=== PATIENT | female | born 1930 | race Caucasian/White ===

== ENCOUNTER 2017-04-08 09:23 | Day surgery (SDC) | payer OTHER, MEDICARE ==
[2017-04-04 14:24] VITALS: BMI 28.3
[~2017-04-08 09:23] MED LIST: TOBRA 0.3%/DEXAMETH 0.1% OPHTHALMIC SUSP 2.5 ML BTL TP ONE
[2017-04-08] MEDS ORDERED: PHENYLEPHRINE 2.5% OPHTH SOLN 15 ML BOTTLE ONE (09:39)
[2017-04-08] MEDS ORDERED: MOXIFLOXACIN HCL 0.5% OPHTHALMIC 3 ML BOTTLE ONE (09:39)
[2017-04-08] MEDS ORDERED: TROPICAMIDE 1% OPHTH SOLN 15 ML BOTTLE ONE (09:39)
[2017-04-08] MEDS ORDERED: CYCLOPENTOLATE HCL 1% OPHTH SOLN 2 ML BOTTLE ONE (09:39)
[2017-04-08] MEDS: CYCLOPENTOLATE HCL 1% OPHTH SOLN 2 ML BOTTLE OP SCH ×2 (09:50→10:00)
[2017-04-08] MEDS: TROPICAMIDE 1% OPHTH SOLN 15 ML BOTTLE OP SCH ×2 (09:50→10:00)
[2017-04-08] MEDS: MOXIFLOXACIN HCL 0.5% OPHTHALMIC 3 ML BOTTLE OP SCH ×2 (09:50→10:00)
[2017-04-08] MEDS: PHENYLEPHRINE 2.5% OPHTH SOLN 15 ML BOTTLE OP SCH ×2 (09:50→10:00)
[2017-04-08 09:57] VITALS: TEMP 98.1
[2017-04-08] MEDS ORDERED: MIDAZOLAM HCL 2 MG/2 ML SINGLE DOSE VIAL ONE ×2 (10:06→10:55)
[2017-04-08] MEDS ORDERED: TETRACAINE 0.5% OPHTH SOLN 2 ML BOTTLE OD ONE (10:48)
[2017-04-08] MEDS ORDERED: POVIDONE-IODINE 5% OPHTHALMIC PREP 30 ML SOLUTION OD ONE (10:52)
[2017-04-08] MEDS ORDERED: BSS (NA/CA/MG/K) BALANCED SALT SOLUTION OPHTH SOLN 15 ML BOTTLE IO ONE (10:57)
[2017-04-08] MEDS ORDERED: LIDOCAINE HCL 1% PRESERVATIVE FREE - 30ML VIAL IO ONE (10:58)
[2017-04-08] MEDS ORDERED: TRYPAN BLUE 0.5 ML DISP.SYRIN IO ONE (10:58)
[2017-04-08] MEDS ORDERED: EPINEPHrine/PF 1 MG/1 ML (1:1,000) AMPULE SQ ONE (11:02)
[2017-04-08] MEDS ORDERED: CHONDROITIN SU A/HYALUR SOD 1 KIT IO ONE (11:02)
[2017-04-08] MEDS ORDERED: ONDANSETRON 4 MG/2 ML VIAL IVPUSH PRN (11:14)
[2017-04-08] MEDS ORDERED: ACETAMINOPHEN 325 MG TABLET (FP) PO PRN (11:14)
[2017-04-08] MEDS ORDERED: TOBRA 0.3%/DEXAMETH 0.1% OPHTHALMIC SUSP 2.5 ML BTL TP ONE (11:29)
[2017-04-08 14:42] VITALS: BP 139/48; PULSE 64
--- NOTE | 2017-04-08 16:52 | OP ---
DATE OF OPERATION: 04/08/2017 SURGEON: Stalin Ring MD PREOPERATIVE DIAGNOSIS: Cataract, right eye. OPERATION: Phacoemulsification and intraocular lens implantation, right eye. POSTOPERATIVE DIAGNOSIS: Cataract, right eye. ANESTHESIA: Topical. COMPLICATIONS: None. BLOOD LOSS: None. SPECIMEN: None. BRIEF HISTORY: The patient is an 86-year-old woman with a past medical history of hypertension, who presented with decreased vision in the right eye down to hand motion due to a 3+ nuclear sclerotic lens with dense anterior cortical changes. After the risks, benefits, and alternatives to cataract surgery were discussed with the patient, she consented to surgery for the right eye. DESCRIPTION OF PROCEDURE: The patient was brought to the operating room and prepped and draped in the usual sterile fashion, and an eyelid speculum was inserted in the right eye. A paracentesis was made, and the anterior chamber was inflated with nonpreserved lidocaine. This was followed by injection of air, trypan blue, and Viscoat due to the dense anterior cortical changes inhibiting the red reflex. At this point, also due to a moderately dilating pupil and the density of the lens, it was determined to place 5 iris hooks around the pupil in order to stabilize the iris and enlarge the pupil. A groove was made in the temporal clear cornea which was tunneled forward with a crescent blade. The anterior chamber was entered with a 2.75 keratome. The cystotome was used to make an incision in the center of the capsule, and a continuous curvilinear capsulorrhexis was created. The lens was hydrodissected until it was found to rotate freely within the capsular bag. Phacoemulsification was then used to remove the lens in its entirety. Irrigation and aspiration were used to remove residual cortical material. The anterior chamber and capsular bag were reinflated with Provisc, and a 23.5-diopter [id number] AcrySof intraocular lens was injected into the capsular bag using the [place] injector. The lens was dialed into place using a Sins[place] hook. Irrigation and aspiration were used to remove residual Viscoelastic. The wound was stromally hydrated until it was found to be watertight. The five previously placed iris hooks were removed without incident. The wound was rechecked and found to be watertight and the eye was at an appropriate pressure. The eyelid speculum was removed from the eye, and TobraDex drops and a clear shield were placed over the right eye. The patient was transferred to the recovery room in stable condition and will follow up tomorrow. STALIN RING M.D. [id number]
== END 2017-04-08 12:30 | disposition home or self-care (01) ==
LOC: JASU-SURG 09:23
PROVIDERS: ATTEND Ophthalmology
PROC: 08RJ3JZ Replacement of Right Lens with Synthetic Substitute, Percutaneous Approach (ICD-10-PCS; principal; 2017-04-08 11:00)
DX: H25.11 Age-related nuclear cataract, right eye (principal); H57.8 Other specified disorders of eye and adnexa

== ENCOUNTER 2019-02-21 02:37 | Inpatient (IN) | payer MEDICARE, OTHER ==
[2019-02-21] MEDS ORDERED: NITROGLYCERIN 50MG/D5W 250ML 50 MG/250 ML ML IVPB SCH (02:45)
[2019-02-21] MEDS ORDERED: ALBUTEROL SO4 2.5/IPRATROPIUM 0.5 INH SOL 3 ML VIAL.NEB. NEB ONE (02:46)
[2019-02-21] MEDS ORDERED: NITROGLYCERIN 25MG/D5W 250ML 25 MG/250 ML ML IVPB ONE (03:02)
[2019-02-21 03:06] LABS: VENOUS PC02 61.6 mmHg (38-52)
[2019-02-21 03:07] LABS: BASO % 0.5 % (0-2.0); HEMATOCRIT 40.2 % (32.4-45.2); HEMOGLOBIN 12.9 GM/dL (10.7-15.3); LYMPH % 18.7 % (8-40); MCH 31.6 pg (25.7-33.7); MCHC 31.9 g/dl (32.0-36.0); MEAN CELL VOLUME 99.1 fl (80-96); MEAN PLT VOLUME 9.7 fl (7.5-11.1); MONO % 4.5 % (3.8-10.2); NEUT % 75.3 % (42.8-82.8); PLATELET COUNT 255 K/MM3 (134-434); RBC 4.06 M/mm3 (3.60-5.2); RDW 16.8 % (11.6-15.6)
[2019-02-21 03:08] LABS: VENOUS PO2 < 49 mmHg (28-48)
[2019-02-21 03:10] LABS: VENOUS PH 7.19 (7.31-7.41)
--- NOTE | 2019-02-21 03:16 | PDOC ---
History of Present Illness - General Chief Complaint: Respiratory Distress Stated Complaint: DIFFICULTY BREATHING Time Seen by Provider: 02/21/19 02:40 - History of Present Illness Initial Comments: 88 year old female with history of HTN and medical non-compliance presenting with severe respiratory difficulty of sudden onset starting a few hours before presentation. Per EMS she was severely tachypnic and hypoxic with blood pressures in the 180s/120s. at bedside denied that she was recently febrile, coughing, complaining of chest pain, or symptomatic otherwise. He did admit that she is not always compliant with medications and "doesn't like doctors" so she has been rescheduling appointments with her physicians with high frequency. Past History - Past Medical History Allergies/Adverse Reactions: Allergies Allergy/AdvReac Type Severity Reaction Status Date / Time No Known Allergies Allergy Verified 02/21/19 02:42 Home Medications: Ambulatory Orders Apixaban [Eliquis -] 5 mg PO BID #1 tablet 10/21/13 Diltiazem Cd [Cardizem Cd -] 120 mg PO DAILY #0 cap.cd.24h 10/21/13 Metoprolol Succinate [Toprol XL -] 100 mg PO DAILY #1 10/21/13 Simvastatin [Zocor] 20 mg PO HS #1 10/21/13 Levothyroxine Sodium [Synthroid] 125 mcg PO DAILY 10/20/14 Aspirin [ASA -] 81 mg PO DAILY 05/13/15 Losartan/Hydrochlorothiazide [Hyzaar 100-12.5 Tablet] 1 each PO DAILY 05/13/15 Isosorbide Mononitrate [Imdur -] 30 mg PO DAILY 04/04/17 Cardiac Disorders: Yes (afib) CVA: Yes (2003) COPD: No HTN: Yes Hypercholesterolemia: Yes Thyroid Disease: Yes - Surgical History Orthopedic Surgery: Yes (HIP REPLACEMENT , left 2006) - Immunization History Immunization Up to Date: Yes - Psycho Social/Smoking Cessation Hx Smoking History: Unknown if ever smoked Have you smoked in the past 12 months: No If you are a former smoker, when did you quit?: 60yrs ago Hx Alcohol Use: No Drug/Substance Use Hx: No Substance Use Type: None Hx Substance Use Treatment: No Review of Systems - Review of Systems Constitutional: Yes: Diaphoresis. No: Chills, Fever, Loss of Appetite HEENTM: No: Blurred Vision, Tearing Respiratory: Yes: Shortness of Breath, SOB at Rest. No: Cough, Productive cough Cardiac (ROS): No: Chest Pain, Irregular Heart Rate, Palpitations, Chest Tightness ABD/GI: No: Diarrhea, Nausea, Vomiting : No: Burning, Dysuria, Discharge Musculoskeletal: No: Joint Swelling, Muscle Pain, Muscle Weakness Integumentary: No: Bruising, Erythema, Flushing, Lesions Neurological: No: Headache, Numbness, Paresthesia Hematologic/Lymphatic: No: Anemia, Blood Clots, Easy Bleeding *Physical Exam - Vital Signs Last Vital Signs Temp Pulse Resp BP Pulse Ox 124 H 30 H 159/128 H 95 02/21/19 02:40 02/21/19 02:40 02/21/19 02:40 02/21/19 03:04 - Physical Exam General Appearance: Yes: Nourished, Appropriately Dressed, Apparent Distress, Moderate Distress HEENT: positive: EOMI, NETTA, Normal ENT Inspection Neck: positive: Trachea midline, Normal Thyroid, Supple. negative: Tender, Rigid Respiratory/Chest: positive: Respiratory Distress, Accessory Muscle Use, Labored Respiration, Rapid RR, Decreased Breath Sounds, Rhonchi, Wheezing. negative: Chest Tender, Lungs Clear, Normal Breath Sounds (severely diminished breath sounds bilaterally with coarse quality when audible) Cardiovascular: negative: Regular Rhythm, Regular Rate Gastrointestinal/Abdominal: positive: Normal Bowel Sounds, Flat, Soft. negative : Tender Lymphatic: negative: Adenopathy, Tenderness Musculoskeletal: positive: Normal Inspection. negative: Decreased Range of Motion Extremity: positive: Normal Capillary Refill, Normal Range of Motion, Coldness, Pedal Edema, Swelling. negative: Normal Inspection Integumentary: positive: Normal Color, Warm, Clammy, Diaphoresis. negative: Dry Neurologic: positive: Fully Oriented, Alert, Normal Mood/Affect, Normal Response , Motor Strength 5/5 ED Treatment Course - LABORATORY CBC & Chemistry Diagram: 02/21/19 02:50 02/21/19 02:50 - ADDITIONAL ORDERS Additional order review: Laboratory Results 02/21/19 02:53 VBG pH 7.19 L* POC VBG pCO2 61.6 H POC VBG pO2 < 49 H VBG HCO3 22.7 L VBG O2 Sat (Mary) 34.2 L VBG Base Excess -6.1 L - RADIOLOGY Radiology Studies Ordered: Category Date Time Status CHEST X-RAY PORTABLE* [RAD] Stat Radiology 02/21/19 02:41 Ordered Medical Decision Making - Medical Decision Making 88 year old female with history of HTN and medicla non-compliance presenting with respiratory distress and severely elevated diastolic pressure to 120s. Constricted and rhonchorus airwaysb bilaterally concenring for fluid overlaod corroborated by chest XR and labs ( [phone] [id number]). Patient placed on nitro drip and bipap with quick turn around. oth were DC'd as pressues and respiratory status improved greatly. Although there was no fever, there could have been an obscured infiltrate in the right lung so 1 g Ceftriaxone and 500 of azithromycin were give. Patient admitted in stable condition to tele floor. 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
[2019-02-21 03:20] LABS: INR 1.03 (0.83-1.09); PROTHROMBIN TIME (PATIENT) 12.2 SEC (9.7-13.0)
[2019-02-21 03:35] LABS: ALBUMIN 3.7 g/dl (3.4-5.0); BILIRUBIN,TOTAL 0.9 mg/dL (0.2-1); BLOOD UREA NITROGEN 22.4 mg/dL (7-18); CALCIUM 9.1 mg/dL (8.5-10.1); CREATININE 1.2 mg/dL (0.55-1.3); POTASSIUM 3.9 mmol/L (3.5-5.1); TOT PROT 7.2 g/dl (6.4-8.2)
--- NOTE | 2019-02-21 03:58 | PDOC ---
Attending Attestation - Resident Resident Name: Milady Johnson - ED Attending Attestation I have performed the following: I have examined & evaluated the patient, The case was reviewed & discussed with the resident, I agree w/resident's findings & plan, Exceptions are as noted - HPI HPI: 02/21/19 03:55 88 F with h/o paroxysmal atrial fibrillation on anticoagulation, HTN, hypercholesterolemia, cerebrovascular disease (no residual deficit), hypothyroidism, presenting to ED with SOB. Pt states that she has felt SOB for several days, but it acutely worsened today. Pt denies F/C. Endorses intermittent chest pain. Pt states that her legs are both very swollen, but this has been progressive over months. - Physicial Exam PE: 02/21/19 03:56 "GENERAL: Awake, alert, and fully oriented, in moderate respiratory distress. HEAD: No signs of trauma EYES: PERRLA, EOMI, sclera anicteric, conjunctiva clear ENT: Auricles normal inspection, hearing grossly normal, nares patent, oropharynx clear without exudates. Moist mucosa NECK: Nontender, no stepoffs, Normal ROM, supple, no lymphadenopathy, JVD, or masses LUNGS: Diminished breath sounds bilaterally HEART: Regular rate and rhythm, normal S1 and S2, no murmurs, rubs or gallops ABDOMEN: Soft, nontender, normoactive bowel sounds. No guarding, no rebound. No masses EXTREMITIES: +2 PE BLE, No clubbing or cyanosis. No cords, erythema, or tenderness NEUROLOGICAL: Cranial nerves II through XII intact. 5/5 strength and sensation in all extremities, Normal speech, normal gait, normal cerebellar function SKIN: Warm, Dry, normal turgor, no rashes or lesions noted. - Critical Care Time Total Critical Care Time: 60 Critical Care Statement: The care of this patient involved high complexity decision making to prevent further life threatening deterioration of the patient 's condition and/or to evaluate & treat vital organ system(s) failure or risk of failure. - Medical Decision Making 02/21/19 03:57 88 F with respiratory distress. Exam notable for diminished breath sounds and bilateral LE edema. Suspect CHF. - Labs, trop, BNP - CXR - Nitro gtt - BiPAP - Lasix 02/21/19 05:07 CXR with pulmonary congestion Pt reassessed - now feels significantly better BiPAP and nitro gtt DC'ed Will empirically cover for CAP with azithro/ceftriaxone
[2019-02-21 04:09] LABS: N-TERMINAL BNP 4608.9 pg/ml (5-450)
[2019-02-21] MEDS ORDERED: FUROSEMIDE 40 MG/4 ML INJECTABLE VIAL IVPUSH ONE (04:59)
[2019-02-21] MEDS ORDERED: FUROSEMIDE 40 MG/4 ML INJECTABLE VIAL ONE (05:00)
[2019-02-21] MEDS ORDERED: AZITHROMYCIN IVPB 500 MG in DEXTROSE 5%-WATER - 250 ML IVPB ONE (05:48)
[2019-02-21] MEDS ORDERED: CEFTRIAXONE 1,000 MG in DEXTROSE 5%-WATER - 50 ML IVPB ONE (05:48)
[2019-02-21 06:00] LABS: VENOUS PC02 48.1 mmHg (38-52); VENOUS PH 7.33 (7.31-7.41)
[2019-02-21] MEDS ORDERED: AZITHROMYCIN IVPB 500 MG/250 ML BAG IVPB ONE (06:02)
[2019-02-21] MEDS ORDERED: CEFTRIAXONE 1 GM/50 ML BAG ONE (06:02)
[2019-02-21 06:04] LABS: VENOUS PO2 < 49 mmHg (28-48)
[2019-02-21 07:37] LABS: EPI CELLS 1.6 /HPF (0-5/HPF); HYALINE CASTS 2 /lpf (0-8); URINE APPEARANCE CLEAR; URINE BACTERIA 15.6 /hpf (NEGATIVE); URINE BILIRUBIN NEGATIVE (NEGATIVE); URINE COLOR YELLOW; URINE GLUCOSE (UA) NEGATIVE (NEGATIVE); URINE KETONE NEGATIVE (NEGATIVE); URINE LEUK ESTERASE 1+ (NEGATIVE); URINE NITRITE NEGATIVE (NEGATIVE); URINE PROTEIN 1+ (NEGATIVE); URINE RBC 2 /hpf (0-4); URINE UROBILINOGEN 0.2 mg/dL (0.2-1.0); URINE WBC 11 /hpf (0-5)
[2019-02-21] MEDS ORDERED: FAMOTIDINE 20 MG/50 ML IVPB 20 MG/50 ML MG IVPB ONE ×3 (08:11→11:02)
--- NOTE | 2019-02-21 08:22 | HP ---
Admitting History and Physical - Primary Care Physician PCP: Rhonda Gupta - Admission Chief Complaint: CHF ACUTE WITH MALIGNANT HYPERTENSION History of Present Illness: PATIENT REPORTS INCREASED DYSPNEA WITH LEG EDEMA OVER THE PAST 2 DAYS, IN E.D. HER DIASTOLIC BP WAS GREATER THAN 120MMHG DENIES CP/HEADACHE/DIZZINESS. 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 Cardiovascular: Yes: HTN, Hyperlipdemia Endocrine: Yes: Hypothyroidism - Past Surgical History Past Surgical History: Yes: Carotid Endarterectomy (left) - Smoking History Smoking history: Unknown if ever smoked Have you smoked in the past 12 months: No If you are a former smoker, when did you quit?: 60yrs ago - Alcohol/Substance Use Hx Alcohol Use: No - Social History History of Recent Travel: No Home Medications - Allergies Allergies/Adverse Reactions: Allergies Allergy/AdvReac Type Severity Reaction Status Date / Time No Known Allergies Allergy Verified 02/21/19 02:42 - Home Medications Home Medications: Ambulatory Orders Apixaban [Eliquis -] 5 mg PO BID #1 tablet 10/21/13 Diltiazem Cd [Cardizem Cd -] 120 mg PO DAILY #0 cap.cd.24h 10/21/13 Metoprolol Succinate [Toprol XL -] 100 mg PO DAILY #1 10/21/13 Simvastatin [Zocor] 20 mg PO HS #1 10/21/13 Levothyroxine Sodium [Synthroid] 125 mcg PO DAILY 10/20/14 Aspirin [ASA -] 81 mg PO DAILY 05/13/15 Losartan/Hydrochlorothiazide [Hyzaar 100-12.5 Tablet] 1 each PO DAILY 05/13/15 Isosorbide Mononitrate [Imdur -] 30 mg PO DAILY 04/04/17 Review of Systems - Review of Systems Constitutional: reports: Weakness Eyes: reports: No Symptoms HENT: reports: No Symptoms Neck: reports: No Symptoms Cardiovascular: reports: Shortness of Breath Respiratory: reports: SOB Gastrointestinal: reports: No Symptoms Genitourinary: reports: No Symptoms Musculoskeletal: reports: No Symptoms Integumentary: reports: No Symptoms Neurological: reports: No Symptoms Endocrine: reports: No Symptoms Hematology/Lymphatic: reports: Other Psychiatric: reports: No Symptoms Physical Examination Vital Signs: Vital Signs Temperature Pulse Rate 107 H 02/21/19 05:20 Respiratory Rate 20 02/21/19 05:20 Blood Pressure 137/98 02/21/19 05:20 O2 Sat by Pulse Oximetry (%) 94 L 02/21/19 06:01 Constitutional: Yes: Mild Distress Eyes: Yes: WNL HENT: Yes: WNL Neck: Yes: WNL Cardiovascular: Yes: Pulse Irregular Respiratory: Yes: Diminished Gastrointestinal: Yes: Soft, Distention Musculoskeletal: Yes: Muscle Weakness Extremities: Yes: Erythema Edema: Yes Peripheral Pulses WNL: Yes Wound/Incision: Yes: Open to air Neurological: Yes: Other ...Motor Strength: LLE, RLE Psychiatric: Yes: WNL Labs: CBC, BMP 02/21/19 02:50 02/21/19 02:50 Imaging - Results Chest X-ray: Report Reviewed Problem List - Problems (1) Malignant hypertension Code(s): I10 - ESSENTIAL (PRIMARY) HYPERTENSION (2) Edema Code(s): R60.9 - EDEMA, UNSPECIFIED (3) Stasis dermatitis Code(s): I87.2 - VENOUS INSUFFICIENCY (CHRONIC) (PERIPHERAL) (4) Pneumonia, community acquired Code(s): J18.9 - PNEUMONIA, UNSPECIFIED ORGANISM (5) 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
[2019-02-21] MEDS ORDERED: APIXABAN 5 MG TABLET ONE ×2 (09:59→22:16)
[2019-02-21] MEDS ORDERED: ASPIRIN COATED 81 MG TABLET.EC ONE (09:59)
[2019-02-21] MEDS: APIXABAN 5 MG TABLET PO SCH ×2 (11:09→22:28)
[2019-02-21] MEDS: FUROSEMIDE 40 MG/4 ML INJECTABLE VIAL IVPUSH SCH (11:09)
[2019-02-21] MEDS: ASPIRIN COATED 81 MG TABLET.EC PO SCH (11:09)
[2019-02-21] MEDS: LOSARTAN 50MG/HCTZ 12.5MG 1 TAB (FP) PO SCH (11:09)
[2019-02-21] MEDS ORDERED: ALBUTEROL SO4 2.5/IPRATROPIUM 0.5 INH SOL 3 ML VIAL.NEB. NEB PRN (14:07)
[2019-02-21] MEDS: NITROGLYCERIN 50MG/D5W 250ML 50 MG/250 ML ML IVPB SCH (14:40)
--- NOTE | 2019-02-21 14:51 | CON.PULM ---
Consult Consult Specialty:: PULM/CCM Referred by:: PAULA Reason for Consultation:: SOB - History of Present Illness Chief Complaint: SOB History of Present Illness: 88 F, history of paroxysmal atrial fibrillation on anticoagulation, HTN, hypercholesterolemia, cerebrovascular disease (no residual deficit), and hypothyroidism. Admitted via the ER due to progressive SOB and intermittent chest pain for the past several days. She also reports biltateral leg swelling. No travel history or sick contacts. No fever or chills. No hemoptysis or night sweats. ABG revealed acute hypercapnea and she was placed on NIPPV support. She is currently on NC O2 in NAD. CXR: bilateral infiltrates more dense on the RLL compared to the left. 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 Cardio/Vascular: Yes: HTN, Hyperlipdemia Endocrine: Yes: Hypothyroidism - Past Surgical History Past Surgical History: Yes: Carotid Endarterectomy (left) - Alcohol/Substance Use Hx Alcohol Use: No - Smoking History Smoking history: Unknown if ever smoked Have you smoked in the past 12 months: No If you are a former smoker, when did you quit?: 60yrs ago - Social History History of Recent Travel: No Home Medications - Allergies Allergies/Adverse Reactions: Allergies Allergy/AdvReac Type Severity Reaction Status Date / Time No Known Allergies Allergy Verified 02/21/19 02:42 - Home Medications Home Medications: Ambulatory Orders Apixaban [Eliquis -] 5 mg PO BID #1 tablet 10/21/13 Diltiazem Cd [Cardizem Cd -] 120 mg PO DAILY #0 cap.cd.24h 10/21/13 Metoprolol Succinate [Toprol XL -] 100 mg PO DAILY #1 10/21/13 Simvastatin [Zocor] 20 mg PO HS #1 10/21/13 Levothyroxine Sodium [Synthroid] 125 mcg PO DAILY 10/20/14 Aspirin [ASA -] 81 mg PO DAILY 05/13/15 Losartan/Hydrochlorothiazide [Hyzaar 100-12.5 Tablet] 1 each PO DAILY 05/13/15 Isosorbide Mononitrate [Imdur -] 30 mg PO DAILY 04/04/17 Review of Systems - Review of Systems Constitutional: denies: Chills, Fever, Night Sweats Eyes: reports: No Symptoms HENT: reports: No Symptoms Neck: reports: No Symptoms Cardiovascular: reports: Chest Pain, Edema, Shortness of Breath. denies: Palpitations Respiratory: reports: Cough, Orthopnea, PND. denies: Hemoptysis, Snoring, SOB, SOB on Exertion, Wheezing Gastrointestinal: reports: No Symptoms Genitourinary: reports: No Symptoms Breasts: reports: No Symptoms Reported Musculoskeletal: reports: No Symptoms Integumentary: reports: No Symptoms Neurological: reports: No Symptoms Endocrine: reports: No Symptoms Hematology/Lymphatic: reports: No Symptoms Psychiatric: reports: No Symptoms Physical Exam Vital Sings: Vital Signs Temperature Pulse Rate 107 H 02/21/19 05:20 Respiratory Rate 20 02/21/19 05:20 Blood Pressure 137/98 02/21/19 05:20 O2 Sat by Pulse Oximetry (%) 98 02/21/19 11:45 Constitutional: Yes: Mild Distress, Obese Eyes: Yes: Conjunctiva Clear, EOM Intact HENT: Yes: Atraumatic, Normocephalic Neck: Yes: Supple, Trachea Midline Cardiovascular: Yes: Tachycardia Respiratory: Yes: Cough, Diminished, On Nasal O2, Rales, Rhonchi, SOB, SOB on Exertion, Tachypnea. 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 Dr Wolf
--- NOTE | 2019-02-21 21:58 | EKG ---
Test Reason : Blood Pressure : / mmHG Vent. Rate : 110 BPM Atrial Rate : 127 BPM P-R Int : 000 ms QRS Dur : 076 ms QT Int : 348 ms P-R-T Axes : 000 014 185 degrees QTc Int : 470 ms ATRIAL FIBRILLATION WITH RAPID VENTRICULAR RESPONSE T WAVE ABNORMALITY, CONSIDER LATERAL ISCHEMIA ABNORMAL ECG WHEN COMPARED WITH ECG OF 21-FEB-2019 02:53, ATRIAL FIBRILLATION HAS REPLACED ATRIAL FLUTTER T WAVE INVERSION NOW EVIDENT IN ANTERIOR LEADS Confirmed by Shannon Medina ([id number]) on 02/21/2019 9:57:43 PM Referred By: Confirmed By:Shannon Medina
--- NOTE | 2019-02-21 21:58 | EKG ---
Test Reason : Blood Pressure : / mmHG Vent. Rate : 118 BPM Atrial Rate : 394 BPM P-R Int : 000 ms QRS Dur : 072 ms QT Int : 312 ms P-R-T Axes : 000 016 108 degrees QTc Int : 437 ms ATRIAL FLUTTER WITH VARIABLE A-V BLOCK NONSPECIFIC T WAVE ABNORMALITY ABNORMAL ECG WHEN COMPARED WITH ECG OF 13-MAY-2015 11:18, ATRIAL FLUTTER HAS REPLACED SINUS RHYTHM VENT. RATE HAS INCREASED BY 48 BPM CRITERIA FOR INFERIOR INFARCT ARE NO LONGER PRESENT NONSPECIFIC T WAVE ABNORMALITY NOW EVIDENT IN LATERAL LEADS Confirmed by Shannon Medina ([id number]) on 02/21/2019 9:58:35 PM Referred By: Confirmed By:Shannon Medina
[2019-02-21] MEDS ORDERED: ATORVASTATIN CA 40 MG TABLET (FP) ONE (22:16)
[2019-02-21] MEDS: ATORVASTATIN CA 40 MG TABLET (FP) PO SCH (22:28)
[2019-02-22] MEDS ORDERED: LORazepam 2 MG/ML SDV VIAL IVPUSH ONE
[2019-02-22] MEDS ORDERED: LORazepam 2 MG/ML SDV VIAL ONE (00:07)
[2019-02-22 07:56] LABS: ALBUMIN 3.6 g/dl (3.4-5.0); BLOOD UREA NITROGEN 21.1 mg/dL (7-18); CALCIUM 9.3 mg/dL (8.5-10.1); POTASSIUM 3.7 mmol/L (3.5-5.1); TOT PROT 6.8 g/dl (6.4-8.2)
[2019-02-22 08:07] LABS: HEMATOCRIT 38.6 % (32.4-45.2); HEMOGLOBIN 12.6 GM/dL (10.7-15.3); MCH 31.7 pg (25.7-33.7); MCHC 32.8 g/dl (32.0-36.0); MEAN CELL VOLUME 96.8 fl (80-96); MEAN PLT VOLUME 9.9 fl (7.5-11.1); PLATELET COUNT 245 K/MM3 (134-434); RBC 3.99 M/mm3 (3.60-5.2); RDW 16.2 % (11.6-15.6); WHITE BLOOD COUNT 11.8 K/mm3 (4.0-10.0)
[2019-02-22] MEDS ORDERED: PT OWN MED DRAWER 7, Y5N ONE (08:55)
[2019-02-22] MEDS: LEVOTHYROXINE NA 125 MCG TABLET (FP) PO SCH (09:00)
--- NOTE | 2019-02-22 09:52 | CON.NEURO ---
Consult Consult Specialty:: Charleen Referred by:: Alonso Reason for Consultation:: Fall and weakness - History of Present Illness History of Present Illness: this is a very pleasant 88-year-old right-handed female patient with present medical history significant for: Coronary artery disease, osteoarthritis, hypertension, cardiac arrhythmia, on anticoagulation, mild dementia, history of prior CVA with no residual. Patient presents to the hospital with chief complaint of shortness of breath. Patient was found to be in hypertension urgency patient was kept in the emergency room to be admitted to cardiac 4. Patient was seen by sound equipment mechanic. Patient had an EKG the emergency room. Neurologically patient was noted to be with increasing difficulty with walking and frequent falls. CAT scan of the head revealed mild evidence of brain atrophy with ischemic oil diagnoses with no evidence of acute bleed. Patient was stabilized in the emergency room. I evaluated the patient in the emergency room this morning at the request of her primary care physician. Patient herself is very poor historian I was not able to get any history from the patient patient was sleepingwalk her up most of the history was obtained from the emergency room chart and the consultation chart. In the emergency room patient with no confusion no seizure-like activity no complain of any headache. 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 Cardio/Vascular: Yes: HTN, Hyperlipdemia Endocrine: Yes: Hypothyroidism - Past Surgical History Past Surgical History: Yes: Carotid Endarterectomy (left) - Alcohol/Substance Use Hx Alcohol Use: No - Smoking History Smoking history: Unknown if ever smoked Have you smoked in the past 12 months: No If you are a former smoker, when did you quit?: 60yrs ago - Social History History of Recent Travel: No Home Medications - Allergies Allergies/Adverse Reactions: Allergies Allergy/AdvReac Type Severity Reaction Status Date / Time No Known Allergies Allergy Verified 02/21/19 02:42 - Home Medications Home Medications: Ambulatory Orders Apixaban [Eliquis -] 5 mg PO BID #1 tablet 10/21/13 Diltiazem Cd [Cardizem Cd -] 120 mg PO DAILY #0 cap.cd.24h 10/21/13 Metoprolol Succinate [Toprol XL -] 100 mg PO DAILY #1 10/21/13 Simvastatin [Zocor] 20 mg PO HS #1 10/21/13 Levothyroxine Sodium [Synthroid] 125 mcg PO DAILY 10/20/14 Aspirin [ASA -] 81 mg PO DAILY 05/13/15 Losartan/Hydrochlorothiazide [Hyzaar 100-12.5 Tablet] 1 each PO DAILY 05/13/15 Isosorbide Mononitrate [Imdur -] 30 mg PO DAILY 04/04/17 Family Medical History Family History: Unable to Obtain, Unremarkable Review of Systems Unable to obtain ROS, reason: unable to obtain due to i Physical Exam-Neuro Vital Signs: Vital Signs Temperature 98 F 02/21/19 17:33 Pulse Rate 74 02/21/19 17:33 Respiratory Rate 22 H 02/21/19 17:33 Blood Pressure 160/82 02/21/19 17:33 O2 Sat by Pulse Oximetry (%) 97 02/22/19 00:19 Labs: CBC, BMP 02/22/19 06:20 02/22/19 06:20 INR, PTT INR 1.03 (0.83-1.09) 02/21/19 02:50 - Neuro Exam Level Of Consciousness: Yes: Alert, Oriented to Person Eyes: Yes: PERRLA Speech: Garbled Dominant Hand: Right Cranial Nerves II-XII Intact: Yes Gag: Present DTR's: 1+ Left Bicep, 1+ Right Bicep, 1+ Left Brachioradialis, 1+ Right Brachioradialis Response to light touch: Normal Response to pain prick: Normal Response to temperature: Normal Response to vibration: Abnormal Motor Strength: 3/5: Left Arm, Right Arm, Left Leg, Right Leg Gait: Deferred Imaging - Results Cat Scan: Image Reviewed Problem List - Problems (1) Stroke Assessment/Plan: no evidence of acute OFFICE WORKER pathology. questionable baseline mental status Stroke prevention Cardiac arrhythmia Gait dysfunction multifactorial 1. Fall precautions. 2. Obtain an MRI of the brain without contrast. 3. CAT scan of the lumbosacral spine with no contrast. 4. Continue the combination of the elliqus and aspirin. 5. Physical therapy. 6. Check B12. 7. Mild dementia workup Thank you very much for referring this patient for neurological consultation we' ll follow the patient during the admission Cheryl Villaseñor M.D. Code(s): I63.9 - CEREBRAL INFARCTION, UNSPECIFIED
--- NOTE | 2019-02-22 09:55 | PN ---
Progress Note (short form) - Note Progress Note: ID CONSULT DICTATED 88 yo female admitted yesterday with sob and HTN to Ed seen by pulmonary started on rocephin/zithromax for possible pneumonia being treated for CHF over the course of her admission (still in ER) she has become more confused on exam has a palpable bladder and venous stasis changes of the legs no fevers awake, conversing slowly not sure where she is CHF cannoat r/o underlying pneumonia confusion- may be secondary to ER? chest ctatypical cxray urinary antigens bladder scanto r/o urinary retntion cultures pending d/w cardiology d/w primary service neurology consult- pending Problem List - Problems (1) CHF (congestive heart failure) Code(s): I50.9 - HEART FAILURE, UNSPECIFIED (2) HTN (hypertension) Code(s): I10 - ESSENTIAL (PRIMARY) HYPERTENSION (3) Pneumonia Code(s): J18.9 - PNEUMONIA, UNSPECIFIED ORGANISM (4) Stasis dermatitis Code(s): I87.2 - VENOUS INSUFFICIENCY (CHRONIC) (PERIPHERAL) (5) Confusion Code(s): R41.0 - DISORIENTATION, UNSPECIFIED
--- NOTE | 2019-02-22 11:55 | CONS ---
DATE OF CONSULTATION: DATE OF DICTATION: 02/22/2019 INFECTIOUS DISEASE CONSULTATION HISTORY OF PRESENT ILLNESS: This is an 88-year-old female, she was admitted on the . She came to the emergency room from home complaining of sudden onset of shortness of breath. She was severely tachypneic and hypoxic. She had very elevated blood pressures. Her at the bedside noted this had started very acutely she been taking her medications properly. She has been rescheduling appointments and has not seen her physicians recently. There is no history of fevers, chills , nausea, vomiting, diarrhea, or dysuria. She was seen by the primary doctor, pulmonary. She was started on ceftriaxone and Zithromax for possible pneumonia. She had an abnormal chest x-ray with a diffuse right-sided infiltrate. She was treated with diuretics as well. This morning she is very sleepy. Originally she was unresponsive, now she is awake. She does not know where she is. She has been in the emergency room all night, but she is responsive and conversant. ALLERGIES: No known drug allergies. MEDICATION: At home include apixaban, diltiazem, metoprolol, simvastatin, Synthroid, aspirin, losartan, hydrochlorothiazide, and Imdur. PAST MEDICAL HISTORY: Notable for atrial fibrillation. She is status post CVA in 2003. Hypertension, hypercholesterolemia, and thyroid disease. She has had a left hip replacement. SOCIAL HISTORY: She is , she lives at home with her . She stopped smoking 60 years ago. There is no history of any substance use or recent travel. REVIEW OF SYSTEMS: As per HPI. PHYSICAL EXAMINATION: Vital Signs: Her temperature is 98, pulse 74, blood pressure 160/82, respiratory rate 22, she is saturating 97% on 2 L. HEENT: Normocephalic. Eyes are anicteric. Neck: Supple. Heart: Regular rate and rhythm. Lungs: Diminished breath sounds at the bases. Abdomen: Soft, distended. Question whether I can palpate her bladder. Extremities: Bilateral venous stasis changes with some edema and mild erythema. She has 2+ pulses bilaterally. LABORATORY: Notable for white count of 11.8, hemoglobin 12.6, platelets 245, INR 1. Her BUN and creatinine are 21 and 1. Elevated lactic acid on admission was 5 now 3.5. LFTs, AST of 57. Urinalysis has 1+ leukocytes with 11 white cells. Blood cultures are negative at 24 hours, and original she had a witnessed fall on her buttock, no head injury. 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 Chest x-ray as stated shows a predominantly right sided infiltrate with a nodular component. IMPRESSION: In summary, this is an 88-year-old woman admitted with shortness of breath and hypertension to the emergency room. Over the course of her admission , she has become more confused. On exam, she has a palpable bladder and venous stasis changes of her legs, no fever. She is awake, conversing slowly, not sure where she is. I would suspect she has congestive heart failure, cannot rule out underlying pneumonia. I suspect her confusion may be secondary to being in the ER. I would suggest we obtain a chest CT, as the chest x-ray was atypical. I would obtain urinary antigens. Cultures are pending and negative to date. Would also bladder scan to rule out urinary retention. Would consider neurology evaluation as well. Case was discussed with cardiology and the primary service. SYLVIA SANTOS M.D. [id number] MTDNomi
[2019-02-22] MEDS: CEFTRIAXONE 1 GM in DEXTROSE 5%-WATER - 50 ML IVPB SCH (12:00)
[2019-02-22] MEDS: AZITHROMYCIN IVPB 250 MG in DEXTROSE 5%-WATER - 250 ML IVPB SCH (12:00)
[2019-02-22] MEDS: LOSARTAN 50MG/HCTZ 12.5MG 1 TAB (FP) PO SCH (12:00)
[2019-02-22] MEDS: ASPIRIN COATED 81 MG TABLET.EC PO SCH (12:00)
[2019-02-22] MEDS: APIXABAN 5 MG TABLET PO SCH (12:00)
[2019-02-22] MEDS: FUROSEMIDE 40 MG/4 ML INJECTABLE VIAL IVPUSH SCH (12:00)
--- NOTE | 2019-02-22 12:11 | PN ---
Progress Note (short form) - Note Progress Note: Awake and conversant but confused. S/P fall last night. Intake & Output 02/19/19 02/20/19 02/21/19 02/22/19 23:59 23:59 23:59 23:59 Weight 170 lb Last Vital Signs Temp Pulse Resp BP Pulse Ox 98 F 74 22 H 160/82 97 02/21/19 17:33 02/21/19 17:33 02/21/19 17:33 02/21/19 17:33 02/22/19 00:19 Active Medications Albuterol/Ipratropium (Duoneb -) 1 amp NEB Q6H PRN PRN Reason: SHORTNESS OF BREATH Apixaban (Eliquis -) 5 mg PO BID [facility] Last Admin: 02/21/19 22:28 Dose: 5 mg Aspirin (Ecotrin -) 81 mg PO DAILY [facility] Last Admin: 02/21/19 11:09 Dose: 81 mg Atorvastatin Calcium (Lipitor -) 40 mg PO HS [facility] Last Admin: 02/21/19 22:28 Dose: 40 mg Diltiazem HCl (Cardizem Cd -) 120 mg PO DAILY [facility] Last Admin: 02/21/19 11:08 Dose: 120 mg Furosemide (Lasix Injection -) 40 mg IVPUSH DAILY [facility] Last Admin: 02/22/19 12:00 Dose: 40 mg HCTZ/Losartan Potassium (Hyzaar -) 2 tab PO DAILY [facility] Last Admin: 02/21/19 11:09 Dose: 2 tab Azithromycin 250 mg/ Dextrose 250 mls @ 250 mls/hr IVPB DAILY [facility] Last Admin: 02/22/19 12:00 Dose: 250 mls/hr Ceftriaxone Sodium 1 gm/ (Dextrose) 50 mls @ 200 mls/hr IVPB DAILY [facility]; Protocol Last Admin: 02/22/19 12:00 Dose: 200 mls/hr Nitroglycerin/Dextrose (Nitroglycerin 50mg/D5w 250ml) 50 mg in 250 mls @ 3 mls/ hr IVPB TITR [facility]; Protocol Last Admin: 02/21/19 14:40 Dose: Not Given Levothyroxine Sodium (Synthroid -) 125 mcg PO DAILY@0700 [facility] Metoprolol Succinate (Toprol Xl -) 100 mg PO DAILY [facility] Last Admin: 02/21/19 11:09 Dose: 100 mg Constitutional: Yes: NAD, confused Eyes: Yes: Conjunctiva Clear, EOM Intact HENT: Yes: Atraumatic, Normocephalic Neck: Yes: Supple, Trachea Midline Cardiovascular: Yes: S1S2 Respiratory: Yes: Cough, Diminished, On Nasal O2, Rales, Rhonchi, SOB. No: Accessory Muscle Use, Stridor, Wheezes ...Inspection: Yes: WNL ...Clubbing: No Gastrointestinal: Yes: Normal Bowel Sounds, Soft, Abdomen, Obese Renal/: Yes: WNL Musculoskeletal: Yes: WNL Extremities: Yes: WNL Edema: Yes Peripheral Pulses WNL: Yes Integumentary: Yes: WNL Neurological: Yes: Alert, Confusion Psychiatric: Yes: Alert Labs: Laboratory Results - last 24 hr 02/21/19 02/22/19 02/22/19 11:43 06:20 06:20 WBC 11.8 H RBC 3.99 Hgb 12.6 Hct 38.6 MCV 96.8 H MCH 31.7 MCHC 32.8 RDW 16.2 H Plt Count 245 MPV 9.9 Sodium 132 L Potassium 3.7 Chloride 93 L Carbon Dioxide 29 Anion Gap 9 BUN 21.1 H Creatinine 1.0 Est GFR (CKD-EPI)AfAm 57.84 Est GFR (CKD-EPI)NonAf 49.91 Random Glucose 124 H Hemoglobin A1c % Lactic Acid 3.5 H* Calcium 9.3 Total Bilirubin 1.0 AST 57 H ALT 37 Alkaline Phosphatase 59 Total Protein 6.8 Albumin 3.6 Triglycerides 128 Cholesterol 237 H Total LDL Cholesterol 134 H HDL Cholesterol 77 H 02/22/19 06:20 WBC RBC Hgb Hct MCV MCH MCHC RDW Plt Count MPV Sodium Potassium Chloride Carbon Dioxide Anion Gap BUN Creatinine Est GFR (CKD-EPI)AfAm Est GFR (CKD-EPI)NonAf Random Glucose Hemoglobin A1c % 5.0 Lactic Acid Calcium Total Bilirubin AST ALT Alkaline Phosphatase Total Protein Albumin Triglycerides Cholesterol Total LDL Cholesterol HDL Cholesterol Problem List - Problems (1) Hypercapnia Code(s): R06.89 - OTHER ABNORMALITIES OF BREATHING (2) Congestive heart failure due to high blood pressure Code(s): I11.0 - HYPERTENSIVE HEART DISEASE WITH HEART FAILURE (3) Edema Code(s): R60.9 - EDEMA, UNSPECIFIED (4) Pneumonia, community acquired Code(s): J18.9 - PNEUMONIA, UNSPECIFIED ORGANISM (5) Atypical chest pain Code(s): R07.89 - OTHER CHEST PAIN (6) Chest pressure Code(s): R07.89 - OTHER CHEST PAIN Assessment/Plan Lasix Rocephin and Zithromax Follow cultures Urine antigen Daily weights NC O2 as tolerated NIPPV support for increased WOB No clear indication for systemic steroids BD TX PRN Eliquis for AC Dr Wolf Problem List - Problems (1) Hypercapnia Code(s): R06.89 - OTHER ABNORMALITIES OF BREATHING (2) Congestive heart failure due to high blood pressure Code(s): I11.0 - HYPERTENSIVE HEART DISEASE WITH HEART FAILURE Qualifiers: Heart failure type: unspecified Qualified Code(s): I11.0 - Hypertensive heart disease with heart failure (3) Edema Code(s): R60.9 - EDEMA, UNSPECIFIED (4) Pneumonia, community acquired Code(s): J18.9 - PNEUMONIA, UNSPECIFIED ORGANISM (5) Atypical chest pain Code(s): R07.89 - OTHER CHEST PAIN (6) Chest pressure Code(s): R07.89 - OTHER CHEST PAIN
--- NOTE | 2019-02-22 12:42 | PN ---
Progress Note, Physician Chief Complaint: patient seen and examined awake not sure why she came to hospital no CP no SOB - Current Medication List Current Medications: Active Medications Albuterol/Ipratropium (Duoneb -) 1 amp NEB Q6H PRN PRN Reason: SHORTNESS OF BREATH Apixaban (Eliquis -) 5 mg PO BID [facility] Last Admin: 02/21/19 22:28 Dose: 5 mg Aspirin (Ecotrin -) 81 mg PO DAILY [facility] Last Admin: 02/21/19 11:09 Dose: 81 mg Atorvastatin Calcium (Lipitor -) 40 mg PO HS [facility] Last Admin: 02/21/19 22:28 Dose: 40 mg Diltiazem HCl (Cardizem Cd -) 120 mg PO DAILY [facility] Last Admin: 02/21/19 11:08 Dose: 120 mg Furosemide (Lasix Injection -) 40 mg IVPUSH DAILY [facility] Last Admin: 02/22/19 12:00 Dose: 40 mg HCTZ/Losartan Potassium (Hyzaar -) 2 tab PO DAILY [facility] Last Admin: 02/21/19 11:09 Dose: 2 tab Azithromycin 250 mg/ Dextrose 250 mls @ 250 mls/hr IVPB DAILY [facility] Last Admin: 02/22/19 12:00 Dose: 250 mls/hr Ceftriaxone Sodium 1 gm/ (Dextrose) 50 mls @ 200 mls/hr IVPB DAILY [facility]; Protocol Last Admin: 02/22/19 12:00 Dose: 200 mls/hr Nitroglycerin/Dextrose (Nitroglycerin 50mg/D5w 250ml) 50 mg in 250 mls @ 3 mls/ hr IVPB TITR [facility]; Protocol Last Admin: 02/21/19 14:40 Dose: Not Given Levothyroxine Sodium (Synthroid -) 125 mcg PO DAILY@0700 [facility] Metoprolol Succinate (Toprol Xl -) 100 mg PO DAILY [facility] Last Admin: 02/21/19 11:09 Dose: 100 mg - Objective Vital Signs: Vital Signs Temperature 98 F 02/21/19 17:33 Pulse Rate 74 02/21/19 17:33 Respiratory Rate 22 H 02/21/19 17:33 Blood Pressure 160/82 02/21/19 17:33 O2 Sat by Pulse Oximetry (%) 97 02/22/19 00:19 Constitutional: Yes: Calm Cardiovascular: Yes: Regular Rate and Rhythm, S1, S2 Respiratory: Yes: Diminished Gastrointestinal: Yes: Normal Bowel Sounds, Soft Edema: Yes Labs: CBC, BMP 02/22/19 06:20 02/22/19 06:20 INR, PTT INR 1.03 (0.83-1.09) 02/21/19 02:50 Problem List - Problems (1) CHF (congestive heart failure) Assessment/Plan: iv lasix Code(s): I50.9 - HEART FAILURE, UNSPECIFIED (2) Confusion Assessment/Plan: ct head noted neurology on board urine legionella pending ct chest ordered iv abx bladder scan to r/o retention Code(s): R41.0 - DISORIENTATION, UNSPECIFIED (3) Paroxysmal A-fib Assessment/Plan[facility] cardi[facility] eval metorprolol Code(s): I48.0 - PAROXYSMAL ATRIAL FIBRILLATION
--- NOTE | 2019-02-22 16:10 | ECHO ---
Name: LUCHO VIDAL Exam:Adult Echocardiogram Study Date: 02/22/2019 02:53 PM Age: 88 yrs Reason For Study: LOOK AT LVEF Height: 63 in Weight: 170 lb BSA: 1.8 m2 MMode/2D Measurements & Calculations IVSd: 0.87 cm Ao root diam: 2.7 cm LVIDd: 4.3 cm LA dimension: 3.7 cm LVIDs: 3.3 cm LVPWd: 0.72 cm EDV(Teich): 81.2 ml LVOT diam: 2.1 cm ESV(Teich): 43.2 ml Doppler Measurements & Calculations MV E max enmanuel: 81.4 cm/sec Ao V2 max: 268.8 cm/sec MV A max enmanuel: 26.7 cm/sec Ao max P.9 mmHg MV E/A: 3.1 Ao V2 mean: 182.3 cm/sec MV dec time: 0.13 sec Ao mean P.5 mmHg Ao V2 VTI: 50.1 cm STEPHEN(I,D): 0.77 cm2 AI P1/2t: 667.1 msec STEPHEN(V,D): 0.87 cm2 AI max enmanuel: 424.8 cm/sec LV V1 max P.7 mmHg AI max P.4 mmHg LV V1 mean P.84 mmHg AI dec slope: 186.5 cm/sec2 LV V1 max: 65.2 cm/sec LV V1 mean: 42.4 cm/sec LV V1 VTI: 10.7 cm MR max emnanuel: 573.4 cm/sec SV(LVOT): 38.5 ml MR max P.7 mmHg TR max enmanuel: 312.5 cm/sec PA V2 max: 138.5 cm/sec TR max P.1 mmHg PA max P.7 mmHg PI end-d enmanuel: 161.5 cm/sec Med Peak E' Enmanuel: 5.8 cm/sec Med E/e': 13.9 Lat Peak E' Enmanuel: 5.1 cm/sec Lat E/e': 15.8 Procedure A complete two-dimensional transthoracic echocardiogram was performed (2D, M-mode, Doppler and color flow Doppler). Left Ventricle The left ventricle is normal in size. Left ventricular systolic function is moderately reduced. Eject ion Fraction = 40-45%. There is moderate global hypokinesis of the left ventricle. Right Ventricle The right ventricle is normal size. The right ventricular systolic function is mildly reduced. RV sys tolic TDI is 7 cm/s. Atria Borderline left atrial enlargement. Borderline right atrial enlargement. Mitral Valve There is mild mitral annular calcification. There is moderate mitral regurgitation. Tricuspid Valve The tricuspid valve is normal in structure and function. There is moderate to severe tricuspid regurg itation. Pulmonary artery systolic pressure is at least 48 mmHg if RA pressure is assumed 3 mmHg. Aortic Valve There is mild to moderate aortic valve thickening. Severe valvular aortic stenosis. The calculated ao rtic valve area using the continuity equation is 0.8 cm2. DI (dimensionless index) is calculated 0.22 (LVO T VTI 10.8 cm, AV VTI 50.1 cm). Moderate to severe aortic regurgitation. Pulmonic Valve The pulmonic valve is not well visualized. Mild to moderate pulmonic valvular regurgitation. Great Vessels The aortic root is normal size. Pericardium/Pleura There is no pericardial effusion. Interpretation Summary The left ventricle is normal in size. Left ventricular systolic function is moderately reduced. There is moderate global hypokinesis of the left ventricle. Ejection Fraction = 40-45%. The right ventricular systolic function is mildly reduced. RV systolic TDI is 7 cm/s Borderline left atrial enlargement. Borderline right atrial enlargement. There is mild mitral annular calcification. There is moderate mitral regurgitation. There is moderate to severe tricuspid regurgitation. Pulmonary artery systolic pressure is at least 48 mmHg if RA pressure is assumed 3 mmHg There is mild to moderate aortic valve thickening. Severe valvular aortic stenosis. The calculated aortic valve area using the continuity equation is 0.8 cm2. DI (dimensionless index) is calculated 0.22 (LVOT VTI 10.8 cm, AV VTI 50.1 cm) Moderate to severe aortic regurgitation. Mild to moderate pulmonic valvular regurgitation. There is no pericardial effusion. Frank Yoo MD 02/22/2019 04:10 PM
[2019-02-22] MEDS: NITROGLYCERIN 50MG/D5W 250ML 50 MG/250 ML ML IVPB SCH (20:25)
[2019-02-23] MEDS: ATORVASTATIN CA 40 MG TABLET (FP) PO SCH ×2 (00:03→21:17)
[2019-02-23] MEDS: APIXABAN 5 MG TABLET PO SCH ×3 (00:03→21:17)
[2019-02-23 06:33] LABS: BASO % 0.5 % (0-2.0); EOS % 1.9 % (0-4.5); HEMATOCRIT 36.3 % (32.4-45.2); HEMOGLOBIN 12.4 GM/dL (10.7-15.3); LYMPH % 13.3 % (8-40); MCH 32.6 pg (25.7-33.7); MCHC 34.2 g/dl (32.0-36.0); MEAN CELL VOLUME 95.3 fl (80-96); MEAN PLT VOLUME 9.2 fl (7.5-11.1); MONO % 9.8 % (3.8-10.2); NEUT % 74.5 % (42.8-82.8); PLATELET COUNT 212 K/MM3 (134-434); RBC 3.81 M/mm3 (3.60-5.2); RDW 15.8 % (11.6-15.6); WHITE BLOOD COUNT 6.9 K/mm3 (4.0-10.0)
[2019-02-23] MEDS: LEVOTHYROXINE NA 125 MCG TABLET (FP) PO SCH (06:58)
[2019-02-23 07:07] LABS: ALBUMIN 3.2 g/dl (3.4-5.0); BILIRUBIN,TOTAL 1.1 mg/dL (0.2-1); BLOOD UREA NITROGEN 24.2 mg/dL (7-18); CALCIUM 8.9 mg/dL (8.5-10.1); CREATININE 1.1 mg/dL (0.55-1.3); POTASSIUM 3.1 mmol/L (3.5-5.1)
[2019-02-23] MEDS ORDERED: cefTRIAXone SODIUM 1 GM VIAL ONE (09:52)
[2019-02-23] MEDS ORDERED: DEXTROSE 5%-WATER - 50 ML IVPB ONE (09:52)
[2019-02-23] MEDS ORDERED: FLU VACCINE QUAD 60 MCG/0.5 ML (MDV 19-20) IM ONE (10:00)
[2019-02-23] MEDS: CEFTRIAXONE 1 GM in DEXTROSE 5%-WATER - 50 ML IVPB SCH (10:08)
[2019-02-23] MEDS: LOSARTAN 50MG/HCTZ 12.5MG 1 TAB (FP) PO SCH (10:08)
[2019-02-23] MEDS: FUROSEMIDE 40 MG/4 ML INJECTABLE VIAL IVPUSH SCH (10:08)
[2019-02-23] MEDS: ASPIRIN COATED 81 MG TABLET.EC PO SCH (10:09)
--- NOTE | 2019-02-23 10:30 | PN ---
Progress Note, Physician Chief Complaint: Pneumonia History of Present Illness: NAD On IV abx Seen by Pulmonary - Current Medication List Current Medications: Active Medications Albuterol/Ipratropium (Duoneb -) 1 amp NEB Q6H PRN PRN Reason: SHORTNESS OF BREATH Apixaban (Eliquis -) 5 mg PO BID [facility] Last Admin: 02/23/19 10:09 Dose: 5 mg Aspirin (Ecotrin -) 81 mg PO DAILY [facility] Last Admin: 02/23/19 10:09 Dose: 81 mg Atorvastatin Calcium (Lipitor -) 40 mg PO HS [facility] Last Admin: 02/23/19 00:03 Dose: 40 mg Diltiazem HCl (Cardizem Cd -) 120 mg PO DAILY [facility] Last Admin: 02/23/19 10:09 Dose: 120 mg Furosemide (Lasix Injection -) 40 mg IVPUSH DAILY [facility] Last Admin: 02/23/19 10:08 Dose: 40 mg HCTZ/Losartan Potassium (Hyzaar -) 2 tab PO DAILY [facility] Last Admin: 02/23/19 10:08 Dose: 2 tab Azithromycin 250 mg/ Dextrose 250 mls @ 250 mls/hr IVPB DAILY [facility] Last Admin: 02/22/19 12:00 Dose: 250 mls/hr Ceftriaxone Sodium 1 gm/ (Dextrose) 50 mls @ 200 mls/hr IVPB DAILY [facility]; Protocol Last Admin: 02/23/19 10:08 Dose: 200 mls/hr Nitroglycerin/Dextrose (Nitroglycerin 50mg/D5w 250ml) 50 mg in 250 mls @ 3 mls/ hr IVPB TITR [facility]; Protocol Last Admin: 02/22/19 20:25 Dose: Not Given Potassium Chloride (Potassium Chloride 10 Meq Premix Ivpb -) 10 meq in 100 mls @ 100 mls/hr IVPB Q60M [facility] Stop: 02/23/19 13:29 Levothyroxine Sodium (Synthroid -) 125 mcg PO DAILY@0700 [facility] Last Admin: 02/23/19 06:58 Dose: 125 mcg Metoprolol Succinate (Toprol Xl -) 100 mg PO DAILY [facility] Last Admin: 02/23/19 10:09 Dose: 100 mg Potassium Chloride (Potassium Chloride Oral Liquid) 40 meq PO DAILY [facility] - Objective Vital Signs: Vital Signs Temperature 97.7 F 02/23/19 06:00 Pulse Rate 75 02/23/19 08:48 Respiratory Rate 16 02/23/19 08:48 Blood Pressure 115/66 02/23/19 08:48 O2 Sat by Pulse Oximetry (%) 99 02/23/19 03:27 Constitutional: Yes: Well Nourished, No Distress, Calm Cardiovascular: Yes: Regular Rate and Rhythm Respiratory: Yes: Regular, On Nasal O2, Rales (RLL) Gastrointestinal: Yes: Normal Bowel Sounds, Soft Genitourinary: Yes: WNL Musculoskeletal: Yes: Muscle Weakness Extremities: Yes: WNL Edema: Yes Edema: LLE: 1+, RLE: 1+ Peripheral Pulses WNL: Yes Neurological: Yes: Alert, Confusion Psychiatric: Yes: Alert Labs: CBC, BMP 02/23/19 05:40 02/23/19 05:40 INR, PTT INR 1.03 (0.83-1.09) 02/21/19 02:50 Problem List - Problems (1) Paroxysmal A-fib Assessment/Plan: -Eliquis 5 mg po BID -Rate controlled -Tele monitor Problems reviewed: Yes Code(s): I48.0 - PAROXYSMAL ATRIAL FIBRILLATION (2) Pneumonia Assessment/Plan: -ID and Pulmonary on board -IV abx -Nasal O 2 PRN to keep SpO2>90% -Bronchodilators Problems reviewed: Yes Code(s): J18.9 - PNEUMONIA, UNSPECIFIED ORGANISM (3) Hypokalemia Assessment/Plan: -KCL 40 meq PO once -KCl 10 meq x 3 -repeat CMP in AM Problems reviewed: Yes Code(s): E87.6 - HYPOKALEMIA (4) Lactic acidosis Assessment/Plan: -trending down -Repeat LA in AM Problems reviewed: Yes Code(s): E87.2 - ACIDOSIS (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 Assessment/Plan: -HFrEF on echo yesterday -Cardiology consult -Continue furosemide 40 mg IVP daily -Daily weights -Low sodium diet -Fluid restriction 1 L Problems reviewed: Yes Code(s): I50.40 - UNSP COMBINED SYSTOLIC AND DIASTOLIC (CONGESTIVE) HRT FAIL Qualifiers: Heart failure chronicity: acute on chronic Qualified Code(s): I50.43 - Acute on chronic combined systolic (congestive) and diastolic (congestive) heart failure (6) Metabolic encephalopathy Problems reviewed: Yes Code(s): G93.41 - METABOLIC ENCEPHALOPATHY (7) Weakness Assessment/Plan: -Seen by Neurology -CT head unremarkable -Physiatry consult Code(s): R53.1 - WEAKNESS Assessment/Plan see problem list Physical therapy
[2019-02-23] MEDS: AZITHROMYCIN IVPB 250 MG in DEXTROSE 5%-WATER - 250 ML IVPB SCH (11:00)
--- NOTE | 2019-02-23 11:59 | PN ---
Progress Note, Physician History of Present Illness: pulmonary alert,comfortable,-resp distress - Current Medication List Current Medications: Active Medications Albuterol/Ipratropium (Duoneb -) 1 amp NEB Q6H PRN PRN Reason: SHORTNESS OF BREATH Apixaban (Eliquis -) 5 mg PO BID [facility] Last Admin: 02/23/19 10:09 Dose: 5 mg Aspirin (Ecotrin -) 81 mg PO DAILY [facility] Last Admin: 02/23/19 10:09 Dose: 81 mg Atorvastatin Calcium (Lipitor -) 40 mg PO HS [facility] Last Admin: 02/23/19 00:03 Dose: 40 mg Diltiazem HCl (Cardizem Cd -) 120 mg PO DAILY [facility] Last Admin: 02/23/19 10:09 Dose: 120 mg Furosemide (Lasix Injection -) 40 mg IVPUSH DAILY [facility] Last Admin: 02/23/19 10:08 Dose: 40 mg Azithromycin 250 mg/ Dextrose 250 mls @ 250 mls/hr IVPB DAILY [facility] Last Admin: 02/23/19 11:00 Dose: 250 mls/hr Ceftriaxone Sodium 1 gm/ (Dextrose) 50 mls @ 200 mls/hr IVPB DAILY [facility]; Protocol Last Admin: 02/23/19 10:08 Dose: 200 mls/hr Nitroglycerin/Dextrose (Nitroglycerin 50mg/D5w 250ml) 50 mg in 250 mls @ 3 mls/ hr IVPB TITR [facility]; Protocol Last Admin: 02/22/19 20:25 Dose: Not Given Potassium Chloride (Potassium Chloride 10 Meq Premix Ivpb -) 10 meq in 100 mls @ 100 mls/hr IVPB Q60M [facility] Stop: 02/23/19 13:29 Levothyroxine Sodium (Synthroid -) 125 mcg PO DAILY@0700 [facility] Last Admin: 02/23/19 06:58 Dose: 125 mcg Losartan Potassium (Cozaar -) 50 mg PO DAILY [facility] Metoprolol Succinate (Toprol Xl -) 100 mg PO DAILY [facility] Last Admin: 02/23/19 10:09 Dose: 100 mg Potassium Chloride (Potassium Chloride Oral Liquid) 40 meq PO DAILY [facility] - Objective Vital Signs: Vital Signs Temperature 97.7 F 02/23/19 06:00 Pulse Rate 75 02/23/19 08:48 Respiratory Rate 16 02/23/19 08:48 Blood Pressure 115/66 02/23/19 08:48 O2 Sat by Pulse Oximetry (%) 99 02/23/19 03:27 Constitutional: Yes: Well Nourished, Calm Eyes: Yes: WNL HENT: Yes: WNL Neck: Yes: WNL Cardiovascular: Yes: Pulse Irregular, S1, S2 Respiratory: Yes: Diminished, Rales (bibasilar rales) Gastrointestinal: Yes: Normal Bowel Sounds, Soft Extremities: Yes: WNL Edema: No Labs: CBC, BMP 02/23/19 05:40 02/23/19 05:40 INR, PTT INR 1.03 (0.83-1.09) 02/21/19 02:50 - ....Imaging Cat Scan: Report Reviewed, Image Reviewed (bilateral effusions,congestion, bilateral pulmonary masses) Assessment/Plan Problem List - Problems (1) Hypercapnia Code(s): R06.89 - OTHER ABNORMALITIES OF BREATHING (2) Congestive heart failure due to high blood pressure Code(s): I11.0 - HYPERTENSIVE HEART DISEASE WITH HEART FAILURE (3) Edema Code(s): R60.9 - EDEMA, UNSPECIFIED (4) Pneumonia, community acquired Code(s): J18.9 - PNEUMONIA, UNSPECIFIED ORGANISM (5) Atypical chest pain Code(s): R07.89 - OTHER CHEST PAIN (6) Chest pressure Code(s): R07.89 - OTHER CHEST PAIN 7 AORTIC STENOSIS 8. BILATERAL PULMONARY MASSES ?MALIGNANT,? INFECTIOUS 9. A-FIB Assessment/Plan Lasix Empiric Rocephin and Zithromax Daily weights NC O2 as tolerated NIPPV support for increased WOB BD TX ALVAN Kiara for AC f/u x-rays DR MARX
[2019-02-23] MEDS: POTASSIUM CHLORIDE ORAL LIQUID 20 MEQ/15 ML PO SCH (12:28)
[2019-02-23] MEDS: KCL 10 MEQ IVPB 10 MEQ/100 ML INFUS.BAG IVPB SCH ×3 (12:29→16:38)
--- NOTE | 2019-02-23 12:33 | CONS ---
DATE OF CONSULTATION: 02/23/2019 REQUESTING PHYSICIAN: Rhonda Gupta MD CHIEF COMPLAINT: 1. Sudden onset of acute shortness of breath. 2. History of progressive pedal edema. 3. History of retrosternal pressure-like chest discomfort. HISTORY: Patient is an 88-year-old female with a history of hypertension, hypertensive cardiovascular disease, status post cerebrovascular accident, history of hypothyroidism, paroxysmal atrial fibrillation. She was brought to the emergency room with acute shortness of breath. During her hospitalization in the emergency room, patient was found to be confused, lethargic. Patient currently is alert and also gives history of recurring retrosternal pressure-like chest discomfort. Last episode occurred around 9 AM and persisted for several minutes. Pain was nonradiating, nonpleuritic. On questioning, she states that these episodes have been occurring in the recent past. There were no associated symptoms of diaphoresis, nausea, vomiting, or dyspnea. Patient denies having palpitations, lightheadedness, dizziness, presyncope, or syncope. History was also obtained through her son-in-law who states that the patient was developing progressive pedal edema for several days or weeks and would refuse to consider going to the hospital. There is no history of diabetes mellitus. There is no history of recent cough or expectoration. No history of fever or chills. PAST HISTORY: As mentioned in the history of present illness. SURGICAL HISTORY: Status post hysterectomy, status post left carotid endarterectomy, status post left hip replacement, status post left cataract extraction. SOCIAL HISTORY: She is a . She is retired. Has 2 daughters who are healthy. She is a nonsmoker, and according to her son-in-law, she drinks wine on a daily basis. There is no history of excessive use of caffeine. FAMILY HISTORY: Father at the age of 97 apparently of natural causes. Mother in her 80s also of natural causes. She had 2 brothers. One of them is and apparently had heart disease. The other brother is healthy. ALLERGIES: None reported. CURRENT MEDICATIONS: 1. Hydrochlorothiazide/losartan. Dose is uncertain. Two tablets p.o. daily. 2. Azithromycin 150 mg IV daily. 3. Ceftriaxone 1 g IV daily. 4. Eliquis 5 mg p.o. b.i.d. 5. DuoNeb 1 ampule via nebulizer every 6 hours p.r.n. 6. Metoprolol succinate 100 mg p.o. daily 7. Diltiazem 120 mg p.o. daily. 8. Atorvastatin 40 mg p.o. daily. 9. Lasix 40 mg IV push. 10. Potassium chloride 40 mg p.o. daily. 11. Levothyroxine 125 mcg p.o. daily. ALLERGIES: None reported. REVIEW OF SYSTEMS: Constitutional: No history of chills, fever, or night sweats reported. No history of unintentional weight loss. HEENT: No history of headaches, diplopia, blurred vision. No history of hoarseness or epistaxis, hoarseness. No history of tinnitus or deafness. Cardiovascular: See history of present illness. Respiratory: See history of present illness. Denies having any cough, expectoration, or hemoptysis. No history of tuberculosis. Gastrointestinal: No history of nausea, vomiting, melena, or hematemesis. No history of abdominal pain or discomfort. No history of change in bowel habits. Neurologic: History of a previous cerebrovascular accident without residual sequela. No history of focal weakness, seizures, presyncope, or syncope. Musculoskeletal: History of arthralgias. Genitourinary: No history of dysuria, frequency, hematuria, or urgency. Endocrine: See history of present illness. No history of intolerance to cold or warm weather. No history of polyuria or polydipsia. Hematologic/Lymphatic: No history of ecchymosis, anemia, or bleeding. No history of lymphadenopathy. PHYSICAL EXAMINATION: General: An 88-year-old female who is alert. There is no pallor, cyanosis, clubbing, or jaundice. Vital Signs: Blood pressure 115/66 mmHg at 8:48 AM, pulse 75 beats per minute and irregularly irregular, respirations 16 per minute, temperature 97.7 degrees Fahrenheit, weight 77.111 kg, oxygen saturation 99% on 2 L of oxygen. HEENT: Normocephalic. Pupils are equal, reacting to light and accommodation. There is arcus senilis. No xanthelasma is seen. Neck: Supple. No jugular venous distention. Slightly positive hepatojugular reflux. Carotids are 2+. Upstrokes are normal. Unable to appreciate any bruits. There is no thyromegaly. There is a well-healed left carotid endarterectomy scar. Heart: PMI is in the 5th intercostal space. No heaves or thrills. S1 is variable. S2 is split. Ejection systolic murmur grade 2/6 is heard at the 2nd right intercostal space ending in jxdok-yb-hbl systolic. No diastolic murmur or gallops are heard. Lungs: Fine crepitations at the right base. No other extraneous sounds are heard. Chest: Normal AP diameter. Expansion is symmetrical. Abdomen: Soft, protuberant, nontender. No hepatosplenomegaly or palpable masses are felt. Bowel sounds are present. No bruits are heard. Extremities: No calf tenderness or dependent edema. Pulses are equal. Dorsalis pedis pulses are 1 to 2+. Posterior tibial pulses are not palpable. There are varicosities noted. LABORATORY DATA: CBC February 23, 2019: WBC 6900, hemoglobin 12.4 g/dL, platelet count 212,000. Differential: Neutrophils 74.5%, lymphocytes 13.3%, monocytes 9.8%, eosinophils 1.9%, basophils 0.5%. Basic metabolic profile dated February 23, 2019: Sodium 131, potassium 3.1, chloride 87, CO2 is 34 mmol/L, BUN 24.2, creatinine 1.1 mg/dL. Random glucose 92 mg/dL. On admission, lactic acid was elevated at 5.0 , and last lactic acid as of February 21, 2019, was 3.5. Calcium 8.9 mg/dL, total bilirubin 1.1 mg/dL, AST 46, ALT 33, alkaline phosphatase 52 U/L. Total cholesterol on February 22 was 237, total LDL 134, HDL 77, triglycerides 124 mg/dL. CT of the chest dated February 22, 2019. Impression: 1. Cardiomegaly, vascular congestion, bilateral pleural effusion, and lower lobe atelectasis. 2. Multiple pulmonary masses suspect for metastatic disease. 3. Polypoid lesion within the mid trachea. 4. Mild mediastinal lymphadenopathy. Clinical correlation and follow up recommended. Echocardiogram dated February 22, 2019. Interpretation summary: Left ventricle is normal in size. Left ventricle systolic function is moderately reduced. There is moderate global hypokinesia of the left ventricle. Ejection fraction 40%-45%. Right ventricular systolic function is mildly reduced. Right ventricular systolic TID is 7 cm/sec, borderline left atrial enlargement. There is mild annular calcification. There is moderate mitral regurgitation. There is aofgqmal-wv-uswxnv tricuspid regurgitation. Pulmonary systolic pressure is at least 48 mmHg if RA pressure is presumed to be 3 mmHg. Severe valvular aortic stenosis. The calculated aortic valve area by continuity equation is 0.8 cm2. Phbocqus-rj-oolehk aortic regurgitation. Lkff-hc-mhqfwgws pulmonic valvular regurgitation. There is no pericardial effusion. BMP on February 21, 2019, 0877. IMPRESSION: 1. Acute left ventricular failure, multifactorial. A. Related to critical aortic stenosis. B. Right heart failure/tricuspid regurgitation. C. Left ventricular systolic dysfunction. 2. Chest pain syndrome compatible with angina pectoris secondary to coronary artery disease/severe aortic stenosis. 3. Critical aortic stenosis and aortic regurgitation. 4. Pulmonary hypertension. 5. Severe tricuspid regurgitation. 6. Left ventricular systolic dysfunction. 7. Right ventricular systolic dysfunction. 8. Atrial flutter. 9. Hypertension, hypertensive cardiovascular disease. 10. Pulmonary nodules as reported on CT scan. Carcinoma needs exclusion. 11. History of confusion. Etiology to be determined. 12. Cerebrovascular accident versus cerebral metastatic disease needs exclusion. 13. History of ethanol excess. Exclude withdrawal. 14. Hypokalemia. 15. Atrial flutter. 16. Hypercholesterolemia. 17. Status post cerebrovascular accident. RECOMMENDATIONS: 1. Magnesium level. 2. Continue correction of serum potassium. 3. Pulmonary evaluation for pulmonary lesions and tracheal mass. 4. Oncological evaluation. 5. T3, T4, TSH. 6. Consider MRI of the head. 7. Further suggestions as necessary. PROGNOSIS: Critical. Time spent face to face discussion and counseling was 1 hour 10 minutes. Cris [id number] [facility]
--- NOTE | 2019-02-23 12:51 | CONSULT ---
Consult Consult Specialty:: PM&R Dr Stratton for Dr Portillo - History of Present Illness Chief Complaint: wants to walk "out of here" History of Present Illness: This is an 88 year old woman with a medical history of CVA, HTN, HLD, s/p L CEA , hypothyroidism, who presented to the ED 02/21/19 with 2 days worsening PINTO and BLE edema. In the ED she was hypertensive (diastolic >120mmHg). She was admitted to Telemetry for CHF exacerbation due to hypertension as well as paroxysmal A fib. Pulm was consulted for SOB, who felt she may have PNA; ID was consulted, and she was given Azithromycin and Ceftriaxone for possible PNA. CT chest showed cardiomegaly with B pleural effusion and lower lobe atelectasis, with multiple pulmonary masses suspicious for metastatic disease. CT head showed no acute pathology with chronic R hippocampus and R occipital lobe CVA. Neurology was consulted, who recommended MRI brain, CT LS spine, and mild dementia work-up. Echo was performed, which showed EF 40-45%, global LV hypokinesis, and valvular disease. With PT on 02/23/19, she was Minimum Assist in Transfers, and ambulated 50 feet Minimum Assist with Rolling Walker. Physiatry is being consulted for further recommendations. 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 Cardio/Vascular: Yes: HTN, Hyperlipdemia Endocrine: Yes: Hypothyroidism - Past Surgical History Past Surgical History: Yes: Carotid Endarterectomy (left) - Alcohol/Substance Use Hx Alcohol Use: No - Smoking History Smoking history: Former smoker Have you smoked in the past 12 months: No If you are a former smoker, when did you quit?: 60yrs ago - Social History Usual Living Arrangement: With Child (lives with daughter in house with 4 steps to enter and 20 inside) ADL: Independent (Independent in ADLs without AD) History of Recent Travel: No Home Medications - Allergies Allergies/Adverse Reactions: Allergies Allergy/AdvReac Type Severity Reaction Status Date / Time No Known Allergies Allergy Verified 02/21/19 02:42 - Home Medications Home Medications: Ambulatory Orders Apixaban [Eliquis -] 5 mg PO BID #1 tablet 10/21/13 Diltiazem Cd [Cardizem Cd -] 120 mg PO DAILY #0 cap.cd.24h 10/21/13 Metoprolol Succinate [Toprol XL -] 100 mg PO DAILY #1 10/21/13 Simvastatin [Zocor] 20 mg PO HS #1 10/21/13 Levothyroxine Sodium [Synthroid] 125 mcg PO DAILY 10/20/14 Aspirin [ASA -] 81 mg PO DAILY 05/13/15 Losartan/Hydrochlorothiazide [Hyzaar 100-12.5 Tablet] 1 each PO DAILY 05/13/15 Isosorbide Mononitrate [Imdur -] 30 mg PO DAILY 04/04/17 Review of Systems Findings/Remarks: Denies fevers, chill, changes in vision/ hearing/ mood, CP, SOB, abdominal pain , nausea, vomiting, constipation, diarrhea, muscle/ joint pain, numbness/ paresthesis. Nicholas in place. Physical Exam Vital Signs: Vital Signs Temperature 97.7 F 02/23/19 06:00 Pulse Rate 75 02/23/19 08:48 Respiratory Rate 16 02/23/19 08:48 Blood Pressure 115/66 02/23/19 08:48 O2 Sat by Pulse Oximetry (%) 99 02/23/19 03:27 Musculoskeletal: Yes: Other (General: calm elderly F sitting in bed NAD, awake and alert not oriented to time ("May or June 19") or place ( "at my home in [place]"); N/M: B shoulder flexion to 100 degrees, 4+/5 BUE, 3/5 L HF and 4/5 R HF then 4+/5 BLE; Pinprick Intact BUE/ BLE; Extremities: 2+ BLE pitting edema, no B calf tenderness) Labs: CBC, BMP 02/23/19 05:40 02/23/19 05:40 Imaging - Results Cat Scan: Report Reviewed (as per HPI) Assessment/Plan Impression: 1) Deficits mobility/ ADLs 2) Deconditioning 3) Gait abnormality 4) CHF and malignant HTN with A fib and HLD; EF 40-45% 5) PNA on Ceftriaxone and Azithromycin 6) CT chest showing multiple masses possibly metastatic disease 7) hx CVA 8) s/p L CEA 9) hx hypothyroidism 10) Hyponatremia 11) Hypokalemia 12) Metabolic encephalopathy 13) Obesity 14) No documented flu shot/ pneumovax Recommendations: 1) PT for stretching strengthening ROM functional mobility and endurance 2) Falls, safety precautions 3) Cardiopulmonary precautions 4) DVT ppx: on Eliquis 5) Skin protection: float heels 6) Denies constipation on current bowel regimen 7) Nutrition consult for obesity (in part 2/2 edema) 8) Monitor BMP given electrolyte abnormalities (receiving K supplementation) 9) Continue plan per primary team including pulm mass evaluation 10) Discharge planning: depending on her progress while in hospital and length of stay, she may require inpatient rehabilitation although currently able to return home with home services Thank you for this referral.
[2019-02-23] MEDS: NITROGLYCERIN 50MG/D5W 250ML 50 MG/250 ML ML IVPB SCH (14:00)
--- NOTE | 2019-02-23 14:37 | PN ---
Progress Note (short form) - Note Progress Note: 88-year-old female with a history of hypertension, hypertensive cardiovascular disease, status post cerebrovascular accident, history of hypothyroidism, paroxysmal atrial fibrillation. She was brought to the emergency room with acute shortness of breath. During her hospitalization in the emergency room, patient was found to be confused, lethargic. Patient currently is alert and also gives history of recurring retrosternal pressure-like chest discomfort. Last episode occurred around 9 AM and persisted for several minutes. Pain was nonradiating, nonpleuritic. On questioning, she states that these episodes have been occurring in the recent past. There were no associated symptoms of diaphoresis , nausea, vomiting, or dyspnea. Patient denies having palpitations, lightheadedness, dizziness, presyncope, or syncope. History was also obtained through her son-in-law who states that the patient was developing progressive pedal edema for several days or weeks and would refuse to consider going to the hospital. There is no history of diabetes mellitus. There is no history of recent cough or expectoration. No history of fever or chills. ALLERGIES: None reported. Active Medications Albuterol/Ipratropium (Duoneb -) 1 amp NEB Q6H PRN PRN Reason: SHORTNESS OF BREATH Apixaban (Eliquis -) 5 mg PO BID [facility] Last Admin: 02/23/19 10:09 Dose: 5 mg Aspirin (Ecotrin -) 81 mg PO DAILY [facility] Last Admin: 02/23/19 10:09 Dose: 81 mg Atorvastatin Calcium (Lipitor -) 40 mg PO HS [facility] Last Admin: 02/23/19 00:03 Dose: 40 mg Diltiazem HCl (Cardizem Cd -) 120 mg PO DAILY [facility] Last Admin: 02/23/19 10:09 Dose: 120 mg Furosemide (Lasix Injection -) 40 mg IVPUSH DAILY [facility] Last Admin: 02/23/19 10:08 Dose: 40 mg Azithromycin 250 mg/ Dextrose 250 mls @ 250 mls/hr IVPB DAILY [facility] Last Admin: 02/23/19 11:00 Dose: 250 mls/hr Ceftriaxone Sodium 1 gm/ (Dextrose) 50 mls @ 200 mls/hr IVPB DAILY [facility]; Protocol Last Admin: 02/23/19 10:08 Dose: 200 mls/hr Nitroglycerin/Dextrose (Nitroglycerin 50mg/D5w 250ml) 50 mg in 250 mls @ 3 mls/ hr IVPB TITR [facility]; Protocol Last Admin: 02/22/19 20:25 Dose: Not Given Levothyroxine Sodium (Synthroid -) 125 mcg PO DAILY@0700 [facility] Last Admin: 02/23/19 06:58 Dose: 125 mcg Losartan Potassium (Cozaar -) 50 mg PO DAILY [facility] Metoprolol Succinate (Toprol Xl -) 100 mg PO DAILY [facility] Last Admin: 02/23/19 10:09 Dose: 100 mg Potassium Chloride (Potassium Chloride Oral Liquid) 40 meq PO DAILY [facility] Last Admin: 02/23/19 12:28 Dose: 40 meq PHYSICAL EXAMINATION: General: An 88-year-old female who is alert. There is no pallor, cyanosis, clubbing, or jaundice. Last Vital Signs Temp Pulse Resp BP Pulse Ox 97.7 F 75 16 115/66 99 02/23/19 06:00 02/23/19 08:48 02/23/19 08:48 02/23/19 08:48 02/23/19 10:00 HEENT: Normocephalic. Pupils are equal, reacting to light and accommodation. There is arcus senilis. No xanthelasma is seen. Neck: Supple. No jugular venous distention. Slightly positive hepatojugular reflux. Carotids are 2+. Upstrokes are normal. Unable to appreciate any bruits. There is no thyromegaly. There is a well-healed left carotid endarterectomy scar. Heart: PMI is in the 5th intercostal space. No heaves or thrills. S1 is variable. S2 is split. Ejection systolic murmur grade II/ is heard at the 2nd right intercostal space ending in xwqgz-hl-lif systolic. No diastolic murmur or gallops are heard. Lungs: Fine crepitations at the right base. No other extraneous sounds are heard. Chest: Normal AP diameter. Expansion is symmetrical. Abdomen: Soft, protuberant, nontender. No hepatosplenomegaly or palpable masses are felt. Bowel sounds are present. No bruits are heard. Extremities: No calf tenderness or dependent edema. Pulses are equal. Dorsalis pedis pulses are 1 to 2+. Posterior tibial pulses are not palpable. There are varicosities noted. CBC, BMP 02/23/19 05:40 02/23/19 05:40 CT of the Chest dated February 22, 2019. Impression: 1. Cardiomegaly, vascular congestion, bilateral pleural effusion, and lower lobe atelectasis. 2. Multiple pulmonary masses suspect for metastatic disease. 3. Polypoid lesion within the mid trachea. 4. Mild mediastinal lymphadenopathy. Clinical correlation and follow up recommended. Echocardiogram dated February 22, 2019. Interpretation summary: Left ventricle is normal in size. Left ventricle systolic function is moderately reduced. There is moderate global hypokinesia of the left ventricle. Ejection fraction 40%-45%. Right ventricular systolic function is mildly reduced. Right ventricular systolic TID is 7 cm/sec, borderline left atrial enlargement. There is mild annular calcification. There is moderate mitral regurgitation. There is hofvsnbf-yw-skkdcc tricuspid regurgitation. Pulmonary systolic pressure is at least 48 mmHg if RA pressure is presumed to be 3 mmHg. Severe valvular aortic stenosis. The calculated aortic valve area by continuity equation is 0.8 cm2. Qmealsdw-fp-kydwvs aortic regurgitation. Ichl-ch-esjvynsm pulmonic valvular regurgitation. There is no pericardial effusion. IMPRESSION: 1. Acute left ventricular failure, multifactorial. A. Related to critical aortic stenosis. B. Right heart failure/tricuspid regurgitation. C. Left ventricular systolic dysfunction. 2. Chest pain syndrome compatible with angina pectoris secondary to coronary artery disease/severe aortic stenosis. 3. Critical aortic stenosis and aortic regurgitation. 4. Pulmonary hypertension. 5. Severe tricuspid regurgitation. 6. Left ventricular systolic dysfunction. 7. Right ventricular systolic dysfunction. 8. Atrial flutter. 9. Hypertension, hypertensive cardiovascular disease. 10. Pulmonary nodules as reported on CT scan. Carcinoma needs exclusion. 11. History of confusion. Etiology to be determined. 12. Cerebrovascular accident versus cerebral metastatic disease needs exclusion. 13. History of ethanol excess. Exclude withdrawal. 14. Hypokalemia. 15. Atrial flutter. 16. Hypercholesterolemia. 17. Status post cerebrovascular accident. RECOMMENDATIONS: 1. Magnesium level. 2. Continue correction of serum potassium. 3. Pulmonary evaluation for pulmonary lesions and tracheal mass. 4. Oncological evaluation. 5. T3, T4 TSH. 6. Consider MRI of the head. 7. Further suggestions as necessary. PROGNOSIS: Critical. Time spent face to face discussion and counseling was 1 hour 10 minutes. EZRA BRIAN M.D.
--- NOTE | 2019-02-23 17:29 | CONSULT ---
Consult Consult Specialty:: Hematology and oncology Referred by:: José Bryan Reason for Consultation:: Pulmonary nodules/ Masses - History of Present Illness Chief Complaint: SOB/Weakness History of Present Illness: The patient is an 88 yo f w/ PMH Afib on AC, HTN, HLD, CVA, hypothyroidism who comes into the ED c/o progressive SOB and chest pain. In the ED, a CXR showed atalectasis with potential infiltrate. A CT of the chest showed multiple pulmonary masses with associated lymphadenopathy. Oncology was consulted for assistance with the workup of this finding. On interview, the patient was found comfortable lying in bed in no apparent distress. Patient is a poor historian, She is not able to recall her last screening colonoscopy or mammography. Patient denies fever or SOB. She does endorse chest pain across all of chest which is unchanged from her admission. 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 Cardio/Vascular: Yes: HTN, Hyperlipdemia Endocrine: Yes: Hypothyroidism - Past Surgical History Past Surgical History: Yes: Carotid Endarterectomy (left) - Alcohol/Substance Use Hx Alcohol Use: No - Smoking History Smoking history: Former smoker Have you smoked in the past 12 months: No If you are a former smoker, when did you quit?: 60yrs ago - Social History Usual Living Arrangement: With Child (lives with daughter in house with 4 steps to enter and 20 inside) ADL: Independent (Independent in ADLs without AD) History of Recent Travel: No Home Medications - Allergies Allergies/Adverse Reactions: Allergies Allergy/AdvReac Type Severity Reaction Status Date / Time No Known Allergies Allergy Verified 02/21/19 02:42 - Home Medications Home Medications: Ambulatory Orders Apixaban [Eliquis -] 5 mg PO BID #1 tablet 10/21/13 Diltiazem Cd [Cardizem Cd -] 120 mg PO DAILY #0 cap.cd.24h 10/21/13 Metoprolol Succinate [Toprol XL -] 100 mg PO DAILY #1 10/21/13 Simvastatin [Zocor] 20 mg PO HS #1 10/21/13 Levothyroxine Sodium [Synthroid] 125 mcg PO DAILY 10/20/14 Aspirin [ASA -] 81 mg PO DAILY 05/13/15 Losartan/Hydrochlorothiazide [Hyzaar 100-12.5 Tablet] 1 each PO DAILY 05/13/15 Isosorbide Mononitrate [Imdur -] 30 mg PO DAILY 04/04/17 Review of Systems - Review of Systems Constitutional: denies: Chills, Fever, Lethargy Neck: denies: Decreased ROM, Lumps Cardiovascular: reports: Chest Pain. denies: Palpitations, Shortness of Breath Respiratory: denies: Cough, SOB Gastrointestinal: denies: Abdominal Pain, Bloating, Nausea, Vomiting Physical Exam Vital Signs: Vital Signs Temperature 97.5 F L 02/23/19 14:36 Pulse Rate 73 02/23/19 14:36 Respiratory Rate 17 02/23/19 14:36 Blood Pressure 100/74 02/23/19 14:36 O2 Sat by Pulse Oximetry (%) 99 02/23/19 10:00 Constitutional: Yes: Well Nourished, No Distress HENT: Yes: Atraumatic, Normocephalic Cardiovascular: Yes: Regular Rate and Rhythm, S1, S2. No: Gallop, Murmur, Rub Respiratory: Yes: Regular, CTA Bilaterally Gastrointestinal: Yes: Normal Bowel Sounds, Soft. No: Distention, Tenderness Edema: No Neurological: Yes: Alert, Cran Nerves II-XII Intact Psychiatric: Yes: Alert Labs: CBC, BMP 02/23/19 05:40 02/23/19 05:40 Assessment/Plan The patient is an 88 yo f w/ PMH Afib on AC, HTN, HLD, CVA, hypothyroidism who comes into the ED c/o progressive SOB and chest pain. #Progressive SOB/CP possibly 2/2 PNA vs squelae from lung masses. -Abx per ID -remainder of treatment per pulm and primary team #New lung masses on CT -GOC discussion with family -if family amenable to further diagnosis/treatment, suggest CT AP w/ contrast to evaluate for primary tumor -patient will require tissue diagnosis at some point. #Polypoid mass in trachea -unlikely to be primary, but possible -suggest ENT consult to further evaluate
--- NOTE | 2019-02-23 17:48 | PN ---
Teaching Attending Note Name of Resident: Andriy Fontenot ATTENDING PHYSICIAN STATEMENT I saw and evaluated the patient. I reviewed the resident's note and discussed the case with the resident. I agree with the resident's findings and plan as documented. SUBJECTIVE: Doing well. Complaining of bilateral hand pain as well as chest pain OBJECTIVE: Last Vital Signs Temp Pulse Resp BP Pulse Ox 97.5 F L 73 17 100/74 99 02/23/19 14:36 02/23/19 14:36 02/23/19 14:36 02/23/19 14:36 02/23/19 10:00 General: NAD HEENT: MMM CVS: S1, S2, 2-3/6 WES Lungs: Significantly diminished in bases, crackles Abdomen: distended, NT Extremities: + Edema Neuro: Moves all extremities Pscyh: AOX 21/2 (Knew name, place, year) 02/23/19 05:40 02/23/19 05:40 Current Medications Albuterol/Ipratropium (Duoneb -) 1 amp NEB Q6H PRN PRN Reason: SHORTNESS OF BREATH Apixaban (Eliquis -) 5 mg PO BID [facility] Last Admin: 02/23/19 10:09 Dose: 5 mg Aspirin (Ecotrin -) 81 mg PO DAILY [facility] Last Admin: 02/23/19 10:09 Dose: 81 mg Atorvastatin Calcium (Lipitor -) 40 mg PO HS [facility] Last Admin: 02/23/19 00:03 Dose: 40 mg Diltiazem HCl (Cardizem Cd -) 120 mg PO DAILY [facility] Last Admin: 02/23/19 10:09 Dose: 120 mg Furosemide (Lasix Injection -) 40 mg IVPUSH DAILY [facility] Last Admin: 02/23/19 10:08 Dose: 40 mg Azithromycin 250 mg/ Dextrose 250 mls @ 250 mls/hr IVPB DAILY [facility] Last Admin: 02/23/19 11:00 Dose: 250 mls/hr Ceftriaxone Sodium 1 gm/ (Dextrose) 50 mls @ 200 mls/hr IVPB DAILY [facility]; Protocol Last Admin: 02/23/19 10:08 Dose: 200 mls/hr Nitroglycerin/Dextrose (Nitroglycerin 50mg/D5w 250ml) 50 mg in 250 mls @ 3 mls/ hr IVPB TITR [facility]; Protocol Last Admin: 10/14/19 20:25 Dose: Not Given Levothyroxine Sodium (Synthroid -) 125 mcg PO DAILY@0700 [facility] Last Admin: 02/23/19 06:58 Dose: 125 mcg Losartan Potassium (Cozaar -) 50 mg PO DAILY [facility] Metoprolol Succinate (Toprol Xl -) 100 mg PO DAILY [facility] Last Admin: 02/23/19 10:09 Dose: 100 mg Potassium Chloride (Potassium Chloride Oral Liquid) 40 meq PO DAILY [facility] Last Admin: 02/23/19 12:28 Dose: 40 meq ASSESSMENT AND PLAN: 88-year-old lady with a history of hypertension, hypertensive cardiovascular disease, status post cerebrovascular accident, history of hypothyroidism, paroxysmal atrial fibrillation. Admitted for SOB, chest pain. Diagnosed with CHF exacerbation, Rapid Atrial Fibrillation and Pneumonia. Oncology consulted given multiple pulmonary nodules suspicious for metastatic disease. Recommend: 1) Tissue biopsy of the lung nodules. Discuss with IR or Pulmonary to determine best strategy.Given multiple comorbidities careful planning will be needed before treatment can start, in case this is a metastatic neoplasm. Family HCP will need to be involved as well in planning. 2) See Dr. Fontenot note for details. 3) Will follow 4) Thanks for this consultation.
[2019-02-23] MEDS: ACETAMINOPHEN 325 MG TABLET (FP) PO PRN (20:53)
[2019-02-24] MEDS: MELATONIN 5 MG TABLETS PO PRN ×2 (01:55→21:22)
[2019-02-24] MEDS: LEVOTHYROXINE NA 125 MCG TABLET (FP) PO SCH (06:33)
[2019-02-24 06:53] LABS: ALBUMIN 3.2 g/dl (3.4-5.0); BILIRUBIN,TOTAL 0.8 mg/dL (0.2-1); BLOOD UREA NITROGEN 35.4 mg/dL (7-18); CALCIUM 8.3 mg/dL (8.5-10.1); CREATININE 2.7 mg/dL (0.55-1.3); POTASSIUM 3.2 mmol/L (3.5-5.1); TOT PROT 6.2 g/dl (6.4-8.2)
[2019-02-24] MEDS ORDERED: PT OWN MED DRAWER 7, Y5N ONE ×2 (09:40→10:52)
[2019-02-24] MEDS ORDERED: cefTRIAXone SODIUM 1 GM VIAL ONE (09:41)
[2019-02-24] MEDS ORDERED: DEXTROSE 5%-WATER - 50 ML IVPB ONE (09:41)
[2019-02-24] MEDS ORDERED: LOSARTAN POTASSIUM 50 MG TABLET (FP) PO SCH (10:00)
--- NOTE | 2019-02-24 10:25 | PN ---
Progress Note, Physician Chief Complaint: Pneumonia History of Present Illness: NAD, No SOB, walked with PT Cr elevated to 2.7, BP low On IV abx Seen by Pulmonary - Current Medication List Current Medications: Active Medications Acetaminophen (Tylenol -) 650 mg PO Q6H PRN PRN Reason: PAIN LEVEL 6-10 Last Admin: 02/23/19 20:53 Dose: 650 mg Albuterol/Ipratropium (Duoneb -) 1 amp NEB Q6H PRN PRN Reason: SHORTNESS OF BREATH Apixaban (Eliquis -) 5 mg PO BID [facility] [place] Last Admin: 02/23/19 21:17 Dose: 5 mg Aspirin (Ecotrin -) 81 mg PO DAILY [facility] [place] Last Admin: 02/23/19 10:09 Dose: 81 mg Atorvastatin Calcium (Lipitor -) 40 mg PO HS [facility] [place] Last Admin: 02/23/19 21:17 Dose: 40 mg Cyanocobalamin (Vitamin B12 Injection -) 1,000 mcg IM DAILY [facility] [place] Diltiazem HCl (Cardizem Cd -) 120 mg PO DAILY [facility] [place] Furosemide (Lasix Injection -) 40 mg IVPUSH DAILY [facility] [place] Last Admin: 02/23/19 10:08 Dose: 40 mg Azithromycin 250 mg/ Dextrose 250 mls @ 250 mls/hr IVPB DAILY [facility] [place] Last Admin: 02/23/19 11:00 Dose: 250 mls/hr Ceftriaxone Sodium 1 gm/ (Dextrose) 50 mls @ 200 mls/hr IVPB DAILY [facility] [place]; Protocol Last Admin: 02/23/19 10:08 Dose: 200 mls/hr Nitroglycerin/Dextrose (Nitroglycerin 50mg/D5w 250ml) 50 mg in 250 mls @ 3 mls/ hr IVPB TITR [facility] [place]; Protocol Last Admin: 02/23/19 14:00 Dose: Not Given Potassium Chloride (Potassium Chloride 10 Meq Premix Ivpb -) 10 meq in 100 mls @ 100 mls/hr IVPB Q60M [facility] [place] Stop: 02/24/19 13:44 Levothyroxine Sodium (Synthroid -) 125 mcg PO DAILY@0700 [facility] [place] Last Admin: 02/24/19 06:33 Dose: 125 mcg Melatonin (Melatonin) 5 mg PO HS PRN PRN Reason: INSOMNIA Last Admin: 02/24/19 01:55 Dose: 5 mg Metoprolol Succinate (Toprol Xl -) 25 mg PO DAILY [facility] Potassium Chloride (Potassium Chloride Oral Liquid) 40 meq PO BID [facility] - Objective Vital Signs: Vital Signs Temperature 97.9 F 02/24/19 05:13 Pulse Rate 70 02/24/19 05:13 Respiratory Rate 16 02/24/19 05:13 Blood Pressure 131/77 02/24/19 05:13 O2 Sat by Pulse Oximetry (%) 99 02/23/19 22:00 Constitutional: Yes: Well Nourished, No Distress, Calm Cardiovascular: Yes: Regular Rate and Rhythm Respiratory: Yes: Regular, On Nasal O2, Rales (RLL) Gastrointestinal: Yes: Normal Bowel Sounds, Soft, Abdomen, Obese Genitourinary: Yes: WNL Musculoskeletal: Yes: Muscle Weakness Extremities: Yes: WNL Edema: Yes Edema: LLE: Trace, RLE: Trace Peripheral Pulses WNL: Yes Neurological: Yes: Alert, Confusion Psychiatric: Yes: Alert Labs: CBC, BMP 02/23/19 05:40 02/24/19 06:00 INR, PTT INR 1.03 (0.83-1.09) 02/21/19 02:50 Problem List - Problems (1) Paroxysmal A-fib Assessment/Plan: -Eliquis 5 mg po BID--->decrease to 2.5 mg po bid due to elevated cr and >80 yo -Rate controlled -Tele monitor Problems reviewed: Yes Code(s): I48.0 - PAROXYSMAL ATRIAL FIBRILLATION (2) Pneumonia Assessment/Plan: -ID and Pulmonary on board -IV abx -Nasal O 2 PRN to keep SpO2>90% -Bronchodilators Problems reviewed: Yes Code(s): J18.9 - PNEUMONIA, UNSPECIFIED ORGANISM (3) Hypokalemia Assessment/Plan: -KCL 40 meq PO BID -KCl 10 meq x 3 -repeat CMP in AM Problems reviewed: Yes Code(s): E87.6 - HYPOKALEMIA (4) Lactic acidosis Assessment/Plan: -trending down -Repeat LA today pending Problems reviewed: Yes Code(s): E87.2 - ACIDOSIS (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 Assessment/Plan: -HFrEF on echo yesterday -Cardiology consult -Hold furosemide 40 mg IVP today -Daily weights -Low sodium diet -Fluid restriction 1 L -D/C ARB -Decrease metoprolol to 25 mg po daily -Continue Cardizem CD 120 mg po daily with parameters Problems reviewed: Yes Code(s): I50.40 - UNSP COMBINED SYSTOLIC AND DIASTOLIC (CONGESTIVE) HRT FAIL Qualifiers: Heart failure chronicity: acute on chronic Qualified Code(s): I50.43 - Acute on chronic combined systolic (congestive) and diastolic (congestive) heart failure (6) Metabolic encephalopathy Problems reviewed: Yes Code(s): G93.41 - METABOLIC ENCEPHALOPATHY (7) Weakness Assessment/Plan: -Seen by Neurology -CT head unremarkable -Physiatry consult Problems reviewed: Yes Code(s): R53.1 - WEAKNESS (8) INDY (acute kidney injury) Assessment/Plan: -Nephrology consult -Hold furosemide today -D/C ARB -Monitor Cr trend Problems reviewed: Yes Code(s): N17.9 - ACUTE KIDNEY FAILURE, UNSPECIFIED (9) Pulmonary nodules/lesions, multiple Assessment/Plan: -Oncology on board -CT chest reviewed -likely metastatic disease Problems reviewed: Yes Code(s): R91.8 - OTHER NONSPECIFIC ABNORMAL FINDING OF LUNG FIELD Assessment/Plan see problem list Physical therapy
[2019-02-24] MEDS: POTASSIUM CHLORIDE ORAL LIQUID 20 MEQ/15 ML PO SCH ×2 (10:32→21:22)
[2019-02-24] MEDS: ASPIRIN COATED 81 MG TABLET.EC PO SCH (10:34)
[2019-02-24] MEDS: CEFTRIAXONE 1 GM in DEXTROSE 5%-WATER - 50 ML IVPB SCH (10:34)
[2019-02-24] MEDS: APIXABAN 5 MG TABLET PO SCH (10:34)
[2019-02-24] MEDS: ACETAMINOPHEN 325 MG TABLET (FP) PO PRN ×2 (10:35→21:22)
[2019-02-24] MEDS: FUROSEMIDE 40 MG/4 ML INJECTABLE VIAL IVPUSH SCH (10:57)
--- NOTE | 2019-02-24 10:58 | PN ---
Progress Note (short form) - Note Progress Note: feels well no SOB alert Vital Signs Period Temp Pulse Resp BP Sys/Ham Pulse Ox Last 24 Hr 97.1 F-98.1 F 62-98 16-20 89-133/48-77 99-99 cor-rrr lungs decreased bs at bases abd soft,nt protuberant ext less edema, no erythema, +venous stasis CBC, BMP 02/23/19 05:40 02/24/19 06:00 Microbiology 02/21/19 02:50 Blood - Peripheral Venous Blood Culture - Preliminary NO GROWTH OBTAINED AFTER 72 HOURS, INCUBATION TO CONTINUE FOR 2 DAYS. 02/21/19 02:50 Blood - Peripheral Venous Blood Culture - Preliminary NO GROWTH OBTAINED AFTER 72 HOURS, INCUBATION TO CONTINUE FOR 2 DAYS. 02/21/19 06:36 Urine - Urine Clean Catch Urine Culture - Final Strep Agalactiae Group B a/p INDY-suspect secondary to diuresis CHF-improved confusion resolved abnl chest ct- ?malignancy, also bilateral effusions and lower lobe atelectasis pneumonia day #4 antibioitics, will d/c rocephin, finish 5 days zithromax please call back if needed Problem List - Problems (1) CHF (congestive heart failure) Code(s): I50.9 - HEART FAILURE, UNSPECIFIED (2) HTN (hypertension) Code(s): I10 - ESSENTIAL (PRIMARY) HYPERTENSION (3) Pneumonia Code(s): J18.9 - PNEUMONIA, UNSPECIFIED ORGANISM (4) Stasis dermatitis Code(s): I87.2 - VENOUS INSUFFICIENCY (CHRONIC) (PERIPHERAL) (5) Confusion Code(s): R41.0 - DISORIENTATION, UNSPECIFIED
[2019-02-24] MEDS: AZITHROMYCIN IVPB 250 MG in DEXTROSE 5%-WATER - 250 ML IVPB SCH (11:22)
[2019-02-24] MEDS: APIXABAN 2.5 MG TABLET PO SCH ×2 (12:20→21:22)
--- NOTE | 2019-02-24 12:35 | CONSULT ---
Consult Consult Specialty:: Nephrology Reason for Consultation:: INDY and hyponatremia - History of Present Illness Chief Complaint: initially presented with shortness of breath History of Present Illness: Pt is an 88 year old female with pmhx of a-fib, htn, hld, and cva who initially presented to the ER with shortness of breath. She also had lower ext edema. She was given lasix and her symptoms have improved. 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 I repeat her labs and the entry driver operator had normalized. She does however have hyponatremia. She was on 40 mg of lasix when at home. Her sodium has been steadily dropping. She denies shortness of breath at the moment. 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 AUDITOR: Yes: CVA Cardio/Vascular: Yes: HTN, Hyperlipdemia Endocrine: Yes: Hypothyroidism - Past Surgical History Past Surgical History: Yes: Carotid Endarterectomy (left) - Alcohol/Substance Use Hx Alcohol Use: No - Smoking History Smoking history: Former smoker Have you smoked in the past 12 months: No If you are a former smoker, when did you quit?: 60yrs ago - Social History Usual Living Arrangement: With Child (lives with daughter in house with 4 steps to enter and 20 inside) ADL: Independent (Independent in ADLs without AD) History of Recent Travel: No Home Medications - Allergies Allergies/Adverse Reactions: Allergies Allergy/AdvReac Type Severity Reaction Status Date / Time No Known Allergies Allergy Verified 02/21/19 02:42 - Home Medications Home Medications: Ambulatory Orders Apixaban [Eliquis -] 5 mg PO BID #1 tablet 10/21/13 Diltiazem Cd [Cardizem Cd -] 120 mg PO DAILY #0 cap.cd.24h 10/21/13 Metoprolol Succinate [Toprol XL -] 100 mg PO DAILY #1 10/21/13 Simvastatin [Zocor] 20 mg PO HS #1 10/21/13 Levothyroxine Sodium [Synthroid] 125 mcg PO DAILY 10/20/14 Aspirin [ASA -] 81 mg PO DAILY 05/13/15 Losartan/Hydrochlorothiazide [Hyzaar 100-12.5 Tablet] 1 each PO DAILY 05/13/15 Isosorbide Mononitrate [Imdur -] 30 mg PO DAILY 04/04/17 Family Medical History Family History: Denies Review of Systems - Review of Systems Constitutional: reports: Malaise Eyes: reports: No Symptoms HENT: reports: No Symptoms Neck: reports: No Symptoms Cardiovascular: reports: Edema, Shortness of Breath Respiratory: reports: Cough, SOB on Exertion Musculoskeletal: reports: No Symptoms Integumentary: reports: No Symptoms Endocrine: reports: No Symptoms Hematology/Lymphatic: reports: No Symptoms Psychiatric: reports: No Symptoms Physical Exam Vital Signs: Vital Signs Temperature 97.5 F L 02/24/19 10:45 Pulse Rate 62 02/24/19 10:45 Respiratory Rate 20 02/24/19 10:45 Blood Pressure 80/35 L 02/24/19 11:28 O2 Sat by Pulse Oximetry (%) 99 02/23/19 22:00 Constitutional: Yes: Calm Eyes: Yes: Conjunctiva Clear HENT: Yes: Atraumatic Neck: Yes: Supple Cardiovascular: Yes: S1, S2 Respiratory: Yes: On Nasal O2 Gastrointestinal: Yes: Soft Musculoskeletal: Yes: WNL Edema: Yes Edema: LLE: 1+, RLE: 1+ Integumentary: Yes: Venous Stasis Changes Neurological: Yes: Oriented Psychiatric: Yes: Oriented Labs: CBC, BMP 02/23/19 05:40 02/24/19 06:00 Laboratory Tests 02/21/19 02/21/19 02/21/19 02:50 02:50 06:36 WBC 11.0 H Sodium 134 L Potassium Chloride BUN Creatinine 1.2 Urine Protein 1+ H Urine Blood Negative 02/22/19 02/23/19 02/24/19 06:20 05:40 06:00 WBC Sodium 132 L 131 L 128 L Potassium 3.1 L Chloride BUN Creatinine 1.0 1.1 2.7 H Urine Protein Urine Blood 02/24/19 14:30 WBC Sodium 126 L Potassium 3.6 Chloride 86 L BUN 28.8 H Creatinine 1.1 Urine Protein Urine Blood Imaging - Results Chest X-ray: Report Reviewed Problem List - Problems (1) Hyponatremia Code(s): E87.1 - HYPO-OSMOLALITY AND HYPONATREMIA (2) CHF (congestive heart failure) Code(s): I50.9 - HEART FAILURE, UNSPECIFIED (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 Code(s): I50.40 - UNSP COMBINED SYSTOLIC AND DIASTOLIC (CONGESTIVE) HRT FAIL Qualifiers: Heart failure chronicity: acute on chronic Qualified Code(s): I50.43 - Acute on chronic combined systolic (congestive) and diastolic (congestive) heart failure Assessment/Plan Current Medications Generic Name Dose Route Start Last Admin Trade Name Freq PRN Reason Stop Dose Admin Acetaminophen 650 mg 02/23/19 20:31 02/24/19 10:35 Tylenol - PO 650 mg Q6H PRN Administration PAIN LEVEL 6-10 Albuterol/Ipratropium 1 amp 02/21/19 14:07 Duoneb - NEB Q6H PRN SHORTNESS OF BREATH Apixaban 2.5 mg 02/24/19 11:30 02/24/19 12:20 Eliquis - PO Not Given BID [facility] Aspirin 81 mg 02/21/19 10:00 02/24/19 10:34 Ecotrin - PO 81 mg DAILY [facility] Administration Atorvastatin Calcium 40 mg 02/21/19 22:00 02/23/19 21:17 Lipitor - PO 40 mg HS [facility] Administration Cyanocobalamin 1,000 mcg 02/24/19 10:30 Vitamin B12 Injection - IM DAILY [facility] Diltiazem HCl 120 mg 02/24/19 10:21 Cardizem Cd - PO DAILY [facility] Furosemide 40 mg 02/21/19 10:00 02/24/19 10:57 Lasix Injection - IVPUSH Not Given DAILY [facility] Azithromycin 250 mg/ Dextrose 250 mls @ 250 mls/hr 02/22/19 10:00 02/24/19 11 :22 IVPB 250 mls/hr DAILY [facility] Administration Nitroglycerin/Dextrose 50 mg in 250 mls @ 3 mls/hr 02/21/19 14:08 02/23/19 14 :00 Nitroglycerin 50mg/D5w 250ml IVPB Not Given TITR [facility] Protocol 10 MCG/MIN Potassium Chloride 10 meq in 100 mls @ 100 mls/hr 02/24/19 10:45 Potassium Chloride 10 Meq Premix Ivpb - IVPB 02/24/19 13:44 Q60M [facility] Levothyroxine Sodium 125 mcg 02/22/19 07:00 02/24/19 06:33 Synthroid - PO 125 mcg DAILY@0700 [facility] Administration Melatonin 5 mg 02/24/19 01:35 02/24/19 01:55 Melatonin PO 5 mg HS PRN Administration INSOMNIA Metoprolol Succinate 25 mg 02/24/19 10:21 Toprol Xl - PO DAILY [facility] Potassium Chloride 40 meq 02/24/19 22:00 Potassium Chloride Oral Liquid PO BID [facility] Impression 1. hyponatremia 2. indy 3. hypokalemia 4. chf 5. fluid overload 6. multiple pulmonary masses suspicious for mets 7. bilateral pleural effusions 8. a-fib 9. htn 10. hld Plan - repeat entry driver operator is improved - restrict free water - check plasma and urine osm, check urine lytes - check cortisol and tsh - pt has lung masses, may be contributing to hyponatremia - lasix held today secondary to hypotension - cardio follow up
--- NOTE | 2019-02-24 12:50 | PN ---
Progress Note, Physician History of Present Illness: pulmonary alert,no distress,-congestion - Current Medication List Current Medications: Active Medications Acetaminophen (Tylenol -) 650 mg PO Q6H PRN PRN Reason: PAIN LEVEL 6-10 Last Admin: 02/24/19 10:35 Dose: 650 mg Albuterol/Ipratropium (Duoneb -) 1 amp NEB Q6H PRN PRN Reason: SHORTNESS OF BREATH Apixaban (Eliquis -) 2.5 mg PO BID [facility] Last Admin: 02/24/19 12:20 Dose: Not Given Aspirin (Ecotrin -) 81 mg PO DAILY [facility] Last Admin: 02/24/19 10:34 Dose: 81 mg Atorvastatin Calcium (Lipitor -) 40 mg PO HS [facility] Last Admin: 02/23/19 21:17 Dose: 40 mg Cyanocobalamin (Vitamin B12 Injection -) 1,000 mcg IM DAILY [facility] Diltiazem HCl (Cardizem Cd -) 120 mg PO DAILY [facility] Furosemide (Lasix Injection -) 40 mg IVPUSH DAILY [facility] Last Admin: 02/24/19 10:57 Dose: Not Given Azithromycin 250 mg/ Dextrose 250 mls @ 250 mls/hr IVPB DAILY [facility] Last Admin: 02/24/19 11:22 Dose: 250 mls/hr Nitroglycerin/Dextrose (Nitroglycerin 50mg/D5w 250ml) 50 mg in 250 mls @ 3 mls/ hr IVPB TITR [facility]; Protocol Last Admin: 02/23/19 14:00 Dose: Not Given Potassium Chloride (Potassium Chloride 10 Meq Premix Ivpb -) 10 meq in 100 mls @ 100 mls/hr IVPB Q60M [facility] Stop: 02/24/19 13:44 Levothyroxine Sodium (Synthroid -) 125 mcg PO DAILY@0700 [facility] Last Admin: 02/24/19 06:33 Dose: 125 mcg Melatonin (Melatonin) 5 mg PO HS PRN PRN Reason: INSOMNIA Last Admin: 02/24/19 01:55 Dose: 5 mg Metoprolol Succinate (Toprol Xl -) 25 mg PO DAILY [facility] Potassium Chloride (Potassium Chloride Oral Liquid) 40 meq PO BID [facility] - Objective Vital Signs: Vital Signs Temperature 97.5 F L 02/24/19 10:45 Pulse Rate 61 02/24/19 12:43 Respiratory Rate 20 02/24/19 10:45 Blood Pressure 87/54 L 02/24/19 12:43 O2 Sat by Pulse Oximetry (%) 99 02/23/19 22:00 Constitutional: Yes: Well Nourished, Calm Eyes: Yes: WNL HENT: Yes: WNL Neck: Yes: WNL Cardiovascular: Yes: Pulse Irregular, S1, S2 Respiratory: Yes: Diminished Gastrointestinal: Yes: Normal Bowel Sounds, Soft Extremities: Yes: WNL Edema: Yes (improving) Labs: CBC, BMP 02/23/19 05:40 02/24/19 06:00 INR, PTT INR 1.03 (0.83-1.09) 02/21/19 02:50 Assessment/Plan Problem List - Problems (1) Hypercapnia Code(s): R06.89 - OTHER ABNORMALITIES OF BREATHING (2) Congestive heart failure due to high blood pressure Code(s): I11.0 - HYPERTENSIVE HEART DISEASE WITH HEART FAILURE (3) Edema Code(s): R60.9 - EDEMA, UNSPECIFIED (4) Pneumonia, community acquired Code(s): J18.9 - PNEUMONIA, UNSPECIFIED ORGANISM (5) Atypical chest pain Code(s): R07.89 - OTHER CHEST PAIN (6) Chest pressure Code(s): R07.89 - OTHER CHEST PAIN 7 AORTIC STENOSIS 8. BILATERAL PULMONARY MASSES ?MALIGNANT,? INFECTIOUS 9. A-FIB Assessment/Plan Lasix Empiric Rocephin and Zithromax Daily weights NC O2 as tolerated NIPPV support for increased WOB BD TX PRN Eliquis for AC f/u chest x-rays DR MARX
[2019-02-24] MEDS: KCL 10 MEQ IVPB 10 MEQ/100 ML INFUS.BAG IVPB SCH ×3 (13:13→15:46)
[2019-02-24] MEDS: CYANOCOBALAMIN (VITAMIN B-12) 1000 MCG/1 ML VIAL IM SCH (13:15)
--- NOTE | 2019-02-24 14:29 | PN ---
Progress Note (short form) - Note Progress Note: 88-year-old female with a history of hypertension, hypertensive cardiovascular disease, status post cerebrovascular accident, history of hypothyroidism, paroxysmal atrial fibrillation. She was brought to the emergency room with acute shortness of breath. During her hospitalization in the emergency room, patient was found to be confused, lethargic. Patient currently is alert and also gives history of recurring retrosternal pressure-like chest discomfort. Last episode occurred around 9 AM and persisted for several minutes. Pain was nonradiating, nonpleuritic. On questioning, she states that these episodes have been occurring in the recent past. There were no associated symptoms of diaphoresis , nausea, vomiting, or dyspnea. Patient denies having palpitations, lightheadedness, dizziness, presyncope, or syncope. History was also obtained through her son-in-law who states that the patient was developing progressive pedal edema for several days or weeks and would refuse to consider going to the hospital. There is no history of diabetes mellitus. There is no history of recent cough or expectoration. No history of fever or chills. ALLERGIES: None reported. Active Medications Acetaminophen (Tylenol -) 650 mg PO Q6H PRN PRN Reason: PAIN LEVEL 6-10 Last Admin: 02/24/19 10:35 Dose: 650 mg Albuterol/Ipratropium (Duoneb -) 1 amp NEB Q6H PRN PRN Reason: SHORTNESS OF BREATH Apixaban (Eliquis -) 2.5 mg PO BID [facility] Last Admin: 02/24/19 12:20 Dose: Not Given Aspirin (Ecotrin -) 81 mg PO DAILY [facility] Last Admin: 02/24/19 10:34 Dose: 81 mg Atorvastatin Calcium (Lipitor -) 40 mg PO HS [facility] Last Admin: 02/23/19 21:17 Dose: 40 mg Cyanocobalamin (Vitamin B12 Injection -) 1,000 mcg IM DAILY [facility] Last Admin: 02/24/19 13:15 Dose: 1,000 mcg Diltiazem HCl (Cardizem Cd -) 120 mg PO DAILY [facility] Furosemide (Lasix Injection -) 40 mg IVPUSH DAILY [facility] Last Admin: 02/24/19 10:57 Dose: Not Given Azithromycin 250 mg/ Dextrose 250 mls @ 250 mls/hr IVPB DAILY [facility] Last Admin: 02/24/19 11:22 Dose: 250 mls/hr Nitroglycerin/Dextrose (Nitroglycerin 50mg/D5w 250ml) 50 mg in 250 mls @ 3 mls/ hr IVPB TITR [facility]; Protocol Last Admin: 02/23/19 14:00 Dose: Not Given Levothyroxine Sodium (Synthroid -) 125 mcg PO DAILY@0700 [facility] Last Admin: 02/24/19 06:33 Dose: 125 mcg Melatonin (Melatonin) 5 mg PO HS PRN PRN Reason: INSOMNIA Last Admin: 02/24/19 01:55 Dose: 5 mg Metoprolol Succinate (Toprol Xl -) 25 mg PO DAILY [facility] Potassium Chloride (Potassium Chloride Oral Liquid) 40 meq PO BID [facility] PHYSICAL EXAMINATION: General: An 88-year-old female who is alert. There is no pallor, cyanosis, clubbing, or jaundice. Last Vital Signs Temp Pulse Resp BP Pulse Ox 97.5 F L 61 20 87/54 L 99 02/24/19 10:45 02/24/19 12:43 02/24/19 10:45 02/24/19 12:43 02/23/19 22:00 HEENT: Normocephalic. Pupils are equal, reacting to light and accommodation. There is arcus senilis. No xanthelasma is seen. Neck: Supple. No jugular venous distention. Slightly positive hepatojugular reflux. Carotids are 2+. Upstrokes are normal. Unable to appreciate any bruits. There is no thyromegaly. There is a well-healed left carotid endarterectomy scar. Heart: PMI is in the 5th intercostal space. No heaves or thrills. S1 is variable. S2 is split. Ejection systolic murmur grade II/ is heard at the 2nd right intercostal space ending in atgwf-[id number]-lre systolic. No diastolic murmur or gallops are heard. Lungs: Fine crepitations at the right base. No other extraneous sounds are heard. Chest: Normal AP diameter. Expansion is symmetrical. Abdomen: Soft, protuberant, nontender. No hepatosplenomegaly or palpable masses are felt. Bowel sounds are present. No bruits are heard. Extremities: No calf tenderness or dependent edema. Pulses are equal. Dorsalis pedis pulses are 1 to 2+. Posterior tibial pulses are not palpable. There are varicosities noted. CBC, BMP 02/23/19 05:40 02/24/19 06:00 CT of the Chest dated February 22, 2019. Impression: 1. Cardiomegaly, vascular congestion, bilateral pleural effusion, and lower lobe atelectasis. 2. Multiple pulmonary masses suspect for metastatic disease. 3. Polypoid lesion within the mid trachea. 4. Mild mediastinal lymphadenopathy. Clinical correlation and follow up recommended. Echocardiogram dated February 22, 2019. Interpretation summary: Left ventricle is normal in size. Left ventricle systolic function is moderately reduced. There is moderate global hypokinesia of the left ventricle. Ejection fraction 40%-45%. Right ventricular systolic function is mildly reduced. Right ventricular systolic TID is 7 cm/sec, borderline left atrial enlargement. There is mild annular calcification. There is moderate mitral regurgitation. There is [id number] tricuspid regurgitation. Pulmonary systolic pressure is at least 48 mmHg if RA pressure is presumed to be 3 mmHg. Severe valvular aortic stenosis. The calculated aortic valve area by continuity equation is 0.8 cm2. Ufsvdgrb-ig-uucvip aortic regurgitation. Qbgv-ib-yqipctvi pulmonic valvular regurgitation. There is no pericardial effusion. IMPRESSION: 1. Acute left ventricular failure, multifactorial. A. Related to critical aortic stenosis. B. Right heart failure/tricuspid regurgitation. C. Left ventricular systolic dysfunction. 2. Chest pain syndrome compatible with angina pectoris secondary to coronary artery disease/severe aortic stenosis. 3. Critical aortic stenosis and aortic regurgitation. 4. Pulmonary hypertension. 5. Severe tricuspid regurgitation. 6. Left ventricular systolic dysfunction. 7. Right ventricular systolic dysfunction. 8. Atrial flutter. 9. Hypertension, hypertensive cardiovascular disease. 10. Pulmonary nodules as reported on CT scan. Carcinoma needs exclusion. 11. History of confusion. Etiology to be determined. 12. Cerebrovascular accident versus cerebral metastatic disease needs exclusion. 13. History of ethanol excess. Exclude withdrawal. 14. Hypokalemia. 15. Atrial flutter. 16. Hypercholesterolemia. 17. Status post cerebrovascular accident. RECOMMENDATIONS: 1. Magnesium level. 2. Continue correction of serum potassium. 3. Pulmonary evaluation for pulmonary lesions and tracheal mass. 4. Oncological evaluation. 5. T3, T4 TSH. 6. Consider MRI of the head. 7. Further suggestions as necessary. PROGNOSIS: Critical. Time spent face to face discussion and counseling was 1 hour 10 minutes. EZRA BRIAN M.D.
[2019-02-24] MEDS: NITROGLYCERIN 50MG/D5W 250ML 50 MG/250 ML ML IVPB SCH (14:34)
[2019-02-24] MEDS ORDERED: LEVOTHYROXINE NA 125 MCG TABLET (FP) PO SCH (15:22)
[2019-02-24 15:27] LABS: BLOOD UREA NITROGEN 28.8 mg/dL (7-18); CALCIUM 8.1 mg/dL (8.5-10.1); CREATININE 1.1 mg/dL (0.55-1.3); POTASSIUM 3.6 mmol/L (3.5-5.1)
--- NOTE | 2019-02-24 17:36 | PN ---
Progress Note, Physician History of Present Illness: vents noted Chart review Seen by multiple specialists No report of any complain Better attention span - Current Medication List Current Medications: Active Medications Acetaminophen (Tylenol -) 650 mg PO Q6H PRN PRN Reason: PAIN LEVEL 6-10 Last Admin: 02/24/19 10:35 Dose: 650 mg Albuterol/Ipratropium (Duoneb -) 1 amp NEB Q6H PRN PRN Reason: SHORTNESS OF BREATH Apixaban (Eliquis -) 2.5 mg PO BID [facility] Last Admin: 02/24/19 12:20 Dose: Not Given Aspirin (Ecotrin -) 81 mg PO DAILY [facility] Last Admin: 02/24/19 10:34 Dose: 81 mg Atorvastatin Calcium (Lipitor -) 40 mg PO HS [facility] Last Admin: 02/23/19 21:17 Dose: 40 mg Cyanocobalamin (Vitamin B12 Injection -) 1,000 mcg IM DAILY [facility] Last Admin: 02/24/19 13:15 Dose: 1,000 mcg Diltiazem HCl (Cardizem Cd -) 120 mg PO DAILY [facility] Furosemide (Lasix Injection -) 40 mg IVPUSH DAILY [facility] Last Admin: 02/24/19 10:57 Dose: Not Given Azithromycin 250 mg/ Dextrose 250 mls @ 250 mls/hr IVPB DAILY [facility] Last Admin: 02/24/19 11:22 Dose: 250 mls/hr Nitroglycerin/Dextrose (Nitroglycerin 50mg/D5w 250ml) 50 mg in 250 mls @ 3 mls/ hr IVPB TITR [facility]; Protocol Last Admin: 02/24/19 14:34 Dose: Not Given Levothyroxine Sodium 112 mcg/ (Levothyroxine Sodium 25 mcg) 137 mcg PO DAILY@ 0700 [facility] Melatonin (Melatonin) 5 mg PO HS PRN PRN Reason: INSOMNIA Last Admin: 02/24/19 01:55 Dose: 5 mg Metoprolol Succinate (Toprol Xl -) 25 mg PO DAILY [facility] Potassium Chloride (Potassium Chloride Oral Liquid) 40 meq PO BID [facility] - Objective Vital Signs: Vital Signs Temperature 98.1 F 02/24/19 14:27 Pulse Rate 104 H 02/24/19 14:27 Respiratory Rate 20 02/24/19 14:27 Blood Pressure 117/70 02/24/19 14:27 O2 Sat by Pulse Oximetry (%) 99 02/24/19 09:00 Constitutional: Yes: Well Nourished Eyes: Yes: WNL Neurological: Yes: Alert, Oriented ...Motor Strength: WNL Labs: CBC, BMP 02/23/19 05:40 02/24/19 14:30 INR, PTT INR 1.03 (0.83-1.09) 02/21/19 02:50 Problem List - Problems (1) Stroke Assessment/Plan: CAT scan of the head revealed no evidence of acute stroke Continue anti-coagulation out of bed to chair Supplement B12 Physical therapy Fall precautions Code(s): I63.9 - CEREBRAL INFARCTION, UNSPECIFIED
[2019-02-24] MEDS: ATORVASTATIN CA 40 MG TABLET (FP) PO SCH (21:22)
[2019-02-25] MEDS ORDERED: LORazepam 2 MG/ML SDV VIAL IVPUSH STA (02:07)
[2019-02-25] MEDS ORDERED: LEVOTHYROXINE NA 100 MCG TABLET (FP) ONE (05:33)
[2019-02-25] MEDS ORDERED: LEVOTHYROXINE NA 75 MCG TABLET (FP) ONE (05:34)
[2019-02-25] MEDS: ACETAMINOPHEN 325 MG TABLET (FP) PO PRN ×2 (06:02→21:12)
[2019-02-25] MEDS ORDERED: LEVOTHYROXINE NA 112 MCG TABLET (FP) PO SCH (07:00)
[2019-02-25] MEDS ORDERED: LEVOTHYROXINE 100 MCG, LEVOTHYROXINE 75 MCG PO SCH (07:00)
[2019-02-25] MEDS ORDERED: LEVOTHYROXINE 112 MCG, LEVOTHYROXINE 25 MCG PO SCH (07:00)
[2019-02-25 07:04] LABS: BASO % 0.2 % (0-2.0); EOS % 2.3 % (0-4.5); HEMATOCRIT 34.5 % (32.4-45.2); HEMOGLOBIN 11.9 GM/dL (10.7-15.3); LYMPH % 9.8 % (8-40); MCH 32.5 pg (25.7-33.7); MCHC 34.5 g/dl (32.0-36.0); MEAN CELL VOLUME 94.3 fl (80-96); MEAN PLT VOLUME 9.4 fl (7.5-11.1); NEUT % 80.7 % (42.8-82.8); PLATELET COUNT 206 K/MM3 (134-434); RBC 3.65 M/mm3 (3.60-5.2); RDW 15.7 % (11.6-15.6); WHITE BLOOD COUNT 7.1 K/mm3 (4.0-10.0)
[2019-02-25 07:43] LABS: ALBUMIN 3.4 g/dl (3.4-5.0); BILIRUBIN,TOTAL 0.8 mg/dL (0.2-1); CALCIUM 8.9 mg/dL (8.5-10.1); CREATININE 0.9 mg/dL (0.55-1.3); POTASSIUM 3.4 mmol/L (3.5-5.1); TOT PROT 6.4 g/dl (6.4-8.2)
--- NOTE | 2019-02-25 10:41 | PN ---
Progress Note (short form) - Note Progress Note: 88-year-old female with a history of hypertension, hypertensive cardiovascular disease, status post cerebrovascular accident, history of hypothyroidism, paroxysmal atrial fibrillation. She was brought to the emergency room with acute shortness of breath. During her hospitalization in the emergency room, patient was found to be confused, lethargic. She also had complained of chest pains which have not recurred since admission. patient was found to have pulmonary nodule and is currently undergoing workup. She also has significantly elevated TSH and appears that she must have stopped taking her Synthroid which has been resumed. No chest pain or discomfort reported. No dyspnea, PND or orthopnea. ALLERGIES: None reported. Active Medications Acetaminophen (Tylenol -) 650 mg PO Q6H PRN PRN Reason: PAIN LEVEL 6-10 Last Admin: 02/25/19 06:02 Dose: 650 mg Albuterol/Ipratropium (Duoneb -) 1 amp NEB Q6H PRN PRN Reason: SHORTNESS OF BREATH Apixaban (Eliquis -) 2.5 mg PO BID [facility] Last Admin: 02/24/19 21:22 Dose: 2.5 mg Aspirin (Ecotrin -) 81 mg PO DAILY [facility] Last Admin: 02/24/19 10:34 Dose: 81 mg Atorvastatin Calcium (Lipitor -) 40 mg PO HS [facility] Last Admin: 02/24/19 21:22 Dose: 40 mg Cyanocobalamin (Vitamin B12 Injection -) 1,000 mcg IM DAILY [facility] Last Admin: 02/24/19 13:15 Dose: 1,000 mcg Diltiazem HCl (Cardizem Cd -) 120 mg PO DAILY [facility] Furosemide (Lasix Injection -) 40 mg IVPUSH DAILY [facility] Last Admin: 02/24/19 10:57 Dose: Not Given Azithromycin 250 mg/ Dextrose 250 mls @ 250 mls/hr IVPB DAILY [facility] Last Admin: 02/24/19 11:22 Dose: 250 mls/hr Nitroglycerin/Dextrose (Nitroglycerin 50mg/D5w 250ml) 50 mg in 250 mls @ 3 mls/ hr IVPB TITR [facility]; Protocol Last Admin: 02/24/19 14:34 Dose: Not Given Levothyroxine Sodium 100 mcg/ (Levothyroxine Sodium 75 mcg) 175 mcg PO DAILY@ 0700 [facility] Last Admin: 02/25/19 06:02 Dose: 175 mcg Melatonin (Melatonin) 5 mg PO HS PRN PRN Reason: INSOMNIA Last Admin: 02/24/19 21:22 Dose: 5 mg Metoprolol Succinate (Toprol Xl -) 25 mg PO DAILY [facility] Potassium Chloride (Potassium Chloride Oral Liquid) 40 meq PO BID [facility] Last Admin: 02/24/19 21:22 Dose: 40 meq PHYSICAL EXAMINATION: General: 88-year-old female who is alert. There is no pallor, cyanosis, clubbing, or jaundice. Last Vital Signs Temp Pulse Resp BP Pulse Ox 97.7 F 86 16 119/80 99 02/25/19 08:25 02/25/19 08:25 02/25/19 08:25 02/25/19 08:25 02/24/19 22:00 Neck: Supple. No jugular venous distention. Negative hepatojugular reflux. Carotids are 2+. Upstrokes are normal. Unable to appreciate any bruits. There is no thyromegaly. There is a well-healed left carotid endarterectomy scar. Heart: PMI is in the 5th intercostal space. No heaves or thrills. S1 is variable. S2 is split. Ejection systolic murmur grade 2/6 is heard at the 2nd right intercostal space ending in [id number]-og-[id number] systolic. No diastolic murmur or gallops are heard. Lungs: Increased vocal resonance at the right mid zone posteriorly. No other extraneous sounds are heard. Chest: Normal AP diameter. Expansion is symmetrical. Abdomen: Soft, protuberant, nontender. No hepatosplenomegaly or palpable masses are felt. Bowel sounds are present. No bruits are heard. Extremities: No calf tenderness or dependent edema. Pulses are equal. Dorsalis pedis pulses are 1 to 2+. Posterior tibial pulses are not palpable. There are varicosities noted. Laboratory Results - last 24 hr 02/24/19 02/24/19 02/25/19 20:00 20:00 06:00 WBC 7.1 RBC 3.65 Hgb 11.9 Hct 34.5 MCV 94.3 MCH 32.5 MCHC 34.5 RDW 15.7 H Plt Count 206 MPV 9.4 Absolute Neuts (auto) 5.7 Neutrophils % 80.7 Lymphocytes % 9.8 D Monocytes % 7.0 Eosinophils % 2.3 Basophils % 0.2 Nucleated RBC % 0 Sodium Potassium Chloride Carbon Dioxide Anion Gap BUN Creatinine Est GFR (CKD-EPI)AfAm Est GFR (CKD-EPI)NonAf Random Glucose Serum Osmolality Calcium Total Bilirubin AST ALT Alkaline Phosphatase Total Protein Albumin TSH Free T4 Urine Osmolality 480 Ur Random Sodium 60 Ur Random Potassium 41.0 Ur Random Chloride 66 L 02/25/19 02/25/19 02/25/19 06:00 06:00 06:00 WBC RBC Hgb Hct MCV MCH MCHC RDW Plt Count MPV Absolute Neuts (auto) Neutrophils % Lymphocytes % Monocytes % Eosinophils % Basophils % Nucleated RBC % Sodium 127 L Potassium 3.4 L Chloride 85 L Carbon Dioxide 34 H Anion Gap 8 BUN 20.0 H Creatinine 0.9 Est GFR (CKD-EPI)AfAm 65.70 Est GFR (CKD-EPI)NonAf 56.69 Random Glucose 104 Serum Osmolality 268 L Calcium 8.9 Total Bilirubin 0.8 AST 54 H ALT 30 Alkaline Phosphatase 54 Total Protein 6.4 Albumin 3.4 TSH 96.30 H Free T4 0.69 L Urine Osmolality Ur Random Sodium Ur Random Potassium Ur Random Chloride CT of the chest dated February 22, 2019. Impression: 1. Cardiomegaly, vascular congestion, bilateral pleural effusion, and lower lobe atelectasis. 2. Multiple pulmonary masses suspect for metastatic disease. 3. Polypoid lesion within the mid trachea. 4. Mild mediastinal lymphadenopathy. Clinical correlation and follow up recommended. Echocardiogram dated February 22, 2019. Interpretation summary: Left ventricle is normal in size. Left ventricle systolic function is moderately reduced. There is moderate global hypokinesia of the left ventricle. Ejection fraction 40%-45%. Right ventricular systolic function is mildly reduced. Right ventricular systolic TID is 7 cm/sec, borderline left atrial enlargement. There is mild annular calcification. There is moderate mitral regurgitation. There is idqzcfny-qb-cykrwi tricuspid regurgitation. Pulmonary systolic pressure is at least 48 mmHg if RA pressure is presumed to be 3 mmHg. Severe valvular aortic stenosis. The calculated aortic valve area by continuity equation is 0.8 cm2. Favhnvtl-zw-gaoszt aortic regurgitation. Uakw-wz-ukxduoxq pulmonic valvular regurgitation. There is no pericardial effusion. IMPRESSION: 1. Congestive heart failure resolved, etiology: A. Critical aortic stenosis. B. Tricuspid regurgitation. C. Left ventricular systolic dysfunction. 2. Chest pain syndrome compatible with angina pectoris secondary to coronary artery disease/severe aortic stenosis, presently asymptomatic. 3. Critical aortic stenosis and aortic regurgitation. 4. Pulmonary hypertension. 5. Severe tricuspid regurgitation. 6. Left ventricular systolic dysfunction. 7. Right ventricular systolic dysfunction. 8. Atrial flutter. 9. Hypertension, hypertensive cardiovascular disease, currently normotensive. 10. Severe hypothyroidism. 11. Pulmonary nodules. 12. Hyponatremia and hypokalemia. 13. SIADH needs exclusion. RECOMMENDATIONS: 1. Correction of electrolytes. 2. Recheck magnesium level. 3. Endocrine evaluation aand will require further adjustment of Synthroid. 4. Follow-up ECG. 5. Consider holding Lasix and use on when necessary basis till electrolytes are corrected. 6. Daily weights. PROGNOSIS: Critical. EZRA BRIAN M.D.
[2019-02-25] MEDS ORDERED: POTASSIUM CHLORIDE TABS 10 MEQ TABLET.ER (FP) PO ONE (10:59)
--- NOTE | 2019-02-25 11:03 | PN ---
Progress Note, Physician Chief Complaint: TRANSFERRING TO [facility] [place] [facility] SCHEDULED OF BRAIN NO DEVICE SEEN ON [facility] SON REPORTS ICD WAS PLACED YEARS AGO HOWEVER ICD IS NOT SEEN ON CXR - Current Medication List Current Medications: Active Medications Acetaminophen (Tylenol -) 650 mg PO Q6H PRN PRN Reason: PAIN LEVEL 6-10 Last Admin: 02/25/19 06:02 Dose: 650 mg Albuterol/Ipratropium (Duoneb -) 1 amp NEB Q6H PRN PRN Reason: SHORTNESS OF BREATH Apixaban (Eliquis -) 2.5 mg PO BID [facility] Last Admin: 02/24/19 21:22 Dose: 2.5 mg Aspirin (Ecotrin -) 81 mg PO DAILY [facility] Last Admin: 02/24/19 10:34 Dose: 81 mg Atorvastatin Calcium (Lipitor -) 40 mg PO HS [facility] Last Admin: 02/24/19 21:22 Dose: 40 mg Cyanocobalamin (Vitamin B12 Injection -) 1,000 mcg IM DAILY [facility] Last Admin: 02/24/19 13:15 Dose: 1,000 mcg Diltiazem HCl (Cardizem Cd -) 120 mg PO DAILY [facility] Furosemide (Lasix Injection -) 40 mg IVPUSH DAILY [facility] Last Admin: 02/24/19 10:57 Dose: Not Given Azithromycin 250 mg/ Dextrose 250 mls @ 250 mls/hr IVPB DAILY [facility] Last Admin: 02/24/19 11:22 Dose: 250 mls/hr Nitroglycerin/Dextrose (Nitroglycerin 50mg/D5w 250ml) 50 mg in 250 mls @ 3 mls/ hr IVPB TITR [facility]; Protocol Last Admin: 02/24/19 14:34 Dose: Not Given Levothyroxine Sodium 100 mcg/ (Levothyroxine Sodium 75 mcg) 175 mcg PO DAILY@ 0700 [facility] Last Admin: 02/25/19 06:02 Dose: 175 mcg Melatonin (Melatonin) 5 mg PO HS PRN PRN Reason: INSOMNIA Last Admin: 02/24/19 21:22 Dose: 5 mg Metoprolol Succinate (Toprol Xl -) 25 mg PO DAILY [facility] Potassium Chloride (Potassium Chloride Oral Liquid) 40 meq PO BID [facility] Last Admin: 02/24/19 21:22 Dose: 40 meq Sodium Bicarbonate (Sodium Bicarbonate -) 325 mg PO DAILY [facility] - Objective Vital Signs: Vital Signs Temperature 97.7 F 02/25/19 08:25 Pulse Rate 86 02/25/19 08:25 Respiratory Rate 16 02/25/19 08:25 Blood Pressure 119/80 02/25/19 08:25 O2 Sat by Pulse Oximetry (%) 99 02/24/19 22:00 Constitutional: Yes: Mild Distress Cardiovascular: Yes: Pulse Irregular Respiratory: Yes: Diminished Gastrointestinal: Yes: Soft Genitourinary: Yes: Nicholas Present Musculoskeletal: Yes: Muscle Weakness Extremities: Yes: Other Edema: Yes Integumentary: Yes: Pressure Ulcer Neurological: Yes: Confusion, Pre-Existing Deficit Labs: CBC, BMP 02/25/19 06:00 02/25/19 06:00 INR, PTT INR 1.03 (0.83-1.09) 02/21/19 02:50 Problem List - Problems (1) Malignant hypertension Code(s): I10 - ESSENTIAL (PRIMARY) HYPERTENSION (2) Edema Code(s): R60.9 - EDEMA, UNSPECIFIED (3) Stasis dermatitis Code(s): I87.2 - VENOUS INSUFFICIENCY (CHRONIC) (PERIPHERAL) (4) Pneumonia, community acquired Code(s): J18.9 - PNEUMONIA, UNSPECIFIED ORGANISM (5) Congestive heart failure due to high blood pressure Code(s): I11.0 - HYPERTENSIVE HEART DISEASE WITH HEART FAILURE Qualifiers: Heart failure type: unspecified Qualified Code(s): I11.0 - Hypertensive heart disease with heart failure (6) Atypical chest pain Code(s): R07.89 - OTHER CHEST PAIN Assessment/Plan MRI BRAIN PENDING NEUROLOGY FOLLOW UP PT EVAL FALL AND SEIZURE PRECAUTIONS NA 127 ADD SOCIUM BICARB KCL REPLETED BID LASIX IV FOR DIEURESIS DAILY [facility]
--- NOTE | 2019-02-25 11:19 | PN ---
Progress Note (short form) - Note Progress Note: Agitated and confused overnight. Awake but confused. NAD. Intake & Output 02/22/19 02/23/19 02/24/19 02/25/19 23:59 23:59 23:59 23:59 Intake Total 100 1840 740 120 Output Total 2600 925 780 700 Balance -2500 915 -40 -580 Weight 170 lb Last Vital Signs Temp Pulse Resp BP Pulse Ox 97.7 F 86 16 119/80 99 02/25/19 08:25 02/25/19 08:25 02/25/19 08:25 02/25/19 08:25 02/24/19 22:00 Active Medications Acetaminophen (Tylenol -) 650 mg PO Q6H PRN PRN Reason: PAIN LEVEL 6-10 Last Admin: 02/25/19 06:02 Dose: 650 mg Albuterol/Ipratropium (Duoneb -) 1 amp NEB Q6H PRN PRN Reason: SHORTNESS OF BREATH Apixaban (Eliquis -) 2.5 mg PO BID [facility] Last Admin: 02/24/19 21:22 Dose: 2.5 mg Aspirin (Ecotrin -) 81 mg PO DAILY [facility] Last Admin: 02/24/19 10:34 Dose: 81 mg Atorvastatin Calcium (Lipitor -) 40 mg PO HS [facility] Last Admin: 02/24/19 21:22 Dose: 40 mg Cyanocobalamin (Vitamin B12 Injection -) 1,000 mcg IM DAILY [facility] Last Admin: 02/24/19 13:15 Dose: 1,000 mcg Diltiazem HCl (Cardizem Cd -) 120 mg PO DAILY [facility] Furosemide (Lasix Injection -) 40 mg IVPUSH DAILY [facility] Last Admin: 02/24/19 10:57 Dose: Not Given Azithromycin 250 mg/ Dextrose 250 mls @ 250 mls/hr IVPB DAILY [facility] Last Admin: 02/24/19 11:22 Dose: 250 mls/hr Nitroglycerin/Dextrose (Nitroglycerin 50mg/D5w 250ml) 50 mg in 250 mls @ 3 mls/ hr IVPB TITR [facility]; Protocol Last Admin: 02/24/19 14:34 Dose: Not Given Levothyroxine Sodium 100 mcg/ (Levothyroxine Sodium 75 mcg) 175 mcg PO DAILY@ 0700 [facility] Last Admin: 02/25/19 06:02 Dose: 175 mcg Melatonin (Melatonin) 5 mg PO HS PRN PRN Reason: INSOMNIA Last Admin: 02/24/19 21:22 Dose: 5 mg Metoprolol Succinate (Toprol Xl -) 25 mg PO DAILY [facility] Potassium Chloride (Potassium Chloride Oral Liquid) 40 meq PO BID [facility] Last Admin: 02/24/19 21:22 Dose: 40 meq Sodium Bicarbonate (Sodium Bicarbonate -) 325 mg PO DAILY [facility] Constitutional: Yes: NAD, confused Eyes: Yes: Conjunctiva Clear, EOM Intact HENT: Yes: Atraumatic, Normocephalic Neck: Yes: Supple, Trachea Midline Cardiovascular: Yes: S1S2 Respiratory: Yes: Cough, Diminished, On Nasal O2, Rales, Rhonchi, SOB. No: Accessory Muscle Use, Stridor, Wheezes ...Inspection: Yes: WNL ...Clubbing: No Gastrointestinal: Yes: Normal Bowel Sounds, Soft, Abdomen, Obese Renal/: Yes: WNL Musculoskeletal: Yes: WNL Extremities: Yes: WNL Edema: Yes Peripheral Pulses WNL: Yes Integumentary: Yes: WNL Neurological: Yes: Alert, Confusion Psychiatric: Yes: Alert Labs: Laboratory Results - last 24 hr 02/24/19 02/24/19 02/24/19 06:00 11:59 14:30 WBC RBC Hgb Hct MCV MCH MCHC RDW Plt Count MPV Absolute Neuts (auto) Neutrophils % Lymphocytes % Monocytes % Eosinophils % Basophils % Nucleated RBC % Sodium 128 L 126 L Potassium 3.2 L 3.6 Chloride 86 L 86 L Carbon Dioxide 32 32 Anion Gap 10 9 BUN 35.4 H 28.8 H Creatinine 2.7 H 1.1 Est GFR (CKD-EPI)AfAm 17.41 51.55 Est GFR (CKD-EPI)NonAf 15.02 44.48 Random Glucose 102 113 H Serum Osmolality Lactic Acid 2.3 H* Calcium 8.3 L 8.1 L Total Bilirubin 0.8 AST 34 ALT 26 Alkaline Phosphatase 75 Total Protein 6.2 L Albumin 3.2 L TSH 102.00 H Free T4 0.60 L Urine Osmolality Ur Random Sodium Ur Random Potassium Ur Random Chloride 02/24/19 02/24/19 02/25/19 20:00 20:00 06:00 WBC 7.1 RBC 3.65 Hgb 11.9 Hct 34.5 MCV 94.3 MCH 32.5 MCHC 34.5 RDW 15.7 H Plt Count 206 MPV 9.4 Absolute Neuts (auto) 5.7 Neutrophils % 80.7 Lymphocytes % 9.8 D Monocytes % 7.0 Eosinophils % 2.3 Basophils % 0.2 Nucleated RBC % 0 Sodium Potassium Chloride Carbon Dioxide Anion Gap BUN Creatinine Est GFR (CKD-EPI)AfAm Est GFR (CKD-EPI)NonAf Random Glucose Serum Osmolality Lactic Acid Calcium Total Bilirubin AST ALT Alkaline Phosphatase Total Protein Albumin TSH Free T4 Urine Osmolality 480 Ur Random Sodium 60 Ur Random Potassium 41.0 Ur Random Chloride 66 L 02/25/19 02/25/19 02/25/19 06:00 06:00 06:00 WBC RBC Hgb Hct MCV MCH MCHC RDW Plt Count MPV Absolute Neuts (auto) Neutrophils % Lymphocytes % Monocytes % Eosinophils % Basophils % Nucleated RBC % Sodium 127 L Potassium 3.4 L Chloride 85 L Carbon Dioxide 34 H Anion Gap 8 BUN 20.0 H Creatinine 0.9 Est GFR (CKD-EPI)AfAm 65.70 Est GFR (CKD-EPI)NonAf 56.69 Random Glucose 104 Serum Osmolality 268 L Lactic Acid Calcium 8.9 Total Bilirubin 0.8 AST 54 H ALT 30 Alkaline Phosphatase 54 Total Protein 6.4 Albumin 3.4 TSH 96.30 H Free T4 0.69 L Urine Osmolality Ur Random Sodium Ur Random Potassium Ur Random Chloride Problem List - Problems (1) Hypercapnia Code(s): R06.89 - OTHER ABNORMALITIES OF BREATHING (2) Congestive heart failure due to high blood pressure Code(s): I11.0 - HYPERTENSIVE HEART DISEASE WITH HEART FAILURE (3) Edema Code(s): R60.9 - EDEMA, UNSPECIFIED (4) Pneumonia, community acquired Code(s): J18.9 - PNEUMONIA, UNSPECIFIED ORGANISM (5) Atypical chest pain Code(s): R07.89 - OTHER CHEST PAIN (6) Chest pressure Code(s): R07.89 - OTHER CHEST PAIN Assessment/Plan Lasix Zithromax For MRI Daily weights NC O2 as tolerated No clear indication for systemic steroids BD TX PRN Eliquis for AC Dr Wolf Problem List - Problems (1) Hypercapnia Code(s): R06.89 - OTHER ABNORMALITIES OF BREATHING (2) Congestive heart failure due to high blood pressure Code(s): I11.0 - HYPERTENSIVE HEART DISEASE WITH HEART FAILURE Qualifiers: Heart failure type: unspecified Qualified Code(s): I11.0 - Hypertensive heart disease with heart failure (3) Edema Code(s): R60.9 - EDEMA, UNSPECIFIED (4) Pneumonia, community acquired Code(s): J18.9 - PNEUMONIA, UNSPECIFIED ORGANISM (5) Atypical chest pain Code(s): R07.89 - OTHER CHEST PAIN (6) Chest pressure Code(s): R07.89 - OTHER CHEST PAIN
[2019-02-25] MEDS ORDERED: SODIUM BICARBONATE 325 MG TABLET PO SCH (11:30)
[2019-02-25] MEDS: POTASSIUM CHLORIDE ORAL LIQUID 20 MEQ/15 ML PO SCH ×2 (11:42→21:11)
[2019-02-25] MEDS: ASPIRIN COATED 81 MG TABLET.EC PO SCH (11:43)
[2019-02-25] MEDS: FUROSEMIDE 40 MG/4 ML INJECTABLE VIAL IVPUSH SCH (11:43)
[2019-02-25] MEDS: CYANOCOBALAMIN (VITAMIN B-12) 1000 MCG/1 ML VIAL IM SCH (11:43)
[2019-02-25] MEDS: metoPROLOL SUCCINATE 25 MG TAB.SR.24H (FP) PO SCH (11:43)
[2019-02-25] MEDS: APIXABAN 2.5 MG TABLET PO SCH ×2 (11:43→21:11)
[2019-02-25] MEDS: AZITHROMYCIN IVPB 250 MG in DEXTROSE 5%-WATER - 250 ML IVPB SCH (12:09)
--- NOTE | 2019-02-25 13:54 | PN ---
Progress Note, Physician History of Present Illness: Pt seen and examined at bedside. She is awake and appears comfortable. She denies shortness of breath. - Current Medication List Current Medications: Active Medications Acetaminophen (Tylenol -) 650 mg PO Q6H PRN PRN Reason: PAIN LEVEL 6-10 Last Admin: 02/25/19 06:02 Dose: 650 mg Albuterol/Ipratropium (Duoneb -) 1 amp NEB Q6H PRN PRN Reason: SHORTNESS OF BREATH Apixaban (Eliquis -) 2.5 mg PO BID [facility] Last Admin: 02/25/19 11:43 Dose: 2.5 mg Aspirin (Ecotrin -) 81 mg PO DAILY [facility] Last Admin: 02/25/19 11:43 Dose: 81 mg Atorvastatin Calcium (Lipitor -) 40 mg PO HS [facility] Last Admin: 02/24/19 21:22 Dose: 40 mg Cyanocobalamin (Vitamin B12 Injection -) 1,000 mcg IM DAILY [facility] Last Admin: 02/25/19 11:43 Dose: 1,000 mcg Diltiazem HCl (Cardizem Cd -) 120 mg PO DAILY [facility] Last Admin: 02/25/19 11:43 Dose: 120 mg Furosemide (Lasix Injection -) 40 mg IVPUSH DAILY [facility] Last Admin: 02/25/19 11:43 Dose: 40 mg Azithromycin 250 mg/ Dextrose 250 mls @ 250 mls/hr IVPB DAILY [facility] Last Admin: 02/25/19 12:09 Dose: 250 mls/hr Levothyroxine Sodium 100 mcg/ (Levothyroxine Sodium 75 mcg) 175 mcg PO DAILY@ 0700 [facility] Last Admin: 02/25/19 06:02 Dose: 175 mcg Melatonin (Melatonin) 5 mg PO HS PRN PRN Reason: INSOMNIA Last Admin: 02/24/19 21:22 Dose: 5 mg Metoprolol Succinate (Toprol Xl -) 25 mg PO DAILY [facility] Last Admin: 02/25/19 11:43 Dose: 25 mg Potassium Chloride (Potassium Chloride Oral Liquid) 40 meq PO BID [facility] Last Admin: 02/25/19 11:42 Dose: 40 meq Sodium Bicarbonate (Sodium Bicarbonate -) 325 mg PO DAILY [facility] Last Admin: 02/25/19 12:23 Dose: 325 mg - Objective Vital Signs: Vital Signs Temperature 97.7 F 02/25/19 08:25 Pulse Rate 86 02/25/19 08:25 Respiratory Rate 16 02/25/19 08:25 Blood Pressure 119/80 02/25/19 08:25 O2 Sat by Pulse Oximetry (%) 95 02/25/19 09:00 Constitutional: Yes: Calm Eyes: Yes: Conjunctiva Clear HENT: Yes: Nasal Congestion Neck: Yes: Supple Cardiovascular: Yes: S1, S2 Respiratory: Yes: CTA Bilaterally Gastrointestinal: Yes: Soft Genitourinary: Yes: WNL Musculoskeletal: Yes: WNL Edema: Yes Edema: LLE: 1+, RLE: 1+ Neurological: Yes: Oriented Psychiatric: Yes: Oriented Labs: CBC, BMP 02/25/19 06:00 02/25/19 06:00 INR, PTT INR 1.03 (0.83-1.09) 02/21/19 02:50 Problem List - Problems (1) Hyponatremia Code(s): E87.1 - HYPO-OSMOLALITY AND HYPONATREMIA (2) CHF (congestive heart failure) Code(s): I50.9 - HEART FAILURE, UNSPECIFIED (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 Code(s): I50.40 - UNSP COMBINED SYSTOLIC AND DIASTOLIC (CONGESTIVE) HRT FAIL Qualifiers: Heart failure chronicity: acute on chronic Qualified Code(s): I50.43 - Acute on chronic combined systolic (congestive) and diastolic (congestive) heart failure Assessment/Plan Current Medications Generic Name Dose Route Start Last Admin Trade Name Freq PRN Reason Stop Dose Admin Acetaminophen 650 mg 02/23/19 20:31 02/25/19 06:02 Tylenol - PO 650 mg Q6H PRN Administration PAIN LEVEL 6-10 Albuterol/Ipratropium 1 amp 02/21/19 14:07 Duoneb - NEB Q6H PRN SHORTNESS OF BREATH Apixaban 2.5 mg 02/24/19 11:30 02/25/19 11:43 Eliquis - PO 2.5 mg BID [facility] Administration Aspirin 81 mg 02/21/19 10:00 02/25/19 11:43 Ecotrin - PO 81 mg DAILY [facility] Administration Atorvastatin Calcium 40 mg 02/21/19 22:00 02/24/19 21:22 Lipitor - PO 40 mg HS [facility] Administration Cyanocobalamin 1,000 mcg 02/24/19 10:30 02/25/19 11:43 Vitamin B12 Injection - IM 1,000 mcg DAILY [facility] Administration Diltiazem HCl 120 mg 02/24/19 10:21 02/25/19 11:43 Cardizem Cd - PO 120 mg DAILY [facility] Administration Furosemide 40 mg 02/21/19 10:00 02/25/19 11:43 Lasix Injection - IVPUSH 40 mg DAILY [facility] Administration Azithromycin 250 mg/ Dextrose 250 mls @ 250 mls/hr 02/22/19 10:00 02/25/19 12 :09 IVPB 250 mls/hr DAILY [facility] Administration Levothyroxine Sodium 100 mcg/ 175 mcg 02/25/19 07:00 02/25/19 06:02 Levothyroxine Sodium 75 mcg PO 175 mcg DAILY@0700 [facility] Administration Melatonin 5 mg 02/24/19 01:35 02/24/19 21:22 Melatonin PO 5 mg HS PRN Administration INSOMNIA Metoprolol Succinate 25 mg 02/24/19 10:21 02/25/19 11:43 Toprol Xl - PO 25 mg DAILY [facility] Administration Potassium Chloride 40 meq 02/24/19 22:00 02/25/19 11:42 Potassium Chloride Oral Liquid PO 40 meq BID [facility] Administration Sodium Bicarbonate 325 mg 02/25/19 11:30 02/25/19 12:23 Sodium Bicarbonate - PO 325 mg DAILY [facility] Administration Laboratory Tests 02/24/19 02/24/19 02/25/19 20:00 20:00 06:00 Sodium 127 L Serum Osmolality TSH 96.30 H Urine Osmolality 480 Ur Random Sodium 60 02/25/19 06:00 Sodium Serum Osmolality 268 L TSH Urine Osmolality Ur Random Sodium Impression 1. hyponatremia 2. jaimie 3. hypokalemia 4. chf 5. fluid overload 6. multiple pulmonary masses suspicious for mets 7. bilateral pleural effusions 8. a-fib 9. htn 10. hld Plan - cont free water restriction - may have siadh from lung lesions - increase synthroid dose as tsh elevated - d/c sodium bicarb - will give salt tab trial - cont lasix
[2019-02-25] MEDS: SODIUM CHLORIDE 1 GM TABLET PO SCH (16:02)
--- NOTE | 2019-02-25 19:31 | CONSULT ---
Consult Consult Specialty:: endocrine Referred by:: malu lord Reason for Consultation:: hypothyroidism - History of Present Illness Chief Complaint: weakness and confused History of Present Illness: 88 y f pmh hypothyroidism not taking thyroid medication,htn,afib,hld,cva, admitted with weakness,lethargy,cold dry skin,constipation,has had difficulty staying awake.found to have severe hypothyroidism. - Past Medical History [employer]: Yes: CVA Cardio/Vascular: Yes: HTN, Hyperlipdemia Endocrine: Yes: Hypothyroidism - Past Surgical History Past Surgical History: Yes: Carotid Endarterectomy (left) - Alcohol/Substance Use Hx Alcohol Use: No - Smoking History Smoking history: Former smoker Have you smoked in the past 12 months: No If you are a former smoker, when did you quit?: 60yrs ago - Social History Usual Living Arrangement: With Child (lives with daughter in house with 4 steps to enter and 20 inside) ADL: Independent (Independent in ADLs without AD) History of Recent Travel: No Home Medications - Allergies Allergies/Adverse Reactions: Allergies Allergy/AdvReac Type Severity Reaction Status Date / Time No Known Allergies Allergy Verified 02/21/19 02:42 - Home Medications Home Medications: Ambulatory Orders Apixaban [Eliquis -] 5 mg PO BID #1 tablet 10/21/13 Diltiazem Cd [Cardizem Cd -] 120 mg PO DAILY #0 cap.cd.24h 10/21/13 Metoprolol Succinate [Toprol XL -] 100 mg PO DAILY #1 10/21/13 Simvastatin [Zocor] 20 mg PO HS #1 10/21/13 Levothyroxine Sodium [Synthroid] 125 mcg PO DAILY 10/20/14 Aspirin [ASA -] 81 mg PO DAILY 05/13/15 Losartan/Hydrochlorothiazide [Hyzaar 100-12.5 Tablet] 1 each PO DAILY 05/13/15 Isosorbide Mononitrate [Imdur -] 30 mg PO DAILY 04/04/17 Review of Systems - Review of Systems Constitutional: reports: Lethargy HENT: reports: No Symptoms Neck: reports: No Symptoms Cardiovascular: reports: Shortness of Breath Respiratory: reports: Exercise Intolerance Gastrointestinal: reports: Bloating Neurological: reports: Confusion, Numbness, Weakness Physical Exam Vital Signs: Vital Signs Temperature 97.9 F 02/25/19 18:00 Pulse Rate 69 02/25/19 18:00 Respiratory Rate 18 02/25/19 18:00 Blood Pressure 98/52 L 02/25/19 18:00 O2 Sat by Pulse Oximetry (%) 95 02/25/19 10:00 Constitutional: Yes: Calm Eyes: Yes: EOM Intact HENT: Yes: Normocephalic Neck: Yes: Trachea Midline, Thyromegaly Cardiovascular: Yes: Regular Rate and Rhythm Respiratory: Yes: CTA Bilaterally Gastrointestinal: Yes: Normal Bowel Sounds ...Rectal Exam: Yes: Deferred Musculoskeletal: Yes: Muscle Weakness Edema: No Neurological: Yes: Alert, Weakness Labs: CBC, BMP 02/25/19 06:00 02/25/19 06:00 Problem List - Problems (1) Adult hypothyroidism Problems reviewed: Yes Code(s): E03.9 - HYPOTHYROIDISM, UNSPECIFIED (2) CHF (congestive heart failure) Code(s): I50.9 - HEART FAILURE, UNSPECIFIED (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 Code(s): I50.40 - UNSP COMBINED SYSTOLIC AND DIASTOLIC (CONGESTIVE) HRT FAIL Qualifiers: Heart failure chronicity: acute on chronic Qualified Code(s): I50.43 - Acute on chronic combined systolic (congestive) and diastolic (congestive) heart failure (4) Confusion Code(s): R41.0 - DISORIENTATION, UNSPECIFIED (5) Congestive heart failure due to high blood pressure Code(s): I11.0 - HYPERTENSIVE HEART DISEASE WITH HEART FAILURE Qualifiers: Heart failure type: unspecified Qualified Code(s): I11.0 - Hypertensive heart disease with heart failure (6) Flash pulmonary edema Code(s): J81.0 - ACUTE PULMONARY EDEMA (7) HTN (hypertension) Code(s): I10 - ESSENTIAL (PRIMARY) HYPERTENSION Assessment/Plan Current Active Problems INDY (acute kidney injury) (Acute) CHF (congestive heart failure) (Acute) Combined systolic and diastolic congestive heart failure (Acute) Confusion (Acute) Congestive heart failure due to high blood pressure (Acute) Edema (Acute) Flash pulmonary edema (Acute) HTN (hypertension) (Acute) Hypercapnia (Acute) Hypokalemia (Acute) Hyponatremia (Acute) Lactic acidosis (Acute) Malignant hypertension (Acute) Metabolic encephalopathy (Acute) Paroxysmal A-fib (Acute) Pneumonia (Acute) Pneumonia, community acquired (Acute) Pulmonary nodules/lesions, multiple (Acute) Stasis dermatitis (Acute) Stroke (Acute) Weakness (Acute) Laboratory Results - last 24 hr 02/24/19 02/24/19 02/25/19 20:00 20:00 06:00 WBC 7.1 RBC 3.65 Hgb 11.9 Hct 34.5 MCV 94.3 MCH 32.5 MCHC 34.5 RDW 15.7 H Plt Count 206 MPV 9.4 Absolute Neuts (auto) 5.7 Neutrophils % 80.7 Lymphocytes % 9.8 D Monocytes % 7.0 Eosinophils % 2.3 Basophils % 0.2 Nucleated RBC % 0 Sodium Potassium Chloride Carbon Dioxide Anion Gap BUN Creatinine Est GFR (CKD-EPI)AfAm Est GFR (CKD-EPI)NonAf Random Glucose Serum Osmolality Calcium Total Bilirubin AST ALT Alkaline Phosphatase Total Protein Albumin TSH Free T4 Urine Osmolality 480 Ur Random Sodium 60 Ur Random Potassium 41.0 Ur Random Chloride 66 L 02/25/19 02/25/19 02/25/19 06:00 06:00 06:00 WBC RBC Hgb Hct MCV MCH MCHC RDW Plt Count MPV Absolute Neuts (auto) Neutrophils % Lymphocytes % Monocytes % Eosinophils % Basophils % Nucleated RBC % Sodium 127 L Potassium 3.4 L Chloride 85 L Carbon Dioxide 34 H Anion Gap 8 BUN 20.0 H Creatinine 0.9 Est GFR (CKD-EPI)AfAm 65.70 Est GFR (CKD-EPI)NonAf 56.69 Random Glucose 104 Serum Osmolality 268 L Calcium 8.9 Total Bilirubin 0.8 AST 54 H ALT 30 Alkaline Phosphatase 54 Total Protein 6.4 Albumin 3.4 TSH 96.30 H Free T4 0.69 L Urine Osmolality Ur Random Sodium Ur Random Potassium Ur Random Chloride plan add cytomel t3 10mcg continue synthroid 200mcg q am follow t4free
[2019-02-25] MEDS ORDERED: LORazepam 0.5 MG TABLET PO ONE (19:46)
[2019-02-25] MEDS: ATORVASTATIN CA 40 MG TABLET (FP) PO SCH (21:11)
[2019-02-25] MEDS: MELATONIN 5 MG TABLETS PO PRN (23:02)
[2019-02-26] MEDS ORDERED: PT OWN MED DRAWER 7, Y5N ONE ×2 (06:14→09:19)
[2019-02-26] MEDS: LIOTHYRONINE SODIUM 5 MCG TABLET PO SCH (06:15)
[2019-02-26] MEDS: LEVOTHYROXINE NA 100 MCG TABLET (FP) PO SCH (06:15)
[2019-02-26 06:44] LABS: ALBUMIN 3.1 g/dl (3.4-5.0); BILIRUBIN,TOTAL 0.9 mg/dL (0.2-1); BLOOD UREA NITROGEN 15.2 mg/dL (7-18); CALCIUM 8.9 mg/dL (8.5-10.1); CREATININE 0.8 mg/dL (0.55-1.3); POTASSIUM 4.1 mmol/L (3.5-5.1); TOT PROT 5.8 g/dl (6.4-8.2)
[2019-02-26] MEDS: FUROSEMIDE 40 MG/4 ML INJECTABLE VIAL IVPUSH SCH (09:07)
[2019-02-26] MEDS: CYANOCOBALAMIN (VITAMIN B-12) 1000 MCG/1 ML VIAL IM SCH (09:07)
[2019-02-26] MEDS: APIXABAN 2.5 MG TABLET PO SCH (09:08)
[2019-02-26] MEDS: ASPIRIN COATED 81 MG TABLET.EC PO SCH ×2 (09:08→13:56)
[2019-02-26] MEDS: metoPROLOL SUCCINATE 25 MG TAB.SR.24H (FP) PO SCH (09:08)
[2019-02-26] MEDS: POTASSIUM CHLORIDE ORAL LIQUID 20 MEQ/15 ML PO SCH ×2 (09:08→21:02)
[2019-02-26] MEDS: ACETAMINOPHEN 325 MG TABLET (FP) PO PRN ×2 (09:09→21:02)
[2019-02-26] MEDS: AZITHROMYCIN IVPB 250 MG in DEXTROSE 5%-WATER - 250 ML IVPB SCH (09:21)
[2019-02-26] MEDS: SODIUM CHLORIDE 1 GM TABLET PO SCH (09:21)
--- NOTE | 2019-02-26 10:53 | PN ---
Progress Note (short form) - Note Progress Note: 88-year-old female with a history of hypertension, hypertensive cardiovascular disease, status post cerebrovascular accident, history of hypothyroidism, paroxysmal atrial fibrillation. She was brought to the emergency room with acute shortness of breath. During her hospitalization in the emergency room, patient was found to be confused, lethargic. She also had complained of chest pains which have not recurred since admission. Patient was found to have Pulmonary edema and pulmonary nodule and is currently undergoing workup. No chest pain or discomfort reported. No dyspnea, PND or orthopnea. Is back on synthyroid. MRI of the brain reveals acute/subacute CVA. In atrial fib. with controlled ventricular response. Renal function has normalised. K+ is corrected. ALLERGIES: None reported. Active Medications Generic Name Dose Route Start Last Admin Trade Name Freq PRN Reason Stop Dose Admin Acetaminophen 650 mg 02/23/19 20:31 02/26/19 09:09 Tylenol - PO 650 mg Q6H PRN Administration PAIN LEVEL 6-10 Albuterol/Ipratropium 1 amp 02/21/19 14:07 Duoneb - NEB Q6H PRN SHORTNESS OF BREATH Apixaban 2.5 mg 02/24/19 11:30 02/26/19 09:08 Eliquis - PO 2.5 mg BID [facility] Administration Aspirin 81 mg 02/21/19 10:00 02/26/19 09:08 Ecotrin - PO 81 mg DAILY [facility] Administration Atorvastatin Calcium 40 mg 02/21/19 22:00 02/25/19 21:11 Lipitor - PO 40 mg HS [facility] Administration Cyanocobalamin 1,000 mcg 02/24/19 10:30 02/26/19 09:07 Vitamin B12 Injection - IM 1,000 mcg DAILY [facility] Administration Diltiazem HCl 120 mg 02/24/19 10:21 02/26/19 09:08 Cardizem Cd - PO 120 mg DAILY [facility] Administration Furosemide 40 mg 02/21/19 10:00 02/26/19 09:07 Lasix Injection - IVPUSH 40 mg DAILY [facility] Administration Azithromycin 250 mg/ Dextrose 250 mls @ 250 mls/hr 02/22/19 10:00 02/26/19 09 :21 IVPB 250 mls/hr DAILY [facility] Administration Levothyroxine Sodium 200 mcg 02/26/19 07:00 10/18/19 06:15 Synthroid - PO 200 mcg DAILY@0700 [facility] Administration Liothyronine Sodium 10 mcg 02/26/19 07:00 02/26/19 06:15 Cytomel - PO 10 mcg AM [facility] Administration Melatonin 5 mg 02/24/19 01:35 02/25/19 23:02 Melatonin PO 5 mg HS PRN Administration INSOMNIA Metoprolol Succinate 25 mg 02/24/19 10:21 02/26/19 09:08 Toprol Xl - PO 25 mg DAILY [facility] Administration Potassium Chloride 40 meq 02/24/19 22:00 02/26/19 09:08 Potassium Chloride Oral Liquid PO 40 meq BID [facility] Administration Sodium Chloride 1 gm 02/25/19 14:00 02/26/19 09:21 Sodium Chloride Tablet - PO 1 gm DAILY [facility] Administration PHYSICAL EXAMINATION: General: 88-year-old female is alert and coherent, There is no pallor, cyanosis, clubbing, or jaundice. Last Vital Signs Temp Pulse Resp BP Pulse Ox 98.0 F 73 irregular 18 148/73 95 02/26/19 08:43 02/26/19 08:43 02/26/19 08:43 02/26/19 08:43 02/25/19 10:00 Neck: Supple. No jugular venous distention. Negative hepatojugular reflux. Carotids are 2+. Upstrokes are normal. Unable to appreciate any bruits. There is no thyromegaly. There is a well-healed left carotid endarterectomy scar. Heart: PMI is in the 5th intercostal space. No heaves or thrills. S1 is variable. S2 split. Ejection systolic murmur grade II/ heard at the 2nd right intercostal space ending in [id number] systolic. No diastolic murmur or gallops are heard. Lungs: Increased vocal resonance at the right mid zone posteriorly. No other extraneous sounds are heard. Chest: Normal AP diameter. Expansion is symmetrical. Abdomen: Soft, protuberant, nontender. No hepatosplenomegaly or palpable masses are felt. Bowel sounds are present. No bruits are heard. Extremities: No calf tenderness or dependent edema. Pulses are equal. Dorsalis pedis pulses are 1 to 2+. Posterior tibial pulses are not palpable. Bilateral lower extremity varicosities . Laboratory Results - last 24 hr 02/25/19 02/26/19 06:00 05:40 Sodium 129 L Potassium 4.1 Chloride 88 L Carbon Dioxide 33 H Anion Gap 8 BUN 15.2 Creatinine 0.8 Est GFR (CKD-EPI)AfAm 75.76 Est GFR (CKD-EPI)NonAf 65.36 Random Glucose 94 Calcium 8.9 Total Bilirubin 0.9 AST 45 H ALT 28 Alkaline Phosphatase 53 Total Protein 5.8 L Albumin 3.1 L Total T3 44.00 L Brain MRI Dated: 02/25/19 IMPRESSION: Right posterior temporal and parietal occipital junction acute/ subacute infarct. Chronic infarct/encephalomalacia in the right posterior temporal and occipital lobe. No acute intracranial hemorrhage is identified. There is moderate atrophy and chronic microvascular ischemic disease changes. A preliminary report was forwarded by the [facility], [facility] H[facility]PICE/HOME HEALTH AIDE. CT of the chest: Impression: 1. Cardiomegaly, vascular congestion, bilateral pleural effusion, and lower lobe atelectasis. 2. Multiple pulmonary masses suspect for metastatic disease. 3. Polypoid lesion within the mid trachea. 4. Mild mediastinal lymphadenopathy. Clinical correlation and follow up recommended. Echocardiogram dated February 22, 2019. Interpretation summary: Left ventricle is normal in size. Left ventricle systolic function is moderately reduced. There is moderate global hypokinesia of the left ventricle. Ejection fraction 40%-45%. Right ventricular systolic function is mildly reduced. Right ventricular systolic TID is 7 cm/sec, borderline left atrial enlargement. There is mild annular calcification. There is moderate mitral regurgitation. There is [id number] tricuspid regurgitation. Pulmonary systolic pressure is at least 48 mmHg if RA pressure is presumed to be 3 mmHg. Severe valvular aortic stenosis. The calculated aortic valve area by continuity equation is 0.8 cm2. [id number] aortic regurgitation. [id number] pulmonic valvular regurgitation. There is no pericardial effusion. IMPRESSION: 1. Congestive heart failure resolved, etiology: A. Critical aortic stenosis. B. Tricuspid regurgitation. C. Left ventricular systolic dysfunction. 2. Chest pain syndrome compatible with angina pectoris secondary to coronary artery disease/severe aortic stenosis, presently asymptomatic. 3. Critical aortic stenosis and aortic regurgitation. 4. Pulmonary hypertension. 5. Severe tricuspid regurgitation. 6. Left ventricular systolic dysfunction. 7. Right ventricular systolic dysfunction. 8. Atrial flutter. 9. Hypertension, hypertensive cardiovascular disease, currently normotensive. 10. Severe hypothyroidism. 11. Pulmonary nodules. 12. Hyponatremia improving 13. Acute/subacute CVA. RECOMMENDATIONS: 1. F/u CT chest. 2. Increase ambulation 3. Follow-up ECG. 4. Consider holding Lasix and use on when necessary basis till electrolytes are corrected. 5. Daily weights. PROGNOSIS: Guarded.. EZRA BRIAN M.D.
--- NOTE | 2019-02-26 11:40 | PN ---
Progress Note, Physician Chief Complaint: patient seen and examined awake not sure why she came to hospital no CP no SOB - Current Medication List Current Medications: Active Medications Acetaminophen (Tylenol -) 650 mg PO Q6H PRN PRN Reason: PAIN LEVEL 6-10 Last Admin: 02/26/19 09:09 Dose: 650 mg Albuterol/Ipratropium (Duoneb -) 1 amp NEB Q6H PRN PRN Reason: SHORTNESS OF BREATH Apixaban (Eliquis -) 2.5 mg PO BID [facility] Last Admin: 02/26/19 09:08 Dose: 2.5 mg Aspirin (Ecotrin -) 81 mg PO DAILY [facility] Last Admin: 02/26/19 09:08 Dose: 81 mg Atorvastatin Calcium (Lipitor -) 40 mg PO HS [facility] Last Admin: 02/25/19 21:11 Dose: 40 mg Cyanocobalamin (Vitamin B12 Injection -) 1,000 mcg IM DAILY [facility] Last Admin: 02/26/19 09:07 Dose: 1,000 mcg Diltiazem HCl (Cardizem Cd -) 120 mg PO DAILY [facility] Last Admin: 02/26/19 09:08 Dose: 120 mg Furosemide (Lasix Injection -) 40 mg IVPUSH DAILY [facility] Last Admin: 02/26/19 09:07 Dose: 40 mg Azithromycin 250 mg/ Dextrose 250 mls @ 250 mls/hr IVPB DAILY [facility] Last Admin: 02/26/19 09:21 Dose: 250 mls/hr Levothyroxine Sodium (Synthroid -) 200 mcg PO DAILY@0700 [facility] Last Admin: 02/26/19 06:15 Dose: 200 mcg Liothyronine Sodium (Cytomel -) 10 mcg PO AM [facility] Last Admin: 02/26/19 06:15 Dose: 10 mcg Melatonin (Melatonin) 5 mg PO HS PRN PRN Reason: INSOMNIA Last Admin: 02/25/19 23:02 Dose: 5 mg Metoprolol Succinate (Toprol Xl -) 25 mg PO DAILY [facility] Last Admin: 02/26/19 09:08 Dose: 25 mg Potassium Chloride (Potassium Chloride Oral Liquid) 40 meq PO BID [facility] Last Admin: 02/26/19 09:08 Dose: 40 meq Sodium Chloride (Sodium Chloride Tablet -) 1 gm PO DAILY [facility] Last Admin: 02/26/19 09:21 Dose: 1 gm - Objective Vital Signs: Vital Signs Temperature 98.0 F 02/26/19 08:43 Pulse Rate 73 02/26/19 08:43 Respiratory Rate 18 02/26/19 08:43 Blood Pressure 148/73 02/26/19 08:43 O2 Sat by Pulse Oximetry (%) 95 02/25/19 10:00 Constitutional: Yes: Calm Neck: Yes: Trachea Midline Cardiovascular: Yes: Regular Rate and Rhythm, S1, S2 Respiratory: Yes: CTA Bilaterally, Diminished (at bases) Gastrointestinal: Yes: Normal Bowel Sounds, Soft Neurological: Yes: Alert Labs: CBC, BMP 02/25/19 06:00 02/26/19 05:40 INR, PTT INR 1.03 (0.83-1.09) 02/21/19 02:50 Problem List - Problems (1) CHF (congestive heart failure) Assessment/Plan: iv lasix echo 40-45% ejection fractionhypokineses of left ventricle Code(s): I50.9 - HEART FAILURE, UNSPECIFIED (2) Confusion Assessment/Plan: ct head noted neurology on board urine legionella negative ct chest ordered iv abx bladder scan to r/o retention- has cordova cath and renal function is improving 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
--- NOTE | 2019-02-26 11:41 | PN ---
Progress Note, Physician History of Present Illness: pulmonary alert,comfortable,-sob - Current Medication List Current Medications: Active Medications Acetaminophen (Tylenol -) 650 mg PO Q6H PRN PRN Reason: PAIN LEVEL 6-10 Last Admin: 02/26/19 09:09 Dose: 650 mg Albuterol/Ipratropium (Duoneb -) 1 amp NEB Q6H PRN PRN Reason: SHORTNESS OF BREATH Apixaban (Eliquis -) 5 mg PO BID [facility] Aspirin (Ecotrin -) 81 mg PO DAILY [facility] Last Admin: 02/26/19 09:08 Dose: 81 mg Atorvastatin Calcium (Lipitor -) 40 mg PO HS [facility] Last Admin: 02/25/19 21:11 Dose: 40 mg Cyanocobalamin (Vitamin B12 Injection -) 1,000 mcg IM DAILY [facility] Last Admin: 02/26/19 09:07 Dose: 1,000 mcg Diltiazem HCl (Cardizem Cd -) 120 mg PO DAILY [facility] Last Admin: 02/26/19 09:08 Dose: 120 mg Furosemide (Lasix Injection -) 40 mg IVPUSH DAILY [facility] Last Admin: 02/26/19 09:07 Dose: 40 mg Azithromycin 250 mg/ Dextrose 250 mls @ 250 mls/hr IVPB DAILY [facility] Last Admin: 02/26/19 09:21 Dose: 250 mls/hr Levothyroxine Sodium (Synthroid -) 200 mcg PO DAILY@0700 [facility] Last Admin: 02/26/19 06:15 Dose: 200 mcg Liothyronine Sodium (Cytomel -) 10 mcg PO AM [facility] Last Admin: 02/26/19 06:15 Dose: 10 mcg Melatonin (Melatonin) 5 mg PO HS PRN PRN Reason: INSOMNIA Last Admin: 02/25/19 23:02 Dose: 5 mg Metoprolol Succinate (Toprol Xl -) 25 mg PO DAILY [facility] Last Admin: 02/26/19 09:08 Dose: 25 mg Potassium Chloride (Potassium Chloride Oral Liquid) 40 meq PO BID [facility] Last Admin: 02/26/19 09:08 Dose: 40 meq Sodium Chloride (Sodium Chloride Tablet -) 1 gm PO DAILY [facility] Last Admin: 02/26/19 09:21 Dose: 1 gm - Objective Vital Signs: Vital Signs Temperature 98.0 F 02/26/19 08:43 Pulse Rate 73 02/26/19 08:43 Respiratory Rate 18 02/26/19 08:43 Blood Pressure 148/73 02/26/19 08:43 O2 Sat by Pulse Oximetry (%) 95 02/25/19 10:00 Constitutional: Yes: Well Nourished, Calm Eyes: Yes: WNL HENT: Yes: WNL Neck: Yes: WNL Cardiovascular: Yes: Pulse Irregular, S1, S2 Respiratory: Yes: Diminished Gastrointestinal: Yes: Normal Bowel Sounds, Soft Extremities: Yes: WNL Edema: Yes Labs: CBC, BMP 02/26/19 05:40 INR, PTT INR 1.03 (0.83-1.09) 02/21/19 02:50 Assessment/Plan Problem List - Problems (1) Hypercapnia Code(s): R06.89 - OTHER ABNORMALITIES OF BREATHING (2) Congestive heart failure due to high blood pressure Code(s): I11.0 - HYPERTENSIVE HEART DISEASE WITH HEART FAILURE (3) Edema Code(s): R60.9 - EDEMA, UNSPECIFIED (4) Pneumonia, community acquired Code(s): J18.9 - PNEUMONIA, UNSPECIFIED ORGANISM (5) Atypical chest pain Code(s): R07.89 - OTHER CHEST PAIN (6) Chest pressure Code(s): R07.89 - OTHER CHEST PAIN 7 AORTIC STENOSIS 8. BILATERAL PULMONARY MASSES ?MALIGNANT,? INFECTIOUS 9. A-FIB 10. CVA Assessment/Plan Lasix Zithromax Daily weights O2 NIPPV support for increased WOB BD TX PRN Eliquis for AC f/u chest x-rays DR MARX
--- NOTE | 2019-02-26 14:34 | PN ---
Progress Note, Physician History of Present Illness: Pt seen and examined at bedside. She is awake and alert. She denies shortness of breath. - Current Medication List Current Medications: Active Medications Acetaminophen (Tylenol -) 650 mg PO Q6H PRN PRN Reason: PAIN LEVEL 6-10 Last Admin: 02/26/19 09:09 Dose: 650 mg Albuterol/Ipratropium (Duoneb -) 1 amp NEB Q6H PRN PRN Reason: SHORTNESS OF BREATH Apixaban (Eliquis -) 2.5 mg PO BID [facility] Aspirin (Ecotrin -) 162 mg PO DAILY [facility] Last Admin: 02/26/19 13:56 Dose: 162 mg Atorvastatin Calcium (Lipitor -) 40 mg PO HS [facility] Last Admin: 02/25/19 21:11 Dose: 40 mg Cyanocobalamin (Vitamin B12 Injection -) 1,000 mcg IM DAILY [facility] Last Admin: 02/26/19 09:07 Dose: 1,000 mcg Diltiazem HCl (Cardizem Cd -) 120 mg PO DAILY [facility] Last Admin: 02/26/19 09:08 Dose: 120 mg Furosemide (Lasix Injection -) 40 mg IVPUSH DAILY [facility] Last Admin: 02/26/19 09:07 Dose: 40 mg Azithromycin 250 mg/ Dextrose 250 mls @ 250 mls/hr IVPB DAILY [facility] Last Admin: 02/26/19 09:21 Dose: 250 mls/hr Levothyroxine Sodium (Synthroid -) 200 mcg PO DAILY@0700 [facility] Last Admin: 02/26/19 06:15 Dose: 200 mcg Liothyronine Sodium (Cytomel -) 10 mcg PO AM [facility] Last Admin: 02/26/19 06:15 Dose: 10 mcg Melatonin (Melatonin) 5 mg PO HS PRN PRN Reason: INSOMNIA Last Admin: 02/25/19 23:02 Dose: 5 mg Metoprolol Succinate (Toprol Xl -) 25 mg PO DAILY [facility] Last Admin: 02/26/19 09:08 Dose: 25 mg Potassium Chloride (Potassium Chloride Oral Liquid) 40 meq PO BID [facility] Last Admin: 02/26/19 09:08 Dose: 40 meq Sodium Chloride (Sodium Chloride Tablet -) 1 gm PO DAILY [facility] Last Admin: 02/26/19 09:21 Dose: 1 gm - Objective Vital Signs: Vital Signs Temperature 98.0 F 02/26/19 08:43 Pulse Rate 73 10/18/19 08:43 Respiratory Rate 18 02/26/19 08:43 Blood Pressure 148/73 02/26/19 08:43 O2 Sat by Pulse Oximetry (%) 96 02/26/19 09:00 Constitutional: Yes: Calm Eyes: Yes: Conjunctiva Clear HENT: Yes: Atraumatic Cardiovascular: Yes: S1, S2 Respiratory: Yes: CTA Bilaterally Gastrointestinal: Yes: Soft Genitourinary: Yes: WNL Musculoskeletal: Yes: WNL Edema: Yes Edema: LLE: Trace, RLE: Trace Neurological: Yes: Oriented Psychiatric: Yes: Oriented Labs: CBC, BMP 02/25/19 06:00 02/26/19 05:40 INR, PTT INR 1.03 (0.83-1.09) 02/21/19 02:50 Problem List - Problems (1) Hyponatremia Code(s): E87.1 - HYPO-OSMOLALITY AND HYPONATREMIA (2) CHF (congestive heart failure) Code(s): I50.9 - HEART FAILURE, UNSPECIFIED (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 Code(s): I50.40 - UNSP COMBINED SYSTOLIC AND DIASTOLIC (CONGESTIVE) HRT FAIL Qualifiers: Heart failure chronicity: acute on chronic Qualified Code(s): I50.43 - Acute on chronic combined systolic (congestive) and diastolic (congestive) heart failure Assessment/Plan Current Medications Generic Name Dose Route Start Last Admin Trade Name Freq PRN Reason Stop Dose Admin Acetaminophen 650 mg 02/23/19 20:31 02/26/19 09:09 Tylenol - PO 650 mg Q6H PRN Administration PAIN LEVEL 6-10 Albuterol/Ipratropium 1 amp 02/21/19 14:07 Duoneb - NEB Q6H PRN SHORTNESS OF BREATH Apixaban 2.5 mg 02/26/19 22:00 Eliquis - PO BID [facility] Aspirin 162 mg 02/26/19 13:15 02/26/19 13:56 Ecotrin - PO 162 mg DAILY [facility] Administration Atorvastatin Calcium 40 mg 02/21/19 22:00 02/25/19 21:11 Lipitor - PO 40 mg HS [facility] Administration Cyanocobalamin 1,000 mcg 02/24/19 10:30 02/26/19 09:07 Vitamin B12 Injection - IM 1,000 mcg DAILY [facility] Administration Diltiazem HCl 120 mg 02/24/19 10:21 02/26/19 09:08 Cardizem Cd - PO 120 mg DAILY [facility] Administration Furosemide 40 mg 02/21/19 10:00 02/26/19 09:07 Lasix Injection - IVPUSH 40 mg DAILY [facility] Administration Azithromycin 250 mg/ Dextrose 250 mls @ 250 mls/hr 02/22/19 10:00 02/26/19 09 :21 IVPB 250 mls/hr DAILY [facility] Administration Levothyroxine Sodium 200 mcg 02/26/19 07:00 02/26/19 06:15 Synthroid - PO 200 mcg DAILY@0700 [facility] Administration Liothyronine Sodium 10 mcg 02/26/19 07:00 02/26/19 06:15 Cytomel - PO 10 mcg AM [facility] Administration Melatonin 5 mg 02/24/19 01:35 02/25/19 23:02 Melatonin PO 5 mg HS PRN Administration INSOMNIA Metoprolol Succinate 25 mg 02/24/19 10:21 02/26/19 09:08 Toprol Xl - PO 25 mg DAILY [facility] Administration Potassium Chloride 40 meq 02/24/19 22:00 02/26/19 09:08 Potassium Chloride Oral Liquid PO 40 meq BID [facility] Administration Sodium Chloride 1 gm 02/25/19 14:00 02/26/19 09:21 Sodium Chloride Tablet - PO 1 gm DAILY [facility] Administration Impression 1. hyponatremia 2. jaimie 3. hypokalemia 4. chf 5. fluid overload 6. multiple pulmonary masses suspicious for mets 7. bilateral pleural effusions 8. a-fib 9. htn 10. hld Plan - cardio input appreciated - change lasix to PO and asses volume status - can con salt tab for now - monitor sodium levels - cont synthroid, dose adjusted, will need to monitor levels
--- NOTE | 2019-02-26 15:57 | PN ---
Progress Note, Physician History of Present Illness: events noted Chart reviewed Alert Awake Oriented - Current Medication List Current Medications: Active Medications Acetaminophen (Tylenol -) 650 mg PO Q6H PRN PRN Reason: PAIN LEVEL 6-10 Last Admin: 02/26/19 09:09 Dose: 650 mg Albuterol/Ipratropium (Duoneb -) 1 amp NEB Q6H PRN PRN Reason: SHORTNESS OF BREATH Apixaban (Eliquis -) 2.5 mg PO BID [facility] Aspirin (Ecotrin -) 162 mg PO DAILY [facility] Last Admin: 02/26/19 13:56 Dose: 162 mg Atorvastatin Calcium (Lipitor -) 40 mg PO HS [facility] Last Admin: 02/25/19 21:11 Dose: 40 mg Cyanocobalamin (Vitamin B12 Injection -) 1,000 mcg IM DAILY [facility] Last Admin: 02/26/19 09:07 Dose: 1,000 mcg Diltiazem HCl (Cardizem Cd -) 120 mg PO DAILY [facility] Last Admin: 02/26/19 09:08 Dose: 120 mg Furosemide (Lasix -) 40 mg PO DAILY [facility] Azithromycin 250 mg/ Dextrose 250 mls @ 250 mls/hr IVPB DAILY [facility] Last Admin: 02/26/19 09:21 Dose: 250 mls/hr Levothyroxine Sodium (Synthroid -) 200 mcg PO DAILY@0700 [facility] Last Admin: 02/26/19 06:15 Dose: 200 mcg Liothyronine Sodium (Cytomel -) 10 mcg PO AM [facility] Last Admin: 02/26/19 06:15 Dose: 10 mcg Melatonin (Melatonin) 5 mg PO HS PRN PRN Reason: INSOMNIA Last Admin: 02/25/19 23:02 Dose: 5 mg Metoprolol Succinate (Toprol Xl -) 25 mg PO DAILY [facility] Last Admin: 02/26/19 09:08 Dose: 25 mg Potassium Chloride (Potassium Chloride Oral Liquid) 40 meq PO BID [facility] Last Admin: 02/26/19 09:08 Dose: 40 meq Sodium Chloride (Sodium Chloride Tablet -) 1 gm PO DAILY [facility] Last Admin: 02/26/19 09:21 Dose: 1 gm - Objective Vital Signs: Vital Signs Temperature 98.0 F 02/26/19 08:43 Pulse Rate 73 02/26/19 08:43 Respiratory Rate 18 02/26/19 08:43 Blood Pressure 148/73 02/26/19 08:43 O2 Sat by Pulse Oximetry (%) 96 02/26/19 09:00 Constitutional: Yes: Well Nourished Eyes: Yes: WNL HENT: Yes: WNL Neurological: Yes: Alert, Oriented, Babinski positive ...Motor Strength: WNL Labs: CBC, BMP 02/25/19 06:00 02/26/19 05:40 INR, PTT INR 1.03 (0.83-1.09) 02/21/19 02:50 Problem List - Problems (1) Stroke Assessment/Plan: Acute Stroke on [facility] MRI will give her Agraphia with eye sight 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 Change aspirin to 161 mg once daily. 2. Continue anticoagulation Elliquis 2.5 mg po q12 3. Fall precaution Prognosis guarded Code(s): I63.9 - CEREBRAL INFARCTION, UNSPECIFIED
[2019-02-26] MEDS: ATORVASTATIN CA 40 MG TABLET (FP) PO SCH (21:02)
[2019-02-26] MEDS: MELATONIN 5 MG TABLETS PO PRN (21:02)
[2019-02-26] MEDS: APIXABAN 5 MG TABLET PO SCH (21:03)
[2019-02-26] MEDS ORDERED: APIXABAN 5 MG TABLET PO SCH (22:00)
[2019-02-27] MEDS ORDERED: PT OWN MED DRAWER 7, Y5N ONE ×3 (05:20→11:12)
[2019-02-27] MEDS: LIOTHYRONINE SODIUM 5 MCG TABLET PO SCH (06:05)
[2019-02-27] MEDS: LEVOTHYROXINE NA 100 MCG TABLET (FP) PO SCH (06:05)
[2019-02-27 07:07] LABS: ALBUMIN 3.1 g/dl (3.4-5.0); BLOOD UREA NITROGEN 16.5 mg/dL (7-18); CALCIUM 8.8 mg/dL (8.5-10.1); CREATININE 0.9 mg/dL (0.55-1.3); POTASSIUM 4.5 mmol/L (3.5-5.1); TOT PROT 5.8 g/dl (6.4-8.2)
--- NOTE | 2019-02-27 08:26 | PN ---
Progress Note (short form) - Note Progress Note: Renal follow up for hyponatremia Seen and examined at the bedside awake and alert offers no acute complaints no N/V, sob, chest pain tolerating oral diet Vital Signs Temperature 97.5 F L 02/27/19 05:00 Pulse Rate 69 02/27/19 05:00 Respiratory Rate 18 02/27/19 05:00 Blood Pressure 110/58 L 02/27/19 05:00 O2 Sat by Pulse Oximetry (%) 97 02/26/19 21:00 Intake & Output 02/24/19 02/25/19 02/26/19 02/27/19 23:59 23:59 23:59 23:59 Intake Total 740 610 940 240 Output Total 780 1700 1200 500 Balance -40 -1090 -260 -260 Weight 65.828 kg 63.276 kg NAD awake and alert neck supple RRR CTA soft NT/ND no LE edema CBC, BMP 02/25/19 06:00 02/27/19 05:53 Current Medications Acetaminophen (Tylenol -) 650 mg PO Q6H PRN PRN Reason: PAIN LEVEL 6-10 Last Admin: 02/26/19 21:02 Dose: 650 mg Albuterol/Ipratropium (Duoneb -) 1 amp NEB Q6H PRN PRN Reason: SHORTNESS OF BREATH Apixaban (Eliquis -) 2.5 mg PO BID [facility] Last Admin: 02/26/19 21:03 Dose: 2.5 mg Aspirin (Ecotrin -) 162 mg PO DAILY [facility] Last Admin: 02/26/19 13:56 Dose: 162 mg Atorvastatin Calcium (Lipitor -) 40 mg PO HS [facility] Last Admin: 02/26/19 21:02 Dose: 40 mg Cyanocobalamin (Vitamin B12 Injection -) 1,000 mcg IM DAILY [facility] Last Admin: 02/26/19 09:07 Dose: 1,000 mcg Diltiazem HCl (Cardizem Cd -) 120 mg PO DAILY [facility] Last Admin: 02/26/19 09:08 Dose: 120 mg Furosemide (Lasix -) 40 mg PO DAILY [facility] Azithromycin 250 mg/ Dextrose 250 mls @ 250 mls/hr IVPB DAILY [facility] Last Admin: 02/26/19 09:21 Dose: 250 mls/hr Levothyroxine Sodium (Synthroid -) 200 mcg PO DAILY@0700 [facility] Last Admin: 02/27/19 06:05 Dose: 200 mcg Liothyronine Sodium (Cytomel -) 10 mcg PO AM [facility] Last Admin: 02/27/19 06:05 Dose: 10 mcg Melatonin (Melatonin) 5 mg PO HS PRN PRN Reason: INSOMNIA Last Admin: 02/26/19 21:02 Dose: 5 mg Metoprolol Succinate (Toprol Xl -) 25 mg PO DAILY [facility] Last Admin: 02/26/19 09:08 Dose: 25 mg Potassium Chloride (Potassium Chloride Oral Liquid) 40 meq PO BID [facility] Last Admin: 02/26/19 21:02 Dose: 40 meq Sodium Chloride (Sodium Chloride Tablet -) 1 gm PO DAILY [facility] Last Admin: 02/26/19 09:21 Dose: 1 gm Impression 1. hyponatremia 2. jaimie 3. hypokalemia 4. chf 5. fluid overload 6. multiple pulmonary masses suspicious for mets 7. bilateral pleural effusions 8. a-fib 9. htn 10. hld Plan Sodium levels improving. No symptoms of hyponatremia. Volume status is ok. Continue salt tabs and Lasix trend bmp daily Amado Ariza DO
[2019-02-27] MEDS: POTASSIUM CHLORIDE ORAL LIQUID 20 MEQ/15 ML PO SCH ×2 (10:08→21:04)
[2019-02-27] MEDS: APIXABAN 5 MG TABLET PO SCH ×2 (10:08→21:04)
[2019-02-27] MEDS: ASPIRIN COATED 81 MG TABLET.EC PO SCH (10:10)
[2019-02-27] MEDS: metoPROLOL SUCCINATE 25 MG TAB.SR.24H (FP) PO SCH (10:13)
[2019-02-27] MEDS: FUROSEMIDE 40 MG TABLET (FP) PO SCH (10:13)
[2019-02-27] MEDS: CYANOCOBALAMIN (VITAMIN B-12) 1000 MCG/1 ML VIAL IM SCH (10:14)
[2019-02-27] MEDS: AZITHROMYCIN IVPB 250 MG in DEXTROSE 5%-WATER - 250 ML IVPB SCH (10:14)
--- NOTE | 2019-02-27 11:04 | PN ---
Progress Note, Physician - Current Medication List Current Medications: Active Medications Acetaminophen (Tylenol -) 650 mg PO Q6H PRN PRN Reason: PAIN LEVEL 6-10 Last Admin: 02/26/19 21:02 Dose: 650 mg Albuterol/Ipratropium (Duoneb -) 1 amp NEB Q6H PRN PRN Reason: SHORTNESS OF BREATH Apixaban (Eliquis -) 2.5 mg PO BID [facility] Last Admin: 02/27/19 10:08 Dose: 2.5 mg Aspirin (Ecotrin -) 162 mg PO DAILY [facility] Last Admin: 02/27/19 10:10 Dose: 162 mg Atorvastatin Calcium (Lipitor -) 40 mg PO HS [facility] Last Admin: 02/26/19 21:02 Dose: 40 mg Cyanocobalamin (Vitamin B12 Injection -) 1,000 mcg IM DAILY [facility] Last Admin: 02/27/19 10:14 Dose: 1,000 mcg Diltiazem HCl (Cardizem Cd -) 120 mg PO DAILY [facility] Last Admin: 02/27/19 10:08 Dose: 120 mg Furosemide (Lasix -) 40 mg PO DAILY [facility] Last Admin: 02/27/19 10:13 Dose: 40 mg Azithromycin 250 mg/ Dextrose 250 mls @ 250 mls/hr IVPB DAILY [facility] Last Admin: 02/27/19 10:14 Dose: 250 mls/hr Levothyroxine Sodium (Synthroid -) 200 mcg PO DAILY@0700 [facility] Last Admin: 02/27/19 06:05 Dose: 200 mcg Liothyronine Sodium (Cytomel -) 10 mcg PO AM [facility] Last Admin: 02/27/19 06:05 Dose: 10 mcg Melatonin (Melatonin) 5 mg PO HS PRN PRN Reason: INSOMNIA Last Admin: 02/26/19 21:02 Dose: 5 mg Metoprolol Succinate (Toprol Xl -) 25 mg PO DAILY [facility] Last Admin: 02/27/19 10:13 Dose: 25 mg Potassium Chloride (Potassium Chloride Oral Liquid) 40 meq PO BID [facility] Last Admin: 02/27/19 10:08 Dose: 40 meq Sodium Chloride (Sodium Chloride Tablet -) 1 gm PO DAILY [facility] Last Admin: 02/26/19 09:21 Dose: 1 gm - Objective Vital Signs: Vital Signs Temperature 97.5 F L 02/27/19 09:20 Pulse Rate 76 02/27/19 09:20 Respiratory Rate 18 10/19/19 09:20 Blood Pressure 133/70 02/27/19 09:20 O2 Sat by Pulse Oximetry (%) 97 02/26/19 21:00 Cardiovascular: Yes: S1, S2 Respiratory: Yes: Regular, CTA Bilaterally Gastrointestinal: Yes: Normal Bowel Sounds, Soft Labs: CBC, BMP 02/25/19 06:00 02/27/19 05:53 INR, PTT INR 1.03 (0.83-1.09) 02/21/19 02:50 Assessment/Plan - Problems (1) CHF (congestive heart failure) Assessment/Plan: po lasix echo 40-45% ejection fraction hypokinesia of left ventricle Code(s): I50.9 - HEART FAILURE, UNSPECIFIED (2) Confusion Assessment/Plan: ct head noted neurology on board urine legionella negative ct chest noted--nodules iv abx--?PNA bladder scan to r/o retention- has cordova cath and renal function is improving 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
[2019-02-27] MEDS: SODIUM CHLORIDE 1 GM TABLET PO SCH (11:21)
--- NOTE | 2019-02-27 11:46 | PN ---
Progress Note, Physician History of Present Illness: pulmonary alert,no distress,-sob. - Current Medication List Current Medications: Active Medications Acetaminophen (Tylenol -) 650 mg PO Q6H PRN PRN Reason: PAIN LEVEL 6-10 Last Admin: 02/26/19 21:02 Dose: 650 mg Albuterol/Ipratropium (Duoneb -) 1 amp NEB Q6H PRN PRN Reason: SHORTNESS OF BREATH Apixaban (Eliquis -) 2.5 mg PO BID [facility] Last Admin: 02/27/19 10:08 Dose: 2.5 mg Aspirin (Ecotrin -) 162 mg PO DAILY [facility] Last Admin: 02/27/19 10:10 Dose: 162 mg Atorvastatin Calcium (Lipitor -) 40 mg PO HS [facility] Last Admin: 02/26/19 21:02 Dose: 40 mg Cyanocobalamin (Vitamin B12 Injection -) 1,000 mcg IM DAILY [facility] Last Admin: 02/27/19 10:14 Dose: 1,000 mcg Diltiazem HCl (Cardizem Cd -) 120 mg PO DAILY [facility] Last Admin: 02/27/19 10:08 Dose: 120 mg Furosemide (Lasix -) 40 mg PO DAILY [facility] Last Admin: 02/27/19 10:13 Dose: 40 mg Azithromycin 250 mg/ Dextrose 250 mls @ 250 mls/hr IVPB DAILY [facility] Last Admin: 02/27/19 10:14 Dose: 250 mls/hr Levothyroxine Sodium (Synthroid -) 200 mcg PO DAILY@0700 [facility] Last Admin: 02/27/19 06:05 Dose: 200 mcg Liothyronine Sodium (Cytomel -) 10 mcg PO AM [facility] Last Admin: 02/27/19 06:05 Dose: 10 mcg Melatonin (Melatonin) 5 mg PO HS PRN PRN Reason: INSOMNIA Last Admin: 02/26/19 21:02 Dose: 5 mg Metoprolol Succinate (Toprol Xl -) 25 mg PO DAILY [facility] Last Admin: 02/27/19 10:13 Dose: 25 mg Potassium Chloride (Potassium Chloride Oral Liquid) 40 meq PO BID [facility] Last Admin: 02/27/19 10:08 Dose: 40 meq Sodium Chloride (Sodium Chloride Tablet -) 1 gm PO DAILY [facility] Last Admin: 02/27/19 11:21 Dose: 1 gm - Objective Vital Signs: Vital Signs Temperature 97.5 F L 02/27/19 09:20 Pulse Rate 76 02/27/19 09:20 Respiratory Rate 18 02/27/19 09:20 Blood Pressure 133/70 02/27/19 09:20 O2 Sat by Pulse Oximetry (%) 97 02/26/19 21:00 Constitutional: Yes: Well Nourished, Calm Eyes: Yes: WNL HENT: Yes: WNL Neck: Yes: WNL Cardiovascular: Yes: Pulse Irregular, S1, S2 Extremities: Yes: WNL Edema: No Labs: 02/27/19 05:53 INR, PTT INR 1.03 (0.83-1.09) 02/21/19 02:50 Assessment/Plan Problem List - Problems (1) Hypercapnia Code(s): R06.89 - OTHER ABNORMALITIES OF BREATHING (2) Congestive heart failure due to high blood pressure Code(s): I11.0 - HYPERTENSIVE HEART DISEASE WITH HEART FAILURE (3) Edema Code(s): R60.9 - EDEMA, UNSPECIFIED (4) Pneumonia, community acquired Code(s): J18.9 - PNEUMONIA, UNSPECIFIED ORGANISM (5) Atypical chest pain Code(s): R07.89 - OTHER CHEST PAIN (6) Chest pressure Code(s): R07.89 - OTHER CHEST PAIN 7 AORTIC STENOSIS 8. BILATERAL PULMONARY MASSES ?MALIGNANT,? INFECTIOUS 9. A-FIB 10. CVA Assessment/Plan Lasix Zithromax Daily weights O2 BD TX PRN Eliquis for AC f/u chest x-rays f/u chest ct outpatient [address] MARX
[2019-02-27] MEDS: ACETAMINOPHEN 325 MG TABLET (FP) PO PRN ×2 (12:05→23:15)
--- NOTE | 2019-02-27 12:42 | PN ---
Progress Note (short form) - Note Progress Note: 88-year-old female with a history of hypertension, hypertensive cardiovascular disease, status post cerebrovascular accident, history of hypothyroidism, paroxysmal atrial fibrillation. She was brought to the emergency room with acute shortness of breath and chest pain. Acute/subacute CVA. No further chest discomfort, no SOB. Patient is out of bed in a chair and is alert. ALLERGIES: None reported. Active Medications Generic Name Dose Route Start Last Admin Trade Name Freq PRN Reason Stop Dose Admin Acetaminophen 650 mg 02/23/19 20:31 02/27/19 12:05 Tylenol - PO 650 mg Q6H PRN Administration PAIN LEVEL 6-10 Albuterol/Ipratropium 1 amp 02/21/19 14:07 Duoneb - NEB Q6H PRN SHORTNESS OF BREATH Apixaban 2.5 mg 02/26/19 22:00 02/27/19 10:08 Eliquis - PO 2.5 mg BID AZRA Administration Aspirin 162 mg 02/26/19 13:15 02/27/19 10:10 Ecotrin - PO 162 mg DAILY AZRA Administration Atorvastatin Calcium 40 mg 02/21/19 22:00 02/26/19 21:02 Lipitor - PO 40 mg HS AZRA Administration Cyanocobalamin 1,000 mcg 02/24/19 10:30 02/27/19 10:14 Vitamin B12 Injection - IM 1,000 mcg DAILY AZRA Administration Diltiazem HCl 120 mg 02/24/19 10:21 02/27/19 10:08 Cardizem Cd - PO 120 mg DAILY AZRA Administration Furosemide 40 mg 02/27/19 10:00 02/27/19 10:13 Lasix - PO 40 mg DAILY AZRA Administration Azithromycin 250 mg/ Dextrose 250 mls @ 250 mls/hr 02/22/19 10:00 02/27/19 10 :14 IVPB 250 mls/hr DAILY AZRA Administration Levothyroxine Sodium 200 mcg 02/26/19 07:00 02/27/19 06:05 Synthroid - PO 200 mcg DAILY@0700 AZRA Administration Liothyronine Sodium 10 mcg 02/26/19 07:00 02/27/19 06:05 Cytomel - PO 10 mcg AM AZRA Administration Melatonin 5 mg 02/24/19 01:35 02/26/19 21:02 Melatonin PO 5 mg HS PRN Administration INSOMNIA Metoprolol Succinate 25 mg 02/24/19 10:21 02/27/19 10:13 Toprol Xl - PO 25 mg DAILY AZRA Administration Potassium Chloride 40 meq 02/24/19 22:00 02/27/19 10:08 Potassium Chloride Oral Liquid PO 40 meq BID AZRA Administration Sodium Chloride 1 gm 02/25/19 14:00 02/27/19 11:21 Sodium Chloride Tablet - PO 1 gm DAILY AZRA Administration PHYSICAL EXAMINATION: General: 88-year-old female is alert and coherent, There is no pallor, cyanosis, clubbing, or jaundice. Last Vital Signs Temp Pulse Resp BP Pulse Ox 97.5 F L 76 18 133/70 97 02/27/19 09:20 02/27/19 09:20 02/27/19 09:20 02/27/19 09:20 02/26/19 21:00 Neck: Supple. No jugular venous distention. Negative hepatojugular reflux. Carotids are 2+. Upstrokes are normal. Unable to appreciate any bruits. There is no thyromegaly. There is a well-healed left carotid endarterectomy scar. Heart: PMI is in the 5th intercostal space. No heaves or thrills. S1 is variable. S2 split. Ejection systolic murmur grade II/ heard at the 2nd right intercostal space ending in [id number] systolic. No diastolic murmur or gallops are heard. Lungs: Increased vocal resonance at the right mid zone posteriorly. No other extraneous sounds are heard. Chest: Normal AP diameter. Expansion is symmetrical. Abdomen: Soft, protuberant, nontender. No hepatosplenomegaly or palpable masses are felt. Bowel sounds are present. No bruits are heard. Extremities: No calf tenderness or dependent edema. Pulses are equal. Dorsalis pedis pulses are 1 to 2+. Posterior tibial pulses are not palpable. Bilateral lower extremity varicosities, bilateral stasis changes. CBC, BMP 02/25/19 06:00 02/27/19 05:53 Brain MRI Dated: 02/25/19 IMPRESSION: Right posterior temporal and parietal occipital junction acute/ subacute infarct. Chronic infarct/encephalomalacia in the right posterior temporal and occipital lobe. No acute intracranial hemorrhage is identified. There is moderate atrophy and chronic microvascular ischemic disease changes. A preliminary report was forwarded by the [facility], IMAGING SIGN BOARD ERECTOR. CT of the chest: Impression: 1. Cardiomegaly, vascular congestion, bilateral pleural effusion, and lower lobe atelectasis. 2. Multiple pulmonary masses suspect for metastatic disease. 3. Polypoid lesion within the mid trachea. 4. Mild mediastinal lymphadenopathy. Clinical correlation and follow up recommended. Echocardiogram dated February 22, 2019. Interpretation summary: Left ventricle is normal in size. Left ventricle systolic function is moderately reduced. There is moderate global hypokinesia of the left ventricle. Ejection fraction 40%-45%. Right ventricular systolic function is mildly reduced. Right ventricular systolic TID is 7 cm/sec, borderline left atrial enlargement. There is mild annular calcification. There is moderate mitral regurgitation. There is jqjvcici-qn-bbpoax tricuspid regurgitation. Pulmonary systolic pressure is at least 48 mmHg if RA pressure is presumed to be 3 mmHg. Severe valvular aortic stenosis. The calculated aortic valve area by continuity equation is 0.8 cm2. Vhwzebwn-iw-wolmju aortic regurgitation. Nfup-ik-xecwjxgt pulmonic valvular regurgitation. There is no pericardial effusion. IMPRESSION: 1. Congestive heart failure resolved, etiology: 2. Chest pain syndrome compatible with angina pectoris secondary to coronary artery disease/severe aortic stenosis, presently asymptomatic. 3. Acute/subacute CVA. 4. Critical aortic stenosis and aortic regurgitation. 5. Pulmonary hypertension. 6. Severe tricuspid regurgitation. 7. Left ventricular systolic dysfunction. 8. Right ventricular systolic dysfunction. 9. Atrial fibrillation. 10. Hypertension, hypertensive cardiovascular disease, currently normotensive. 11. Severe hypothyroidism. 12. Pulmonary nodules. 13. Mild hyponatremia. RECOMMENDATIONS: 1. Increase ambulation. 2. Continue cardiac medications. 3. Workup for pulmonary lesions is in progress. PROGNOSIS: Guarded. EZRA BRIAN M.D.
[2019-02-27] MEDS: MELATONIN 5 MG TABLETS PO PRN (21:04)
[2019-02-27] MEDS: ATORVASTATIN CA 40 MG TABLET (FP) PO SCH (21:04)
[2019-02-28] MEDS: LIOTHYRONINE SODIUM 5 MCG TABLET PO SCH (06:20)
[2019-02-28] MEDS: LEVOTHYROXINE NA 100 MCG TABLET (FP) PO SCH (06:20)
[2019-02-28 06:44] LABS: CALCIUM 8.9 mg/dL (8.5-10.1); MAGNESIUM 2.1 mg/dL (1.8-2.4); POTASSIUM 5.1 mmol/L (3.5-5.1)
--- NOTE | 2019-02-28 09:03 | PN ---
Progress Note, Physician - Current Medication List Current Medications: Active Medications Acetaminophen (Tylenol -) 650 mg PO Q6H PRN PRN Reason: PAIN LEVEL 6-10 Last Admin: 02/27/19 23:15 Dose: 650 mg Albuterol/Ipratropium (Duoneb -) 1 amp NEB Q6H PRN PRN Reason: SHORTNESS OF BREATH Apixaban (Eliquis -) 2.5 mg PO BID [facility] Last Admin: 02/27/19 21:04 Dose: 2.5 mg Aspirin (Ecotrin -) 162 mg PO DAILY [facility] Last Admin: 02/27/19 10:10 Dose: 162 mg Atorvastatin Calcium (Lipitor -) 40 mg PO HS [facility] Last Admin: 02/27/19 21:04 Dose: 40 mg Cyanocobalamin (Vitamin B12 Injection -) 1,000 mcg IM DAILY [facility] Last Admin: 02/27/19 10:14 Dose: 1,000 mcg Diltiazem HCl (Cardizem Cd -) 120 mg PO DAILY [facility] Last Admin: 02/27/19 10:08 Dose: 120 mg Furosemide (Lasix -) 40 mg PO DAILY [facility] Last Admin: 02/27/19 10:13 Dose: 40 mg Azithromycin 250 mg/ Dextrose 250 mls @ 250 mls/hr IVPB DAILY [facility] Last Admin: 02/27/19 10:14 Dose: 250 mls/hr Levothyroxine Sodium (Synthroid -) 200 mcg PO DAILY@0700 [facility] Last Admin: 02/28/19 06:20 Dose: 200 mcg Liothyronine Sodium (Cytomel -) 10 mcg PO AM [facility] Last Admin: 02/28/19 06:20 Dose: 10 mcg Melatonin (Melatonin) 5 mg PO HS PRN PRN Reason: INSOMNIA Last Admin: 02/27/19 21:04 Dose: 5 mg Metoprolol Succinate (Toprol Xl -) 25 mg PO DAILY [facility] Last Admin: 02/27/19 10:13 Dose: 25 mg Potassium Chloride (Potassium Chloride Oral Liquid) 40 meq PO BID [facility] Last Admin: 02/27/19 21:04 Dose: 40 meq Sodium Chloride (Sodium Chloride Tablet -) 1 gm PO DAILY [facility] Last Admin: 02/27/19 11:21 Dose: 1 gm - Objective Vital Signs: Vital Signs Temperature 97.7 F 02/28/19 08:58 Pulse Rate 67 02/28/19 08:58 Respiratory Rate 18 02/28/19 08:58 Blood Pressure 102/68 02/28/19 08:58 O2 Sat by Pulse Oximetry (%) 100 02/27/19 20:25 Cardiovascular: Yes: S1, S2 Respiratory: Yes: Regular, CTA Bilaterally Gastrointestinal: Yes: Normal Bowel Sounds, Soft Genitourinary: Yes: Nicholas Present Labs: CBC, BMP 02/25/19 06:00 02/28/19 05:20 INR, PTT INR 1.03 (0.83-1.09) 02/21/19 02:50 Problem List - Problems (1) CHF (congestive heart failure) Assessment/Plan: an: po lasix echo 40-45% ejection fraction hypokinesia of left ventricle Code(s): I50.9 - HEART FAILURE, UNSPECIFIED (2) Pulmonary nodules/lesions, multiple Assessment/Plan: family to decide on work up including ct abd/pelvis and Biopsy Code(s): R91.8 - OTHER NONSPECIFIC ABNORMAL FINDING OF LUNG FIELD (3) Paroxysmal A-fib Assessment/Plan: eliquis dose 2.5 mg po bid cardiology metorprolol Code(s): I48.0 - PAROXYSMAL ATRIAL FIBRILLATION (4) Pneumonia Assessment/Plan: iv abx--dc ct noted--nodules Code(s): J18.9 - PNEUMONIA, UNSPECIFIED ORGANISM (5) Stroke Assessment/Plan: mri brain posterior temporal and parietal infarct acute /subacute- Per neurologist plan is to conitnue eliqius dose of 2.5 mg po bid and incrase aspirin to 163 mg based on neurologist recommendations Code(s): I63.9 - CEREBRAL INFARCTION, UNSPECIFIED
[2019-02-28] MEDS ORDERED: PT OWN MED DRAWER 7, Y5N ONE (10:31)
--- NOTE | 2019-02-28 10:32 | PN ---
Progress Note (short form) - Note Progress Note: Renal follow up for hyponatremia Seen and examined at the bedside awake and alert offers no acute complaints no N/V, sob, chest pain tolerating oral diet Vital Signs Temperature 97.7 F 02/28/19 08:58 Pulse Rate 67 02/28/19 08:58 Respiratory Rate 18 02/28/19 08:58 Blood Pressure 102/68 02/28/19 08:58 O2 Sat by Pulse Oximetry (%) 100 02/27/19 20:25 Intake & Output 02/25/19 02/26/19 02/27/19 02/28/19 23:59 23:59 23:59 23:59 Intake Total 655 245 2961 120 Output Total 1700 1200 1600 900 Balance -1090 -260 -450 -780 Weight 65.828 kg 63.276 kg 67.755 kg NAD awake and alert neck supple RRR CTA soft NT/ND no LE edema CBC, BMP 02/25/19 06:00 02/28/19 05:20 Current Medications Acetaminophen (Tylenol -) 650 mg PO Q6H PRN PRN Reason: PAIN LEVEL 6-10 Last Admin: 02/27/19 23:15 Dose: 650 mg Albuterol/Ipratropium (Duoneb -) 1 amp NEB Q6H PRN PRN Reason: SHORTNESS OF BREATH Apixaban (Eliquis -) 2.5 mg PO BID [facility] Last Admin: 02/27/19 21:04 Dose: 2.5 mg Aspirin (Ecotrin -) 162 mg PO DAILY [facility] Last Admin: 02/27/19 10:10 Dose: 162 mg Atorvastatin Calcium (Lipitor -) 40 mg PO HS [facility] Last Admin: 02/27/19 21:04 Dose: 40 mg Cyanocobalamin (Vitamin B12 Injection -) 1,000 mcg IM DAILY [facility] Last Admin: 02/27/19 10:14 Dose: 1,000 mcg Diltiazem HCl (Cardizem Cd -) 120 mg PO DAILY [facility] Last Admin: 02/27/19 10:08 Dose: 120 mg Furosemide (Lasix -) 40 mg PO DAILY [facility] Last Admin: 02/27/19 10:13 Dose: 40 mg Levothyroxine Sodium (Synthroid -) 200 mcg PO DAILY@0700 [facility] Last Admin: 02/28/19 06:20 Dose: 200 mcg Liothyronine Sodium (Cytomel -) 10 mcg PO AM [facility] Last Admin: 02/28/19 06:20 Dose: 10 mcg Melatonin (Melatonin) 5 mg PO HS PRN PRN Reason: INSOMNIA Last Admin: 02/27/19 21:04 Dose: 5 mg Metoprolol Succinate (Toprol Xl -) 25 mg PO DAILY [facility] Last Admin: 02/27/19 10:13 Dose: 25 mg Potassium Chloride (Potassium Chloride Oral Liquid) 40 meq PO BID [facility] Last Admin: 02/27/19 21:04 Dose: 40 meq Sodium Chloride (Sodium Chloride Tablet -) 1 gm PO DAILY [facility] Last Admin: 02/27/19 11:21 Dose: 1 gm Impression 1. hyponatremia 2. jaimie 3. hypokalemia 4. chf 5. fluid overload 6. multiple pulmonary masses suspicious for mets 7. bilateral pleural effusions 8. a-fib 9. htn 10. hld Plan Serum Na improving. Continue Lasix and salt tabs as ordered Volume status is ok. trend bmp daily Amado Ariza DO
[2019-02-28] MEDS: AZITHROMYCIN IVPB 250 MG in DEXTROSE 5%-WATER - 250 ML IVPB SCH (10:43)
[2019-02-28] MEDS: APIXABAN 5 MG TABLET PO SCH ×2 (10:45→21:11)
[2019-02-28] MEDS: metoPROLOL SUCCINATE 25 MG TAB.SR.24H (FP) PO SCH (10:45)
[2019-02-28] MEDS: POTASSIUM CHLORIDE ORAL LIQUID 20 MEQ/15 ML PO SCH ×2 (10:45→21:12)
[2019-02-28] MEDS: ASPIRIN COATED 81 MG TABLET.EC PO SCH (10:45)
[2019-02-28] MEDS: SODIUM CHLORIDE 1 GM TABLET PO SCH (10:46)
[2019-02-28] MEDS: CYANOCOBALAMIN (VITAMIN B-12) 1000 MCG/1 ML VIAL IM SCH (10:46)
[2019-02-28] MEDS: FUROSEMIDE 40 MG TABLET (FP) PO SCH (10:46)
--- NOTE | 2019-02-28 11:03 | PN ---
Progress Note, Physician History of Present Illness: pulmonary alert,no distress,oob-chair,-sob - Current Medication List Current Medications: Active Medications Acetaminophen (Tylenol -) 650 mg PO Q6H PRN PRN Reason: PAIN LEVEL 6-10 Last Admin: 02/27/19 23:15 Dose: 650 mg Albuterol/Ipratropium (Duoneb -) 1 amp NEB Q6H PRN PRN Reason: SHORTNESS OF BREATH Apixaban (Eliquis -) 2.5 mg PO BID [facility] Last Admin: 02/28/19 10:45 Dose: 2.5 mg Aspirin (Ecotrin -) 162 mg PO DAILY [facility] Last Admin: 02/28/19 10:45 Dose: 162 mg Atorvastatin Calcium (Lipitor -) 40 mg PO HS [facility] Last Admin: 02/27/19 21:04 Dose: 40 mg Cyanocobalamin (Vitamin B12 Injection -) 1,000 mcg IM DAILY [facility] Last Admin: 02/28/19 10:46 Dose: 1,000 mcg Diltiazem HCl (Cardizem Cd -) 120 mg PO DAILY [facility] Last Admin: 02/28/19 10:45 Dose: 120 mg Furosemide (Lasix -) 40 mg PO DAILY [facility] Last Admin: 02/28/19 10:46 Dose: 40 mg Levothyroxine Sodium (Synthroid -) 200 mcg PO DAILY@0700 [facility] Last Admin: 02/28/19 06:20 Dose: 200 mcg Liothyronine Sodium (Cytomel -) 10 mcg PO AM [facility] Last Admin: 02/28/19 06:20 Dose: 10 mcg Melatonin (Melatonin) 5 mg PO HS PRN PRN Reason: INSOMNIA Last Admin: 02/27/19 21:04 Dose: 5 mg Metoprolol Succinate (Toprol Xl -) 25 mg PO DAILY [facility] Last Admin: 02/28/19 10:45 Dose: 25 mg Potassium Chloride (Potassium Chloride Oral Liquid) 40 meq PO BID [facility] Last Admin: 02/28/19 10:45 Dose: 40 meq Sodium Chloride (Sodium Chloride Tablet -) 1 gm PO DAILY [facility] Last Admin: 02/28/19 10:46 Dose: 1 gm - Objective Vital Signs: Vital Signs Temperature 97.7 F 02/28/19 08:58 Pulse Rate 67 02/28/19 08:58 Respiratory Rate 18 02/28/19 08:58 Blood Pressure 102/68 02/28/19 08:58 O2 Sat by Pulse Oximetry (%) 100 02/27/19 20:25 Constitutional: Yes: Well Nourished, Calm Eyes: Yes: WNL HENT: Yes: WNL Neck: Yes: WNL Cardiovascular: Yes: Pulse Irregular, S1, S2 Respiratory: Yes: CTA Bilaterally Gastrointestinal: Yes: Normal Bowel Sounds, Soft Extremities: Yes: WNL Edema: No Labs: CBC, BMP 02/28/19 05:20 INR, PTT Assessment/Plan Problem List - Problems (1) Hypercapnia Code(s): R06.89 - OTHER ABNORMALITIES OF BREATHING (2) Congestive heart failure due to high blood pressure Code(s): I11.0 - HYPERTENSIVE HEART DISEASE WITH HEART FAILURE (3) Edema Code(s): R60.9 - EDEMA, UNSPECIFIED (4) Pneumonia, community acquired Code(s): J18.9 - PNEUMONIA, UNSPECIFIED ORGANISM (5) Atypical chest pain Code(s): R07.89 - OTHER CHEST PAIN (6) Chest pressure Code(s): R07.89 - OTHER CHEST PAIN 7 AORTIC STENOSIS 8. BILATERAL PULMONARY MASSES ?MALIGNANT,? INFECTIOUS 9. A-FIB 10. CVA Assessment/Plan Lasix Daily weights O2 BD TX PRN Eliquis f/u chest x-rays f/u chest ct outpatient [address] MARX
--- NOTE | 2019-02-28 11:22 | PN ---
Progress Note, Physician History of Present Illness: events noted Seen outside of bed with the physical therapy. No visual symptoms Mild headache yesterday No family at the bedside Review the blood work Sodium is better When necessary creatinine is better Tolerating the elliqus 2.5 twice daily - Current Medication List Current Medications: Active Medications Acetaminophen (Tylenol -) 650 mg PO Q6H PRN PRN Reason: PAIN LEVEL 6-10 Last Admin: 02/27/19 23:15 Dose: 650 mg Albuterol/Ipratropium (Duoneb -) 1 amp NEB Q6H PRN PRN Reason: SHORTNESS OF BREATH Apixaban (Eliquis -) 2.5 mg PO BID [facility] Last Admin: 02/28/19 10:45 Dose: 2.5 mg Aspirin (Ecotrin -) 162 mg PO DAILY [facility] Last Admin: 02/28/19 10:45 Dose: 162 mg Atorvastatin Calcium (Lipitor -) 40 mg PO HS [facility] Last Admin: 02/27/19 21:04 Dose: 40 mg Cyanocobalamin (Vitamin B12 Injection -) 1,000 mcg IM DAILY [facility] Last Admin: 02/28/19 10:46 Dose: 1,000 mcg Diltiazem HCl (Cardizem Cd -) 120 mg PO DAILY [facility] Last Admin: 02/28/19 10:45 Dose: 120 mg Furosemide (Lasix -) 40 mg PO DAILY [facility] Last Admin: 02/28/19 10:46 Dose: 40 mg Levothyroxine Sodium (Synthroid -) 200 mcg PO DAILY@0700 [facility] Last Admin: 02/28/19 06:20 Dose: 200 mcg Liothyronine Sodium (Cytomel -) 10 mcg PO AM [facility] Last Admin: 02/28/19 06:20 Dose: 10 mcg Melatonin (Melatonin) 5 mg PO HS PRN PRN Reason: INSOMNIA Last Admin: 02/27/19 21:04 Dose: 5 mg Metoprolol Succinate (Toprol Xl -) 25 mg PO DAILY [facility] Last Admin: 02/28/19 10:45 Dose: 25 mg Potassium Chloride (Potassium Chloride Oral Liquid) 40 meq PO BID [facility] Last Admin: 02/28/19 10:45 Dose: 40 meq Sodium Chloride (Sodium Chloride Tablet -) 1 gm PO DAILY [facility] Last Admin: 02/28/19 10:46 Dose: 1 gm - Objective Vital Signs: Vital Signs Temperature 97.7 F 02/28/19 08:58 Pulse Rate 67 02/28/19 08:58 Respiratory Rate 18 02/28/19 08:58 Blood Pressure 102/68 02/28/19 08:58 O2 Sat by Pulse Oximetry (%) 100 02/27/19 20:25 Constitutional: Yes: Well Nourished Eyes: Yes: WNL HENT: Yes: WNL Neurological: Yes: Alert, Oriented ...Motor Strength: WNL Labs: CBC, BMP 02/25/19 06:00 02/28/19 05:20 INR, PTT INR 1.03 (0.83-1.09) 02/21/19 02:50 Problem List - Problems (1) Stroke Assessment/Plan: right Posterior cerebral artery stroke cardiac arrhythmia Stroke prevention Gait dysfunction 1. Continue the aspirin. 2. Follow-up daily labs. 3. Suggest increase the elliqus to 5 mg twice daily. 4. Fall precautions. Spoke to the family the refused the patient to go to subacute nursing facility Code(s): I63.9 - CEREBRAL INFARCTION, UNSPECIFIED
[2019-02-28] MEDS: ACETAMINOPHEN 325 MG TABLET (FP) PO PRN (14:54)
--- NOTE | 2019-02-28 15:00 | PN ---
Progress Note (short form) - Note Progress Note: 88-year-old female with a history of hypertension, hypertensive cardiovascular disease, status post cerebrovascular accident, history of hypothyroidism, paroxysmal atrial fibrillation. She was brought to the emergency room with acute shortness of breath and chest pain. Acute/subacute CVA. No further chest discomfort, no SOB. OOB in a chair. ALLERGIES: None reported. Active Medications Acetaminophen (Tylenol -) 650 mg PO Q6H PRN PRN Reason: PAIN LEVEL 6-10 Last Admin: 02/28/19 14:54 Dose: 650 mg Albuterol/Ipratropium (Duoneb -) 1 amp NEB Q6H PRN PRN Reason: SHORTNESS OF BREATH Apixaban (Eliquis -) 2.5 mg PO BID [facility] Last Admin: 02/28/19 10:45 Dose: 2.5 mg Aspirin (Ecotrin -) 162 mg PO DAILY [facility] Last Admin: 02/28/19 10:45 Dose: 162 mg Atorvastatin Calcium (Lipitor -) 40 mg PO HS [facility] Last Admin: 02/27/19 21:04 Dose: 40 mg Cyanocobalamin (Vitamin B12 Injection -) 1,000 mcg IM DAILY [facility] Last Admin: 02/28/19 10:46 Dose: 1,000 mcg Diltiazem HCl (Cardizem Cd -) 120 mg PO DAILY [facility] Last Admin: 02/28/19 10:45 Dose: 120 mg Furosemide (Lasix -) 40 mg PO DAILY [facility] Last Admin: 02/28/19 10:46 Dose: 40 mg Levothyroxine Sodium (Synthroid -) 200 mcg PO DAILY@0700 [facility] Last Admin: 02/28/19 06:20 Dose: 200 mcg Liothyronine Sodium (Cytomel -) 10 mcg PO AM [facility] Last Admin: 02/28/19 06:20 Dose: 10 mcg Melatonin (Melatonin) 5 mg PO HS PRN PRN Reason: INSOMNIA Last Admin: 02/27/19 21:04 Dose: 5 mg Metoprolol Succinate (Toprol Xl -) 25 mg PO DAILY [facility] Last Admin: 02/28/19 10:45 Dose: 25 mg Potassium Chloride (Potassium Chloride Oral Liquid) 40 meq PO BID [facility] Last Admin: 02/28/19 10:45 Dose: 40 meq Sodium Chloride (Sodium Chloride Tablet -) 1 gm PO DAILY [facility] Last Admin: 02/28/19 10:46 Dose: 1 gm PHYSICAL EXAMINATION: General: 88-year-old female is alert and coherent, no pallor, cyanosis, clubbing, or jaundice. Last Vital Signs Temp Pulse Resp BP Pulse Ox 97.7 F 67 18 102/68 100 02/28/19 08:58 02/28/19 08:58 02/28/19 08:58 02/28/19 08:58 02/27/19 20:25 Neck: Supple. No jugular venous distention. Negative hepatojugular reflux. Carotids are 2+. Upstrokes are normal. Unable to appreciate any bruits. There is no thyromegaly. There is a well-healed left carotid endarterectomy scar. Heart: PMI is in the 5th intercostal space. No heaves or thrills. S1 is variable. S2 split. Ejection systolic murmur grade II/ heard at the 2nd right intercostal space ending in [id number] systolic. No diastolic murmur or gallops are heard. Lungs: Increased vocal resonance at the right mid zone posteriorly. No other extraneous sounds are heard. Chest: Normal AP diameter. Expansion is symmetrical. Abdomen: Soft, protuberant, nontender. No hepatosplenomegaly or palpable masses are felt. Bowel sounds are present. No bruits are heard. Extremities: No calf tenderness or dependent edema. Pulses are equal. Dorsalis pedis pulses are 1 to 2+. Posterior tibial pulses are not palpable. Bilateral lower extremity varicosities . CBC, BMP 02/25/19 06:00 02/28/19 05:20 Brain MRI Dated: 02/25/19 IMPRESSION: Right posterior temporal and parietal occipital junction acute/ subacute infarct. Chronic infarct/encephalomalacia in the right posterior temporal and occipital lobe. No acute intracranial hemorrhage is identified. There is moderate atrophy and chronic microvascular ischemic disease changes. [facility], IMAGING LOSS CONTROL REPRESENTATIVE. CT of the chest: Impression: 1. Cardiomegaly, vascular congestion, bilateral pleural effusion, and lower lobe atelectasis. 2. Multiple pulmonary masses suspect for metastatic disease. 3. Polypoid lesion within the mid trachea. 4. Mild mediastinal lymphadenopathy. Clinical correlation and follow up recommended. Echocardiogram dated February 22, 2019. Interpretation summary: Left ventricle is normal in size. Left ventricle systolic function is moderately reduced. There is moderate global hypokinesia of the left ventricle. Ejection fraction 40%-45%. Right ventricular systolic function is mildly reduced. Right ventricular systolic TID is 7 cm/sec, borderline left atrial enlargement. There is mild annular calcification. There is moderate mitral regurgitation. There is yrxuweqj-lq-vlgakw tricuspid regurgitation. Pulmonary systolic pressure is at least 48 mmHg if RA pressure is presumed to be 3 mmHg. Severe valvular aortic stenosis. The calculated aortic valve area by continuity equation is 0.8 cm2. Edrbvirs-rr-ygqgpr aortic regurgitation. Tvew-ko-tnirshup pulmonic valvular regurgitation. There is no pericardial effusion. IMPRESSION: 1. Congestive heart failure resolved, etiology: A. Critical aortic stenosis. B. Tricuspid regurgitation. C. Acute/subacute CVA. 2. Chest pain syndrome compatible with angina pectoris secondary to coronary artery disease/severe aortic stenosis, presently asymptomatic. 3. Critical aortic stenosis and aortic regurgitation. 4. Pulmonary hypertension. 5. Severe tricuspid regurgitation. 6. Left ventricular systolic dysfunction. 7. Right ventricular systolic dysfunction. 8. Atrial flutter. 9. Hypertension, hypertensive cardiovascular disease, currently normotensive. 10. Severe hypothyroidism. 11. Pulmonary nodules. 12. Hyponatremia improving RECOMMENDATIONS: 1. F/u CT chest. 2. Increase ambulation 3. Follow-up ECG. 4. daily weight. PROGNOSIS: Guarded.. EZRA BRIAN M.D.
[2019-02-28] MEDS: ATORVASTATIN CA 40 MG TABLET (FP) PO SCH (21:12)
[2019-02-28] MEDS: MELATONIN 5 MG TABLETS PO PRN (21:12)
--- NOTE | 2019-03-01 00:06 | PN ---
Progress Note, Physician Chief Complaint: comfortable no complaint - Current Medication List Current Medications: Active Medications Acetaminophen (Tylenol -) 650 mg PO Q6H PRN PRN Reason: PAIN LEVEL 6-10 Last Admin: 02/28/19 14:54 Dose: 650 mg Albuterol/Ipratropium (Duoneb -) 1 amp NEB Q6H PRN PRN Reason: SHORTNESS OF BREATH Apixaban (Eliquis -) 2.5 mg PO BID [facility] Last Admin: 02/28/19 21:11 Dose: 2.5 mg Aspirin (Ecotrin -) 162 mg PO DAILY [facility] Last Admin: 02/28/19 10:45 Dose: 162 mg Atorvastatin Calcium (Lipitor -) 40 mg PO HS [facility] Last Admin: 02/28/19 21:12 Dose: 40 mg Cyanocobalamin (Vitamin B12 Injection -) 1,000 mcg IM DAILY [facility] Last Admin: 02/28/19 10:46 Dose: 1,000 mcg Diltiazem HCl (Cardizem Cd -) 120 mg PO DAILY [facility] Last Admin: 02/28/19 10:45 Dose: 120 mg Furosemide (Lasix -) 40 mg PO DAILY [facility] Last Admin: 02/28/19 10:46 Dose: 40 mg Levothyroxine Sodium (Synthroid -) 200 mcg PO DAILY@0700 [facility] Last Admin: 02/28/19 06:20 Dose: 200 mcg Liothyronine Sodium (Cytomel -) 10 mcg PO AM [facility] Last Admin: 02/28/19 06:20 Dose: 10 mcg Melatonin (Melatonin) 5 mg PO HS PRN PRN Reason: INSOMNIA Last Admin: 02/28/19 21:12 Dose: 5 mg Metoprolol Succinate (Toprol Xl -) 25 mg PO DAILY [facility] Last Admin: 02/28/19 10:45 Dose: 25 mg Potassium Chloride (Potassium Chloride Oral Liquid) 40 meq PO BID [facility] Last Admin: 02/28/19 21:12 Dose: 40 meq Sodium Chloride (Sodium Chloride Tablet -) 1 gm PO DAILY [facility] Last Admin: 02/28/19 10:46 Dose: 1 gm - Objective Vital Signs: Vital Signs Temperature 97.8 F 02/28/19 21:21 Pulse Rate 70 02/28/19 21:21 Respiratory Rate 18 02/28/19 21:21 Blood Pressure 129/59 L 02/28/19 21:21 O2 Sat by Pulse Oximetry (%) 100 02/28/19 09:00 Constitutional: Yes: Calm Eyes: Yes: EOM Intact HENT: Yes: Normocephalic Neck: Yes: Trachea Midline Cardiovascular: Yes: Pulse Irregular Respiratory: Yes: CTA Bilaterally Gastrointestinal: Yes: Normal Bowel Sounds ...Rectal Exam: Yes: Deferred Genitourinary: Yes: WNL Musculoskeletal: Yes: WNL Extremities: Yes: WNL Neurological: Yes: Alert Labs: CBC, BMP 02/25/19 06:00 02/28/19 05:20 INR, PTT INR 1.03 (0.83-1.09) 02/21/19 02:50 Problem List - Problems (1) Adult hypothyroidism Problems reviewed: Yes Code(s): E03.9 - HYPOTHYROIDISM, UNSPECIFIED (2) CHF (congestive heart failure) Code(s): I50.9 - HEART FAILURE, UNSPECIFIED (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 Code(s): I50.40 - UNSP COMBINED SYSTOLIC AND DIASTOLIC (CONGESTIVE) HRT FAIL Qualifiers: Heart failure chronicity: acute on chronic Qualified Code(s): I50.43 - Acute on chronic combined systolic (congestive) and diastolic (congestive) heart failure (4) Confusion Code(s): R41.0 - DISORIENTATION, UNSPECIFIED (5) Congestive heart failure due to high blood pressure Code(s): I11.0 - HYPERTENSIVE HEART DISEASE WITH HEART FAILURE Qualifiers: Heart failure type: unspecified Qualified Code(s): I11.0 - Hypertensive heart disease with heart failure (6) Flash pulmonary edema Code(s): J81.0 - ACUTE PULMONARY EDEMA (7) HTN (hypertension) Code(s): I10 - ESSENTIAL (PRIMARY) HYPERTENSION Assessment/Plan Current Active Problems INDY (acute kidney injury) (Acute) Adult hypothyroidism (Acute) CHF (congestive heart failure) (Acute) Combined systolic and diastolic congestive heart failure (Acute) Confusion (Acute) Congestive heart failure due to high blood pressure (Acute) Edema (Acute) Flash pulmonary edema (Acute) HTN (hypertension) (Acute) Hypercapnia (Acute) Hypokalemia (Acute) Hyponatremia (Acute) Lactic acidosis (Acute) Malignant hypertension (Acute) Metabolic encephalopathy (Acute) Paroxysmal A-fib (Acute) Pneumonia (Acute) Pneumonia, community acquired (Acute) Pulmonary nodules/lesions, multiple (Acute) Stasis dermatitis (Acute) Stroke (Acute) Weakness (Acute) Laboratory Tests 02/25/19 02/25/19 02/25/19 06:00 06:00 06:00 Free T4 0.69 L Total T3 44.00 L Cortisol AM Sample 21.4 H Abnormal Lab Results 02/28/19 05:20 Sodium 133 L Chloride 96 L BUN 19.0 H Laboratory Results - last 24 hr 02/28/19 05:20 Sodium 133 L Potassium 5.1 Chloride 96 L Carbon Dioxide 29 Anion Gap 8 BUN 19.0 H Creatinine 1.0 Est GFR (CKD-EPI)AfAm 57.84 Est GFR (CKD-EPI)NonAf 49.91 Random Glucose 86 Calcium 8.9 Magnesium 2.1 plan; continue synthroid 200mcg cytomel 10mcg follow up tsh [id number] outpatient
[2019-03-01 06:28] LABS: BASO % 0.5 % (0-2.0); EOS % 2.4 % (0-4.5); HEMATOCRIT 26.8 % (32.4-45.2); LYMPH % 16.4 % (8-40); MCH 33.3 pg (25.7-33.7); MCHC 33.5 g/dl (32.0-36.0); MEAN CELL VOLUME 99.3 fl (80-96); MEAN PLT VOLUME 8.6 fl (7.5-11.1); MONO % 9.3 % (3.8-10.2); NEUT % 71.4 % (42.8-82.8); PLATELET COUNT 184 K/MM3 (134-434); RDW 16.9 % (11.6-15.6); WHITE BLOOD COUNT 5.3 K/mm3 (4.0-10.0)
[2019-03-01 07:05] LABS: BLOOD UREA NITROGEN 19.6 mg/dL (7-18); CALCIUM 8.6 mg/dL (8.5-10.1); POTASSIUM 4.8 mmol/L (3.5-5.1); TOT PROT 5.6 g/dl (6.4-8.2)
[2019-03-01] MEDS: LIOTHYRONINE SODIUM 5 MCG TABLET PO SCH (07:10)
[2019-03-01] MEDS: LEVOTHYROXINE NA 100 MCG TABLET (FP) PO SCH (07:11)
[2019-03-01] MEDS ORDERED: PT OWN MED DRAWER 7, Y5N ONE (09:21)
[2019-03-01] MEDS: APIXABAN 5 MG TABLET PO SCH ×2 (09:30→22:04)
[2019-03-01] MEDS: POTASSIUM CHLORIDE ORAL LIQUID 20 MEQ/15 ML PO SCH ×2 (09:30→22:04)
[2019-03-01] MEDS: CYANOCOBALAMIN (VITAMIN B-12) 1000 MCG/1 ML VIAL IM SCH (09:30)
[2019-03-01] MEDS: FUROSEMIDE 40 MG TABLET (FP) PO SCH (09:31)
[2019-03-01] MEDS: SODIUM CHLORIDE 1 GM TABLET PO SCH (09:31)
[2019-03-01] MEDS: ASPIRIN COATED 81 MG TABLET.EC PO SCH (09:31)
[2019-03-01] MEDS: metoPROLOL SUCCINATE 25 MG TAB.SR.24H (FP) PO SCH (09:31)
--- NOTE | 2019-03-01 09:47 | PN ---
Progress Note, Physician History of Present Illness: Pt seen and examined at bedside. She is out of bed to chair. She denies shortness of breath. She feels that her lower ext edema is improved. - Current Medication List Current Medications: Active Medications Acetaminophen (Tylenol -) 650 mg PO Q6H PRN PRN Reason: PAIN LEVEL 6-10 Last Admin: 02/28/19 14:54 Dose: 650 mg Albuterol/Ipratropium (Duoneb -) 1 amp NEB Q6H PRN PRN Reason: SHORTNESS OF BREATH Apixaban (Eliquis -) 2.5 mg PO BID [facility] Last Admin: 03/01/19 09:30 Dose: 2.5 mg Aspirin (Ecotrin -) 162 mg PO DAILY [facility] Last Admin: 03/01/19 09:31 Dose: 162 mg Atorvastatin Calcium (Lipitor -) 40 mg PO HS [facility] Last Admin: 02/28/19 21:12 Dose: 40 mg Cyanocobalamin (Vitamin B12 Injection -) 1,000 mcg IM DAILY [facility] Last Admin: 03/01/19 09:30 Dose: 1,000 mcg Diltiazem HCl (Cardizem Cd -) 120 mg PO DAILY [facility] Last Admin: 03/01/19 09:31 Dose: 120 mg Furosemide (Lasix -) 40 mg PO DAILY [facility] Last Admin: 03/01/19 09:31 Dose: 40 mg Levothyroxine Sodium (Synthroid -) 200 mcg PO DAILY@0700 [facility] Last Admin: 03/01/19 07:11 Dose: 200 mcg Liothyronine Sodium (Cytomel -) 10 mcg PO AM [facility] Last Admin: 03/01/19 07:10 Dose: 10 mcg Melatonin (Melatonin) 5 mg PO HS PRN PRN Reason: INSOMNIA Last Admin: 02/28/19 21:12 Dose: 5 mg Metoprolol Succinate (Toprol Xl -) 25 mg PO DAILY [facility] Last Admin: 03/01/19 09:31 Dose: 25 mg Potassium Chloride (Potassium Chloride Oral Liquid) 40 meq PO BID [facility] Last Admin: 03/01/19 09:30 Dose: 40 meq Sodium Chloride (Sodium Chloride Tablet -) 1 gm PO DAILY [facility] Last Admin: 03/01/19 09:31 Dose: 1 gm - Objective Vital Signs: Vital Signs Temperature 97.3 F L 03/01/19 06:00 Pulse Rate 65 03/01/19 06:00 Respiratory Rate 18 03/01/19 06:00 Blood Pressure 114/70 03/01/19 06:00 O2 Sat by Pulse Oximetry (%) 100 02/28/19 21:00 Constitutional: Yes: Calm Eyes: Yes: Conjunctiva Clear HENT: Yes: Atraumatic Neck: Yes: Supple Cardiovascular: Yes: S1, S2 Respiratory: Yes: CTA Bilaterally, On Nasal O2 Gastrointestinal: Yes: Soft Genitourinary: Yes: Nicholas Present Musculoskeletal: Yes: WNL Edema: Yes Edema: LLE: 1+, RLE: 1+ Integumentary: Yes: Venous Stasis Changes Neurological: Yes: Oriented Psychiatric: Yes: Oriented Labs: CBC, BMP 03/01/19 05:50 03/01/19 05:50 INR, PTT INR 1.03 (0.83-1.09) 02/21/19 02:50 Problem List - Problems (1) Hyponatremia Code(s): E87.1 - HYPO-OSMOLALITY AND HYPONATREMIA (2) CHF (congestive heart failure) Code(s): I50.9 - HEART FAILURE, UNSPECIFIED (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 Code(s): I50.40 - UNSP COMBINED SYSTOLIC AND DIASTOLIC (CONGESTIVE) HRT FAIL Qualifiers: Heart failure chronicity: acute on chronic Qualified Code(s): I50.43 - Acute on chronic combined systolic (congestive) and diastolic (congestive) heart failure Assessment/Plan Current Medications Generic Name Dose Route Start Last Admin Trade Name Freq PRN Reason Stop Dose Admin Acetaminophen 650 mg 02/23/19 20:31 02/28/19 14:54 Tylenol - PO 650 mg Q6H PRN Administration PAIN LEVEL 6-10 Albuterol/Ipratropium 1 amp 02/21/19 14:07 Duoneb - NEB Q6H PRN SHORTNESS OF BREATH Apixaban 2.5 mg 02/26/19 22:00 03/01/19 09:30 Eliquis - PO 2.5 mg BID [facility] Administration Aspirin 162 mg 02/26/19 13:15 03/01/19 09:31 Ecotrin - PO 162 mg DAILY [facility] Administration Atorvastatin Calcium 40 mg 02/21/19 22:00 02/28/19 21:12 Lipitor - PO 40 mg HS [facility] Administration Cyanocobalamin 1,000 mcg 02/24/19 10:30 03/01/19 09:30 Vitamin B12 Injection - IM 1,000 mcg DAILY [facility] Administration Diltiazem HCl 120 mg 02/24/19 10:21 03/01/19 09:31 Cardizem Cd - PO 120 mg DAILY [facility] Administration Furosemide 40 mg 02/27/19 10:00 03/01/19 09:31 Lasix - PO 40 mg DAILY [facility] Administration Levothyroxine Sodium 200 mcg 02/26/19 07:00 03/01/19 07:11 Synthroid - PO 200 mcg DAILY@0700 [facility] Administration Liothyronine Sodium 10 mcg 02/26/19 07:00 03/01/19 07:10 Cytomel - PO 10 mcg AM [facility] Administration Melatonin 5 mg 02/24/19 01:35 02/28/19 21:12 Melatonin PO 5 mg HS PRN Administration INSOMNIA Metoprolol Succinate 25 mg 02/24/19 10:21 03/01/19 09:31 Toprol Xl - PO 25 mg DAILY [facility] Administration Potassium Chloride 40 meq 02/24/19 22:00 03/01/19 09:30 Potassium Chloride Oral Liquid PO 40 meq BID [facility] Administration Sodium Chloride 1 gm 02/25/19 14:00 03/01/19 09:31 Sodium Chloride Tablet - PO 1 gm DAILY [facility] Administration Impression 1. hyponatremia 2. jaimie 3. hypokalemia 4. chf 5. fluid overload 6. multiple pulmonary masses suspicious for mets 7. bilateral pleural effusions 8. a-fib 9. htn 10. hld Plan - cont lasix - cont salt tabs - synthroid increased, endocrine on board - volume status stable - discussed fluid intake with pt
--- NOTE | 2019-03-01 10:22 | PN ---
Progress Note (short form) - Note Progress Note: 88-year-old female with a history of hypertension, hypertensive cardiovascular disease, status post cerebrovascular accident, history of hypothyroidism, paroxysmal atrial fibrillation. She was brought to the emergency room with acute shortness of breath and chest pain. Acute/subacute CVA. No further chest discomfort, no SOB. OOB in a chair. ALLERGIES: None reported. Active Medications Generic Name Dose Route Start Last Admin Trade Name Freq PRN Reason Stop Dose Admin Acetaminophen 650 mg 02/23/19 20:31 02/28/19 14:54 Tylenol - PO 650 mg Q6H PRN Administration PAIN LEVEL 6-10 Albuterol/Ipratropium 1 amp 02/21/19 14:07 Duoneb - NEB Q6H PRN SHORTNESS OF BREATH Apixaban 2.5 mg 02/26/19 22:00 03/01/19 09:30 Eliquis - PO 2.5 mg BID [facility] Administration Aspirin 162 mg 02/26/19 13:15 03/01/19 09:31 Ecotrin - PO 162 mg DAILY [facility] Administration Atorvastatin Calcium 40 mg 02/21/19 22:00 02/28/19 21:12 Lipitor - PO 40 mg HS [facility] Administration Cyanocobalamin 1,000 mcg 02/24/19 10:30 03/01/19 09:30 Vitamin B12 Injection - IM 1,000 mcg DAILY [facility] Administration Diltiazem HCl 120 mg 02/24/19 10:21 03/01/19 09:31 Cardizem Cd - PO 120 mg DAILY [facility] Administration Furosemide 40 mg 02/27/19 10:00 03/01/19 09:31 Lasix - PO 40 mg DAILY [facility] Administration Levothyroxine Sodium 200 mcg 02/26/19 07:00 03/01/19 07:11 Synthroid - PO 200 mcg DAILY@0700 [facility] Administration Liothyronine Sodium 10 mcg 02/26/19 07:00 03/01/19 07:10 Cytomel - PO 10 mcg AM [facility] Administration Melatonin 5 mg 02/24/19 01:35 02/28/19 21:12 Melatonin PO 5 mg HS PRN Administration INSOMNIA Metoprolol Succinate 25 mg 02/24/19 10:21 03/01/19 09:31 Toprol Xl - PO 25 mg DAILY [facility] Administration Potassium Chloride 40 meq 02/24/19 22:00 03/01/19 09:30 Potassium Chloride Oral Liquid PO 40 meq BID [facility] Administration Sodium Chloride 1 gm 02/25/19 14:00 03/01/19 09:31 Sodium Chloride Tablet - PO 1 gm DAILY [facility] Administration PHYSICAL EXAMINATION: General: 88-year-old female is alert and coherent, no pallor, cyanosis, clubbing, or jaundice. Last Vital Signs Temp Pulse Resp BP Pulse Ox 97.3 F L 65 18 114/70 100 03/01/19 06:00 03/01/19 06:00 03/01/19 06:00 03/01/19 06:00 02/28/19 21:00 Neck: Supple. No jugular venous distention. Negative hepatojugular reflux. Carotids are 2+. Upstrokes are normal. Unable to appreciate any bruits. There is no thyromegaly. There is a well-healed left carotid endarterectomy scar. Heart: PMI is in the 5th intercostal space. No heaves or thrills. S1 is variable. S2 split. Ejection systolic murmur grade II/ heard at the 2nd right intercostal space ending in [id number] systolic. No diastolic murmur or gallops are heard. Lungs: Increased vocal resonance at the right mid zone posteriorly. No other extraneous sounds are heard. Chest: Normal AP diameter. Expansion is symmetrical. Abdomen: Soft, protuberant, nontender. No hepatosplenomegaly or palpable masses are felt. Bowel sounds are present. No bruits are heard. Extremities: No calf tenderness or dependent edema. Pulses are equal. Dorsalis pedis pulses are 1 to 2+. Posterior tibial pulses are not palpable. Bilateral lower extremity varicosities . CBC, BMP 03/01/19 05:50 03/01/19 05:50 Brain MRI Dated: 02/25/19 IMPRESSION: Right posterior temporal and parietal occipital junction acute/ subacute infarct. Chronic infarct/encephalomalacia in the right posterior temporal and occipital lobe. No acute intracranial hemorrhage is identified. There is moderate atrophy and chronic microvascular ischemic disease changes. A preliminary report was forwarded by the [employer], [employer]. CT of the chest: Impression: 1. Cardiomegaly, vascular congestion, bilateral pleural effusion, and lower lobe atelectasis. 2. Multiple pulmonary masses suspect for metastatic disease. 3. Polypoid lesion within the mid trachea. 4. Mild mediastinal lymphadenopathy. Clinical correlation and follow up recommended. Echocardiogram dated February 22, 2019. Interpretation summary: Left ventricle is normal in size. Left ventricle systolic function is moderately reduced. There is moderate global hypokinesia of the left ventricle. Ejection fraction 40%-45%. Right ventricular systolic function is mildly reduced. Right ventricular systolic TID is 7 cm/sec, borderline left atrial enlargement. There is mild annular calcification. There is moderate mitral regurgitation. There is lnboskeu-fr-[id number] tricuspid regurgitation. Pulmonary systolic pressure is at least 48 mmHg if RA pressure is presumed to be 3 mmHg. Severe valvular aortic stenosis. The calculated aortic valve area by continuity equation is 0.8 cm2. [id number]-ktqagq aortic regurgitation. [id number]-bg-[id number] pulmonic valvular regurgitation. There is no pericardial effusion. IMPRESSION: 1. Congestive heart failure resolved, etiology: A. Critical aortic stenosis. B. Tricuspid regurgitation. C. Acute/subacute CVA. 2. Chest pain syndrome compatible with angina pectoris secondary to coronary artery disease/severe aortic stenosis, presently asymptomatic. 3. Critical aortic stenosis and aortic regurgitation. 4. Pulmonary hypertension. 5. Severe tricuspid regurgitation. 6. Left ventricular systolic dysfunction. 7. Right ventricular systolic dysfunction. 8. Atrial flutter. 9. Hypertension, hypertensive cardiovascular disease, currently normotensive. 10. Severe hypothyroidism. 11. Pulmonary nodules. 12. Hyponatremia improving RECOMMENDATIONS: 1. F/u CT chest. 2. Increase ambulation 3. Follow-up ECG. 4. daily weight. PROGNOSIS: Guarded.. EZRA BRIAN M.D.
[2019-03-01 12:45] VITALS: BMI 25.8
--- NOTE | 2019-03-01 13:41 | DS ---
Physical Examination Vital Signs: Vital Signs Temperature 97.7 F 03/01/19 10:00 Pulse Rate 79 03/01/19 10:00 Respiratory Rate 18 03/01/19 10:00 Blood Pressure 142/97 03/01/19 10:00 O2 Sat by Pulse Oximetry (%) 99 03/01/19 09:00 Constitutional: Yes: Calm Cardiovascular: Yes: S1, S2 Respiratory: Yes: CTA Bilaterally, On Nasal O2 Gastrointestinal: Yes: Normal Bowel Sounds, Soft Edema: Yes Neurological: Yes: Alert Labs: CBC, BMP 03/01/19 05:50 03/01/19 05:50 Discharge Summary Problems reviewed: Yes Reason For Visit: SEVERE COMBINED SYSTOLIC AND DIASTOLIC CONGESTIVE Current Active Problems INDY (acute kidney injury) (Acute) Adult hypothyroidism (Acute) CHF (congestive heart failure) (Acute) Combined systolic and diastolic congestive heart failure (Acute) Confusion (Acute) Congestive heart failure due to high blood pressure (Acute) Edema (Acute) Flash pulmonary edema (Acute) HTN (hypertension) (Acute) Hypercapnia (Acute) Hypokalemia (Acute) Hyponatremia (Acute) Lactic acidosis (Acute) Malignant hypertension (Acute) Metabolic encephalopathy (Acute) Paroxysmal A-fib (Acute) Pneumonia (Acute) Pneumonia, community acquired (Acute) Pulmonary nodules/lesions, multiple (Acute) Stasis dermatitis (Acute) Stroke (Acute) Weakness (Acute) Other Procedures: MRI right posterior temporal and parietal occipital infarct. renal sono normal kidney. ct scan of abdomen: lung lesion and lesion in liver and spleen. echo: moderate global hpokinesis of left ventricle Hospital Course: CHF ACUTE WITH MALIGNANT HYPERTENSION History of Present Illness: PATIENT REPORTS INCREASED DYSPNEA WITH LEG EDEMA OVER THE PAST 2 DAYS, IN E.D. HER DIASTOLIC BP WAS GREATER THAN 120MMHG DENIES CP/HEADACHE/DIZZINESS. admitted to telemetry started on lasix iv changed to po lasix AC eliquis BId and aspirin dose increased based on recent MRI hypothyroid seen by endocrine on synthroid and cytomel as well hyponatremia on nacl tablet ct scan of abdomen shows lung lesion and lesion in liver and spleen Condition: Stable - Instructions Diet, Activity, Other Instructions: TSH and T 3 check in 3 weeks Follow up with PMD regarding lung lesions Disposition: VNS/HOME HEALTH CARE - Home Medications Comprehensive Discharge Medication List: Ambulatory Orders Apixaban [Eliquis -] 5 mg PO BID #1 tablet 10/21/13 Diltiazem Cd [Cardizem Cd -] 120 mg PO DAILY #0 cap.cd.24h 10/21/13 Metoprolol Succinate [Toprol XL -] 100 mg PO DAILY #1 10/21/13 Simvastatin [Zocor] 20 mg PO HS #1 10/21/13 Levothyroxine Sodium [Synthroid] 125 mcg PO DAILY 10/20/14 Aspirin [ASA -] 81 mg PO DAILY 05/13/15 Losartan/Hydrochlorothiazide [Hyzaar 100-12.5 Tablet] 1 each PO DAILY 05/13/15 Isosorbide Mononitrate [Imdur -] 30 mg PO DAILY 04/04/17
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
--- NOTE | 2019-03-01 16:54 | PN ---
Progress Note (short form) - Note Progress Note: Hematology and oncology Follow up Subjective: Patient seen and examined at bedside. No new complaints, no events overnight. For discharge today. Objective: Vital Signs Temperature 97.9 F 03/01/19 14:00 Pulse Rate 68 03/01/19 14:00 Respiratory Rate 18 03/01/19 14:00 Blood Pressure 120/57 L 03/01/19 14:00 O2 Sat by Pulse Oximetry (%) 99 03/01/19 09:00 Physical exam: Gen.: patient found lying in bed. Well appearing. Awake, alert. Lungs: clear to auscultation bilaterally down to the bases. Heart: regular rate and rhythm. S1, S2 heard. No murmurs gallops or rubs heard. Abdomen: soft, nontender, nondistended. Bowel sounds heard. Extremities: no peripheral edema noted. No bruising, swelling, erythema or warmth of extremities noted. neuro: patient A&O x3. Moving all four limbs spontaneously. Active Medications Acetaminophen (Tylenol -) 650 mg PO Q6H PRN PRN Reason: PAIN LEVEL 6-10 Last Admin: 02/28/19 14:54 Dose: 650 mg Albuterol/Ipratropium (Duoneb -) 1 amp NEB Q6H PRN PRN Reason: SHORTNESS OF BREATH Apixaban (Eliquis -) 2.5 mg PO BID [facility] Last Admin: 03/01/19 09:30 Dose: 2.5 mg Aspirin (Ecotrin -) 162 mg PO DAILY [facility] Last Admin: 03/01/19 09:31 Dose: 162 mg Atorvastatin Calcium (Lipitor -) 40 mg PO HS [facility] Last Admin: 02/28/19 21:12 Dose: 40 mg Cyanocobalamin (Vitamin B12 Injection -) 1,000 mcg IM DAILY [facility] Last Admin: 03/01/19 09:30 Dose: 1,000 mcg Diltiazem HCl (Cardizem Cd -) 120 mg PO DAILY [facility] Last Admin: 03/01/19 09:31 Dose: 120 mg Furosemide (Lasix -) 40 mg PO DAILY [facility] Last Admin: 03/01/19 09:31 Dose: 40 mg Levothyroxine Sodium (Synthroid -) 200 mcg PO DAILY@0700 [facility] Last Admin: 03/01/19 07:11 Dose: 200 mcg Liothyronine Sodium (Cytomel -) 10 mcg PO AM [facility] Last Admin: 03/01/19 07:10 Dose: 10 mcg Melatonin (Melatonin) 5 mg PO HS PRN PRN Reason: INSOMNIA Last Admin: 02/28/19 21:12 Dose: 5 mg Metoprolol Succinate (Toprol Xl -) 25 mg PO DAILY [facility] Last Admin: 03/01/19 09:31 Dose: 25 mg Potassium Chloride (Potassium Chloride Oral Liquid) 40 meq PO BID [facility] Last Admin: 03/01/19 09:30 Dose: 40 meq Sodium Chloride (Sodium Chloride Tablet -) 1 gm PO DAILY [facility] Last Admin: 03/01/19 09:31 Dose: 1 gm Home Medications Medication Instructions Recorded Diltiazem Cd [Cardizem Cd -] 120 mg PO DAILY #0 cap.cd.24h 10/21/13 Simvastatin [Zocor] 20 mg PO HS #1 10/21/13 Apixaban [Eliquis -] 2.5 mg PO BID #30 tablet 03/01/19 Aspirin Coated [Ecotrin -] 162 mg PO DAILY #30 tablet.ec 03/01/19 Furosemide [Lasix -] 40 mg PO DAILY #30 tablet 03/01/19 Levothyroxine [Synthroid -] 200 mcg PO DAILY@0700 #60 tablet 03/01/19 Liothyronine Sodium [Cytomel -] 10 mcg PO AM #30 tablet 03/01/19 Metoprolol Succinate [Toprol XL -] 25 mg PO DAILY #30 tab.sr.24h 03/01/19 Sodium Chloride Tablet - 1 gm PO DAILY #30 tablet 03/01/19 CBC, BMP 03/01/19 05:50 03/01/19 05:50 Assessment and plan: The patient is an 88 yo f w/ PMH Afib on AC, HTN, HLD, CVA, hypothyroidism who comes into the ED c/o progressive SOB and chest pain. #New lung masses on CT -GOC discussion with family -patient will require biopsy to further evaluate lung masses. -patient for dc today; outpatient follow up is recommended. The need for and importance of this follow up was communicated to the patient. She verbalized understanding. #Polypoid mass in trachea -unlikely to be primary, but possible -suggest outpatient ENT evaluation. #Progressive SOB/CP possibly 2/2 PNA vs squelae from lung masses. -Completed course of abx -resolved
[2019-03-01] MEDS: MELATONIN 5 MG TABLETS PO PRN (22:04)
[2019-03-01] MEDS: ATORVASTATIN CA 40 MG TABLET (FP) PO SCH (22:04)
[2019-03-02] MEDS: LIOTHYRONINE SODIUM 5 MCG TABLET PO SCH (06:15)
[2019-03-02] MEDS: LEVOTHYROXINE NA 100 MCG TABLET (FP) PO SCH (06:15)
--- NOTE | 2019-03-02 08:16 | PN ---
Progress Note, Physician History of Present Illness: cordova removed--retention-reinserted - Current Medication List Current Medications: Active Medications Acetaminophen (Tylenol -) 650 mg PO Q6H PRN PRN Reason: PAIN LEVEL 6-10 Last Admin: 02/28/19 14:54 Dose: 650 mg Albuterol/Ipratropium (Duoneb -) 1 amp NEB Q6H PRN PRN Reason: SHORTNESS OF BREATH Apixaban (Eliquis -) 2.5 mg PO BID [facility] Last Admin: 03/01/19 22:04 Dose: 2.5 mg Aspirin (Ecotrin -) 162 mg PO DAILY [facility] Last Admin: 03/01/19 09:31 Dose: 162 mg Atorvastatin Calcium (Lipitor -) 40 mg PO HS [facility] Last Admin: 03/01/19 22:04 Dose: 40 mg Cyanocobalamin (Vitamin B12 Injection -) 1,000 mcg IM DAILY [facility] Last Admin: 03/01/19 09:30 Dose: 1,000 mcg Diltiazem HCl (Cardizem Cd -) 120 mg PO DAILY [facility] Last Admin: 03/01/19 09:31 Dose: 120 mg Furosemide (Lasix -) 40 mg PO DAILY [facility] Last Admin: 03/01/19 09:31 Dose: 40 mg Levothyroxine Sodium (Synthroid -) 200 mcg PO DAILY@0700 [facility] Last Admin: 03/02/19 06:15 Dose: 200 mcg Liothyronine Sodium (Cytomel -) 10 mcg PO AM [facility] Last Admin: 03/02/19 06:15 Dose: 10 mcg Melatonin (Melatonin) 5 mg PO HS PRN PRN Reason: INSOMNIA Last Admin: 03/01/19 22:04 Dose: 5 mg Metoprolol Succinate (Toprol Xl -) 25 mg PO DAILY [facility] Last Admin: 03/01/19 09:31 Dose: 25 mg Potassium Chloride (Potassium Chloride Oral Liquid) 40 meq PO BID [facility] Last Admin: 03/01/19 22:04 Dose: 40 meq Sodium Chloride (Sodium Chloride Tablet -) 1 gm PO DAILY [facility] Last Admin: 03/01/19 09:31 Dose: 1 gm - Objective Vital Signs: Vital Signs Temperature 97.9 F 03/02/19 06:00 Pulse Rate 73 03/02/19 06:00 Respiratory Rate 18 03/02/19 06:00 Blood Pressure 136/63 03/02/19 06:00 O2 Sat by Pulse Oximetry (%) 99 03/01/19 21:00 Cardiovascular: Yes: Regular Rate and Rhythm Respiratory: Yes: Regular, CTA Bilaterally Gastrointestinal: Yes: Normal Bowel Sounds, Soft. No: Tenderness Genitourinary: Yes: Cordova Present Labs: CBC, BMP 03/01/19 05:50 03/01/19 05:50 INR, PTT INR 1.03 (0.83-1.09) 02/21/19 02:50 Assessment/Plan - Problems (1) CHF (congestive heart failure) Assessment/Plan: an: po lasix echo 40-45% ejection fraction hypokinesia of left ventricle Code(s): I50.9 - HEART FAILURE, UNSPECIFIED (2) Pulmonary nodules/lesions, multiple Assessment/Plan: family to decide on work up --d/w pt--wants to wait on work up Code(s): R91.8 - OTHER NONSPECIFIC ABNORMAL FINDING OF LUNG FIELD (3) Paroxysmal A-fib Assessment/Plan: eliquis dose 2.5 mg po bid cardiology metorprolol Code(s): I48.0 - PAROXYSMAL ATRIAL FIBRILLATION (4) Pneumonia Assessment/Plan: iv abx--dc ct noted--nodules Code(s): J18.9 - PNEUMONIA, UNSPECIFIED ORGANISM (5) Stroke Assessment/Plan: mri brain posterior temporal and parietal infarct acute /subacute- Per neurologist plan is to conitnue eliqius dose of 2.5 mg po bid and incrase aspirin to 163 mg based on neurologist recommendations Code(s): I63.9 - CEREBRAL INFARCTION, UNSPECIFIED (6) Urinary Retention Assessment/Plan: Cordova add detrol--urology
[2019-03-02 09:00] LABS: BASO % 0.5 % (0-2.0); HEMOGLOBIN 9.3 GM/dL (10.7-15.3); LYMPH % 15.4 % (8-40); MCHC 33.3 g/dl (32.0-36.0); MEAN CELL VOLUME 99.3 fl (80-96); MEAN PLT VOLUME 8.6 fl (7.5-11.1); MONO % 10.9 % (3.8-10.2); NEUT % 71.2 % (42.8-82.8); PLATELET COUNT 190 K/MM3 (134-434); RBC 2.82 M/mm3 (3.60-5.2); RDW 17.1 % (11.6-15.6); WHITE BLOOD COUNT 5.5 K/mm3 (4.0-10.0)
[2019-03-02 09:37] LABS: ALBUMIN 3.1 g/dl (3.4-5.0); BILIRUBIN,TOTAL 1.2 mg/dL (0.2-1); BLOOD UREA NITROGEN 15.7 mg/dL (7-18); CALCIUM 8.9 mg/dL (8.5-10.1); CREATININE 0.9 mg/dL (0.55-1.3); POTASSIUM 4.4 mmol/L (3.5-5.1); TOT PROT 5.8 g/dl (6.4-8.2)
[2019-03-02] MEDS ORDERED: TOLTERODINE TARTRATE LA 2 MG CAP.SR.24H PO SCH (10:00)
--- NOTE | 2019-03-02 10:14 | PN ---
Progress Note, Physician History of Present Illness: Pt seen and examined at bedside. She is awake and alert. She denies shortness of breath. - Current Medication List Current Medications: Active Medications Acetaminophen (Tylenol -) 650 mg PO Q6H PRN PRN Reason: PAIN LEVEL 6-10 Last Admin: 02/28/19 14:54 Dose: 650 mg Albuterol/Ipratropium (Duoneb -) 1 amp NEB Q6H PRN PRN Reason: SHORTNESS OF BREATH Apixaban (Eliquis -) 2.5 mg PO BID [facility] Last Admin: 03/01/19 22:04 Dose: 2.5 mg Aspirin (Ecotrin -) 162 mg PO DAILY [facility] Last Admin: 03/01/19 09:31 Dose: 162 mg Atorvastatin Calcium (Lipitor -) 40 mg PO HS [facility] Last Admin: 03/01/19 22:04 Dose: 40 mg Cyanocobalamin (Vitamin B12 Injection -) 1,000 mcg IM DAILY [facility] Last Admin: 03/01/19 09:30 Dose: 1,000 mcg Diltiazem HCl (Cardizem Cd -) 120 mg PO DAILY [facility] Last Admin: 03/01/19 09:31 Dose: 120 mg Furosemide (Lasix -) 40 mg PO DAILY [facility] Last Admin: 03/01/19 09:31 Dose: 40 mg Levothyroxine Sodium (Synthroid -) 200 mcg PO DAILY@0700 [facility] Last Admin: 03/02/19 06:15 Dose: 200 mcg Liothyronine Sodium (Cytomel -) 10 mcg PO AM [facility] Last Admin: 03/02/19 06:15 Dose: 10 mcg Melatonin (Melatonin) 5 mg PO HS PRN PRN Reason: INSOMNIA Last Admin: 03/01/19 22:04 Dose: 5 mg Metoprolol Succinate (Toprol Xl -) 25 mg PO DAILY [facility] Last Admin: 03/01/19 09:31 Dose: 25 mg Potassium Chloride (Potassium Chloride Oral Liquid) 40 meq PO BID [facility] Last Admin: 03/01/19 22:04 Dose: 40 meq Sodium Chloride (Sodium Chloride Tablet -) 1 gm PO DAILY [facility] Last Admin: 03/01/19 09:31 Dose: 1 gm Tolterodine Tartrate (Detrol La -) 2 mg PO DAILY [facility] - Objective Vital Signs: Vital Signs Temperature 97.9 F 03/02/19 06:00 Pulse Rate 73 03/02/19 06:00 Respiratory Rate 18 03/02/19 06:00 Blood Pressure 136/63 03/02/19 06:00 O2 Sat by Pulse Oximetry (%) 99 03/01/19 21:00 Constitutional: Yes: Calm Eyes: Yes: Conjunctiva Clear HENT: Yes: Atraumatic Cardiovascular: Yes: S1, S2 Respiratory: Yes: CTA Bilaterally Genitourinary: Yes: Nicholas Present Musculoskeletal: Yes: WNL Extremities: Yes: WNL Neurological: Yes: Oriented Psychiatric: Yes: Oriented Labs: CBC, BMP 03/02/19 08:33 03/02/19 08:33 INR, PTT INR 1.03 (0.83-1.09) 02/21/19 02:50 Problem List - Problems (1) Hyponatremia Code(s): E87.1 - HYPO-OSMOLALITY AND HYPONATREMIA (2) CHF (congestive heart failure) Code(s): I50.9 - HEART FAILURE, UNSPECIFIED (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 Code(s): I50.40 - UNSP COMBINED SYSTOLIC AND DIASTOLIC (CONGESTIVE) HRT FAIL Qualifiers: Heart failure chronicity: acute on chronic Qualified Code(s): I50.43 - Acute on chronic combined systolic (congestive) and diastolic (congestive) heart failure Assessment/Plan Current Medications Generic Name Dose Route Start Last Admin Trade Name Freq PRN Reason Stop Dose Admin Acetaminophen 650 mg 02/23/19 20:31 02/28/19 14:54 Tylenol - PO 650 mg Q6H PRN Administration PAIN LEVEL 6-10 Albuterol/Ipratropium 1 amp 02/21/19 14:07 Duoneb - NEB Q6H PRN SHORTNESS OF BREATH Apixaban 2.5 mg 02/26/19 22:00 03/01/19 22:04 Eliquis - PO 2.5 mg BID AZRA Administration Aspirin 162 mg 02/26/19 13:15 03/01/19 09:31 Ecotrin - PO 162 mg DAILY [facility] Administration Atorvastatin Calcium 40 mg 02/21/19 22:00 03/01/19 22:04 Lipitor - PO 40 mg HS AZRA Administration Cyanocobalamin 1,000 mcg 02/24/19 10:30 03/01/19 09:30 Vitamin B12 Injection - IM 1,000 mcg DAILY [facility] Administration Diltiazem HCl 120 mg 02/24/19 10:21 03/01/19 09:31 Cardizem Cd - PO 120 mg DAILY [facility] Administration Furosemide 40 mg 02/27/19 10:00 03/01/19 09:31 Lasix - PO 40 mg DAILY [facility] Administration Levothyroxine Sodium 200 mcg 02/26/19 07:00 03/02/19 06:15 Synthroid - PO 200 mcg DAILY@0700 [facility] Administration Liothyronine Sodium 10 mcg 02/26/19 07:00 03/02/19 06:15 Cytomel - PO 10 mcg AM [facility] Administration Melatonin 5 mg 02/24/19 01:35 03/01/19 22:04 Melatonin PO 5 mg HS PRN Administration INSOMNIA Metoprolol Succinate 25 mg 02/24/19 10:21 03/01/19 09:31 Toprol Xl - PO 25 mg DAILY [facility] Administration Potassium Chloride 40 meq 02/24/19 22:00 03/01/19 22:04 Potassium Chloride Oral Liquid PO 40 meq BID [facility] Administration Sodium Chloride 1 gm 02/25/19 14:00 03/01/19 09:31 Sodium Chloride Tablet - PO 1 gm DAILY [facility] Administration Tolterodine Tartrate 2 mg 03/02/19 10:00 Detrol La - PO DAILY [facility] Impression 1. hyponatremia 2. jaimie 3. hypokalemia 4. chf 5. fluid overload 6. multiple pulmonary masses suspicious for mets 7. bilateral pleural effusions 8. a-fib 9. htn 10. hld Plan - sodium is stabilizing - likely component of siadh - cont lasix and salt tabs - pulm masses need follow up - cont synthroid, follow tsh - volume status stable
[2019-03-02] MEDS: APIXABAN 5 MG TABLET PO SCH ×2 (10:42→22:03)
[2019-03-02] MEDS: metoPROLOL SUCCINATE 25 MG TAB.SR.24H (FP) PO SCH (10:43)
[2019-03-02] MEDS: ASPIRIN COATED 81 MG TABLET.EC PO SCH (10:44)
[2019-03-02] MEDS: SODIUM CHLORIDE 1 GM TABLET PO SCH (10:44)
[2019-03-02] MEDS: CYANOCOBALAMIN (VITAMIN B-12) 1000 MCG/1 ML VIAL IM SCH (10:44)
--- NOTE | 2019-03-02 11:14 | PN ---
Progress Note (short form) - Note Progress Note: 88-year-old female with a history of hypertension, hypertensive cardiovascular disease, status post cerebrovascular accident, history of hypothyroidism, paroxysmal atrial fibrillation. She was brought to the emergency room with acute shortness of breath and chest pain. Acute/subacute CVA. No further chest discomfort, no SOB. Patient is out of bed in a chair and is alert. ALLERGIES: None reported. Active Medications Generic Name Dose Route Start Last Admin Trade Name Freq PRN Reason Stop Dose Admin Acetaminophen 650 mg 02/23/19 20:31 02/28/19 14:54 Tylenol - PO 650 mg Q6H PRN Administration PAIN LEVEL 6-10 Albuterol/Ipratropium 1 amp 02/21/19 14:07 Duoneb - NEB Q6H PRN SHORTNESS OF BREATH Apixaban 2.5 mg 02/26/19 22:00 03/02/19 10:42 Eliquis - PO 2.5 mg BID [facility] Administration Aspirin 162 mg 02/26/19 13:15 03/02/19 10:44 Ecotrin - PO 162 mg DAILY [facility] Administration Atorvastatin Calcium 40 mg 02/21/19 22:00 03/01/19 22:04 Lipitor - PO 40 mg HS [facility]RA Administration Cyanocobalamin 1,000 mcg 02/24/19 10:30 03/02/19 10:44 Vitamin B12 Injection - IM 1,000 mcg DAILY [facility] Administration Diltiazem HCl 120 mg 02/24/19 10:21 03/02/19 10:43 Cardizem Cd - PO 120 mg DAILY [facility] Administration Furosemide 40 mg 02/27/19 10:00 03/01/19 09:31 Lasix - PO 40 mg DAILY [facility] Administration Levothyroxine Sodium 200 mcg 02/26/19 07:00 03/02/19 06:15 Synthroid - PO 200 mcg DAILY@0700 [facility] Administration Liothyronine Sodium 10 mcg 02/26/19 07:00 03/02/19 06:15 Cytomel - PO 10 mcg AM [facility] Administration Melatonin 5 mg 02/24/19 01:35 03/01/19 22:04 Melatonin PO 5 mg HS PRN Administration INSOMNIA Metoprolol Succinate 25 mg 02/24/19 10:21 03/02/19 10:43 Toprol Xl - PO 25 mg DAILY [facility] Administration Potassium Chloride 40 meq 02/24/19 22:00 03/01/19 22:04 Potassium Chloride Oral Liquid PO 40 meq BID [facility] Administration Sodium Chloride 1 gm 02/25/19 14:00 03/02/19 10:44 Sodium Chloride Tablet - PO 1 gm DAILY [facility] Administration Tolterodine Tartrate 2 mg 03/02/19 10:00 03/02/19 10:43 Detrol La - PO 2 mg DAILY [facility] Administration PHYSICAL EXAMINATION: General: 88-year-old female is alert and coherent, There is no pallor, cyanosis, clubbing, or jaundice. Last Vital Signs Temp Pulse Resp BP Pulse Ox 97.8 F 77 irregular. 18 102/55 L 99 03/02/19 10:00 03/02/19 10:00 03/02/19 10:00 03/02/19 10:00 03/01/19 21:00 Neck: Supple. No jugular venous distention. Negative hepatojugular reflux. Carotids are 2+. Upstrokes are normal. Unable to appreciate any bruits. There is no thyromegaly. There is a well-healed left carotid endarterectomy scar. Heart: PMI is in the 5th intercostal space. No heaves or thrills. S1 is variable. S2 split. Ejection systolic murmur grade II/ heard at the 2nd right intercostal space ending in hlptc-vo-mug systolic. No diastolic murmur or gallops are heard. Lungs: Increased vocal resonance at the right mid zone posteriorly. No other extraneous sounds are heard. Chest: Normal AP diameter. Expansion is symmetrical. Abdomen: Soft, protuberant, nontender. No hepatosplenomegaly or palpable masses are felt. Bowel sounds are present. No bruits are heard. Extremities: No calf tenderness or dependent edema. Pulses are equal. Dorsalis pedis pulses are 1 to 2+. Posterior tibial pulses are not palpable. Bilateral lower extremity varicosities, bilateral stasis changes. CBC, BMP 03/02/19 08:33 03/02/19 08:33 Brain MRI Dated: 02/25/19 IMPRESSION: Right posterior temporal and parietal occipital junction acute/ subacute infarct. Chronic infarct/encephalomalacia in the right posterior temporal and occipital lobe. No acute intracranial hemorrhage is identified. There is moderate atrophy and chronic microvascular ischemic disease changes. A preliminary report was [facility] by [facility], IMAGING VISUAL MERCHANDISING DIRECTOR. CT of the chest: Impression: 1. Cardiomegaly, vascular congestion, bilateral pleural effusion, and lower lobe atelectasis. 2. Multiple pulmonary masses suspect for metastatic disease. 3. Polypoid lesion within the mid trachea. 4. Mild mediastinal lymphadenopathy. Clinical correlation and follow up recommended. Echocardiogram dated February 22, 2019. Interpretation summary: Left ventricle is normal in size. Left ventricle systolic function is moderately reduced. There is moderate global hypokinesia of the left ventricle. Ejection fraction 40%-45%. Right ventricular systolic function is mildly reduced. Right ventricular systolic TID is 7 cm/sec, borderline left atrial enlargement. There is mild annular calcification. There is moderate mitral regurgitation. There is lboieyli-lj-eimejc tricuspid regurgitation. Pulmonary systolic pressure is at least 48 mmHg if RA pressure is presumed to be 3 mmHg. Severe valvular aortic stenosis. The calculated aortic valve area by continuity equation is 0.8 cm2. Clrybxnp-cr-edceox aortic regurgitation. Ljco-le-ccnthsoz pulmonic valvular regurgitation. There is no pericardial effusion. IMPRESSION: 1. Congestive heart failure resolved. 2. Chest pain syndrome compatible with angina pectoris secondary to coronary artery disease/severe aortic stenosis, presently asymptomatic. 3. Acute/subacute CVA. 4. Critical aortic stenosis and aortic regurgitation. 5. Pulmonary hypertension. 6. Severe tricuspid regurgitation. 7. Left ventricular systolic dysfunction. 8. Right ventricular systolic dysfunction. 9. Atrial fibrillation. 10. Hypertension, hypertensive cardiovascular disease, currently normotensive. 11. Severe hypothyroidism. 12. Pulmonary nodules. 13. Mild hyponatremia. RECOMMENDATIONS: 1. Increase ambulation. 2. Continue cardiac medications. 3. Further suggestions will depend upon the pulmonary status. PROGNOSIS: Guarded. EZRA BRIAN M.D.
[2019-03-02 11:45] LABS: EPI CELLS 2.7 /HPF (0-5/HPF); HYALINE CASTS 3 /lpf (0-8); PH,URINE 8.5 (5.0-8.0); URINE APPEARANCE CLEAR; URINE BACTERIA 66.9 /hpf (NEGATIVE); URINE BILIRUBIN NEGATIVE (NEGATIVE); URINE COLOR YELLOW; URINE GLUCOSE (UA) NEGATIVE (NEGATIVE); URINE KETONE NEGATIVE (NEGATIVE); URINE LEUK ESTERASE 1+ (NEGATIVE); URINE NITRITE NEGATIVE (NEGATIVE); URINE PROTEIN TRACE (NEGATIVE); URINE RBC 1 /hpf (0-4); URINE WBC 7 /hpf (0-5)
--- NOTE | 2019-03-02 12:07 | PN ---
Progress Note, Physician History of Present Illness: pulmonary alert,no distress,oob-chair,-sob - Current Medication List Current Medications: Active Medications Acetaminophen (Tylenol -) 650 mg PO Q6H PRN PRN Reason: PAIN LEVEL 6-10 Last Admin: 02/28/19 14:54 Dose: 650 mg Albuterol/Ipratropium (Duoneb -) 1 amp NEB Q6H PRN PRN Reason: SHORTNESS OF BREATH Apixaban (Eliquis -) 2.5 mg PO BID [facility] Last Admin: 03/02/19 10:42 Dose: 2.5 mg Aspirin (Ecotrin -) 162 mg PO DAILY [facility] Last Admin: 03/02/19 10:44 Dose: 162 mg Atorvastatin Calcium (Lipitor -) 40 mg PO HS [facility] Last Admin: 03/01/19 22:04 Dose: 40 mg Cyanocobalamin (Vitamin B12 Injection -) 1,000 mcg IM DAILY [facility] Last Admin: 03/02/19 10:44 Dose: 1,000 mcg Diltiazem HCl (Cardizem Cd -) 120 mg PO DAILY [facility] Last Admin: 03/02/19 10:43 Dose: 120 mg Furosemide (Lasix -) 40 mg PO DAILY [facility] Last Admin: 03/01/19 09:31 Dose: 40 mg Levothyroxine Sodium (Synthroid -) 200 mcg PO DAILY@0700 [facility] Last Admin: 03/02/19 06:15 Dose: 200 mcg Liothyronine Sodium (Cytomel -) 10 mcg PO AM [facility] Last Admin: 03/02/19 06:15 Dose: 10 mcg Melatonin (Melatonin) 5 mg PO HS PRN PRN Reason: INSOMNIA Last Admin: 03/01/19 22:04 Dose: 5 mg Metoprolol Succinate (Toprol Xl -) 25 mg PO DAILY [facility] Last Admin: 03/02/19 10:43 Dose: 25 mg Potassium Chloride (Potassium Chloride Oral Liquid) 40 meq PO BID [facility] Last Admin: 03/01/19 22:04 Dose: 40 meq Sodium Chloride (Sodium Chloride Tablet -) 1 gm PO DAILY [facility] Last Admin: 03/02/19 10:44 Dose: 1 gm Tolterodine Tartrate (Detrol La -) 2 mg PO DAILY [facility] Last Admin: 03/02/19 10:43 Dose: 2 mg - Objective Vital Signs: Vital Signs Temperature 97.8 F 03/02/19 10:00 Pulse Rate 77 03/02/19 10:00 Respiratory Rate 18 03/02/19 10:00 Blood Pressure 102/55 L 03/02/19 10:00 O2 Sat by Pulse Oximetry (%) 99 03/01/19 21:00 Constitutional: Yes: Well Nourished, Calm Eyes: Yes: WNL HENT: Yes: WNL Neck: Yes: WNL Cardiovascular: Yes: Pulse Irregular, S1, S2 Respiratory: Yes: Diminished Gastrointestinal: Yes: Normal Bowel Sounds, Soft Extremities: Yes: WNL Edema: No Labs: CBC, BMP 03/02/19 08:33 03/02/19 08:33 INR, PTT INR 1.03 (0.83-1.09) 02/21/19 02:50 Assessment/Plan Problem List - Problems (1) Hypercapnia Code(s): R06.89 - OTHER ABNORMALITIES OF BREATHING (2) Congestive heart failure due to high blood pressure Code(s): I11.0 - HYPERTENSIVE HEART DISEASE WITH HEART FAILURE (3) Edema Code(s): R60.9 - EDEMA, UNSPECIFIED (4) Pneumonia, community acquired Code(s): J18.9 - PNEUMONIA, UNSPECIFIED ORGANISM (5) Atypical chest pain Code(s): R07.89 - OTHER CHEST PAIN (6) Chest pressure Code(s): R07.89 - OTHER CHEST PAIN 7 AORTIC STENOSIS 8. BILATERAL PULMONARY MASSES ?MALIGNANT,? INFECTIOUS 9. A-FIB 10. CVA Assessment/Plan Lasix Daily weights O2 BD TX PRN Eliquis f/u chest x-rays f/u chest ct outpatient [address] MARX
[2019-03-02] MEDS: FUROSEMIDE 40 MG TABLET (FP) PO SCH (12:14)
[2019-03-02] MEDS: POTASSIUM CHLORIDE ORAL LIQUID 20 MEQ/15 ML PO SCH ×2 (12:14→22:04)
[2019-03-02] MEDS: ACETAMINOPHEN 325 MG TABLET (FP) PO PRN (14:20)
[2019-03-02] MEDS: ATORVASTATIN CA 40 MG TABLET (FP) PO SCH (22:03)
[2019-03-02] MEDS: MELATONIN 5 MG TABLETS PO PRN (22:49)
[2019-03-03] MEDS: LEVOTHYROXINE NA 100 MCG TABLET (FP) PO SCH (06:01)
[2019-03-03] MEDS: LIOTHYRONINE SODIUM 5 MCG TABLET PO SCH (06:01)
--- NOTE | 2019-03-03 07:39 | PN ---
Progress Note, Physician - Current Medication List Current Medications: Active Medications Acetaminophen (Tylenol -) 650 mg PO Q6H PRN PRN Reason: PAIN LEVEL 6-10 Last Admin: 03/02/19 14:20 Dose: 650 mg Albuterol/Ipratropium (Duoneb -) 1 amp NEB Q6H PRN PRN Reason: SHORTNESS OF BREATH Apixaban (Eliquis -) 2.5 mg PO BID [facility] Last Admin: 03/02/19 22:03 Dose: 2.5 mg Aspirin (Ecotrin -) 162 mg PO DAILY [facility] Last Admin: 03/02/19 10:44 Dose: 162 mg Atorvastatin Calcium (Lipitor -) 40 mg PO HS [facility] Last Admin: 03/02/19 22:03 Dose: 40 mg Cyanocobalamin (Vitamin B12 Injection -) 1,000 mcg IM DAILY [facility] Last Admin: 03/02/19 10:44 Dose: 1,000 mcg Diltiazem HCl (Cardizem Cd -) 120 mg PO DAILY [facility] Last Admin: 03/02/19 10:43 Dose: 120 mg Furosemide (Lasix -) 40 mg PO DAILY [facility] Last Admin: 03/02/19 12:14 Dose: 40 mg Levothyroxine Sodium (Synthroid -) 200 mcg PO DAILY@0700 [facility] Last Admin: 03/03/19 06:01 Dose: 200 mcg Liothyronine Sodium (Cytomel -) 10 mcg PO AM [facility] Last Admin: 03/03/19 06:01 Dose: 10 mcg Melatonin (Melatonin) 5 mg PO HS PRN PRN Reason: INSOMNIA Last Admin: 03/02/19 22:49 Dose: 5 mg Metoprolol Succinate (Toprol Xl -) 25 mg PO DAILY [facility] Last Admin: 03/02/19 10:43 Dose: 25 mg Potassium Chloride (Potassium Chloride Oral Liquid) 40 meq PO BID [facility] Last Admin: 03/02/19 22:04 Dose: 40 meq Sodium Chloride (Sodium Chloride Tablet -) 1 gm PO DAILY [facility] Last Admin: 03/02/19 10:44 Dose: 1 gm Tolterodine Tartrate (Detrol La -) 2 mg PO DAILY [facility] Last Admin: 03/02/19 10:43 Dose: 2 mg - Objective Vital Signs: Vital Signs Temperature 98.2 F 03/03/19 06:00 Pulse Rate 66 03/03/19 06:00 Respiratory Rate 18 03/03/19 06:00 Blood Pressure 127/61 03/03/19 06:00 O2 Sat by Pulse Oximetry (%) 97 03/02/19 21:00 Cardiovascular: Yes: Regular Rate and Rhythm Respiratory: Yes: Regular, CTA Bilaterally Gastrointestinal: Yes: Normal Bowel Sounds, Soft Labs: CBC, BMP 03/02/19 08:33 03/02/19 08:33 INR, PTT INR 1.03 (0.83-1.09) 02/21/19 02:50 Assessment/Plan - Problems (1) CHF (congestive heart failure) Assessment/Plan: an: po lasix echo 40-45% ejection fraction hypokinesia of left ventricle Code(s): I50.9 - HEART FAILURE, UNSPECIFIED (2) Pulmonary nodules/lesions, multiple Assessment/Plan: family to decide on work up --d/w pt--wants to wait on work up Code(s): R91.8 - OTHER NONSPECIFIC ABNORMAL FINDING OF LUNG FIELD (3) Paroxysmal A-fib Assessment/Plan: eliquis dose 2.5 mg po bid cardiology metorprolol Code(s): I48.0 - PAROXYSMAL ATRIAL FIBRILLATION (4) Pneumonia Assessment/Plan: iv abx--dc ct noted--nodules Code(s): J18.9 - PNEUMONIA, UNSPECIFIED ORGANISM (5) Stroke Assessment/Plan: mri brain posterior temporal and parietal infarct acute /subacute- Per neurologist plan is to conitnue eliqius dose of 2.5 mg po bid and incrase aspirin to 163 mg based on neurologist recommendations Code(s): I63.9 - CEREBRAL INFARCTION, UNSPECIFIED (6) Urinary Retention Assessment/Plan: Nicholas--Trial of voiding add detrol--urology dc planning--needs SNF
--- NOTE | 2019-03-03 08:42 | CON.GU ---
Consult Consult Specialty:: urology Referred by:: Viviane Reason for Consultation:: urinary retention - History of Present Illness Chief Complaint: urinary retention History of Present Illness: Patient is an 88 year old female with history CVA/CHF who has twice gone into urinary retention. The patient denies previous episode of urinary retention. The patient is currently on detrol la 2 mg daily. The patient is able to ambulate. She denies gross hematuria or constipation. 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 Cardio/Vascular: Yes: HTN, Hyperlipdemia Endocrine: Yes: Hypothyroidism - Past Surgical History Past Surgical History: Yes: Carotid Endarterectomy (left) - Alcohol/Substance Use Hx Alcohol Use: No - Smoking History Smoking history: Former smoker Have you smoked in the past 12 months: No If you are a former smoker, when did you quit?: 60yrs ago - Social History Usual Living Arrangement: With Child (lives with daughter in house with 4 steps to enter and 20 inside) ADL: Independent (Independent in ADLs without AD) History of Recent Travel: No Home Medications - Allergies Allergies/Adverse Reactions: Allergies Allergy/AdvReac Type Severity Reaction Status Date / Time No Known Allergies Allergy Verified 02/21/19 02:42 - Home Medications Home Medications: Ambulatory Orders Diltiazem Cd [Cardizem Cd -] 120 mg PO DAILY #0 cap.cd.24h 10/21/13 Simvastatin [Zocor] 20 mg PO HS #1 10/21/13 Apixaban [Eliquis -] 2.5 mg PO BID #30 tablet 03/01/19 Aspirin Coated [Ecotrin -] 162 mg PO DAILY #30 tablet.ec 03/01/19 Furosemide [Lasix -] 40 mg PO DAILY #30 tablet 03/01/19 Levothyroxine [Synthroid -] 200 mcg PO DAILY@0700 #60 tablet 03/01/19 Liothyronine Sodium [Cytomel -] 10 mcg PO AM #30 tablet 03/01/19 Metoprolol Succinate [Toprol XL -] 25 mg PO DAILY #30 tab.sr.24h 03/01/19 Sodium Chloride Tablet - 1 gm PO DAILY #30 tablet 03/01/19 Physical Exam- Vital Signs: Vital Signs Temperature 98.8 F 03/03/19 08:03 Pulse Rate 66 03/03/19 08:03 Respiratory Rate 16 03/03/19 08:03 Blood Pressure 119/54 L 03/03/19 08:03 O2 Sat by Pulse Oximetry (%) 97 03/02/19 21:00 Constitutional: Yes: Well Nourished, No Distress Eyes: Yes: WNL, Conjunctiva Clear HENT: Yes: WNL, Atraumatic, Normocephalic Neck: Yes: WNL, Supple, Trachea Midline Cardiovascular: Yes: Regular Rate and Rhythm Respiratory: Yes: WNL Gastrointestinal: Yes: WNL, Soft Renal/: Yes: WNL Kidneys: Yes: WNL Pelvis: Yes: WNL, Bladder Non Palpable (cordova draining clear urine) External Genitalia: Yes: WNL Integumentary: Yes: WNL Labs: CBC, BMP 03/02/19 08:33 03/02/19 08:33 Imaging - Results Cat Scan: Report Reviewed Ultrasound: Report Reviewed Assessment/Plan impression urinary retention plan d/c detrol LA which I will dol d/c cordova in 24 hours if patient fails trial of voiding would d/c patient home with cordova and re- evaluate patient as outpatient.
[2019-03-03] MEDS: APIXABAN 5 MG TABLET PO SCH (09:46)
[2019-03-03] MEDS: metoPROLOL SUCCINATE 25 MG TAB.SR.24H (FP) PO SCH (09:46)
[2019-03-03] MEDS: POTASSIUM CHLORIDE ORAL LIQUID 20 MEQ/15 ML PO SCH (09:46)
[2019-03-03] MEDS: ASPIRIN COATED 81 MG TABLET.EC PO SCH (09:47)
[2019-03-03] MEDS: FUROSEMIDE 40 MG TABLET (FP) PO SCH (09:48)
[2019-03-03] MEDS: CYANOCOBALAMIN (VITAMIN B-12) 1000 MCG/1 ML VIAL IM SCH (09:48)
[2019-03-03] MEDS: SODIUM CHLORIDE 1 GM TABLET PO SCH (09:56)
--- NOTE | 2019-03-03 11:29 | PN ---
Progress Note, Physician History of Present Illness: PULMONARY ALERT,COMFORTABLE,OOB-CHAIR,-CP,-SOB - Current Medication List Current Medications: Active Medications Acetaminophen (Tylenol -) 650 mg PO Q6H PRN PRN Reason: PAIN LEVEL 6-10 Last Admin: 03/02/19 14:20 Dose: 650 mg Albuterol/Ipratropium (Duoneb -) 1 amp NEB Q6H PRN PRN Reason: SHORTNESS OF BREATH Apixaban (Eliquis -) 2.5 mg PO BID [facility] Last Admin: 03/03/19 09:46 Dose: 2.5 mg Aspirin (Ecotrin -) 162 mg PO DAILY [facility] Last Admin: 03/03/19 09:47 Dose: 162 mg Atorvastatin Calcium (Lipitor -) 40 mg PO HS [facility] Last Admin: 03/02/19 22:03 Dose: 40 mg Cyanocobalamin (Vitamin B12 Injection -) 1,000 mcg IM DAILY [facility] Last Admin: 03/03/19 09:48 Dose: 1,000 mcg Diltiazem HCl (Cardizem Cd -) 120 mg PO DAILY [facility] Last Admin: 03/03/19 09:47 Dose: 120 mg Furosemide (Lasix -) 40 mg PO DAILY [facility] Last Admin: 03/03/19 09:48 Dose: 40 mg Levothyroxine Sodium (Synthroid -) 200 mcg PO DAILY@0700 [facility] Last Admin: 03/03/19 06:01 Dose: 200 mcg Liothyronine Sodium (Cytomel -) 10 mcg PO AM [facility] Last Admin: 03/03/19 06:01 Dose: 10 mcg Melatonin (Melatonin) 5 mg PO HS PRN PRN Reason: INSOMNIA Last Admin: 03/02/19 22:49 Dose: 5 mg Metoprolol Succinate (Toprol Xl -) 25 mg PO DAILY [facility] Last Admin: 03/03/19 09:46 Dose: 25 mg Potassium Chloride (Potassium Chloride Oral Liquid) 40 meq PO BID [facility] Last Admin: 03/03/19 09:46 Dose: 40 meq Sodium Chloride (Sodium Chloride Tablet -) 1 gm PO DAILY [facility] Last Admin: 03/03/19 09:56 Dose: 1 gm - Objective Vital Signs: Vital Signs Temperature 98.8 F 03/03/19 08:03 Pulse Rate 66 03/03/19 08:03 Respiratory Rate 16 03/03/19 08:03 Blood Pressure 119/54 L 03/03/19 08:03 O2 Sat by Pulse Oximetry (%) 97 03/02/19 21:00 Constitutional: Yes: Well Nourished, Calm Eyes: Yes: WNL HENT: Yes: WNL Neck: Yes: WNL Cardiovascular: Yes: Pulse Irregular, S1, S2 Respiratory: Yes: CTA Bilaterally Gastrointestinal: Yes: Normal Bowel Sounds, Soft Extremities: Yes: WNL Edema: No Labs: CBC, BMP 03/02/19 08:33 03/02/19 08:33 INR, PTT INR 1.03 (0.83-1.09) 02/21/19 02:50 Assessment/Plan Problem List - Problems (1) Hypercapnia Code(s): R06.89 - OTHER ABNORMALITIES OF BREATHING (2) Congestive heart failure due to high blood pressure Code(s): I11.0 - HYPERTENSIVE HEART DISEASE WITH HEART FAILURE (3) Edema Code(s): R60.9 - EDEMA, UNSPECIFIED (4) Pneumonia, community acquired Code(s): J18.9 - PNEUMONIA, UNSPECIFIED ORGANISM (5) Atypical chest pain Code(s): R07.89 - OTHER CHEST PAIN (6) Chest pressure Code(s): R07.89 - OTHER CHEST PAIN 7 AORTIC STENOSIS 8. BILATERAL PULMONARY MASSES ?MALIGNANT,? INFECTIOUS 9. A-FIB 10. CVA Assessment/Plan Lasix Daily weights O2 NEEDED BD TX PRN Eliquis f/u chest x-rays f/u chest ct outpatient [address] MARX
--- NOTE | 2019-03-03 12:34 | PN ---
Progress Note, Physician History of Present Illness: Pt seen and examined at bedside. She is awake and appears comfortable. - Current Medication List Current Medications: Active Medications Acetaminophen (Tylenol -) 650 mg PO Q6H PRN PRN Reason: PAIN LEVEL 6-10 Last Admin: 03/02/19 14:20 Dose: 650 mg Albuterol/Ipratropium (Duoneb -) 1 amp NEB Q6H PRN PRN Reason: SHORTNESS OF BREATH Apixaban (Eliquis -) 2.5 mg PO BID [facility] Last Admin: 03/03/19 09:46 Dose: 2.5 mg Aspirin (Ecotrin -) 162 mg PO DAILY [facility] Last Admin: 03/03/19 09:47 Dose: 162 mg Atorvastatin Calcium (Lipitor -) 40 mg PO HS [facility] Last Admin: 03/02/19 22:03 Dose: 40 mg Cyanocobalamin (Vitamin B12 Injection -) 1,000 mcg IM DAILY [facility] Last Admin: 03/03/19 09:48 Dose: 1,000 mcg Diltiazem HCl (Cardizem Cd -) 120 mg PO DAILY [facility] Last Admin: 03/03/19 09:47 Dose: 120 mg Furosemide (Lasix -) 40 mg PO DAILY [facility] Last Admin: 03/03/19 09:48 Dose: 40 mg Levothyroxine Sodium (Synthroid -) 200 mcg PO DAILY@0700 [facility] Last Admin: 03/03/19 06:01 Dose: 200 mcg Liothyronine Sodium (Cytomel -) 10 mcg PO AM [facility] Last Admin: 03/03/19 06:01 Dose: 10 mcg Melatonin (Melatonin) 5 mg PO HS PRN PRN Reason: INSOMNIA Last Admin: 03/02/19 22:49 Dose: 5 mg Metoprolol Succinate (Toprol Xl -) 25 mg PO DAILY [facility] Last Admin: 03/03/19 09:46 Dose: 25 mg Potassium Chloride (Potassium Chloride Oral Liquid) 40 meq PO BID [facility] Last Admin: 03/03/19 09:46 Dose: 40 meq Sodium Chloride (Sodium Chloride Tablet -) 1 gm PO DAILY [facility] Last Admin: 03/03/19 09:56 Dose: 1 gm - Objective Vital Signs: Vital Signs Temperature 98.8 F 03/03/19 08:03 Pulse Rate 66 03/03/19 08:03 Respiratory Rate 16 03/03/19 08:03 Blood Pressure 119/54 L 03/03/19 08:03 O2 Sat by Pulse Oximetry (%) 97 03/02/19 21:00 Constitutional: Yes: Calm Eyes: Yes: Conjunctiva Clear HENT: Yes: Atraumatic Neck: Yes: Supple Cardiovascular: Yes: S1, S2 Respiratory: Yes: CTA Bilaterally Gastrointestinal: Yes: Normal Bowel Sounds, Soft Genitourinary: No: Nicholas Present Musculoskeletal: Yes: WNL Edema: Yes Edema: LLE: Trace, RLE: Trace Integumentary: Yes: Venous Stasis Changes Neurological: Yes: Oriented Psychiatric: Yes: Oriented Labs: CBC, BMP 03/02/19 08:33 03/02/19 08:33 INR, PTT INR 1.03 (0.83-1.09) 02/21/19 02:50 Problem List - Problems (1) Hyponatremia Code(s): E87.1 - HYPO-OSMOLALITY AND HYPONATREMIA (2) CHF (congestive heart failure) Code(s): I50.9 - HEART FAILURE, UNSPECIFIED (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 Code(s): I50.40 - UNSP COMBINED SYSTOLIC AND DIASTOLIC (CONGESTIVE) HRT FAIL Qualifiers: Heart failure chronicity: acute on chronic Qualified Code(s): I50.43 - Acute on chronic combined systolic (congestive) and diastolic (congestive) heart failure Assessment/Plan Current Medications Generic Name Dose Route Start Last Admin Trade Name Freq PRN Reason Stop Dose Admin Acetaminophen 650 mg 02/23/19 20:31 03/02/19 14:20 Tylenol - PO 650 mg Q6H PRN Administration PAIN LEVEL 6-10 Albuterol/Ipratropium 1 amp 02/21/19 14:07 Duoneb - NEB Q6H PRN SHORTNESS OF BREATH Apixaban 2.5 mg 02/26/19 22:00 03/03/19 09:46 Eliquis - PO 2.5 mg BID [facility] Administration Aspirin 162 mg 02/26/19 13:15 03/03/19 09:47 Ecotrin - PO 162 mg DAILY [facility] Administration Atorvastatin Calcium 40 mg 02/21/19 22:00 03/02/19 22:03 Lipitor - PO 40 mg HS [facility] Administration Cyanocobalamin 1,000 mcg 02/24/19 10:30 03/03/19 09:48 Vitamin B12 Injection - IM 1,000 mcg DAILY [facility] Administration Diltiazem HCl 120 mg 02/24/19 10:21 03/03/19 09:47 Cardizem Cd - PO 120 mg DAILY [facility] Administration Furosemide 40 mg 02/27/19 10:00 03/03/19 09:48 Lasix - PO 40 mg DAILY [facility] Administration Levothyroxine Sodium 200 mcg 02/26/19 07:00 03/03/19 06:01 Synthroid - PO 200 mcg DAILY@0700 [facility] Administration Liothyronine Sodium 10 mcg 02/26/19 07:00 03/03/19 06:01 Cytomel - PO 10 mcg AM [facility] Administration Melatonin 5 mg 02/24/19 01:35 03/02/19 22:49 Melatonin PO 5 mg HS PRN Administration INSOMNIA Metoprolol Succinate 25 mg 02/24/19 10:21 03/03/19 09:46 Toprol Xl - PO 25 mg DAILY [facility] Administration Potassium Chloride 40 meq 02/24/19 22:00 03/03/19 09:46 Potassium Chloride Oral Liquid PO 40 meq BID [facility] Administration Sodium Chloride 1 gm 02/25/19 14:00 03/03/19 09:56 Sodium Chloride Tablet - PO 1 gm DAILY [facility] Administration Impression 1. hyponatremia 2. jaimie 3. hypokalemia 4. chf 5. fluid overload 6. multiple pulmonary masses suspicious for mets 7. bilateral pleural effusions 8. a-fib 9. htn 10. hld Plan - pt on voiding trial - detrol stopped - urology input appreciated - cont lasix and salt tabs - monitor lytes - likely component of siadh - pulm masses need follow up - cont synthroid, follow tsh - volume status stable
--- NOTE | 2019-03-03 13:20 | PN ---
Progress Note (short form) - Note Progress Note: 88-year-old female with a history of hypertension, hypertensive cardiovascular disease, status post cerebrovascular accident, history of hypothyroidism, paroxysmal atrial fibrillation. She was brought to the emergency room with acute shortness of breath and chest pain. Acute/subacute CVA. No further chest discomfort, no SOB. Remains in atrial fib/flutter with controlled ventricular response. ALLERGIES: None reported. Active Medications Acetaminophen (Tylenol -) 650 mg PO Q6H PRN PRN Reason: PAIN LEVEL 6-10 Last Admin: 03/02/19 14:20 Dose: 650 mg Albuterol/Ipratropium (Duoneb -) 1 amp NEB Q6H PRN PRN Reason: SHORTNESS OF BREATH Apixaban (Eliquis -) 2.5 mg PO BID [facility] Last Admin: 03/03/19 09:46 Dose: 2.5 mg Aspirin (Ecotrin -) 162 mg PO DAILY [facility] Last Admin: 03/03/19 09:47 Dose: 162 mg Atorvastatin Calcium (Lipitor -) 40 mg PO HS [facility] Last Admin: 03/02/19 22:03 Dose: 40 mg Cyanocobalamin (Vitamin B12 Injection -) 1,000 mcg IM DAILY [facility] Last Admin: 03/03/19 09:48 Dose: 1,000 mcg Diltiazem HCl (Cardizem Cd -) 120 mg PO DAILY [facility] Last Admin: 03/03/19 09:47 Dose: 120 mg Furosemide (Lasix -) 40 mg PO DAILY [facility] Last Admin: 03/03/19 09:48 Dose: 40 mg Levothyroxine Sodium (Synthroid -) 200 mcg PO DAILY@0700 [facility] Last Admin: 03/03/19 06:01 Dose: 200 mcg Liothyronine Sodium (Cytomel -) 10 mcg PO AM [facility] Last Admin: 03/03/19 06:01 Dose: 10 mcg Melatonin (Melatonin) 5 mg PO HS PRN PRN Reason: INSOMNIA Last Admin: 03/02/19 22:49 Dose: 5 mg Metoprolol Succinate (Toprol Xl -) 25 mg PO DAILY [facility] Last Admin: 03/03/19 09:46 Dose: 25 mg Potassium Chloride (Potassium Chloride Oral Liquid) 40 meq PO BID [facility] Last Admin: 03/03/19 09:46 Dose: 40 meq Sodium Chloride (Sodium Chloride Tablet -) 1 gm PO DAILY [facility] Last Admin: 03/03/19 09:56 Dose: 1 gm PHYSICAL EXAMINATION: General: 88-year-old female is alert and coherent, no pallor, cyanosis, clubbing, or jaundice. Last Vital Signs Temp Pulse Resp BP Pulse Ox 98.8 F 66 irregular 16 119/54 L 100 03/03/19 08:03 03/03/19 08:03 03/03/19 08:03 03/03/19 08:03 03/03/19 09:00 Neck: Supple. No jugular venous distention. Negative hepatojugular reflux. Carotids are 2+. Upstrokes are normal. Unable to appreciate any bruits. There is no thyromegaly. There is a well-healed left carotid endarterectomy scar. Heart: PMI is in the 5th intercostal space. No heaves or thrills. S1 is variable. S2 split. Ejection systolic murmur grade II/ heard at the 2nd right intercostal space ending in kekyh-vj-lqf systolic. No diastolic murmur or gallops are heard. Lungs: Increased vocal resonance at the right mid zone posteriorly. No other extraneous sounds are heard. Chest: Normal AP diameter. Expansion is symmetrical. Abdomen: Soft, protuberant, nontender. No hepatosplenomegaly or palpable masses are felt. Bowel sounds are present. No bruits are heard. Extremities: No calf tenderness 1+ dependent edema. Pulses are equal. Dorsalis pedis pulses are 1+. Posterior tibial pulses are not palpable. Bilateral lower extremity varicosities, bilateral stasis changes. CBC, BMP 03/02/19 08:33 03/02/19 08:33 Brain MRI Dated: 02/25/19 IMPRESSION: Right posterior temporal and parietal occipital junction acute/ subacute infarct. Chronic infarct/encephalomalacia in the right posterior temporal and occipital lobe. No acute intracranial hemorrhage is identified. There is moderate atrophy and chronic microvascular ischemic disease changes. A preliminary report was forwarded by the [employer], [employer] C[employer]TING [employer]VISOR. CT of the chest: Impression: 1. Cardiomegaly, vascular congestion, bilateral pleural effusion, and lower lobe atelectasis. 2. Multiple pulmonary masses suspicious for metastatic disease. 3. Polypoid lesion within the mid trachea. 4. Mild mediastinal lymphadenopathy. Clinical correlation and follow up recommended. Echocardiogram dated February 22, 2019. Interpretation summary: Left ventricle is normal in size. Left ventricle systolic function is moderately reduced. There is moderate global hypokinesia of the left ventricle. Ejection fraction 40%-45%. Right ventricular systolic function is mildly reduced. Right ventricular systolic TID is 7 cm/sec, borderline left atrial enlargement. There is mild annular calcification. There is moderate mitral regurgitation. There is [id number] tricuspid regurgitation. Pulmonary systolic pressure is at least 48 mmHg if RA pressure is presumed to be 3 mmHg. Severe valvular aortic stenosis. The calculated aortic valve area by continuity equation is 0.8 cm2. Gwcqiykh-ci-rhdltj aortic regurgitation. Texh-kn-qxzqzkay pulmonic valvular regurgitation. There is no pericardial effusion. IMPRESSION: 1. Congestive heart failure resolved. 2. Chest pain syndrome compatible with angina pectoris secondary to coronary artery disease/severe aortic stenosis, presently asymptomatic. 3. Acute/subacute CVA. 4. Critical aortic stenosis and aortic regurgitation. 5. Pulmonary hypertension. 6. Severe tricuspid regurgitation. 7. Left ventricular systolic dysfunction. 8. Right ventricular systolic dysfunction. 9. Atrial fibrillation. 10. Hypertension, hypertensive cardiovascular disease, currently normotensive. 11. Severe hypothyroidism. 12. Pulmonary nodules. 13. Mild hyponatremia. RECOMMENDATIONS: 1. Continue cardiac medications. 2. Consider f/u CT of the chest. 3. Needs further evaluation of aortic stenosis, after the workup of pulmonary masses is completed. PROGNOSIS: Guarded. EZRA BRIAN M.D.
[2019-03-03 14:24] VITALS: BP 100/44; PULSE 69; TEMP 97.4
--- NOTE | 2019-03-03 16:21 | PN ---
Progress Note (short form) - Note Progress Note: feels well cordova d/kavin this am Vital Signs Period Temp Pulse Resp BP Sys/Ham Pulse Ox Last 24 Hr 97.4 F-98.8 F 64-69 16-18 100-127/44-61 97-100 cor-rrr lungs clear abd soft,nt ext no edema bladder scan negative CBC, BMP 03/02/19 08:33 03/02/19 08:33 Microbiology 03/02/19 10:30 Urine - Urine Clean Catch Urine Culture - Preliminary Group D Strep Or Entero Coccus 02/21/19 02:50 Blood - Peripheral Venous Blood Culture - Final NO GROWTH AFTER 5 DAYS INCUBATION 02/21/19 02:50 Blood - Peripheral Venous Blood Culture - Final NO GROWTH AFTER 5 DAYS INCUBATION 02/23/19 18:00 Urine For Antigen Detection Legionella Antigen - Final 02/23/19 18:00 Urine For Antigen Detection Streptococcus pneumoniae Antigen (M - Final 02/21/19 06:36 Urine - Urine Clean Catch Urine Culture - Final Strep Agalactiae Group B a/p given intermittent urinary retention would treat for uti with amoxacillin for one week (enterococcus)- d/w dr kelton mata resolved probable malignancy- f/u per PMD and patient wishes should have advanced directives addressed Problem List - Problems (1) CHF (congestive heart failure) Code(s): I50.9 - HEART FAILURE, UNSPECIFIED (2) HTN (hypertension) Code(s): I10 - ESSENTIAL (PRIMARY) HYPERTENSION (3) Pneumonia Code(s): J18.9 - PNEUMONIA, UNSPECIFIED ORGANISM (4) Stasis dermatitis Code(s): I87.2 - VENOUS INSUFFICIENCY (CHRONIC) (PERIPHERAL) (5) Confusion Code(s): R41.0 - DISORIENTATION, UNSPECIFIED
--- NOTE | 2019-03-03 16:53 | DS ---
Physical Examination Vital Signs: Vital Signs Temperature 97.4 F L 03/03/19 14:22 Pulse Rate 69 03/03/19 14:22 Respiratory Rate 18 03/03/19 14:22 Blood Pressure 100/44 L 03/03/19 14:22 O2 Sat by Pulse Oximetry (%) 100 03/03/19 09:00 Labs: CBC, BMP 03/02/19 08:33 03/02/19 08:33 Discharge Summary Problems reviewed: Yes Reason For Visit: SEVERE COMBINED SYSTOLIC AND DIASTOLIC CONGESTIVE Current Active Problems INDY (acute kidney injury) (Acute) Adult hypothyroidism (Acute) CHF (congestive heart failure) (Acute) Combined systolic and diastolic congestive heart failure (Acute) Confusion (Acute) Congestive heart failure due to high blood pressure (Acute) Edema (Acute) Flash pulmonary edema (Acute) HTN (hypertension) (Acute) Hypercapnia (Acute) Hypokalemia (Acute) Hyponatremia (Acute) Lactic acidosis (Acute) Malignant hypertension (Acute) Metabolic encephalopathy (Acute) Paroxysmal A-fib (Acute) Pneumonia (Acute) Pneumonia, community acquired (Acute) Pulmonary nodules/lesions, multiple (Acute) Stasis dermatitis (Acute) Stroke (Acute) Weakness (Acute) Hospital Course: CHF ACUTE WITH MALIGNANT HYPERTENSION History of Present Illness: PATIENT REPORTS INCREASED DYSPNEA WITH LEG EDEMA OVER THE PAST 2 DAYS, IN E.D. HER DIASTOLIC BP WAS GREATER THAN 120MMHG DENIES CP/HEADACHE/DIZZINESS. admitted to telemetry started on lasix iv changed to po lasix AC eliquis BId and aspirin dose increased based on recent MRI hypothyroid seen by endocrine on synthroid and cytomel as well hyponatremia on nacl tablet ct scan of abdomen shows lung lesion and lesion in liver and spleen Condition: Stable - Instructions Diet, Activity, Other Instructions: TSH and T 3 check in 3 weeks Follow up with PMD regarding lung lesions Referrals: Felecia Mcmillan MD [Staff Physician] - Ulises Galeas MD [Staff Physician] - Disposition: VNS/HOME HEALTH CARE - Home Medications Comprehensive Discharge Medication List: Ambulatory Orders Diltiazem Cd [Cardizem Cd -] 120 mg PO DAILY #0 cap.cd.24h 10/21/13 Simvastatin [Zocor] 20 mg PO HS #1 10/21/13 Apixaban [Eliquis -] 2.5 mg PO BID #30 tablet 03/01/19 Aspirin Coated [Ecotrin -] 162 mg PO DAILY #30 tablet.ec 03/01/19 Furosemide [Lasix -] 40 mg PO DAILY #30 tablet 03/01/19 Levothyroxine [Synthroid -] 200 mcg PO DAILY@0700 #60 tablet 03/01/19 Liothyronine Sodium [Cytomel -] 10 mcg PO AM #30 tablet 03/01/19 Metoprolol Succinate [Toprol XL -] 25 mg PO DAILY #30 tab.sr.24h 03/01/19 Sodium Chloride Tablet - 1 gm PO DAILY #30 tablet 03/01/19 Amoxicillin - [Amoxicillin 500mg Capsule -] 500 mg PO BID #14 capsule 03/03/19
== END 2019-03-03 18:56 | disposition home health service (06) | DRG 682 ==
LOC: JER 02:37 → JERBED 02:57 → J4S 02-22 22:44
PROVIDERS: ADMIT Internal Medicine; ATTEND Family Medicine
DX: N17.9 Acute kidney failure, unspecified (principal); G93.41 Metabolic encephalopathy; J18.9 Pneumonia, unspecified organism; I63.531 Cerebral infarction due to unspecified occlusion or stenosis of right posterior cerebral artery; I50.43 Acute on chronic combined systolic (congestive) and diastolic (congestive) heart failure; E87.2 Acidosis; I48.92 Unspecified atrial flutter; J98.11 Atelectasis; E87.1 Hypo-osmolality and hyponatremia; I11.0 Hypertensive heart disease with heart failure; Z91.14 Patient's other noncompliance with medication regimen; I48.0 Paroxysmal atrial fibrillation; Z79.01 Long term (current) use of anticoagulants; E78.00 Pure hypercholesterolemia, unspecified; E03.9 Hypothyroidism, unspecified; R07.89 Other chest pain; I87.2 Venous insufficiency (chronic) (peripheral); E66.9 Obesity, unspecified; I25.10 Atherosclerotic heart disease of native coronary artery without angina pectoris; M19.90 Unspecified osteoarthritis, unspecified site; F03.90 Unspecified dementia, unspecified severity, without behavioral disturbance, psychotic disturbance, mood disturbance, and anxiety; Z86.73 Personal history of transient ischemic attack (TIA), and cerebral infarction without residual deficits; E87.6 Hypokalemia; R59.0 Localized enlarged lymph nodes; I35.0 Nonrheumatic aortic (valve) stenosis; I36.1 Nonrheumatic tricuspid (valve) insufficiency; I27.20 Pulmonary hypertension, unspecified; R91.1 Solitary pulmonary nodule; Z87.891 Personal history of nicotine dependence; R33.9 Retention of urine, unspecified; K76.9 Liver disease, unspecified; D73.9 Disease of spleen, unspecified; Z68.26 Body mass index [BMI] 26.0-26.9, adult
CPT/HCPCS: 36415; 70450-TC; 70551-TC; 71045-TC-FY; 71250-TC; 74177-TC; 76775-TC; 76856-TC; 80048; 80053; 80061; 81003; 82436; 82533; 82607; 82728; 82803; 83036; 83540; 83550; 83605; 83721; 83735; 83880; 83930; 83935; 84133; 84300; 84439; 84443; 84480; 84484; 85025; 85027; 85610; 85730; 87040; 87077; 87086; 87186; 87899; 93005; 93010; 93306-TC; 94660; 97116-GP; 97162-GP; 99285-25; G0008; Q2036; Q9967

== ENCOUNTER 2019-03-07 16:27 | Inpatient (IN) | payer OTHER ==
[2019-03-07] MEDS ORDERED: ATROPINE SULFATE 1 MG/10 ML DISP.SYRIN ONE (16:39)
[2019-03-07] MEDS ORDERED: ATROPINE SULFATE 1 MG/10 ML DISP.SYRIN IVPUSH ONE (16:58)
--- NOTE | 2019-03-07 16:58 | PDOC ---
Attending Attestation - Resident Resident Name: TrentJosé Miguel - ED Attending Attestation I have performed the following: I have examined & evaluated the patient, The case was reviewed & discussed with the resident, I agree w/resident's findings & plan, Exceptions are as noted - HPI HPI: 03/07/19 16:51 88-year-old female found on the floor by family brought in by ambulance for confusion bradycardia and hypotension - Physicial Exam PE: 03/07/19 16:52 Well-nourished well-developed 88-year-old female speaking slowly stating she wants asapicin for her bad headache head ncat Dry mucus membranes neck supple,well healed left carotid endarectomy scar lungs cta b/l cvs ++bradycardia abd nontender extremities ++pitting edema,mild chronic venous changes,Varicosities skin cool and dry neuro conversant,poor historian 03/07/19 16:55 03/07/19 17:25 - Medical Decision Making 03/07/19 17:26 This patient will need to be admitted to the ICU 88-year-old female who presents with a heart block, hypotension, decreased mentation Past medical history significant for hypertension, hypertensive cardiac disease , status post CVA, hypothyroidism, paroxysmal A. fib Past surgical history status post hysterectomy status post left carotid endarterectomy, status post left hip replacement, left cataract surgery Patient had a CAT scan of the chest on February 22 this year that showed cardiomegaly, vascular congestion, bilateral pleural effusions, left lobe atelectasis She has multiple pulmonary masses found Mild mediastinal lymphadenopathy Social history she lives at home, she is a , she does not use tobacco, she drinks wine on a regular basis and she has 2 daughters 03/07/19 17:29 Prior to arrival the patient did receive atropine but remained bradycardic in the high 30s and hypotensive with a systolic of 61 upon arrival , EKG shows junctional bradycardia at 36 bpm with no relationship between the P wave and QRS complex concern for heart block. Patient immediately placed on quality assurance monitor final with pacer pads and atropine bedside. Cardiology has been paged 03/07/19 17:53 ECHO that was done February 22 of this year shows ejection fraction 40 to 45% moderate to severe aortic regurg Moderate global hypokinesis of the left ventricle Left ventricular systolic function moderately reduced Right ventricular systolic function is mildly reduced There is no pericardial effusion There was severe valvular aortic stenosis 03/07/19 18:26 CRITICAL CARE TIME 75 minutes This patient is a FULL CODE 03/07/19 18:27 03/07/19 18:27 Dr Maria De Jesus Winter recommends ICU placement,glucagon and pacing pads 03/07/19 19:17 CAT scan of the head Cervical spine CT without contrast findings No evidence of acute fractures on this study Diffuse degenerative changes Atrophy of the upper thoracic paraspinal musculature Atelectatic and/or fibrotic changes of both upper and lungs with nonspecific opacification within the left upper lobe at which neoplastic involvement cannot be excluded Atherosclerotic calcifications pt admitted to ICU 03/08/19 02:30
[2019-03-07] MEDS ORDERED: SODIUM CHLORIDE 1,000 ML IV STA (17:00)
[2019-03-07 17:11] LABS: BASO % 0.4 % (0-2.0); EOS % 2.1 % (0-4.5); HEMOGLOBIN 9.4 GM/dL (10.7-15.3); LYMPH % 12.3 % (8-40); MCH 32.7 pg (25.7-33.7); MCHC 32.5 g/dl (32.0-36.0); MEAN CELL VOLUME 100.4 fl (80-96); MEAN PLT VOLUME 9.2 fl (7.5-11.1); MONO % 9.6 % (3.8-10.2); NEUT % 75.6 % (42.8-82.8); PLATELET COUNT 229 K/MM3 (134-434); RBC 2.88 M/mm3 (3.60-5.2); RDW 18.2 % (11.6-15.6); WHITE BLOOD COUNT 6.2 K/mm3 (4.0-10.0)
--- NOTE | 2019-03-07 17:12 | PDOC ---
History of Present Illness - General Chief Complaint: Irregular Heart Beat Stated Complaint: FALL Time Seen by Provider: 03/07/19 16:30 History Source: Patient, EMS Exam Limitations: No Limitations - History of Present Illness Initial Comments: 03/07/19 17:35 Cards: Dr. Phillips HPI: 88yo F with PMH CHF, HTN, HLD, pAIFIB (on Eloquis and ASA), stroke, LE venous stasis, hypothyroidism, medication noncompliance presenting BIBEMS s/p fall, found on the ground, severely bradycardic to the 30s with AMS that resolved s/p 4.5mg Atropine administered by EMS. Recently admitted 02/21-03/03 for CHF exacerbation and malignant hypertension. No known history of bradycardia. On metoprolol at home. Patient reports that she is fine. Fell out of bed then was too weak to get up so she stayed on the floor - denies syncope / LOC. Found by family and BIBEMS. Patient denies chest pain, cough, shortness of breath, any difficulty breathing. Becomes more altered, and ROS is not finished - patient taken to CT. All: NKDA Meds: per chart PMH: as above PSH: L Knee 2005 SHx: Lives at home with children, Past History - Travel Traveled outside of the country in the last 30 days: No Close contact w/someone who was outside of country & ill: No - Past Medical History Allergies/Adverse Reactions: Allergies Allergy/AdvReac Type Severity Reaction Status Date / Time No Known Allergies Allergy Verified 02/21/19 02:42 Home Medications: Ambulatory Orders Diltiazem Cd [Cardizem Cd -] 120 mg PO DAILY #0 cap.cd.24h 10/21/13 Simvastatin [Zocor] 20 mg PO HS #1 10/21/13 Apixaban [Eliquis -] 2.5 mg PO BID #30 tablet 03/01/19 Aspirin Coated [Ecotrin -] 162 mg PO DAILY #30 tablet.ec 03/01/19 Furosemide [Lasix -] 40 mg PO DAILY #30 tablet 03/01/19 Levothyroxine [Synthroid -] 200 mcg PO DAILY@0700 #60 tablet 03/01/19 Liothyronine Sodium [Cytomel -] 10 mcg PO AM #30 tablet 03/01/19 Metoprolol Succinate [Toprol XL -] 25 mg PO DAILY #30 tab.sr.24h 03/01/19 Sodium Chloride Tablet - 1 gm PO DAILY #30 tablet 03/01/19 Amoxicillin - [Amoxicillin 500mg Capsule -] 500 mg PO BID #14 capsule 03/03/19 Cancer: No Cardiac Disorders: Yes (afib) CVA: Yes (2003) COPD: No HTN: Yes Hypercholesterolemia: Yes Thyroid Disease: Yes - Surgical History Abdominal Surgery: No Orthopedic Surgery: Yes (HIP REPLACEMENT , left 2005) - Immunization History Immunization Up to Date: Yes - Psycho Social/Smoking Cessation Hx Smoking History: Never smoked Have you smoked in the past 12 months: No If you are a former smoker, when did you quit?: 60yrs ago Hx Alcohol Use: No Drug/Substance Use Hx: No Substance Use Type: None Hx Substance Use Treatment: No Review of Systems - Review of Systems Able to Perform ROS?: Yes (laila, patient altered) Is the patient limited Uzbek proficient: Yes Constitutional: Yes: Weakness (fell and couldn't get back up). No: Chills, Fever Respiratory: No: Cough, Shortness of Breath Cardiac (ROS): No: Chest Pain, Syncope, Chest Tightness Neurological: Yes: Headache (in the department) *Physical Exam - Vital Signs Last Vital Signs Temp Pulse Resp BP Pulse Ox 97.2 F L 39 L 20 61/42 L 98 03/07/19 16:40 03/07/19 16:40 03/07/19 16:40 03/07/19 16:40 03/07/19 16:40 - Physical Exam Comments: 03/07/19 17:42 Severely bradycardic, hypotensive, afebrile oral and rectal Elderly woman, laying in bed, appears fatigued MMM, EOMI, NCAT, trachea midline, PERRLA Bradycardic, nl s1s2, initially sinus, later noted to be irregular (afib), no murmurs / rubs / gallops or bruits appreciated Normal symmetric chest expansion, normal WOB, no wheezes / rales / rhonchi appreciated, good air movement Soft, nontender, nondistended 2+ pitting edema up to the knees bilaterally with chronic venous stasis changes on bilateral shins, no clubbing or cyanosis 2+ radial and PT pulses - bradycardic CN2-12 intact, MAEE, good strength x4 extremities, normal sensation, gait not assessed, somewhat garbled speech, no aphasia, patient became increasingly difficult to understand - NCHCT negative shortly after. Alert, oriented to person place and time Intermittently appears to be responding to internal stimuli, moving her hands in the air Heart Score/ECG Review - History History: Moderately suspicious - Electrocardiogram EKG: Normal - Age Age: >/= 65 - Risk Factors Risk Factors Heart Score: Yes Hx Hypercholesterolemia, Yes Hx Hypertension, Yes Hx Obesity Based on the list above the patient has:: >/=3 risk factors or Hx atherosclerotic disease - Troponin Troponin: </= normal limit - Score Heart Score - Total: 5 ED Treatment Course - LABORATORY CBC & Chemistry Diagram: 03/08/19 05:50 03/08/19 05:50 Medical Decision Making - Critical Care Time Total Critical Care Time (minutes): 75 Critical Care Statement: The care of this patient involved high complexity decision making to prevent further life threatening deterioration of the patient 's condition and/or to evaluate & treat vital organ system(s) failure or risk of failure. - Medical Decision Making 03/07/19 17:25 DDX: Slow AFIB (AFIB observed on monitor with rate in 40s), junctional bradycardia (initial EKG without P waves) beta chavez OD, sinus bradycardia, sick sinus syndrome, Inferior ID, Lyme?, Syphilis?, with concurrent CHF exacerbation -Labs, CXR, NCHCT, C-spine -EKG with severe bradycardia - patient place immediately on pacer monitor and pads -Patient is full code, would accept a central line if medically necessary for pressors -Additional 1 mg of Atropine given with good response -Gentle IVF (1L, reassess) 03/07/19 17:[address] Hurtado, Cardiology - patient on pacer, glucagon, ICU, unclear etiology of bradycardia (slow afib, junctional bradycardia), hold eloquis On reassessment patient pressure is improving 120/58 with IVF, rate improved to 50s -Lactate -Trop Nl -BNP elevated -INDY -Tesfaye Patient MSE altered with ?delierium, remains A&Ox3, normal neuro exam except grabbing the air / occasional garbled speech, taken to CT personally with nursing, student, and monitor with pacer pads. NCHCT / C-Spine without ICH or acute fracture. Cr 2.2 up from 0.9 at discharge, last presentation patient also had INDY that spontaneously resoled Gentle with fluids given CHF ICU Resident, Dr. lLanos aware of patient Obtained rectal temp / FOBT, during log roll noticed multiple sites of ecchymosis with bruising of similar age appearing several days old Bruising on left leg, R shoulder, lower L back Plan for Dry CT Chest, Abdomen, Pelvis, LLE for trauma assessment 03/07/19 18:20 Glucagon 5mg IV given for possible Beta Chavez OD, benefits outweigh risk 03/07/19 18:40 -Dry scans without acute trauma, bleed, fractures -Heart rate improved to 60s following glucagon administration, increases suspicion for component of beta blockade -ICU accepts patient -Admitted to Dr. Caleb davis, will go to Dr. Gupta tomorrow morning per KIMBERLY Shafer 03/07/19 20:50 -CT Chest / Abd / Pelvis without acute fracture or blunt trauma injury -Lactate down-trending to 2.5 Dispo: ICU Admission 03/09/19 07:51 Discharge - Discharge Information Problems reviewed: Yes Clinical Impression/Diagnosis: INDY (acute kidney injury), Bradycardia by electrocardiogram, Weakness, Lactic acidosis, Status post fall CHF (congestive heart failure) Qualifiers: Heart failure type: combined systolic and diastolic Heart failure chronicity: acute on chronic Qualified Code(s): I50.43 - Acute on chronic combined systolic (congestive) and diastolic (congestive) heart failure Condition: Guarded Disposition: [facility] - Admission Yes - Follow up/Referral - Patient Discharge Instructions - Post Discharge Activity
[2019-03-07] MEDS ORDERED: LACTATED RINGERS SOLUTION 1,000 ML/1,000 ML INFUS.BAG IV SCH ×3 (17:15→23:47)
[2019-03-07 17:26] LABS: INR 1.88 (0.83-1.09); PROTHROMBIN TIME (PATIENT) 22.3 SEC (9.7-13.0)
[2019-03-07 17:28] LABS: ACTIVATED PTT 35.6 SECONDS (25.2-36.5)
[2019-03-07 17:50] LABS: ALBUMIN 3.1 g/dl (3.4-5.0); BLOOD UREA NITROGEN 40.8 mg/dL (7-18); CALCIUM 8.6 mg/dL (8.5-10.1); CREATININE 2.2 mg/dL (0.55-1.3); MAGNESIUM 2.2 mg/dL (1.8-2.4); PHOSPHOROUS 5.2 mg/dL (2.5-4.9); POTASSIUM 3.9 mmol/L (3.5-5.1); TOT PROT 5.9 g/dl (6.4-8.2)
[2019-03-07] MEDS ORDERED: GLUCAGON 1 MG KIT IVPUSH ONE (18:17)
[2019-03-07 18:40] LABS: URINE APPEARANCE CLEAR; URINE BILIRUBIN NEGATIVE (NEGATIVE); URINE COLOR YELLOW; URINE GLUCOSE (UA) NEGATIVE (NEGATIVE); URINE KETONE NEGATIVE (NEGATIVE); URINE LEUK ESTERASE NEGATIVE (NEGATIVE); URINE NITRITE NEGATIVE (NEGATIVE); URINE PROTEIN NEGATIVE (NEGATIVE)
[2019-03-07] MEDS ORDERED: GlUCAGON HUMAN RECOMBINANT 1 MG/VIAL ONE (18:42)
[2019-03-07] MEDS ORDERED: CHLORHEXIDINE GLUCONATE 4% CLEANSER FOR DECOLONIZATION TP SCH (22:00)
--- NOTE | 2019-03-07 22:03 | CONSULT ---
Consult Consult Specialty:: ICU - History of Present Illness History of Present Illness: 88F with a PMH of CHF, HTN, HLD, pAIFIB (on Eloquis and ASA), stroke, LE venous stasis, hypothyroidism, medication noncompliance who presents to the ER via EMS for fall for unknown amount of time off the bed. History obtained from medical records as patient is unable to provide a history on my examination. However, she denies any acute complaints including CP, SOB, palpitations, nausea, and vomiting. - History Source History Provided By: Medical Record - Past Medical History DIRECTOR OF QUALITY: Yes: CVA Cardio/Vascular: Yes: HTN, Hyperlipdemia Endocrine: Yes: Hypothyroidism - Past Surgical History Past Surgical History: Yes: Carotid Endarterectomy (left) - Alcohol/Substance Use Hx Alcohol Use: No - Smoking History Smoking history: Never smoked Have you smoked in the past 12 months: No If you are a former smoker, when did you quit?: 60yrs ago - Social History Usual Living Arrangement: With Child (lives with daughter in house with 4 steps to enter and 20 inside) ADL: Independent (Independent in ADLs without AD) History of Recent Travel: No Home Medications - Allergies Allergies/Adverse Reactions: Allergies Allergy/AdvReac Type Severity Reaction Status Date / Time No Known Allergies Allergy Verified 02/21/19 02:42 - Home Medications Home Medications: Ambulatory Orders Diltiazem Cd [Cardizem Cd -] 120 mg PO DAILY #0 cap.cd.24h 10/21/13 Simvastatin [Zocor] 20 mg PO HS #1 10/21/13 Apixaban [Eliquis -] 2.5 mg PO BID #30 tablet 03/01/19 Aspirin Coated [Ecotrin -] 162 mg PO DAILY #30 tablet.ec 03/01/19 Furosemide [Lasix -] 40 mg PO DAILY #30 tablet 03/01/19 Levothyroxine [Synthroid -] 200 mcg PO DAILY@0700 #60 tablet 03/01/19 Liothyronine Sodium [Cytomel -] 10 mcg PO AM #30 tablet 03/01/19 Metoprolol Succinate [Toprol XL -] 25 mg PO DAILY #30 tab.sr.24h 03/01/19 Sodium Chloride Tablet - 1 gm PO DAILY #30 tablet 03/01/19 Amoxicillin - [Amoxicillin 500mg Capsule -] 500 mg PO BID #14 capsule 03/03/19 Review of Systems Unable to obtain ROS, reason: Not answering questions Physical Exam Vital Signs: Vital Signs Temperature 97.9 F 03/07/19 17:48 Pulse Rate 54 L 03/07/19 18:34 Respiratory Rate 16 03/07/19 18:34 Blood Pressure 120/66 03/07/19 18:34 O2 Sat by Pulse Oximetry (%) 99 03/07/19 18:34 Constitutional: Yes: Well Nourished, No Distress, Calm. No: Moderate Distress Eyes: Yes: Conjunctiva Clear. No: Sclera Icterus HENT: Yes: Atraumatic, Normocephalic Cardiovascular: Yes: Bradycardia, S1, S2 Respiratory: Yes: Regular, Diminished (in b/l lower lobes), Rales (in b/l lower lobes). No: Accessory Muscle Use Gastrointestinal: Yes: Soft. No: Tenderness, Tenderness, Rebound, Vomiting Extremities: Yes: Other (Ecchymosis noted over L back, L posterio-medial leg, and L sacrum.) Edema: Yes Edema: LLE: 2+, RLE: 2+ Integumentary: Yes: Bruising (See extremities.) Neurological: Yes: Alert. No: Oriented ...Motor Strength: WNL Labs: CBC, BMP 03/07/19 17:00 03/07/19 17:00 Assessment/Plan 88F with a PMH of CHF, HTN, HLD, pAIFIB (on Eloquis and ASA), stroke, LE venous stasis, hypothyroidism, medication noncompliance who preseneted for fall and found to be bradycardic. Of note, pt was recently discharged from our facility for SOB and lower extremity swelling. In ED, noted to have bradycardia unresponsive to 4.5mg of atropine but mildly responsive to glucagon (and patient is on B-miguel). Cardio - New onset bradycardia - Last echo shows reduced EF with global hypokinesis 40-45% - EKG in ED shows junctional rhythm, new onset - Bradycardia did not improve with atropine but did improve with glucagon - BNP 7600 - Trop 0.03 - Pacer pads in place - Would appreciate continued cards recs - Pt clinically dehydrated so will hydrate with LR Pulm - CXR showing congestion bilaterally, but improved from 02/21/19 CXR - Hypoxic and on 5L O2, maintaining >95% O2 sat with 5L - CT shows trace b/l pleural effusions with spiculated masses concerning for malignancy, would appreciate heme/onc recs Renal - Cr 2.2 from 0.9 indicating INDY - Likely pre-renal as pt's BUN is 40 - Will hydrate gently and monitor Cr GI - Ppx ID - Pt is afebrile w/o WBC, unlikely to be infectious etiology Trauma/Fall - Ecchymosis noted on upper and lower back and L leg - CTCAP (noncon d/t elevated Cr) shows: Trace subcapsular fluid at the lateral aspect of the spleen. - ER attending d/w radiology regarding subcapsular fluid; rads suggested follow up US if pt's clinical condition deteriorates
--- NOTE | 2019-03-07 22:34 | HP ---
Admitting History and Physical - Primary Care Physician PCP: Rhonda Gupta - Admission Chief Complaint: s/p Fall History of Present Illness: This is a 88 y/o woman with a significant medical history of HTN, CHF, CVA, pAFIB ( on Eliquis), Hypothyroidism, Chronic Venous Stasis of Lower Extremities , Recently admitted 02/21-03/03 for CHF exacerbation and malignant hypertension. Who presents to the ED s/p fall with generalized weakness, headache and bodyaches. Spoke with the patient's daughter Maribell via telephone, who states" my daughter was helping my mom, my mom felt weak and my daughter could not hold her up, so she slid her to the floor. Per the daughter, the patient had no LOC or head trauma. Patient denies chest pain, cough, shortness of breath, any difficulty breathing. Per ED records: patient was found on the floor by EMS bradycardic 30's given Atropine, on arrival in ED P- 39 given Atropine 1mg ED course noted for: (1) EKG- Junctional Bradycardia (2) BP- 61/42~ 81/46 (3) Head CT- No evidence of significant interval change (4) Spinal CT/Chest CT- bilateral patchy airspace disease may be due to edema or infiltrates. 1.8 cm speculated nodule in left lung apex, 1.2cm speculated nodule in the RUL, and 2.3 speculated nodule in the RLL potentially representing malignancy, Trace bilateral pleural effusions. No pneumothorax, No medistinal hematoma, No acute fx (5) CTAP- Hepatic granuloma, distended gallbladder, small renal cyst and bilateral renal cortical scarring. No renal or urinary calculi, No AAA, No evidence for diverticulitis, appendicitis, small bowel obstruction or free air. 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: CVA Cardiovascular: Yes: HTN, Hyperlipdemia Endocrine: Yes: Hypothyroidism - Past Surgical History Past Surgical History: Yes: Carotid Endarterectomy (left) - Smoking History Smoking history: Never smoked Have you smoked in the past 12 months: No If you are a former smoker, when did you quit?: 60yrs ago - Alcohol/Substance Use Hx Alcohol Use: No - Social History ADL: Independent (Independent in ADLs without AD) History of Recent Travel: No Home Medications - Allergies Allergies/Adverse Reactions: Allergies Allergy/AdvReac Type Severity Reaction Status Date / Time No Known Allergies Allergy Verified 02/21/19 02:42 - Home Medications Home Medications: Ambulatory Orders Diltiazem Cd [Cardizem Cd -] 120 mg PO DAILY #0 cap.cd.24h 10/21/13 Simvastatin [Zocor] 20 mg PO HS #1 10/21/13 Apixaban [Eliquis -] 2.5 mg PO BID #30 tablet 03/01/19 Aspirin Coated [Ecotrin -] 162 mg PO DAILY #30 tablet.ec 03/01/19 Furosemide [Lasix -] 40 mg PO DAILY #30 tablet 03/01/19 Levothyroxine [Synthroid -] 200 mcg PO DAILY@0700 #60 tablet 03/01/19 Liothyronine Sodium [Cytomel -] 10 mcg PO AM #30 tablet 03/01/19 Metoprolol Succinate [Toprol XL -] 25 mg PO DAILY #30 tab.sr.24h 03/01/19 Sodium Chloride Tablet - 1 gm PO DAILY #30 tablet 03/01/19 Amoxicillin - [Amoxicillin 500mg Capsule -] 500 mg PO BID #14 capsule 03/03/19 Review of Systems - Review of Systems Constitutional: reports: Weakness Eyes: reports: No Symptoms HENT: reports: Ear Pain Neck: reports: No Symptoms Cardiovascular: reports: Edema Respiratory: reports: No Symptoms Gastrointestinal: reports: No Symptoms Genitourinary: reports: No Symptoms Breasts: reports: No Symptoms Reported Musculoskeletal: reports: Muscle Weakness Integumentary: reports: Bruising Neurological: reports: Headache, Pre-Existing Deficit, Unsteady Gait, Weakness Endocrine: reports: No Symptoms Hematology/Lymphatic: reports: Easily Bruised Psychiatric: reports: No Symptoms Pain Intensity: 3 Physical Examination Vital Signs: Vital Signs Temperature 97.9 F 03/07/19 17:48 Pulse Rate 54 L 03/07/19 18:34 Respiratory Rate 16 03/07/19 18:34 Blood Pressure 120/66 03/07/19 18:34 O2 Sat by Pulse Oximetry (%) 99 03/07/19 18:34 Constitutional: Yes: No Distress, Calm, Obese Eyes: Yes: Conjunctiva Clear, EOM Intact, PERRL HENT: Yes: WNL, Atraumatic, Normocephalic Neck: Yes: WNL, Supple, Trachea Midline Cardiovascular: Yes: Bradycardia, S1, S2 Respiratory: Yes: Regular, CTA Bilaterally, On Nasal O2 Gastrointestinal: Yes: Soft, Distention, Hypoactive Bowel Sounds. No: Tenderness, Tenderness, Epigastrium ...Rectal Exam: Yes: Other (Incontinence) Renal/: Yes: Incontinence Breast(s): Yes: WNL Musculoskeletal: Yes: Muscle Weakness Edema: Yes Edema: LLE: 1+, RLE: 1+ Peripheral Pulses WNL: Yes Integumentary: Yes: Bruising (multiple eccyhmotic bruising to L- hip, thigh), Erythema, Venous Stasis Changes Neurological: Yes: Alert, Confusion, Pre-Existing Deficit, Weakness ...Motor Strength: LUE (4/5), LLE (3/5), RUE (4/5), RLE (3/5) Psychiatric: Yes: Alert Labs: CBC, BMP 03/07/19 17:00 03/07/19 17:00 Laboratory Results - last 24 hr 03/07/19 03/07/19 03/07/19 15:28 17:00 17:00 WBC 6.2 RBC 2.88 L Hgb 9.4 L Hct 29.0 L MCV 100.4 H MCH 32.7 MCHC 32.5 RDW 18.2 H Plt Count 229 D MPV 9.2 Absolute Neuts (auto) 4.7 Neutrophils % 75.6 Lymphocytes % 12.3 D Monocytes % 9.6 Eosinophils % 2.1 Basophils % 0.4 Nucleated RBC % 0 PT with INR 22.30 H INR 1.88 H PTT (Actin FS) 35.6 Sodium Potassium Chloride Carbon Dioxide Anion Gap BUN Creatinine Est GFR (CKD-EPI)AfAm Est GFR (CKD-EPI)NonAf Random Glucose Lactic Acid Calcium Phosphorus Magnesium Total Bilirubin AST ALT Alkaline Phosphatase Creatine Kinase Troponin I B-Natriuretic Peptide Total Protein Albumin TSH Urine Color Urine Appearance Urine pH Ur Specific [place] Urine Protein Urine Glucose (UA) Urine Ketones Urine Blood Urine Nitrite Urine Bilirubin Urine Urobilinogen Ur Leukocyte Esterase Stool Occult Blood Blood Type B POSITIVE Antibody Screen Negative 03/07/19 03/07/19 03/07/19 17:00 17:00 17:00 WBC RBC Hgb Hct MCV MCH MCHC RDW Plt Count MPV Absolute Neuts (auto) Neutrophils % Lymphocytes % Monocytes % Eosinophils % Basophils % Nucleated RBC % PT with INR INR PTT (Actin FS) Sodium 130 L Potassium 3.9 Chloride 94 L Carbon Dioxide 24 Anion Gap 12 BUN 40.8 H Creatinine 2.2 H Est GFR (CKD-EPI)AfAm 22.30 Est GFR (CKD-EPI)NonAf 19.24 Random Glucose 105 Lactic Acid 2.7 H* Calcium 8.6 Phosphorus 5.2 H Magnesium 2.2 Total Bilirubin 1.0 AST 46 H ALT 50 Alkaline Phosphatase 65 Creatine Kinase 67 Troponin I 0.03 B-Natriuretic Peptide 7683.9 H Total Protein 5.9 L Albumin 3.1 L TSH Urine Color Urine Appearance Urine pH Ur Specific [place] Urine Protein Urine Glucose (UA) Urine Ketones Urine Blood Urine Nitrite Urine Bilirubin Urine Urobilinogen Ur Leukocyte Esterase Stool Occult Blood Blood Type Antibody Screen 03/07/19 03/07/19 03/07/19 17:00 18:00 18:14 WBC RBC Hgb Hct MCV MCH MCHC RDW Plt Count MPV Absolute Neuts (auto) Neutrophils % Lymphocytes % Monocytes % Eosinophils % Basophils % Nucleated RBC % PT with INR INR PTT (Actin FS) Sodium Potassium Chloride Carbon Dioxide Anion Gap BUN Creatinine Est GFR (CKD-EPI)AfAm Est GFR (CKD-EPI)NonAf Random Glucose Lactic Acid Calcium Phosphorus Magnesium Total Bilirubin AST ALT Alkaline Phosphatase Creatine Kinase Troponin I B-Natriuretic Peptide Total Protein Albumin TSH 4.77 H Urine Color Yellow Urine Appearance Clear Urine pH 6.0 D Ur Specific [place] 1.008 L Urine Protein Negative Urine Glucose (UA) Negative Urine Ketones Negative Urine Blood Negative Urine Nitrite Negative Urine Bilirubin Negative Urine Urobilinogen 1.0 Ur Leukocyte Esterase Negative Stool Occult Blood Negative Blood Type Antibody Screen 03/07/19 21:15 WBC RBC Hgb Hct MCV MCH MCHC RDW Plt Count MPV Absolute Neuts (auto) Neutrophils % Lymphocytes % Monocytes % Eosinophils % Basophils % Nucleated RBC % PT with INR INR PTT (Actin FS) Sodium Potassium Chloride Carbon Dioxide Anion Gap BUN Creatinine Est GFR (CKD-EPI)AfAm Est GFR (CKD-EPI)NonAf Random Glucose Lactic Acid 2.5 H* Calcium Phosphorus Magnesium Total Bilirubin AST ALT Alkaline Phosphatase Creatine Kinase Troponin I B-Natriuretic Peptide Total Protein Albumin TSH Urine Color Urine Appearance Urine pH Ur Specific [place] Urine Protein Urine Glucose (UA) Urine Ketones Urine Blood Urine Nitrite Urine Bilirubin Urine Urobilinogen Ur Leukocyte Esterase Stool Occult Blood Blood Type Antibody Screen Intake & Output 03/04/19 03/05/19 03/06/19 03/07/19 23:59 23:59 23:59 23:59 Intake Total 1000 Output Total 1200 Balance -200 Weight 77.111 kg Imaging - Results Chest X-ray: Image Reviewed Cat Scan: Report Reviewed, Image Reviewed EKG: Image Reviewed Problem List - Problems (1) Symptomatic bradycardia Code(s): R00.1 - BRADYCARDIA, UNSPECIFIED (2) Status post fall Code(s): Z91.81 - HISTORY OF FALLING (3) Sepsis Code(s): A41.9 - SEPSIS, UNSPECIFIED ORGANISM (4) Pneumonia Code(s): J18.9 - PNEUMONIA, UNSPECIFIED ORGANISM (5) Weakness Code(s): R53.1 - WEAKNESS (6) Lactic acidosis Code(s): E87.2 - ACIDOSIS (7) Combined systolic and diastolic congestive heart failure Code(s): I50.40 - UNSP COMBINED SYSTOLIC AND DIASTOLIC (CONGESTIVE) HRT FAIL Qualifiers: Heart failure chronicity: acute on chronic Qualified Code(s): I50.43 - Acute on chronic combined systolic (congestive) and diastolic (congestive) heart failure (8) Pulmonary nodules/lesions, multiple Code(s): R91.8 - OTHER NONSPECIFIC ABNORMAL FINDING OF LUNG FIELD (9) HTN (hypertension) Code(s): I10 - ESSENTIAL (PRIMARY) HYPERTENSION (10) Adult hypothyroidism Code(s): E03.9 - HYPOTHYROIDISM, UNSPECIFIED (11) Paroxysmal A-fib Code(s): I48.0 - PAROXYSMAL ATRIAL FIBRILLATION Assessment/Plan This is a 88 y/o woman with a PMHx of CAD, HTN, pAFIB (on Eliquis), CHF, CVA, Hypothyroidism, Pulmonary Nodules, Chronic Venous Stasis. Admitted to ICU for Symptomatic Bradycardia, Presyncope, Sepsis, Pneumonia, CHF Exacerbation, INDY for further evaluation of their emergent condition. Plan: Admit ICU Symptomatic Bradycardia- possibly due to BB Presyncope Sepsis likely due to HAP Pneumonia CHF Exacerbation INDY qSOFA- 2 CURB65- 4 [id number] 7 Continue cardiac monitoring Appreciate Cardiology consult- Dr Pretty aware, per ED resident Appreciate Blanking Machine Operator consult Last Echo 02/27/19- reviewed EKG- junctional bradycardia Pacer Pads Head CT- reviewed Spine CT- reviewed Chest CT- reviewed CTAP- reviewed Chest Xray- reviewed Serial Enzymes Monitor CBC, BMP Maintain MAP >65 Blood Cultures-pending Urine Culture- pending Will start on Vancomycin, Zosyn renal dosing- secondary to Chest CT- b/l airspace disease edema vs ?infiltrates Appreciate ID consult Hold BB secondary to Bradycardia, Hypotension Strict INOs Daily weights Elevate extremities TSH 4.77, improved from 96.3 (02/25/19), likely secondary to pt. non-compliance with home meds Continue Levothyroxine Follow up with Oncology in outpatient secondary to Pulmonary Nodules r/o malignancy FEN- Gentle IVF prn, Replete lytes prn, NPO DVT ppx, SCDs, Continue Eliquis Code Status: Full Code Dispo: Requires Inpatient Care Visit type - Emergency Visit Emergency Visit: Yes ED Registration Date: 03/07/19 Care time: The patient presented to the Emergency Department on the above date and was hospitalized for further evaluation of their emergent condition. - New Patient This patient is new to me today: Yes Date on this admission: 03/07/19 - Critical Care Critical Care patient: Yes Total Critical Care Time (in minutes): 40 Critical Care Statement: The care of this patient involved high complexity decision making to prevent further life threatening deterioration of the patient 's condition and/or to evaluate & treat vital organ system(s) failure or risk of failure.
[2019-03-07] MEDS ORDERED: FUROSEMIDE 40 MG/4 ML INJECTABLE VIAL IVPUSH ONE (23:32)
[2019-03-07] MEDS ORDERED: VANCOMYCIN 1 GM in D5W (PRE-DOCKED) 1,000 MG/250 ML IVPB ONE (23:40)
[2019-03-08] MEDS: MUPIROCIN 2% TOPICAL OINTMENT FOR DECOLONIZATION NS SCH ×2 (01:49→09:10)
[2019-03-08] MEDS ORDERED: PIPERACILLIN/TAZOB 2.25 GM 2.25 GM in DEXTROSE 5%-WATER - 50 ML IVPB ONE (04:00)
[2019-03-08] MEDS ORDERED: PIPERACILLIN/TAZOBACTAM 2.25 GM VIAL IVPB ONE (04:22)
[2019-03-08 06:15] LABS: BASO % 0.2 % (0-2.0); HEMATOCRIT 26.8 % (32.4-45.2); HEMOGLOBIN 9.1 GM/dL (10.7-15.3); LYMPH % 6.5 % (8-40); MCH 33.4 pg (25.7-33.7); MCHC 33.8 g/dl (32.0-36.0); MEAN CELL VOLUME 98.8 fl (80-96); MEAN PLT VOLUME 8.9 fl (7.5-11.1); MONO % 7.4 % (3.8-10.2); NEUT % 84.9 % (42.8-82.8); PLATELET COUNT 165 K/MM3 (134-434); RBC 2.71 M/mm3 (3.60-5.2); WHITE BLOOD COUNT 5.8 K/mm3 (4.0-10.0)
[2019-03-08 06:39] LABS: BLOOD UREA NITROGEN 33.1 mg/dL (7-18); CALCIUM 8.4 mg/dL (8.5-10.1); CREATININE 1.6 mg/dL (0.55-1.3); MAGNESIUM 1.7 mg/dL (1.8-2.4); PHOSPHOROUS 3.8 mg/dL (2.5-4.9)
[2019-03-08] MEDS ORDERED: LACTATED RINGERS SOLUTION 1000 ML INFUS.BAG IV ONE (06:48)
[2019-03-08] MEDS ORDERED: LEVOTHYROXINE NA 200 MCG TABLET PO SCH (07:00)
[2019-03-08] MEDS ORDERED: MAGNESIUM SULF 50% (8.12 MEQ/2 ML-1 GM VIAL) IVPB ONE (07:54)
[2019-03-08] MEDS ORDERED: POTASSIUM CHLORIDE TABS 20 MEQ TABLET.ER (FP) PO ONE (07:54)
--- NOTE | 2019-03-08 09:06 | PN ---
Progress Note (short form) - Note Progress Note: ID consult dictated imp/reccd 88 yo female admitted with weakness and bradycardia noted to have new anemia, renal failure no fevers multiple ecchymoses just admitted 02/21 to 03/03-admitted for CHF and eleveated BP treated for CAP with rocephin/zithromax noted to have abnl chest ct with bilateral pulmonary masses- family wished to defer evaluation had intermittent urinary retention and urine culture with enterococcus- discharged on amoxicillin symptomatic bradycardia acute renal failure HTN elevated lactic acid- would tend doubt infection cultures sent and pending received vancomycin and zosyn would observe off antiiboitcs f/u with cardiology control BP Problem List - Problems (1) Symptomatic bradycardia Code(s): R00.1 - BRADYCARDIA, UNSPECIFIED (2) INDY (acute kidney injury) Code(s): N17.9 - ACUTE KIDNEY FAILURE, UNSPECIFIED (3) Lactic acidosis Code(s): E87.2 - ACIDOSIS (4) HTN (hypertension) Code(s): I10 - ESSENTIAL (PRIMARY) HYPERTENSION
--- NOTE | 2019-03-08 09:57 | CON.CARD ---
Consult Consult Specialty:: cardio (for dr kaye) - History of Present Illness Chief Complaint: weakness History of Present Illness: 88 y/o woman with generalized weakness, and bradycardia. she was here earlier this month (discharged 5 days ago) with uncontrolled HTN, MRI at that time showed acute/subacute CVA. Echo showed EF 40-45%, mild RV dysfunction, severe aortic stenosis. bilateral infiltrates then--treated for PNA and CHF. had been non-adherent with thyroid replacement and TSH 90s at that jesscia. ? pulmonary masses on imaging as well--discharged 03/03 with pulmonology plan for outpt f/u CT chest in 4 wks. Hyponatremia and hypokalemia noted then. dr kaye planned to defer treatment considerations until definitive w/u of pulmonary masses was completed. current events on DOA witnessed by juanr who reported while she was assisting pt with ambulation, pt became weak and slumped to floor without any LOC. EMS reported they found pt on the floor bradycardic 30's (? rhythm)-- given Atropine, on arrival in ED P- 39 and given Atropine 1mg again pt reports she slipped off the bed, did not fall. states the reason she came is b/c she was sob when spoke to dr kaye--does not recall being in hospital and going back home last week. however she denies sob today. denies cp at any time no palpitations ED course noted for: glucagon administered BP- 61/42-->improved with treatment, HR to 50s Head CT- No evidence of significant interval change Chest CT- bilateral patchy airspace disease may be due to edema or infiltrates, trace bilat effusion. 1.8 cm spiculated nodule in left lung apex, 1.2cm spiculated nodule in the RUL, and 2.3 spiculated nodule in the RLL potentially representing malignancy. 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 Cardio/Vascular: Yes: HTN, Hyperlipdemia Endocrine: Yes: Hypothyroidism - Past Surgical History Past Surgical History: Yes: Carotid Endarterectomy (left) - Alcohol/Substance Use Hx Alcohol Use: No - Smoking History Smoking history: Never smoked Have you smoked in the past 12 months: No If you are a former smoker, when did you quit?: 60yrs ago - Social History Usual Living Arrangement: With Child (lives with daughter in house with 4 steps to enter and 20 inside) ADL: Independent (Independent in ADLs without AD) History of Recent Travel: No Home Medications - Allergies Allergies/Adverse Reactions: Allergies Allergy/AdvReac Type Severity Reaction Status Date / Time No Known Allergies Allergy Verified 02/21/19 02:42 - Home Medications Home Medications: Ambulatory Orders Diltiazem Cd [Cardizem Cd -] 120 mg PO DAILY #0 cap.cd.24h 10/21/13 Simvastatin [Zocor] 20 mg PO HS #1 10/21/13 Apixaban [Eliquis -] 2.5 mg PO BID #30 tablet 03/01/19 Aspirin Coated [Ecotrin -] 162 mg PO DAILY #30 tablet.ec 03/01/19 Furosemide [Lasix -] 40 mg PO DAILY #30 tablet 03/01/19 Levothyroxine [Synthroid -] 200 mcg PO DAILY@0700 #60 tablet 03/01/19 Liothyronine Sodium [Cytomel -] 10 mcg PO AM #30 tablet 03/01/19 Metoprolol Succinate [Toprol XL -] 25 mg PO DAILY #30 tab.sr.24h 03/01/19 Sodium Chloride Tablet - 1 gm PO DAILY #30 tablet 03/01/19 Amoxicillin - [Amoxicillin 500mg Capsule -] 500 mg PO BID #14 capsule 03/03/19 Family Medical History Family History: Denies (no known cmp) Review of Systems - Review of Systems Constitutional: denies: Chills, Fever Eyes: denies: Eye Pain HENT: denies: Nasal Congestion Neck: denies: Stiffness Cardiovascular: denies: Palpitations Respiratory: denies: Orthopnea, PND Gastrointestinal: denies: Diarrhea, Rectal Bleeding Genitourinary: denies: Burning, Hematuria Musculoskeletal: denies: Muscle Pain Integumentary: denies: Rash Neurological: denies: Numbness, Seizure, Syncope Endocrine: denies: Excessive Sweating Hematology/Lymphatic: denies: Excessive Bleeding Vital Signs: Vital Signs Temperature 97.9 F 03/08/19 08:00 Pulse Rate 72 03/08/19 08:00 Respiratory Rate 18 03/08/19 08:00 Blood Pressure 142/129 H 03/08/19 08:00 O2 Sat by Pulse Oximetry (%) 95 03/08/19 06:35 Constitutional: Yes: Well Nourished, No Distress Eyes: No: Sclera Icterus HENT: No: Nasal Congestion Neck: No: Decreased ROM Respiratory: Yes: Regular, CTA Bilaterally, Rales (bases). No: Accessory Muscle Use, Wheezes Gastrointestinal: Yes: Normal Bowel Sounds. No: Distention, Hepatomegaly, Palpable Mass, Tenderness Cardiovascular: Yes: Pulse Irregular JVD: Yes Carotid Bruit: No PMI: Non-Displaced Heart Sounds: Yes: S1, S2. No: Gallop Murmur: Yes: Systolic Murmur (soft 1-2/6 early WES lusb, no S2 split heard). No : Diastolic Murmur Musculoskeletal: Yes: Other (No kyphosis) Extremities: No: Cool, Cyanosis Edema: Yes (1-2+ ankles) Peripheral Pulses: 2+ Left Carotid, 2+ Right Carotid, 2+ Left Doralis Pedis, 2+ Right Dorsalis Pedis Integumentary: No: Jaundice Neurological: Yes: Alert, Oriented (x3) Psychiatric: No: Agitated - Other Data Labs, Other Data: CBC, BMP 03/08/19 05:50 03/08/19 05:50 INR, PTT INR 1.88 (0.83-1.09) H 03/07/19 17:00 Troponin, BNP 03/07/19 03/07/19 17:00 17:00 Troponin I 0.03 B-Natriuretic Peptide 7683.9 H Troponin, BNP 03/07/19 03/07/19 17:00 17:00 Troponin I 0.03 B-Natriuretic Peptide 7683.9 H Laboratory Tests 02/21/19 03/02/19 03/02/19 02:50 08:33 08:33 WBC Hgb 9.3 L Plt Count Sodium Potassium BUN Creatinine 0.9 Lactic Acid Calcium Magnesium Troponin I B-Natriuretic Peptide 4608.9 H TSH 03/07/19 03/07/19 03/07/19 17:00 17:00 17:00 WBC Hgb Plt Count Sodium Potassium BUN Creatinine 2.2 H Lactic Acid 2.7 H* Calcium Magnesium Troponin I 0.03 B-Natriuretic Peptide 7683.9 H TSH 03/07/19 03/08/19 03/08/19 17:00 05:50 05:50 WBC 5.8 Hgb 9.1 L Plt Count 165 D Sodium 132 L Potassium 3.0 L BUN 33.1 H Creatinine 1.6 H Lactic Acid Calcium 8.4 L Magnesium 1.7 L Troponin I B-Natriuretic Peptide TSH 4.77 H 03/08/19 05:50 WBC Hgb Plt Count Sodium Potassium BUN Creatinine Lactic Acid 4.3 H* Calcium Magnesium Troponin I B-Natriuretic Peptide TSH Assessment/Plan ECG #1 (03/07): HR 36 bpm. junctional rhythm vs slow afib (R-R variability is very slight). nonsp ST-T abn, no path q's--these not signif change vs prior #2: AF at 66 bpm, no signif change in ST-T abn CT chest: clearing of vascular congestion/chf pattern vs prior 02/27. lung mets seen CT head: no acute pathology MRI brain 02/24: R temp/parietal acute/subacute infarct, with old infarct and encephalomalacia in this region Echo 02/27: EF 40-45%, global. RV size normal, mild RV hypo. severe (STEPHEN 0.8) , mod-severe AI. mod MR. mod-sev TR. RVSP at least 48 mmHg tele: AF normal HRs weakness, bradycardia-->hypotension, lactic acidosis: -presented with phil to 30s, ? EMS rhythm. -TSH ok -normal temps/WBCs, doubt sepsis--f/u Blood Cx's -ecg without signs of acute ischemia, troponin negative--rpt ordered -ER ekg ? slow AF vs junctional--HR improved signif with atropine followed by glucagon--remains in AF with normal rates on tele since -elderly pt with low vol of distribution on metoprolol 25 an diltiazem 120 at home--both held here--rates have normalized. -cont tele monitoring. if remains with controlled AF on no (or much reduced) AVN miguel regimen, there will be no indication for pacemaker -cont transcutaneous pacer pads in place, with atropine front end application developer at bedside -cont gentle fluids for BP support, defer pressors if MAP > 60--must be very cautious with rate and close monitoring of resp status, given pt is very hi risk for acute HF exacerbation -if recurrent bradycardia ensues, would use dopamine (then isoproterenol) IV for chronotropic support chronic syst CHF, AV/MV/TV disease: -EF 40-45% -recent hosp echo interpreted as showing mixed AV dz with severe AI (listed tech gradients in low-moderate range) and mod-severe AI--underwhelming AV gradients (? suboptimal doppler alignment) with quite syst murmur and no diast murmur--? /AI overestimated on that study. -accompanying moderate MR and mod-severe TR--in setting of acute decomp CHF and uncontrolled hypothyroidism. -also with mod LV hypo and mild RV hypo -presently CT chest shows resolution of prior congestive changes. BNP 7K from 4K prior but in setting of marked INDY is not useful. -doubt active chf, pt not sob presently. + possible JVD on exam--may be sec to severe TR (out of proportion to intravasc volume status). similarly, pedal edema may be chronic venous ins (carries this dx)--no diuresis -replete K/Mag (>4/2) given risks of malignant arrhythmia -ultimate plan regarding workup of AV dz (? tertiary center echo) and consideration of TAVR, depending on diagnosis/prognosis from suspected lung mets , to be deferred to dr kaye based on pt/family goals of care discussion INDY: -? sec to hypoperfusion from sustained period of bradycardia/hypotension at home , in setting of reduced cardiac output/ -gentle fluids as above -monitor labs Afib: -holding AVN blockers for bradycardia -cont prior Eliquis (2.5 mg dose for age and borderline weight, per prior dr kaye plan) hyponatremia: -stable vs recent baseline, ? SIADH -per critical care team lung masses ? mets: -per pulm s/p recent CVA: -AC for afib -statin as doing est time in data review, pt exam, and formulating mgmt plan of potentially life- threatening problems = 40 min
[2019-03-08] MEDS ORDERED: APIXABAN 2.5 MG TABLET PO SCH (10:00)
--- NOTE | 2019-03-08 10:41 | PN ---
Physical Exam: SUBJECTIVE: Patient seen and examined. No active issues overnight. Pt says she fells off bed after rolling too far. Lives at home with daughter/son. Daughter handles medication. Pt wants to go home. Denies chest/AB pain, SOB. OBJECTIVE: Vital Signs Period Temp Pulse Resp BP Sys/Ham Pulse Ox Last 24 Hr 97.2 F-98 F 39-72 16-26 61-144/42-129 95-100 GENERAL: The patient is awake, alert, and fully oriented, in no acute distress. LUNGS: Reduced breath sounds celia, no wheezes, no crackles, no accessory muscle use. HEART: Slow rate. Regular rhythm, S1, S2 without murmur, rub or gallop. ABDOMEN: Soft, nontender, nondistended, normoactive bowel sounds, no guarding, no rebound, no hepatosplenomegaly, no masses. EXTREMITIES: 2+ edema/warmth/erythema BLE up to knees, 15cm ecchymosis L thigh, ecchymosis R dorsal hand NEUROLOGICAL: AOx3. Normal speech Laboratory Results - last 24 hr 03/07/19 03/07/19 03/07/19 15:28 17:00 17:00 WBC 6.2 RBC 2.88 L Hgb 9.4 L Hct 29.0 L MCV 100.4 H MCH 32.7 MCHC 32.5 RDW 18.2 H Plt Count 229 D MPV 9.2 Absolute Neuts (auto) 4.7 Neutrophils % 75.6 Lymphocytes % 12.3 D Monocytes % 9.6 Eosinophils % 2.1 Basophils % 0.4 Nucleated RBC % 0 PT with INR 22.30 H INR 1.88 H PTT (Actin FS) 35.6 Sodium Potassium Chloride Carbon Dioxide Anion Gap BUN Creatinine Est GFR (CKD-EPI)AfAm Est GFR (CKD-EPI)NonAf Random Glucose Lactic Acid Calcium Phosphorus Magnesium Total Bilirubin AST ALT Alkaline Phosphatase Creatine Kinase Troponin I B-Natriuretic Peptide Total Protein Albumin TSH Urine Color Urine Appearance Urine pH Ur Specific [place] Urine Protein Urine Glucose (UA) Urine Ketones Urine Blood Urine Nitrite Urine Bilirubin Urine Urobilinogen Ur Leukocyte Esterase Stool Occult Blood Blood Type B POSITIVE Antibody Screen Negative 03/07/19 03/07/19 03/07/19 17:00 17:00 17:00 WBC RBC Hgb Hct MCV MCH MCHC RDW Plt Count MPV Absolute Neuts (auto) Neutrophils % Lymphocytes % Monocytes % Eosinophils % Basophils % Nucleated RBC % PT with INR INR PTT (Actin FS) Sodium 130 L Potassium 3.9 Chloride 94 L Carbon Dioxide 24 Anion Gap 12 BUN 40.8 H Creatinine 2.2 H Est GFR (CKD-EPI)AfAm 22.30 Est GFR (CKD-EPI)NonAf 19.24 Random Glucose 105 Lactic Acid 2.7 H* Calcium 8.6 Phosphorus 5.2 H Magnesium 2.2 Total Bilirubin 1.0 AST 46 H ALT 50 Alkaline Phosphatase 65 Creatine Kinase 67 Troponin I 0.03 B-Natriuretic Peptide 7683.9 H Total Protein 5.9 L Albumin 3.1 L TSH Urine Color Urine Appearance Urine pH Ur Specific [place] Urine Protein Urine Glucose (UA) Urine Ketones Urine Blood Urine Nitrite Urine Bilirubin Urine Urobilinogen Ur Leukocyte Esterase Stool Occult Blood Blood Type Antibody Screen 03/07/19 03/07/19 03/07/19 17:00 18:00 18:14 WBC RBC Hgb Hct MCV MCH MCHC RDW Plt Count MPV Absolute Neuts (auto) Neutrophils % Lymphocytes % Monocytes % Eosinophils % Basophils % Nucleated RBC % PT with INR INR PTT (Actin FS) Sodium Potassium Chloride Carbon Dioxide Anion Gap BUN Creatinine Est GFR (CKD-EPI)AfAm Est GFR (CKD-EPI)NonAf Random Glucose Lactic Acid Calcium Phosphorus Magnesium Total Bilirubin AST ALT Alkaline Phosphatase Creatine Kinase Troponin I B-Natriuretic Peptide Total Protein Albumin TSH 4.77 H Urine Color Yellow Urine Appearance Clear Urine pH 6.0 D Ur Specific [place] 1.008 L Urine Protein Negative Urine Glucose (UA) Negative Urine Ketones Negative Urine Blood Negative Urine Nitrite Negative Urine Bilirubin Negative Urine Urobilinogen 1.0 Ur Leukocyte Esterase Negative Stool Occult Blood Negative Blood Type Antibody Screen 03/07/19 03/08/19 03/08/19 21:15 05:50 05:50 WBC 5.8 RBC 2.71 L Hgb 9.1 L Hct 26.8 L MCV 98.8 H MCH 33.4 MCHC 33.8 RDW 18.0 H Plt Count 165 D MPV 8.9 Absolute Neuts (auto) 4.9 Neutrophils % 84.9 H Lymphocytes % 6.5 L D Monocytes % 7.4 Eosinophils % 1.0 Basophils % 0.2 Nucleated RBC % 0 PT with INR INR PTT (Actin FS) Sodium 132 L Potassium 3.0 L Chloride 94 L Carbon Dioxide 27 Anion Gap 11 BUN 33.1 H Creatinine 1.6 H Est GFR (CKD-EPI)AfAm 32.77 Est GFR (CKD-EPI)NonAf 28.27 Random Glucose 91 Lactic Acid 2.5 H* Calcium 8.4 L Phosphorus 3.8 Magnesium 1.7 L Total Bilirubin AST ALT Alkaline Phosphatase Creatine Kinase Troponin I B-Natriuretic Peptide Total Protein Albumin TSH Urine Color Urine Appearance Urine pH Ur Specific [place] Urine Protein Urine Glucose (UA) Urine Ketones Urine Blood Urine Nitrite Urine Bilirubin Urine Urobilinogen Ur Leukocyte Esterase Stool Occult Blood Blood Type Antibody Screen 03/08/19 05:50 WBC RBC Hgb Hct MCV MCH MCHC RDW Plt Count MPV Absolute Neuts (auto) Neutrophils % Lymphocytes % Monocytes % Eosinophils % Basophils % Nucleated RBC % PT with INR INR PTT (Actin FS) Sodium Potassium Chloride Carbon Dioxide Anion Gap BUN Creatinine Est GFR (CKD-EPI)AfAm Est GFR (CKD-EPI)NonAf Random Glucose Lactic Acid 4.3 H* Calcium Phosphorus Magnesium Total Bilirubin AST ALT Alkaline Phosphatase Creatine Kinase Troponin I B-Natriuretic Peptide Total Protein Albumin TSH Urine Color Urine Appearance Urine pH Ur Specific [place] Urine Protein Urine Glucose (UA) Urine Ketones Urine Blood Urine Nitrite Urine Bilirubin Urine Urobilinogen Ur Leukocyte Esterase Stool Occult Blood Blood Type Antibody Screen Active Medications Generic Name Dose Route Start Last Admin Trade Name Pierceq PRN Reason Stop Dose Admin Apixaban 2.5 mg 03/08/19 10:00 03/08/19 09:09 Eliquis - PO 2.5 mg BID AZRA Administration Chlorhexidine Gluconate 1 applic 03/07/19 22:00 03/07/19 23:46 Hibiclens For Decolonization - TP 1 applic HS AZRA Administration Lactated Ringer's 1,000 ml in 1,000 mls @ 75 mls/hr 03/07/19 23:47 03/07/19 23:57 Lactated Ringers Solution IV 75 mls/hr ASDIR AZRA Administration Levothyroxine Sodium 200 mcg 03/08/19 07:00 03/08/19 06:20 Synthroid - PO 200 mcg DAILY@0700 AZRA Administration Mupirocin 1 applic 03/07/19 22:00 03/08/19 09:10 Bactroban Ointment (For Decolonization) - NS 03/12/19 21:59 1 applic BID AZRA Administration Potassium Chloride 20 meq 03/08/19 16:00 Potassium Chloride Oral Liquid PO 03/08/19 16:01 ONCE ONE ASSESSMENT/PLAN: 88F with a PMH of CHF, HTN, HLD, pAIFIB (on Eliquis and ASA), stroke, LE venous stasis, hypothyroidism, medication noncompliance who presented for fall and found to be bradycardic. Of note, pt was recently discharged from our facility for SOB and lower extremity swelling. In ED, noted to be dehydrated and bradycardic unresponsive to 4.5mg of atropine but mildly responsive to glucagon (and patient is on B-miguel). Cardio - bradycardia resolved w glucagon, volume depleted - elevated BNP 7600 d/t INDY vs CHF exacerbation - Normal trop 0.03 to 0.02 03/08 - lactate 2.7 to 4.3 to 1.3 d/t tissue hypoperfusion - Pacer pads in place for bradycardia - anemic w Hgb 9.1, trending H&H - BLE venous stasis d/t med non compliance, monitor - holding cardizem, lasix, metoprolol, statin d/t hypotension and dehydration - EKG 03/07: junctional rythm vs slow a fib - echo 02/27: reduced EF with global hypokinesis 40-45%, severe , mod-sev TR, RVSP > 48 mmHg - appreciate cards recs Pulm - presented w SOB, now resolved, breathing room air - CXR 03/08 shows bilateral infiltrates R>L, cardiomegaly, no consolidation, improved from last visit - CT A/P 03/07 shows trace b/l pleural effusions with spiculated masses concerning for malignancy, outpatient heme/onc f/u Neuro - syncope - A&Ox3 - head/c-spine CT did not show acute bleed/infarct/fracture/subluxation - INDY d/t dehydration - downtrending Cr 2.2 to 1.6 w hydration, trending - given 40 lasix x1 in ED for concern for volume overload. Holding home lasix d/ t dehydration - LR @50 per cards (gentle hydration w hx CHF) - kidney US 03/08 shows normal gallbladder, slightly coarse liver suggesting mild fatty vs hepatocellular disease, R hepatic lobe simple cyst 1.8x1.5cm, L hepatic lobe simple/parapelvic cyst 1.8x1.5cm - Given 1L LR bolus today for lactate 4.3 - cordova in place GI - no active issues - started Na restricted diet Endo - hx hypothyroidism - continue synthroid ID - afebrile, normal WBC - given vanc/zosyn x1 in ED, no evidence of infection, not continuing antibiotics - pending blood/urine cx 03/07 - appreciate ID recs Trauma/Fall - Ecchymosis on upper and lower back and L leg - CT A/P (noncon d/t elevated Cr) 03/07: Trace subcapsular fluid at the lateral aspect of the spleen. - ER attending d/w radiology regarding subcapsular fluid; rads suggested follow up US if pt's clinical condition deteriorates PPx - SCDs, eliquids - no GI ppx FEN - LR @50mL/hr, 1000mL - hypoNa, hypoCl, hypoK / hypoMg - repleted - Na restricted diet Dispo - transfer to tele Visit type - Emergency Visit Emergency Visit: Yes ED Registration Date: 03/07/19 Care time: The patient presented to the Emergency Department on the above date and was hospitalized for further evaluation of their emergent condition. - New Patient This patient is new to me today: Yes Date on this admission: 03/08/19 - Critical Care Critical Care patient: Yes Total Critical Care Time (in minutes): 38 Critical Care Statement: The care of this patient involved high complexity decision making to prevent further life threatening deterioration of the patient 's condition and/or to evaluate & treat vital organ system(s) failure or risk of failure. ATTENDING PHYSICIAN STATEMENT I saw and evaluated the patient. I reviewed the resident's note and discussed the case with the resident. I agree with the resident's findings and plan as documented. SUBJECTIVE: OBJECTIVE: ASSESSMENT AND PLAN:
--- NOTE | 2019-03-08 11:04 | PN ---
Teaching Attending Note Name of Resident: Shawn Barclay ATTENDING PHYSICIAN STATEMENT I saw and evaluated the patient. I reviewed the resident's note and discussed the case with the resident. I agree with the resident's findings and plan as documented. SUBJECTIVE: Pt seen and examined in the ICU. More alert, awake. Denies shortness of breath or chest pain. Renal function improving with IVF. Has been in atrial fibrillation. OBJECTIVE: Vital Signs Period Temp Pulse Resp BP Sys/Ham Pulse Ox Last 24 Hr 97.2 F-98 F 39-72 16-26 61-144/42-129 95-100 Intake & Output 03/05/19 03/06/19 03/07/19 03/08/19 23:59 23:59 23:59 23:59 Intake Total 1000 626 Output Total 1200 2800 Balance -200 -2174 Weight 68.974 kg 65.091 kg Gen: NAD at rest HEENT: dry mucous membranes Heart: RRR Lung: decreased breath sounds at the bases Abd: soft, nontender Ext: + edema, large ecchymotic area left posterior thigh CBC, BMP 03/08/19 05:50 03/08/19 05:50 Active Medications Apixaban (Eliquis -) 2.5 mg PO BID [facility] Last Admin: 03/08/19 09:09 Dose: 2.5 mg Chlorhexidine Gluconate (Hibiclens For Decolonization -) 1 applic TP HS [facility] Last Admin: 03/07/19 23:46 Dose: 1 applic Lactated Ringer's (Lactated Ringers Solution) 1,000 ml in 1,000 mls @ 50 mls/ hr IV ASDIR [facility] Levothyroxine Sodium (Synthroid -) 200 mcg PO DAILY@0700 [facility] Last Admin: 03/08/19 06:20 Dose: 200 mcg Mupirocin (Bactroban Ointment (For Decolonization) -) 1 applic NS BID [facility] Stop: 03/12/19 21:59 Last Admin: 03/08/19 09:10 Dose: 1 applic Potassium Chloride (Potassium Chloride Oral Liquid) 20 meq PO ONCE ONE Stop: 03/08/19 16:01 ASSESSMENT AND PLAN: s/p Fall Bradycardia Dehydration Acute Kidney Injury Lactic Acidosis LV Systolic Dysfunction Mitral/Aortic Regurgitation Atrial Fibrillation h/o CVA Lung Nodules Hyponatremia Hypothyroidism HTN - continue IVF - monitor urine output, creatinine - hold AV liu agents - continue anticoagulation - monitor H/H - replete lytes - can monitor on telemetry - outpt f/u of lung nodules
--- NOTE | 2019-03-08 11:21 | PN ---
Progress Note, Physician Chief Complaint: patient seen and examined feeling better- wnats to go home on ivf - Current Medication List Current Medications: Active Medications Apixaban (Eliquis -) 2.5 mg PO BID [facility] Last Admin: 03/08/19 09:09 Dose: 2.5 mg Chlorhexidine Gluconate (Hibiclens For Decolonization -) 1 applic TP HS [facility] Last Admin: 03/07/19 23:46 Dose: 1 applic Lactated Ringer's (Lactated Ringers Solution) 1,000 ml in 1,000 mls @ 50 mls/ hr IV ASDIR [facility] Levothyroxine Sodium (Synthroid -) 200 mcg PO DAILY@0700 [facility] Last Admin: 03/08/19 06:20 Dose: 200 mcg Mupirocin (Bactroban Ointment (For Decolonization) -) 1 applic NS BID [facility] Stop: 03/12/19 21:59 Last Admin: 03/08/19 09:10 Dose: 1 applic Potassium Chloride (Potassium Chloride Oral Liquid) 20 meq PO ONCE ONE Stop: 03/08/19 16:01 - Objective Vital Signs: Vital Signs Temperature 97.9 F 03/08/19 08:00 Pulse Rate 72 03/08/19 08:00 Respiratory Rate 18 03/08/19 08:00 Blood Pressure 142/129 H 03/08/19 08:00 O2 Sat by Pulse Oximetry (%) 95 03/08/19 06:35 Constitutional: Yes: Calm Cardiovascular: Yes: Regular Rate and Rhythm, S1, S2 Respiratory: Yes: Diminished Gastrointestinal: Yes: Normal Bowel Sounds, Soft Edema: Yes Neurological: Yes: Alert Labs: CBC, BMP 03/08/19 05:50 03/08/19 05:50 INR, PTT INR 1.88 (0.83-1.09) H 03/07/19 17:00 Problem List - Problems (1) INDY (acute kidney injury) Assessment/Plan: improving with ivf continue hydration monitor renal function Code(s): N17.9 - ACUTE KIDNEY FAILURE, UNSPECIFIED (2) Lactic acidosis Assessment/Plan: ivf trend lactic acid- still elevated off abx Code(s): E87.2 - ACIDOSIS (3) Adult hypothyroidism Assessment/Plan: tsh noted on synthroid Code(s): E03.9 - HYPOTHYROIDISM, UNSPECIFIED (4) Hypokalemia Assessment/Plan: replete the potassium and magnesium Code(s): E87.6 - HYPOKALEMIA (5) Hyponatremia Assessment/Plan: ivf Code(s): E87.1 - HYPO-OSMOLALITY AND HYPONATREMIA (6) Paroxysmal A-fib Assessment/Plan: on AC hold av liu agents Code(s): I48.0 - PAROXYSMAL ATRIAL FIBRILLATION Assessment/Plan oob to chair tresnfer to telemetry
[2019-03-08] MEDS: LACTATED RINGERS SOLUTION 1,000 ML/1,000 ML INFUS.BAG IV SCH (11:37)
[2019-03-08] MEDS ORDERED: ACETAMINOPHEN 325 MG TABLET (FP) PO ONE ×2 (13:50→22:00)
[2019-03-08] MEDS ORDERED: ACETAMINOPHEN 1000 MG/100 ML VIAL (NON FORMULARY) IVPB ONE (14:00)
--- NOTE | 2019-03-08 14:09 | CONSULT ---
Consultation: REQUESTING PROVIDER: Dr. Bergman CONSULT REQUEST: We have been asked to medically evaluate this patient for INDY. HISTORY OF PRESENT ILLNESS: Pt. is an 88 y.o. F w/ PMHx. of HTN, CVA, Afib (on eliquis), HFrEF( EF 40-45%), Hypothyroidism, and chronic venous stasis presents after syncopal episodes 2/2 bradycardia. Pt. was recently discharged on following a hospital stay for an acute CHF exacerbation and was resumed on home medications of Diltiazem, Toprol and Lasix. Pt. endorses coming back to the hospital for shortness of breath and states that her fall was actually a sliding off the chair. Pt. denies LOC or head trauma. En route to the ED Pt. was bradycardic to the 30s where atropine was pushed x 1 and hypotensive, atropine x1 was pushed again after Pt. was noted to still be bradycardic in ED. Lasix 40mg IVP was given in ED after Pt. was found to have c rackles on lung examination. Of note Dr. Phillips had recommended PRN Lasix instead of standing Lasix because of Pt. AI and tendency to run low BP. Pt. states that she would like to go home and is not interested in any invasive procedures for her heart. Pt. currently endorses headache and improving shortness of breath. Pt. denies any fever, chills, changes in urination (states Nicholas was paced in the ED on arrival) or any other symptoms. REVIEW OF SYSTEMS: As above PHYSICAL EXAMINATION Vital Signs - 24 hr 03/07/19 03/07/19 03/07/19 16:40 17:00 17:05 Temperature 97.2 F L Pulse Rate 39 L Pulse Rate [ 44 L Apical] Pulse Rate [ Right Radial] Respiratory 20 17 Rate Blood Pressure 61/42 L Blood Pressure 81/46 L [Left Arm] Blood Pressure [Right Arm] O2 Sat by Pulse 98 95 Oximetry (%) 03/07/19 03/07/19 03/07/19 17:48 17:53 18:34 Temperature 97.9 F Pulse Rate Pulse Rate [ 56 L 54 L Apical] Pulse Rate [ Right Radial] Respiratory 18 16 Rate Blood Pressure Blood Pressure 120/66 [Left Arm] Blood Pressure 122/72 [Right Arm] O2 Sat by Pulse 100 99 Oximetry (%) 03/07/19 03/07/19 03/07/19 20:00 22:50 23:20 Temperature 97.9 F 97.8 F Pulse Rate 64 Pulse Rate [ Apical] Pulse Rate [ 58 L Right Radial] Respiratory 17 26 H Rate Blood Pressure 120/74 Blood Pressure 121/61 [Left Arm] Blood Pressure [Right Arm] O2 Sat by Pulse 100 100 100 Oximetry (%) 03/08/19 03/08/19 03/08/19 00:00 01:00 01:30 Temperature Pulse Rate 64 63 62 Pulse Rate [ Apical] Pulse Rate [ Right Radial] Respiratory 20 19 18 Rate Blood Pressure 124/46 L 90/72 120/67 Blood Pressure [Left Arm] Blood Pressure [Right Arm] O2 Sat by Pulse Oximetry (%) 03/08/19 03/08/19 03/08/19 02:00 03:00 04:00 Temperature 98 F Pulse Rate 66 66 66 Pulse Rate [ Apical] Pulse Rate [ Right Radial] Respiratory 18 18 18 Rate Blood Pressure 138/69 105/94 144/53 L Blood Pressure [Left Arm] Blood Pressure [Right Arm] O2 Sat by Pulse Oximetry (%) 03/08/19 03/08/19 03/08/19 05:00 06:00 06:35 Temperature 97.7 F Pulse Rate 70 70 Pulse Rate [ Apical] Pulse Rate [ Right Radial] Respiratory 18 18 Rate Blood Pressure 106/75 139/58 L Blood Pressure [Left Arm] Blood Pressure [Right Arm] O2 Sat by Pulse 95 Oximetry (%) 03/08/19 03/08/19 03/08/19 08:00 09:00 09:30 Temperature 97.9 F Pulse Rate 72 67 Pulse Rate [ Apical] Pulse Rate [ Right Radial] Respiratory 18 18 19 Rate Blood Pressure 142/129 H 133/48 L Blood Pressure [Left Arm] Blood Pressure [Right Arm] O2 Sat by Pulse 95 Oximetry (%) 03/08/19 03/08/19 12:00 14:00 Temperature 98.3 F Pulse Rate 72 70 Pulse Rate [ Apical] Pulse Rate [ Right Radial] Respiratory 15 19 Rate Blood Pressure 134/74 91/45 L Blood Pressure [Left Arm] Blood Pressure [Right Arm] O2 Sat by Pulse Oximetry (%) GENERAL: Awake, alert, and fully oriented, in no acute distress. HEAD: Normal with no signs of trauma. EYES: Pupils equal, round and reactive to light, extraocular movements intact, sclera anicteric, conjunctiva clear. EARS, NOSE, THROAT: Ears normal, nares patent, oropharynx clear without exudates. Moist mucous membranes. NECK: Normal range of motion, supple without lymphadenopathy, JVD LUNGS: Diffuse coarse breath sounds, crackles in GARTH, No accessory muscle use. HEART: Regular rate and rhythm, normal S1 and S2 with holosystolic murmur. ABDOMEN: Soft, nontender, not distended, normoactive bowel sounds, no guarding, no rebound, no masses. Nicholas in place draining light yellow urine MUSCULOSKELETAL: Normal range of motion at all joints. No bony deformities or tenderness. No CVA tenderness. UPPER EXTREMITIES: warm, well-perfused. No peripheral edema. LOWER EXTREMITIES: 2+ dorsal pedal pulses, warm, well-perfused. No calf tenderness. 1+ edema. NEUROLOGICAL: Cranial nerves II-XII intact. Normal speech. PSYCHIATRIC: Cooperative. Good eye contact. Appropriate mood and affect. SKIN: Warm, dry, normal turgor, bruising at b/l antecubital fossa from lab draws ? Laboratory Results - last 24 hr 03/07/19 03/07/19 03/07/19 15:28 17:00 17:00 WBC 6.2 RBC 2.88 L Hgb 9.4 L Hct 29.0 L MCV 100.4 H MCH 32.7 MCHC 32.5 RDW 18.2 H Plt Count 229 D MPV 9.2 Absolute Neuts (auto) 4.7 Neutrophils % 75.6 Lymphocytes % 12.3 D Monocytes % 9.6 Eosinophils % 2.1 Basophils % 0.4 Nucleated RBC % 0 PT with INR 22.30 H INR 1.88 H PTT (Actin FS) 35.6 Sodium Potassium Chloride Carbon Dioxide Anion Gap BUN Creatinine Est GFR (CKD-EPI)AfAm Est GFR (CKD-EPI)NonAf Random Glucose Lactic Acid Calcium Phosphorus Magnesium Total Bilirubin AST ALT Alkaline Phosphatase Creatine Kinase Troponin I B-Natriuretic Peptide Total Protein Albumin TSH Urine Color Urine Appearance Urine pH Ur Specific [place] Urine Protein Urine Glucose (UA) Urine Ketones Urine Blood Urine Nitrite Urine Bilirubin Urine Urobilinogen Ur Leukocyte Esterase Stool Occult Blood Blood Type B POSITIVE Antibody Screen Negative 03/07/19 03/07/19 03/07/19 17:00 17:00 17:00 WBC RBC Hgb Hct MCV MCH MCHC RDW Plt Count MPV Absolute Neuts (auto) Neutrophils % Lymphocytes % Monocytes % Eosinophils % Basophils % Nucleated RBC % PT with INR INR PTT (Actin FS) Sodium 130 L Potassium 3.9 Chloride 94 L Carbon Dioxide 24 Anion Gap 12 BUN 40.8 H Creatinine 2.2 H Est GFR (CKD-EPI)AfAm 22.30 Est GFR (CKD-EPI)NonAf 19.24 Random Glucose 105 Lactic Acid 2.7 H* Calcium 8.6 Phosphorus 5.2 H Magnesium 2.2 Total Bilirubin 1.0 AST 46 H ALT 50 Alkaline Phosphatase 65 Creatine Kinase 67 Troponin I 0.03 B-Natriuretic Peptide 7683.9 H Total Protein 5.9 L Albumin 3.1 L TSH Urine Color Urine Appearance Urine pH Ur Specific [place] Urine Protein Urine Glucose (UA) Urine Ketones Urine Blood Urine Nitrite Urine Bilirubin Urine Urobilinogen Ur Leukocyte Esterase Stool Occult Blood Blood Type Antibody Screen 03/07/19 03/07/19 03/07/19 17:00 18:00 18:14 WBC RBC Hgb Hct MCV MCH MCHC RDW Plt Count MPV Absolute Neuts (auto) Neutrophils % Lymphocytes % Monocytes % Eosinophils % Basophils % Nucleated RBC % PT with INR INR PTT (Actin FS) Sodium Potassium Chloride Carbon Dioxide Anion Gap BUN Creatinine Est GFR (CKD-EPI)AfAm Est GFR (CKD-EPI)NonAf Random Glucose Lactic Acid Calcium Phosphorus Magnesium Total Bilirubin AST ALT Alkaline Phosphatase Creatine Kinase Troponin I B-Natriuretic Peptide Total Protein Albumin TSH 4.77 H Urine Color Yellow Urine Appearance Clear Urine pH 6.0 D Ur Specific [place] 1.008 L Urine Protein Negative Urine Glucose (UA) Negative Urine Ketones Negative Urine Blood Negative Urine Nitrite Negative Urine Bilirubin Negative Urine Urobilinogen 1.0 Ur Leukocyte Esterase Negative Stool Occult Blood Negative Blood Type Antibody Screen 03/07/19 03/08/19 03/08/19 21:15 05:50 05:50 WBC 5.8 RBC 2.71 L Hgb 9.1 L Hct 26.8 L MCV 98.8 H MCH 33.4 MCHC 33.8 RDW 18.0 H Plt Count 165 D MPV 8.9 Absolute Neuts (auto) 4.9 Neutrophils % 84.9 H Lymphocytes % 6.5 L D Monocytes % 7.4 Eosinophils % 1.0 Basophils % 0.2 Nucleated RBC % 0 PT with INR INR PTT (Actin FS) Sodium 132 L Potassium 3.0 L Chloride 94 L Carbon Dioxide 27 Anion Gap 11 BUN 33.1 H Creatinine 1.6 H Est GFR (CKD-EPI)AfAm 32.77 Est GFR (CKD-EPI)NonAf 28.27 Random Glucose 91 Lactic Acid 2.5 H* Calcium 8.4 L Phosphorus 3.8 Magnesium 1.7 L Total Bilirubin AST ALT Alkaline Phosphatase Creatine Kinase Troponin I B-Natriuretic Peptide Total Protein Albumin TSH Urine Color Urine Appearance Urine pH Ur Specific [place] Urine Protein Urine Glucose (UA) Urine Ketones Urine Blood Urine Nitrite Urine Bilirubin Urine Urobilinogen Ur Leukocyte Esterase Stool Occult Blood Blood Type Antibody Screen 03/08/19 03/08/19 03/08/19 05:50 11:15 12:05 WBC RBC Hgb Hct MCV MCH MCHC RDW Plt Count MPV Absolute Neuts (auto) Neutrophils % Lymphocytes % Monocytes % Eosinophils % Basophils % Nucleated RBC % PT with INR INR PTT (Actin FS) Sodium Potassium Chloride Carbon Dioxide Anion Gap BUN Creatinine Est GFR (CKD-EPI)AfAm Est GFR (CKD-EPI)NonAf Random Glucose Lactic Acid 4.3 H* 1.3 Calcium Phosphorus Magnesium Total Bilirubin AST ALT Alkaline Phosphatase Creatine Kinase Troponin I 0.02 B-Natriuretic Peptide Total Protein Albumin TSH Urine Color Urine Appearance Urine pH Ur Specific [place] Urine Protein Urine Glucose (UA) Urine Ketones Urine Blood Urine Nitrite Urine Bilirubin Urine Urobilinogen Ur Leukocyte Esterase Stool Occult Blood Blood Type Antibody Screen Active Medications Home Medications Medication Instructions Recorded Diltiazem Cd [Cardizem Cd -] 120 mg PO DAILY #0 cap.cd.24h 10/21/13 Simvastatin [Zocor] 20 mg PO HS #1 10/21/13 Apixaban [Eliquis -] 2.5 mg PO BID #30 tablet 03/01/19 Aspirin Coated [Ecotrin -] 162 mg PO DAILY #30 tablet.ec 03/01/19 Furosemide [Lasix -] 40 mg PO DAILY #30 tablet 03/01/19 Levothyroxine [Synthroid -] 200 mcg PO DAILY@0700 #60 tablet 03/01/19 Liothyronine Sodium [Cytomel -] 10 mcg PO AM #30 tablet 03/01/19 Metoprolol Succinate [Toprol XL -] 25 mg PO DAILY #30 tab.sr.24h 03/01/19 Sodium Chloride Tablet - 1 gm PO DAILY #30 tablet 03/01/19 Amoxicillin - [Amoxicillin 500mg 500 mg PO BID #14 capsule 03/03/19 Capsule -] Current Medications Apixaban (Eliquis -) 2.5 mg PO BID [facility] Last Admin: 03/08/19 09:09 Dose: 2.5 mg Chlorhexidine Gluconate (Hibiclens For Decolonization -) 1 applic TP HS [facility] Last Admin: 03/07/19 23:46 Dose: 1 applic Lactated Ringer's (Lactated Ringers Solution) 1,000 ml in 1,000 mls @ 50 mls/ hr IV ASDIR [facility] Last Admin: 03/08/19 11:37 Dose: 50 mls/hr Levothyroxine Sodium (Synthroid -) 200 mcg PO DAILY@0700 [facility] Last Admin: 03/08/19 06:20 Dose: 200 mcg Mupirocin (Bactroban Ointment (For Decolonization) -) 1 applic NS BID [facility] Stop: 03/12/19 21:59 Last Admin: 03/08/19 09:10 Dose: 1 applic Potassium Chloride (Potassium Chloride Oral Liquid) 20 meq PO ONCE ONE Stop: 03/08/19 16:01 ASSESSMENT/PLAN: Pt. is an 88 y.o. F w/ PMHx. of HTN, CVA, Afib (on eliquis), HFrEF (EF 40-45%), Hypothyroidism, and chronic venous stasis presents after syncopal episodes 2/2 bradycardia. #Syncope 2/2 Bradycardia Hold AV liu blockade Can give Dopamine and then Isoproterenol for recurrent bradycardia episodes Pt. refusing TAVR Will need daily assessments for Lasix Echo 02/27: reduced EF with global hypokinesis 40-45%, severe , mod-sev TR, RVSP > 48 mmHg #INDY 2/2 Hypoperfusion Cr. improving 2.2-->1.6 Renal US: L. simply cyst 1.8 x 1.5 cm f/u Is & Os c/w gentle hydration #FEN LR @ 50 monitor K+ and Mg, repleted today, f/u Rpt. in AM Low sodium diet #DVT Ppx. Eliquis 2.5mg BID Dispo: We will continue to follow the patient. Thank you for this consultative opportunity. Visit type - Emergency Visit Emergency Visit: Yes ED Registration Date: 03/07/19 Care time: The patient presented to the Emergency Department on the above date and was hospitalized for further evaluation of their emergent condition. - New Patient This patient is new to me today: Yes Date on this admission: 03/08/19 - Critical Care Critical Care patient: Yes Total Critical Care Time (in minutes): 45 Critical Care Statement: The care of this patient involved high complexity decision making to prevent further life threatening deterioration of the patient 's condition and/or to evaluate & treat vital organ system(s) failure or risk of failure. ATTENDING PHYSICIAN STATEMENT I saw and evaluated the patient. I reviewed the resident's note and discussed the case with the resident. I agree with the resident's findings and plan as documented. SUBJECTIVE: OBJECTIVE: ASSESSMENT AND PLAN:
--- NOTE | 2019-03-08 15:45 | EKG ---
Test Reason : Blood Pressure : / mmHG Vent. Rate : 066 BPM Atrial Rate : 277 BPM P-R Int : 000 ms QRS Dur : 090 ms QT Int : 434 ms P-R-T Axes : 000 -18 055 degrees QTc Int : 454 ms ATRIAL FIBRILLATION NONSPECIFIC T WAVE ABNORMALITY ABNORMAL ECG WHEN COMPARED WITH ECG OF 07-MAR-2019 16:29, ATRIAL FIBRILLATION HAS REPLACED JUNCTIONAL RHYTHM VENT. RATE HAS INCREASED BY 30 BPM T WAVE VARIATION QT HAS LENGTHENED Confirmed by GISSELLE RODRIGUES MD ([id number]) on 03/08/2019 3:45:05 PM Referred By: TYLOR SARKAR Confirmed By:GISSELLE RODRIGUES MD
--- NOTE | 2019-03-08 15:50 | EKG ---
Test Reason : Blood Pressure : / mmHG Vent. Rate : 036 BPM Atrial Rate : 312 BPM P-R Int : 000 ms QRS Dur : 080 ms QT Int : 514 ms P-R-T Axes : 000 -17 040 degrees QTc Int : 397 ms JUNCTIONAL BRADYCARDIA ABNORMAL ECG WHEN COMPARED WITH ECG OF 21-FEB-2019 03:32, JUNCTIONAL RHYTHM HAS REPLACED ATRIAL FIBRILLATION VENT. RATE HAS DECREASED BY 74 BPM T WAVE VARIATION Confirmed by RAVI STERN, GISSELLE ([id number]) on 03/08/2019 3:49:48 PM Referred By: Confirmed By:GISSELLE RODRIGUES MD
[2019-03-08] MEDS ORDERED: POTASSIUM CHLORIDE ORAL LIQUID 20 MEQ/15 ML PO ONE (16:00)
--- NOTE | 2019-03-08 16:46 | PN ---
Teaching Attending Note Name of Resident: Alberto Serrano (Nephrology) ATTENDING PHYSICIAN STATEMENT I saw and evaluated the patient. I reviewed the resident's note and discussed the case with the resident. I agree with the resident's findings and plan as documented. Renal Pt is an 88 year old female who was re-admitted with syncope. She was found to be hypotensive and developed worsening renal function. pmhx htn a-fib chf hyponatermia hypothyroidism nkda social denies fam hx neg ros denies Current Medications Generic Name Dose Route Start Last Admin Trade Name Freq PRN Reason Stop Dose Admin Apixaban 2.5 mg 03/08/19 10:00 03/08/19 09:09 Eliquis - PO 2.5 mg BID [facility] Administration Chlorhexidine Gluconate 1 applic 03/07/19 22:00 03/07/19 23:46 Hibiclens For Decolonization - TP 1 applic HS [facility] Administration Lactated Ringer's 1,000 ml in 1,000 mls @ 50 mls/hr 03/08/19 10:56 03/08/19 11:37 Lactated Ringers Solution IV 50 mls/hr ASDIR [facility] Administration Levothyroxine Sodium 200 mcg 03/08/19 07:00 03/08/19 06:20 Synthroid - PO 200 mcg DAILY@0700 [facility] Administration Mupirocin 1 applic 03/07/19 22:00 03/08/19 09:10 Bactroban Ointment (For Decolonization) - NS 03/12/19 21:59 1 applic BID [facility] Administration Selected Entries 03/07/19 03/08/19 03/08/19 16:40 01:00 12:00 Blood Pressure 61/42 L 90/72 134/74 03/08/19 14:00 Blood Pressure 91/45 L Laboratory Tests 03/07/19 03/08/19 03/08/19 17:00 05:50 05:50 Sodium 132 L Potassium 3.0 L Creatinine 2.2 H 1.6 H Lactic Acid 4.3 H* 03/08/19 12:05 Sodium Potassium Creatinine Lactic Acid 1.3 Last Vital Signs Temp Pulse Resp BP Pulse Ox 98.3 F 70 19 91/45 L 95 03/08/19 14:00 03/08/19 14:00 03/08/19 14:00 03/08/19 14:00 03/08/19 09:00 cardio s1s2 pulm clear GI soft ext plus 1 edema neuro awake and alert skin venous stasis changes Impression 1. hyponatremia 2. jaimie 3. hypokalemia 4. chf 5. syncope 6. multiple pulmonary masses suspicious for mets 7. hypothyroidism 8. a-fib 9. htn 10. hld Plan - renal fxn is improved - can cont fluids for now, caution as she has chf - monitor sodium - replace potassium and mag - monitor pulse - lasix on hold
--- NOTE | 2019-03-08 18:34 | CONS ---
DATE OF CONSULTATION: DATE OF DICTATION: 03/08/2019 INFECTIOUS DISEASE CONSULTATION HISTORY OF PRESENT ILLNESS: This is an 88-year-old woman who was just admitted February 21 to March 03 for CHF and elevated blood pressure. She was treated for with Rocephin and Zithromax for 5 days. She was noted to have an abnormal chest CT with bilateral pulmonary masses. Family wished to defer evaluation. She had intermittent urinary retention during the admission and urine culture grew enterococcus. She was discharged on oral amoxicillin. She now presents on the with profound weakness and bradycardia. She had a heart rate as low as 36. She was also noted at that prior admission on MRI to have an acute, subacute CVA. She was noted to have weakness, and she became slumped on the floor without loss of consciousness. She was bradycardic in the 30s. She was given atropine. Her pulse was 39 on admission in the ER. Currently she is awake and alert. She reports no loss of consciousness. I am asked to see her for possible infection. She has no fevers, chills. No nausea, vomiting. No chest pain, diarrhea, dysuria, or cough. PAST MEDICAL HISTORY: Notable for history of atrial fibrillation status post CVA, hypertension, hypercholesterolemia, hypothyroidism, recent admission for heart failure with acute/subacute CVA. She is status post left hip replacement. SOCIAL HISTORY: She is . She lives at home with her , stopped smoking 60 years ago. No recent travel or substance use. MEDICATION: Her medications at the time of discharge on the included Eliquis, aspirin, furosemide, , metoprolol, sodium chloride tablet, amoxicillin. She was to continue her Cardizem and her simvastatin. REVIEW OF SYSTEMS: She currently has no complaints. PHYSICAL EXAMINATION: General: She is awake and alert. She has been afebrile. Vital Signs: Temperature 97.9, pulse 72, blood pressure 134/74. Her respiratory rate is 15. She is saturating 95% on room air. Skin: Notable for multiple ecchymoses. HEENT: Normocephalic. Eyes are anicteric. Neck: Supple. Lungs: Clear to auscultation. She has diminished breath sounds at the bases. Heart: Irregular. Abdomen: Soft, nontender. She has a Nicholas in place. Extremities: Trace bilateral edema. LABORATORY: White count is 5.8, hemoglobin 9.1, platelets are 165. Her chemistries: BUN and creatinine are 33 and 1.6. Urinalysis is negative. Blood and urine cultures are pending. Chest CT and abdominal pelvis CT were done on admission. Significantly limited exam. No gross acute pathology. Improved pleural effusions. She still has the patchy bilateral nodular infiltrates. Small impaction in the rectum with contrast, otherwise abdomen and pelvis are unremarkable. She is given vancomycin and Zosyn in the ER. IMPRESSION: In summary, this is an elderly woman admitted with weakness and bradycardia, with symptomatic bradycardia. I doubt at this time if she has an infection. She has acute kidney injury as well as I would suggest she follow up with cardiology, control her blood pressure. Fluids for her renal failure. Would hold antibiotics at this time, as there does not seem to be any focus of infection. Cultures have been sent as well. Would observe off antibiotics at this time. Case was discussed with the ui lead developer. SYLVIA SANTOS M.D. [id number]
[2019-03-08] MEDS: APIXABAN 2.5 MG TABLET PO SCH (21:20)
[2019-03-09] MEDS ORDERED: PT OWN MED DRAWER 7, Y5N ONE (05:29)
[2019-03-09] MEDS ORDERED: LEVOTHYROXINE NA 100 MCG TABLET (FP) PO SCH (07:00)
[2019-03-09] MEDS: APIXABAN 2.5 MG TABLET PO SCH ×2 (10:30→21:35)
[2019-03-09 10:55] LABS: ALBUMIN 3.1 g/dl (3.4-5.0); BLOOD UREA NITROGEN 23.1 mg/dL (7-18); CREATININE 1.2 mg/dL (0.55-1.3); POTASSIUM 3.2 mmol/L (3.5-5.1)
--- NOTE | 2019-03-09 11:04 | PN ---
Progress Note (short form) - Note Progress Note: Extended Note: Please refer to consult dated: 02/23/19 88-year-old female with a history of hypertension, hypertensive cardiovascular disease, critical aortic stenosis, history of congestive heart failure, status post cerebrovascular accident, history of hypothyroidism, persistent atrial fibrillation and pulmonary masses suspicious for metastatic disease. Admitted with history of being found on the floor at home and according to ER records patient also was noted to have marked bradyarrhythmia as noted by paramedics and received IV atropine. Patient has some cognitive changes and does not recall why she is in the hospital. No history of chest pain or discomfort documented. There is no history of dyspnea or loss of consciousness. Dr. Pretty's followup seen and appreciated. ALLERGIES: None reported. Active Medications Apixaban (Eliquis -) 2.5 mg PO BID [facility] Last Admin: 03/09/19 10:30 Dose: 2.5 mg Lactated Ringer's (Lactated Ringers Solution) 1,000 ml in 1,000 mls @ 50 mls/ hr IV ASDIR [facility] Last Admin: 03/08/19 11:37 Dose: 50 mls/hr Levothyroxine Sodium (Synthroid -) 200 mcg PO DAILY@0700 [facility] ALLERGIES: None reported. REVIEW OF SYSTEMS: Constitutional: History is not available. HEENT: History is not available. Cardiovascular: See history of present illness. Respiratory: See history of present illness. Gastrointestinal: History is not available. Neurologic: See history of present illness. Musculoskeletal: History is not available. Genitourinary: History is not available. Endocrine: See history of present illness. Hematologic/Lymphatic: History is not available. PHYSICAL EXAMINATION: General: 88-year-old female who is alert. There is no pallor, cyanosis, clubbing, or jaundice. Last Vital Signs Temp Pulse Resp BP Pulse Ox 97.8 F 65 Irregularly irregular. 18 122/60 98 03/09/19 05:56 03/09/19 05:56 03/09/19 05:56 03/09/19 05:56 03/08/19 21:00 HEENT: Normocephalic. Pupils are equal, reacting to light and accommodation. There is arcus senilis. No xanthelasma is seen. Neck: Supple. No jugular venous distention. Slightly positive hepatojugular reflux. Carotids are 2+. Upstrokes are normal. Unable to appreciate any bruits. There is no thyromegaly. There is a well-healed left carotid endarterectomy scar. Heart: PMI is in the 5th intercostal space. No heaves or thrills. S1 is variable. S2 is split. Ejection systolic murmur Grade II/ is heard at the 2nd right intercostal space ending in rbqyq-qo-qfw systolic. No diastolic murmur or gallops are heard. Lungs: Fine crepitations at the right base. No other extraneous sounds are heard. Chest: Normal AP diameter. Expansion is symmetrical. Abdomen: Soft, protuberant, nontender. No hepatosplenomegaly or palpable masses are felt. Bowel sounds are present. No bruits are heard. Extremities: No calf tenderness or dependent edema. Pulses are equal. Dorsalis pedis pulses are 1 to 2+. Posterior tibial pulses are not palpable. There are varicosities noted. Laboratory Results - last 24 hr 03/08/19 03/08/19 03/09/19 11:15 12:05 09:55 Sodium 134 L Potassium 3.2 L Chloride 95 L Carbon Dioxide 34 H Anion Gap 5 L BUN 23.1 H Creatinine 1.2 Est GFR (CKD-EPI)AfAm 46.40 Est GFR (CKD-EPI)NonAf 40.04 Random Glucose 83 Lactic Acid 1.3 Calcium 9.0 Magnesium 2.0 Total Bilirubin 1.0 AST 27 ALT 37 Alkaline Phosphatase 59 Troponin I 0.02 Total Protein 6.0 L Albumin 3.1 L Laboratory Tests 03/08/19 05:50 WBC 5.8 RBC 2.71 L Hgb 9.1 L Hct 26.8 L MCV 98.8 H MCH 33.4 MCHC 33.8 RDW 18.0 H Plt Count 165 D MPV 8.9 Absolute Neuts (auto) 4.9 Neutrophils % 84.9 H Lymphocytes % 6.5 L D Monocytes % 7.4 Eosinophils % 1.0 Basophils % 0.2 Nucleated RBC % 0 Echocardiogram dated February 22, 2019. Interpretation summary: Left ventricle is normal in size. Left ventricle systolic function is moderately reduced. There is moderate global hypokinesia of the left ventricle. Ejection fraction 40%-45%. Right ventricular systolic function is mildly reduced. Right ventricular systolic TID is 7 cm/sec, borderline left atrial enlargement. There is mild annular calcification. There is moderate mitral regurgitation. There is zfsyyvfm-ri-puydbu tricuspid regurgitation. Pulmonary systolic pressure is at least 48 mmHg if RA pressure is presumed to be 3 mmHg. Severe valvular aortic stenosis. The calculated aortic valve area by continuity equation is 0.8 cm2. Kkovdaft-jc-rcxglk aortic regurgitation. Csum-bi-pgjvvnwo pulmonic valvular regurgitation. There is no pericardial effusion. IMPRESSION: 1. History of significant bradycardia and hypotension etiology to be determined: a). Sick sinus syndrome needs exclusion. b). Precipitated or aggravated by electrolyte imbalance. c). Secondary to hypothyroidism. 2. Recent cerebral vascular accident possibly embolic. 3. Pulmonary masses, metastatic disease needs exclusion. 4. Status post CHF. 5. Critical aortic stenosis (see echo report). 6. Chest pain syndrome compatible with angina pectoris secondary to coronary artery disease/severe aortic stenosis. 7. Critical aortic stenosis and aortic regurgitation. 8. Pulmonary hypertension. 9. Severe tricuspid regurgitation. 10. Left ventricular systolic dysfunction. 11. Right ventricular systolic dysfunction. 12. Hypertension, hypertensive cardiovascular disease. 13. Cognitive disorder etiology to be determined: a). Dementia needs exclusion. b). Related to recent cerebral vascular event. 14. History of ethanol excess. Exclude withdrawal. 15. Hyponatremia and hypokalemia. 16. History of hypercholesterolemia. RECOMMENDATIONS: 1. Consider Holter Monitor in view of recent medical history. 2. Etiology of pulmonary masses need to be determined. 3. Further evaluation of critical aortic stenosis will depend on the etiology of pulmonary masses. 4. Neurological evaluation to exclude the possibility of dementia. 5. Correction of electrolyte imbalance. PROGNOSIS: Guarded. EZRA BRIAN M.D.
[2019-03-09] MEDS: LACTATED RINGERS SOLUTION 1,000 ML/1,000 ML INFUS.BAG IV SCH (11:24)
[2019-03-09] MEDS ORDERED: POTASSIUM CHLORIDE ORAL LIQUID 20 MEQ/15 ML PO ONE ×2 (11:45→16:00)
--- NOTE | 2019-03-09 11:50 | PN ---
Progress Note, Physician History of Present Illness: PULMONARY AWAKE,ALERT,NO DISTRESS,-SOB - Current Medication List Current Medications: Active Medications Apixaban (Eliquis -) 2.5 mg PO BID [facility] Last Admin: 03/09/19 10:30 Dose: 2.5 mg Lactated Ringer's (Lactated Ringers Solution) 1,000 ml in 1,000 mls @ 50 mls/ hr IV ASDIR [facility] Last Admin: 03/09/19 11:24 Dose: 50 mls/hr Levothyroxine Sodium (Synthroid -) 200 mcg PO DAILY@0700 [facility] Potassium Chloride (Potassium Chloride Oral Liquid) 40 meq PO ONCE ONE Stop: 03/09/19 11:46 - Objective Vital Signs: Vital Signs Temperature 97.8 F 03/09/19 05:56 Pulse Rate 65 03/09/19 05:56 Respiratory Rate 18 03/09/19 05:56 Blood Pressure 122/60 03/09/19 05:56 O2 Sat by Pulse Oximetry (%) 98 03/08/19 21:00 Constitutional: Yes: Well Nourished, Calm Eyes: Yes: WNL HENT: Yes: WNL Neck: Yes: WNL Cardiovascular: Yes: Pulse Irregular, S1, S2 Respiratory: Yes: CTA Bilaterally Gastrointestinal: Yes: Normal Bowel Sounds, Soft Extremities: Yes: WNL Edema: No Labs: 03/09/19 09:55 INR, PTT INR 1.88 (0.83-1.09) H 03/07/19 17:00 Problem List - Problems (1) INDY (acute kidney injury) Code(s): N17.9 - ACUTE KIDNEY FAILURE, UNSPECIFIED (2) Bradycardia by electrocardiogram Code(s): R00.1 - BRADYCARDIA, UNSPECIFIED (3) CHF (congestive heart failure) Code(s): I50.9 - HEART FAILURE, UNSPECIFIED Qualifiers: Heart failure type: combined systolic and diastolic Heart failure chronicity: acute on chronic Qualified Code(s): I50.43 - Acute on chronic combined systolic (congestive) and diastolic (congestive) heart failure (4) Lactic acidosis Code(s): E87.2 - ACIDOSIS (5) Status post fall Code(s): Z91.81 - HISTORY OF FALLING (6) Symptomatic bradycardia Code(s): R00.1 - BRADYCARDIA, UNSPECIFIED (7) Hypokalemia Code(s): E87.6 - HYPOKALEMIA (8) Pulmonary nodules/lesions, multiple Code(s): R91.8 - OTHER NONSPECIFIC ABNORMAL FINDING OF LUNG FIELD Assessment/Plan ASSESSMENT AND PLAN: s/p Fall Bradycardia Dehydration improving Acute Kidney Injury improving Lactic Acidosis improved LV Systolic Dysfunction Mitral/Aortic Regurgitation Atrial Fibrillation h/o CVA Lung Nodules Hyponatremia Hypothyroidism HTN - continue IVF - monitor urine output, creatinine - continue anticoagulation - monitor H/H - replete lytes - outpt f/u of lung nodules DR MARX
--- NOTE | 2019-03-09 12:10 | PN ---
Progress Note, Physician Chief Complaint: S/P INDY Combined CHF - Current Medication List Current Medications: Active Medications Apixaban (Eliquis -) 2.5 mg PO BID [facility] Last Admin: 03/09/19 10:30 Dose: 2.5 mg Lactated Ringer's (Lactated Ringers Solution) 1,000 ml in 1,000 mls @ 50 mls/ hr IV ASDIR [facility] Last Admin: 03/09/19 11:24 Dose: 50 mls/hr Levothyroxine Sodium (Synthroid -) 200 mcg PO DAILY@0700 [facility] - Objective Vital Signs: Vital Signs Temperature 97.8 F 03/09/19 05:56 Pulse Rate 65 03/09/19 05:56 Respiratory Rate 18 03/09/19 05:56 Blood Pressure 122/60 03/09/19 05:56 O2 Sat by Pulse Oximetry (%) 98 03/08/19 21:00 Labs: CBC, BMP 03/08/19 05:50 03/09/19 09:55 INR, PTT INR 1.88 (0.83-1.09) H 03/07/19 17:00
[2019-03-09 13:54] VITALS: BMI 25.3
[2019-03-09] MEDS: KCL 10 MEQ IVPB 10 MEQ/100 ML INFUS.BAG IVPB SCH ×2 (14:45→15:22)
[2019-03-09] MEDS ORDERED: POTASSIUM CHLORIDE TABS 20 MEQ TABLET.ER (FP) PO ONE (15:30)
--- NOTE | 2019-03-09 16:01 | PN ---
Progress Note, Physician History of Present Illness: Pt seen and examined at bedside. She is awake and alert. She denies shortness of breath. - Current Medication List Current Medications: Active Medications Apixaban (Eliquis -) 2.5 mg PO BID [facility] Last Admin: 03/09/19 10:30 Dose: 2.5 mg Levothyroxine Sodium (Synthroid -) 200 mcg PO DAILY@0700 [facility] Potassium Chloride (Potassium Chloride Oral Liquid) 40 meq PO ONCE ONE Stop: 03/09/19 16:01 Last Admin: 03/09/19 15:38 Dose: 40 meq - Objective Vital Signs: Vital Signs Temperature 98.3 F 03/09/19 13:38 Pulse Rate 67 03/09/19 13:38 Respiratory Rate 17 03/09/19 13:38 Blood Pressure 125/46 L 03/09/19 13:38 O2 Sat by Pulse Oximetry (%) 98 03/08/19 21:00 Constitutional: Yes: Calm Eyes: Yes: Conjunctiva Clear HENT: Yes: Atraumatic Cardiovascular: Yes: S1, S2 Respiratory: Yes: CTA Bilaterally Gastrointestinal: Yes: WNL Genitourinary: Yes: WNL Musculoskeletal: Yes: WNL Edema: Yes Edema: LLE: Trace, RLE: Trace Neurological: Yes: Oriented Psychiatric: Yes: Oriented Labs: CBC, BMP 03/08/19 05:50 03/09/19 09:55 INR, PTT INR 1.88 (0.83-1.09) H 03/07/19 17:00 Assessment/Plan Current Medications Generic Name Dose Route Start Last Admin Trade Name Pierceq PRN Reason Stop Dose Admin Apixaban 2.5 mg 03/08/19 22:00 03/09/19 10:30 Eliquis - PO 2.5 mg BID [facility] Administration Levothyroxine Sodium 200 mcg 03/10/19 07:00 Synthroid - PO DAILY@0700 [facility] Potassium Chloride 40 meq 03/09/19 16:00 03/09/19 15:38 Potassium Chloride Oral Liquid PO 03/09/19 16:01 40 meq ONCE ONE Administration Impression 1. hyponatremia 2. jaimie 3. hypokalemia 4. chf 5. syncope 6. multiple pulmonary masses suspicious for mets 7. hypothyroidism 8. a-fib 9. htn 10. hld Plan - will replace potassium - will d/c IV kcl and give PO as she is complaining of pain - follow repeat potassium - monitor pulse - lasix on hold - renal function is improved
[2019-03-09 17:21] LABS: BLOOD UREA NITROGEN 24.5 mg/dL (7-18); CALCIUM 8.8 mg/dL (8.5-10.1); CREATININE 1.2 mg/dL (0.55-1.3); POTASSIUM 4.8 mmol/L (3.5-5.1)
[2019-03-09] MEDS: ACETAMINOPHEN 325 MG TABLET (FP) PO PRN (20:27)
[2019-03-09] MEDS: ATORVASTATIN CA 10 MG TABLET (FP) PO SCH (21:35)
[2019-03-09] MEDS: MELATONIN 5 MG TABLETS PO PRN (23:41)
[2019-03-10] MEDS ORDERED: PT OWN MED DRAWER 7, Y5N ONE (06:28)
[2019-03-10] MEDS: LEVOTHYROXINE NA 200 MCG TABLET PO SCH (06:38)
[2019-03-10 06:46] LABS: BASO % 0.4 % (0-2.0); HEMATOCRIT 27.3 % (32.4-45.2); HEMOGLOBIN 9.1 GM/dL (10.7-15.3); LYMPH % 24.7 % (8-40); MCH 33.5 pg (25.7-33.7); MCHC 33.5 g/dl (32.0-36.0); MEAN CELL VOLUME 100.2 fl (80-96); MEAN PLT VOLUME 8.8 fl (7.5-11.1); NEUT % 60.9 % (42.8-82.8); PLATELET COUNT 148 K/MM3 (134-434); RBC 2.73 M/mm3 (3.60-5.2); RDW 18.4 % (11.6-15.6); WHITE BLOOD COUNT 3.2 K/mm3 (4.0-10.0)
[2019-03-10 07:41] LABS: ALBUMIN 3.1 g/dl (3.4-5.0); BLOOD UREA NITROGEN 23.4 mg/dL (7-18); CALCIUM 8.8 mg/dL (8.5-10.1); POTASSIUM 4.2 mmol/L (3.5-5.1); TOT PROT 5.7 g/dl (6.4-8.2)
[2019-03-10] MEDS: APIXABAN 2.5 MG TABLET PO SCH ×2 (08:59→21:42)
--- NOTE | 2019-03-10 09:45 | PN ---
Progress Note (short form) - Note Progress Note: feels well no sob alert Vital Signs Period Temp Pulse Resp BP Sys/Ham Pulse Ox Last 24 Hr 97.7 F-98.8 F 67-83 16-19 107-135/46-86 96 cor-rrr lungs decreased bs at bases abd soft,nt ext trace tibial edema CBC, BMP 03/10/19 05:25 03/10/19 05:25 Microbiology 03/07/19 18:30 Blood - Peripheral Venous Blood Culture - Preliminary NO GROWTH OBTAINED AFTER 48 HOURS, INCUBATION TO CONTINUE FOR 3 DAYS. 03/07/19 18:30 Blood - Peripheral Venous Blood Culture - Preliminary NO GROWTH OBTAINED AFTER 48 HOURS, INCUBATION TO CONTINUE FOR 3 DAYS. 03/07/19 18:00 Urine - Urine - Catheterized Urine Culture - Final NO GROWTH OBTAINED Current Medications Acetaminophen (Tylenol -) 650 mg PO Q4H PRN PRN Reason: PAIN Last Admin: 03/09/19 20:27 Dose: 650 mg Apixaban (Eliquis -) 2.5 mg PO BID [facility] Last Admin: 03/10/19 08:59 Dose: 2.5 mg Atorvastatin Calcium (Lipitor -) 10 mg PO HS [facility] Last Admin: 03/09/19 21:35 Dose: 10 mg Levothyroxine Sodium (Synthroid -) 200 mcg PO DAILY@0700 [facility] Last Admin: 03/10/19 06:38 Dose: 200 mcg Melatonin (Melatonin) 5 mg PO HS PRN PRN Reason: INSOMNIA Last Admin: 03/09/19 23:41 Dose: 5 mg a/p stable off antibioitics-cultures negative lactic acidosis resolved indy resolved further management per cardiology please call back if needed Problem List - Problems (1) Symptomatic bradycardia Code(s): R00.1 - BRADYCARDIA, UNSPECIFIED (2) INDY (acute kidney injury) Code(s): N17.9 - ACUTE KIDNEY FAILURE, UNSPECIFIED (3) Lactic acidosis Code(s): E87.2 - ACIDOSIS (4) HTN (hypertension) Code(s): I10 - ESSENTIAL (PRIMARY) HYPERTENSION
--- NOTE | 2019-03-10 11:11 | PN ---
Progress Note (short form) - Note Progress Note: Extended Note: Please refer to consult dated: 02/23/19 88-year-old female with a history of hypertension, hypertensive cardiovascular disease, critical aortic stenosis, history of congestive heart failure, status post cerebrovascular accident, history of hypothyroidism, persistent atrial fibrillation and pulmonary masses suspicious for metastatic disease. Admitted with history of being found on the floor at home and according to ER records patient also was noted to have marked bradyarrhythmia as noted by paramedics and received IV atropine. Remains in atrial fibrillation with controlled ventricular response, no SOB or chest discomfort reported. Still has signs of cognitive impairment. ALLERGIES: None reported. Active Medications Acetaminophen (Tylenol -) 650 mg PO Q4H PRN PRN Reason: PAIN Last Admin: 03/09/19 20:27 Dose: 650 mg Apixaban (Eliquis -) 2.5 mg PO BID [facility] Last Admin: 03/10/19 08:59 Dose: 2.5 mg Atorvastatin Calcium (Lipitor -) 10 mg PO HS [facility] Last Admin: 03/09/19 21:35 Dose: 10 mg Levothyroxine Sodium (Synthroid -) 200 mcg PO DAILY@0700 [facility] Last Admin: 03/10/19 06:38 Dose: 200 mcg Melatonin (Melatonin) 5 mg PO HS PRN PRN Reason: INSOMNIA Last Admin: 03/09/19 23:41 Dose: 5 mg PHYSICAL EXAMINATION: General: 88-year-old female who is alert. There is no pallor, cyanosis, clubbing, or jaundice. Last Vital Signs Temp Pulse Resp BP Pulse Ox 98.8 F 83 Irregularly irregular. 16 135/86 96 03/10/19 08:33 03/10/19 08:33 03/10/19 08:33 03/10/19 08:33 03/09/19 21:00 HEENT: Normocephalic. Pupils are equal, reacting to light and accommodation. There is arcus senilis. No xanthelasma is seen. Neck: Supple. No jugular venous distention. Slightly positive hepatojugular reflux. Carotids are 2+. Upstrokes are normal. Unable to appreciate any bruits. There is no thyromegaly. There is a well-healed left carotid endarterectomy scar. Heart: PMI is in the 5th intercostal space. No heaves or thrills. S1 is variable. S2 is split. Ejection systolic murmur Grade II/ is heard at the 2nd right intercostal space ending in ntcxv-gp-xvs systolic. No diastolic murmur or gallops are heard. Lungs: Fine crepitations at the right base. No other extraneous sounds are heard. Chest: Normal AP diameter. Expansion is symmetrical. Abdomen: Soft, protuberant, nontender. No hepatosplenomegaly or palpable masses are felt. Bowel sounds are present. No bruits are heard. Extremities: No calf tenderness or dependent edema. Pulses are equal. Dorsalis pedis pulses are 1 to 2+. Posterior tibial pulses are not palpable. There are varicosities noted. Laboratory Results - last 24 hr 03/09/19 03/10/19 03/10/19 14:30 05:25 05:25 WBC 3.2 L RBC 2.73 L Hgb 9.1 L Hct 27.3 L MCV 100.2 H MCH 33.5 MCHC 33.5 RDW 18.4 H Plt Count 148 MPV 8.8 Absolute Neuts (auto) 1.9 Neutrophils % 60.9 D Lymphocytes % 24.7 D Monocytes % 11.0 H Eosinophils % 3.0 D Basophils % 0.4 Nucleated RBC % 0 Sodium 137 135 L Potassium 4.8 4.2 Chloride 99 98 Carbon Dioxide 34 H 31 Anion Gap 4 L 7 L BUN 24.5 H 23.4 H Creatinine 1.2 1.0 Est GFR (CKD-EPI)AfAm 46.40 57.84 Est GFR (CKD-EPI)NonAf 40.04 49.91 Random Glucose 105 92 Calcium 8.8 8.8 Magnesium 2.0 Total Bilirubin 1.0 AST 22 ALT 33 Alkaline Phosphatase 54 Total Protein 5.7 L Albumin 3.1 L 03/07/19 17:00 TSH 4.77 H Echocardiogram dated February 22, 2019. Interpretation summary: Left ventricle is normal in size. Left ventricle systolic function is moderately reduced. There is moderate global hypokinesia of the left ventricle. Ejection fraction 40%-45%. Right ventricular systolic function is mildly reduced. Right ventricular systolic TID is 7 cm/sec, borderline left atrial enlargement. There is mild annular calcification. There is moderate mitral regurgitation. There is qzjftdsy-rx-groaco tricuspid regurgitation. Pulmonary systolic pressure is at least 48 mmHg if RA pressure is presumed to be 3 mmHg. Severe valvular aortic stenosis. The calculated aortic valve area by continuity equation is 0.8 cm2. Vhddydff-ex-roelzd aortic regurgitation. Coei-jr-buwdtojd pulmonic valvular regurgitation. There is no pericardial effusion. IMPRESSION: 1. History of significant bradycardia and hypotension etiology to be determined: a). Sick sinus syndrome needs exclusion. b). Precipitated or aggravated by electrolyte imbalance. c). Secondary to hypothyroidism. 2. Recent cerebral vascular accident possibly embolic. 3. Pulmonary masses, metastatic disease needs exclusion. 4. Status post CHF. 5. Critical aortic stenosis (see echo report). 6. Chest pain syndrome compatible with angina pectoris secondary to coronary artery disease/severe aortic stenosis. 7. Critical aortic stenosis and aortic regurgitation. 8. Pulmonary hypertension. 9. Severe tricuspid regurgitation. 10. Left ventricular systolic dysfunction. 11. Right ventricular systolic dysfunction. 12. Hypertension, hypertensive cardiovascular disease. 13. Cognitive disorder etiology to be determined: a). Dementia needs exclusion. b). Related to recent cerebral vascular event. 14. History of ethanol excess. Exclude withdrawal. 15. Hyponatremia and hypokalemia. 16. History of hypercholesterolemia. 17. Anemia etiology needs to be determined. RECOMMENDATIONS: 1. Holter Monitor. 2. Etiology of pulmonary masses need to be determined before any further evaluation of aortic stenosis can be undertaken. 3. Neurological evaluation to exclude the possibility of dementia. 4. Evaluation of anemia. 5. Increase ambulation. PROGNOSIS: Guarded. EZRA BRIAN M.D.
--- NOTE | 2019-03-10 11:49 | PN ---
Progress Note, Physician History of Present Illness: Pt seen and examined at bedside. She is awake and alert. She is eager to go home. She denies shortness of breath. - Current Medication List Current Medications: Active Medications Acetaminophen (Tylenol -) 650 mg PO Q4H PRN PRN Reason: PAIN Last Admin: 03/09/19 20:27 Dose: 650 mg Apixaban (Eliquis -) 2.5 mg PO BID [facility] Last Admin: 03/10/19 08:59 Dose: 2.5 mg Atorvastatin Calcium (Lipitor -) 10 mg PO HS [facility] Last Admin: 03/09/19 21:35 Dose: 10 mg Levothyroxine Sodium (Synthroid -) 200 mcg PO DAILY@0700 [facility] Last Admin: 03/10/19 06:38 Dose: 200 mcg Melatonin (Melatonin) 5 mg PO HS PRN PRN Reason: INSOMNIA Last Admin: 03/09/19 23:41 Dose: 5 mg - Objective Vital Signs: Vital Signs Temperature 98.8 F 03/10/19 08:33 Pulse Rate 83 03/10/19 08:33 Respiratory Rate 16 03/10/19 08:33 Blood Pressure 135/86 03/10/19 08:33 O2 Sat by Pulse Oximetry (%) 96 03/09/19 21:00 Constitutional: Yes: Calm Eyes: Yes: Conjunctiva Clear HENT: Yes: Atraumatic Neck: Yes: Supple Cardiovascular: Yes: S1, S2 Respiratory: Yes: CTA Bilaterally Gastrointestinal: Yes: Soft Genitourinary: Yes: WNL Musculoskeletal: Yes: WNL Edema: Yes Edema: LLE: Trace, RLE: Trace Neurological: Yes: Oriented Psychiatric: Yes: Oriented Labs: CBC, BMP 03/10/19 05:25 03/10/19 05:25 INR, PTT INR 1.88 (0.83-1.09) H 03/07/19 17:00 Assessment/Plan Current Medications Generic Name Dose Route Start Last Admin Trade Name Freq PRN Reason Stop Dose Admin Acetaminophen 650 mg 03/09/19 16:45 03/09/19 20:27 Tylenol - PO 650 mg Q4H PRN Administration PAIN Apixaban 2.5 mg 03/08/19 22:00 03/10/19 08:59 Eliquis - PO 2.5 mg BID [facility] Administration Atorvastatin Calcium 10 mg 03/09/19 22:00 03/09/19 21:35 Lipitor - PO 10 mg HS [facility] Administration Levothyroxine Sodium 200 mcg 03/10/19 07:00 03/10/19 06:38 Synthroid - PO 200 mcg DAILY@0700 [facility] Administration Melatonin 5 mg 03/09/19 23:31 03/09/19 23:41 Melatonin PO 5 mg HS PRN Administration INSOMNIA Impression 1. hyponatremia 2. jaimie 3. hypokalemia 4. chf 5. syncope 6. multiple pulmonary masses suspicious for mets 7. hypothyroidism 8. a-fib 9. htn 10. hld Plan - potassium is improved - repeat labs in am - renal function stable - lasix per cardio - monitor sodium - lung masses will need to be followed - can restart salt tabs if sodium drops further
--- NOTE | 2019-03-10 12:48 | PN ---
Progress Note, Physician History of Present Illness: pulmonary alert,comfortable,-sob - Current Medication List Current Medications: Active Medications Acetaminophen (Tylenol -) 650 mg PO Q4H PRN PRN Reason: PAIN Last Admin: 03/09/19 20:27 Dose: 650 mg Apixaban (Eliquis -) 2.5 mg PO BID [facility] Last Admin: 03/10/19 08:59 Dose: 2.5 mg Atorvastatin Calcium (Lipitor -) 10 mg PO HS [facility] Last Admin: 03/09/19 21:35 Dose: 10 mg Levothyroxine Sodium (Synthroid -) 200 mcg PO DAILY@0700 [facility] Last Admin: 03/10/19 06:38 Dose: 200 mcg Melatonin (Melatonin) 5 mg PO HS PRN PRN Reason: INSOMNIA Last Admin: 03/09/19 23:41 Dose: 5 mg - Objective Vital Signs: Vital Signs Temperature 98.8 F 03/10/19 08:33 Pulse Rate 83 03/10/19 08:33 Respiratory Rate 16 03/10/19 08:33 Blood Pressure 135/86 03/10/19 08:33 O2 Sat by Pulse Oximetry (%) 96 03/09/19 21:00 Constitutional: Yes: Well Nourished, No Distress, Calm Eyes: Yes: WNL HENT: Yes: WNL Neck: Yes: WNL Cardiovascular: Yes: Pulse Irregular, S1, S2 Respiratory: Yes: CTA Bilaterally Gastrointestinal: Yes: Normal Bowel Sounds, Soft Extremities: Yes: WNL Edema: No Labs: CBC, BMP 03/10/19 05:25 03/10/19 05:25 INR, PTT INR 1.88 (0.83-1.09) H 03/07/19 17:00 Problem List - Problems (1) INDY (acute kidney injury) Code(s): N17.9 - ACUTE KIDNEY FAILURE, UNSPECIFIED (2) Bradycardia by electrocardiogram Code(s): R00.1 - BRADYCARDIA, UNSPECIFIED (3) CHF (congestive heart failure) Code(s): I50.9 - HEART FAILURE, UNSPECIFIED Qualifiers: Heart failure type: combined systolic and diastolic Heart failure chronicity: acute on chronic Qualified Code(s): I50.43 - Acute on chronic combined systolic (congestive) and diastolic (congestive) heart failure (4) Lactic acidosis Code(s): E87.2 - ACIDOSIS (5) Status post fall Code(s): Z91.81 - HISTORY OF FALLING (6) Symptomatic bradycardia Code(s): R00.1 - BRADYCARDIA, UNSPECIFIED (7) Hypokalemia Code(s): E87.6 - HYPOKALEMIA (8) Pulmonary nodules/lesions, multiple Code(s): R91.8 - OTHER NONSPECIFIC ABNORMAL FINDING OF LUNG FIELD Assessment/Plan ASSESSMENT AND PLAN: s/p Fall Bradycardia Dehydration improving Acute Kidney Injury improving Lactic Acidosis improved LV Systolic Dysfunction Mitral/Aortic Regurgitation Atrial Fibrillation h/o CVA Lung Nodules Hyponatremia Hypothyroidism HTN - monitor urine output, creatinine - anticoagulation - monitor H/H - monitor lytes - outpt f/u of lung nodules - Pet scan outpatient DR MARX
[2019-03-10] MEDS: ACETAMINOPHEN 325 MG TABLET (FP) PO PRN (16:03)
--- NOTE | 2019-03-10 17:59 | PN ---
Progress Note, Physician Chief Complaint: S/P INDY Combined CHF - Current Medication List Current Medications: Active Medications Acetaminophen (Tylenol -) 650 mg PO Q4H PRN PRN Reason: PAIN Last Admin: 03/10/19 16:03 Dose: 650 mg Apixaban (Eliquis -) 2.5 mg PO BID [facility] Last Admin: 03/10/19 08:59 Dose: 2.5 mg Atorvastatin Calcium (Lipitor -) 10 mg PO HS [facility] Last Admin: 03/09/19 21:35 Dose: 10 mg Levothyroxine Sodium (Synthroid -) 200 mcg PO DAILY@0700 [facility] Last Admin: 03/10/19 06:38 Dose: 200 mcg Melatonin (Melatonin) 5 mg PO HS PRN PRN Reason: INSOMNIA Last Admin: 03/09/19 23:41 Dose: 5 mg - Objective Vital Signs: Vital Signs Temperature 97.8 F 03/10/19 14:00 Pulse Rate 101 H 03/10/19 14:00 Respiratory Rate 18 03/10/19 14:00 Blood Pressure 135/62 03/10/19 14:00 O2 Sat by Pulse Oximetry (%) 95 03/10/19 09:00 Constitutional: Yes: Well Nourished, No Distress, Calm Cardiovascular: Yes: Regular Rate and Rhythm Respiratory: Yes: Regular Gastrointestinal: Yes: WNL, Normal Bowel Sounds, Soft Genitourinary: Yes: Incontinence Musculoskeletal: Yes: Muscle Weakness Extremities: Yes: WNL Edema: Yes Edema: LLE: 1+, RLE: 1+ Peripheral Pulses WNL: Yes Neurological: Yes: Alert, Confusion Psychiatric: Yes: Alert Labs: CBC, BMP 03/10/19 05:25 03/10/19 05:25 INR, PTT INR 1.88 (0.83-1.09) H 03/07/19 17:00 Problem List - Problems (1) INDY (acute kidney injury) Code(s): N17.9 - ACUTE KIDNEY FAILURE, UNSPECIFIED (2) Bradycardia by electrocardiogram Code(s): R00.1 - BRADYCARDIA, UNSPECIFIED (3) CHF (congestive heart failure) Code(s): I50.9 - HEART FAILURE, UNSPECIFIED Qualifiers: Heart failure type: combined systolic and diastolic Heart failure chronicity: acute on chronic Qualified Code(s): I50.43 - Acute on chronic combined systolic (congestive) and diastolic (congestive) heart failure (4) Lactic acidosis Code(s): E87.2 - ACIDOSIS (5) Sepsis Code(s): A41.9 - SEPSIS, UNSPECIFIED ORGANISM (6) Status post fall Code(s): Z91.81 - HISTORY OF FALLING (7) Combined systolic and diastolic congestive heart failure Code(s): I50.40 - UNSP COMBINED SYSTOLIC AND DIASTOLIC (CONGESTIVE) HRT FAIL Qualifiers: Heart failure chronicity: acute on chronic Qualified Code(s): I50.43 - Acute on chronic combined systolic (congestive) and diastolic (congestive) heart failure (8) Pulmonary nodules/lesions, multiple Code(s): R91.8 - OTHER NONSPECIFIC ABNORMAL FINDING OF LUNG FIELD
--- NOTE | 2019-03-10 19:50 | CONSULT ---
Consult - text type - Consultation Consultation Note: 88F with a PMH of CHF, HTN, HLD, pAIFIB (on Eloquis and ASA), stroke, LE venous stasis, hypothyroidism, medication noncompliance who presents to the ER via EMS for fall for unknown amount of time off the bed. History obtained from medical records as patient is unable to provide a history on my examination. Pleasantly confused - History Source History Provided By: Medical Record - Past Medical History [employer]: Yes: CVA Cardio/Vascular: Yes: HTN, Hyperlipdemia Endocrine: Yes: Hypothyroidism - Past Surgical History Past Surgical History: Yes: Carotid Endarterectomy (left) - Smoking History Smoking history: Never smoked If you are a former smoker, when did you quit?: 60yrs ago - Social History Usual Living Arrangement: With Child (lives with daughter in house with 4 steps to enter and 20 inside) ADL: Independent (Independent in ADLs without AD) - Allergies Allergies/Adverse Reactions: Allergies Allergy/AdvReac Type Severity Reaction Status Date / Time No Known Allergies Allergy Verified 02/21/19 02:42 - Home Medications Home Medications: Ambulatory Orders Diltiazem Cd [Cardizem Cd -] 120 mg PO DAILY #0 cap.cd.24h 10/21/13 Simvastatin [Zocor] 20 mg PO HS #1 10/21/13 Apixaban [Eliquis -] 2.5 mg PO BID #30 tablet 03/01/19 Aspirin Coated [Ecotrin -] 162 mg PO DAILY #30 tablet.ec 03/01/19 Furosemide [Lasix -] 40 mg PO DAILY #30 tablet 03/01/19 Levothyroxine [Synthroid -] 200 mcg PO DAILY@0700 #60 tablet 03/01/19 Liothyronine Sodium [Cytomel -] 10 mcg PO AM #30 tablet 03/01/19 Metoprolol Succinate [Toprol XL -] 25 mg PO DAILY #30 tab.sr.24h 03/01/19 Sodium Chloride Tablet - 1 gm PO DAILY #30 tablet 03/01/19 Amoxicillin - [Amoxicillin 500mg Capsule -] 500 mg PO BID #14 capsule 03/03/19 Physical Exam Vital Signs: AFVSS Cor: RSR, No murmurs, No gallops Lungs: Clear to P&A Abd: Soft, Normal bowel sounds, No organomegaly Ext:No significant edema LAbs/Meds reviewed Assessment/Plan 88F with a PMH of CHF, HTN, HLD, pAIFIB (on Eloquis and ASA), stroke, LE venous stasis, hypothyroidism, medication noncompliance who preseneted for fall and found to be bradycardic. Patient with signoficant cognitive and functional impairment form dementia. Very pleasantly confused Lung lesions have increased in siz--rt. lung base 2.1cm, lingular. Hypodense ledision in fatty liver and in spleen Concern for metastatic disease But given patients overall functional status and cognitive status would discuss goals of care discussion with health care proxy prior to pursuing any further w/ u. Would recommend conservative approach.
[2019-03-10] MEDS: MELATONIN 5 MG TABLETS PO PRN (21:42)
[2019-03-10] MEDS: ATORVASTATIN CA 10 MG TABLET (FP) PO SCH (21:42)
[2019-03-11] MEDS ORDERED: LORazepam 2 MG/ML SDV VIAL IVPUSH ONE (00:38)
[2019-03-11] MEDS ORDERED: LORazepam 0.5 MG TABLET PO ONE (02:01)
[2019-03-11] MEDS: ACETAMINOPHEN 325 MG TABLET (FP) PO PRN ×2 (03:22→09:16)
[2019-03-11] MEDS ORDERED: PT OWN MED DRAWER 7, Y5N ONE (05:39)
[2019-03-11] MEDS: LEVOTHYROXINE NA 200 MCG TABLET PO SCH (06:58)
[2019-03-11 07:44] LABS: BASO % 0.5 % (0-2.0); EOS % 2.1 % (0-4.5); HEMATOCRIT 31.3 % (32.4-45.2); HEMOGLOBIN 10.4 GM/dL (10.7-15.3); LYMPH % 14.4 % (8-40); MCH 33.4 pg (25.7-33.7); MCHC 33.2 g/dl (32.0-36.0); MEAN CELL VOLUME 100.6 fl (80-96); MEAN PLT VOLUME 8.9 fl (7.5-11.1); MONO % 7.9 % (3.8-10.2); NEUT % 75.1 % (42.8-82.8); PLATELET COUNT 156 K/MM3 (134-434); RBC 3.11 M/mm3 (3.60-5.2); RDW 18.7 % (11.6-15.6); WHITE BLOOD COUNT 4.1 K/mm3 (4.0-10.0)
[2019-03-11 08:27] LABS: ALBUMIN 3.9 g/dl (3.4-5.0); BILIRUBIN,TOTAL 1.2 mg/dL (0.2-1); BLOOD UREA NITROGEN 19.2 mg/dL (7-18); CALCIUM 9.7 mg/dL (8.5-10.1); CREATININE 0.9 mg/dL (0.55-1.3); POTASSIUM 3.8 mmol/L (3.5-5.1); TOT PROT 7.2 g/dl (6.4-8.2)
[2019-03-11] MEDS: APIXABAN 2.5 MG TABLET PO SCH (09:11)
[2019-03-11] MEDS ORDERED: FUROSEMIDE 20 MG TABLET (FP) PO ONE (11:19)
--- NOTE | 2019-03-11 11:19 | PN ---
Progress Note, Physician History of Present Illness: Pt seen and examined at bedside. She is awake and alert. She denies shortness of breath. She complains of lower ext edema. - Current Medication List Current Medications: Active Medications Acetaminophen (Tylenol -) 650 mg PO Q4H PRN PRN Reason: PAIN Last Admin: 03/11/19 09:16 Dose: 650 mg Apixaban (Eliquis -) 2.5 mg PO BID [facility] Last Admin: 03/11/19 09:11 Dose: 2.5 mg Atorvastatin Calcium (Lipitor -) 10 mg PO HS [facility] Last Admin: 03/10/19 21:42 Dose: 10 mg Levothyroxine Sodium (Synthroid -) 200 mcg PO DAILY@0700 [facility] Last Admin: 03/11/19 06:58 Dose: 200 mcg Melatonin (Melatonin) 5 mg PO HS PRN PRN Reason: INSOMNIA Last Admin: 03/10/19 21:42 Dose: 5 mg - Objective Vital Signs: Vital Signs Temperature 98.0 F 03/11/19 08:49 Pulse Rate 102 H 03/11/19 08:49 Respiratory Rate 18 03/11/19 08:49 Blood Pressure 162/78 03/11/19 08:49 O2 Sat by Pulse Oximetry (%) 95 03/11/19 10:00 Constitutional: Yes: Calm Eyes: Yes: Conjunctiva Clear HENT: Yes: Atraumatic Neck: Yes: Supple Cardiovascular: Yes: S1, S2 Respiratory: Yes: CTA Bilaterally Gastrointestinal: Yes: Normal Bowel Sounds, Soft Genitourinary: Yes: WNL Edema: Yes Edema: LLE: 1+, RLE: 1+ Neurological: Yes: Oriented Psychiatric: Yes: Oriented Labs: CBC, BMP 03/11/19 05:35 03/11/19 05:35 INR, PTT INR 1.88 (0.83-1.09) H 03/07/19 17:00 Assessment/Plan Current Medications Generic Name Dose Route Start Last Admin Trade Name Freq PRN Reason Stop Dose Admin Acetaminophen 650 mg 03/09/19 16:45 03/11/19 09:16 Tylenol - PO 650 mg Q4H PRN Administration PAIN Apixaban 2.5 mg 03/08/19 22:00 03/11/19 09:11 Eliquis - PO 2.5 mg BID [facility] Administration Atorvastatin Calcium 10 mg 03/09/19 22:00 03/10/19 21:42 Lipitor - PO 10 mg HS [facility] Administration Levothyroxine Sodium 200 mcg 03/10/19 07:00 03/11/19 06:58 Synthroid - PO 200 mcg DAILY@0700 [facility] Administration Melatonin 5 mg 03/09/19 23:31 03/10/19 21:42 Melatonin PO 5 mg HS PRN Administration INSOMNIA Impression 1. hyponatremia 2. jaimie 3. hypokalemia 4. chf 5. syncope 6. multiple pulmonary masses suspicious for mets 7. hypothyroidism 8. a-fib 9. htn 10. hld Plan - renal function stable - lyte stable for now - will give a small dose of lasix today - monitor sodium - oncology follow up - cardio follow up for diuretics - lung masses will need to be followed - can restart salt tabs if sodium drops further
--- NOTE | 2019-03-11 12:15 | PN ---
Progress Note (short form) - Note Progress Note: Resting in NAD. No CP or SOB. No acute events overnight. Intake & Output 03/08/19 03/09/19 03/10/19 03/11/19 23:59 23:59 23:59 23:59 Intake Total 746 2250 1590 250 Output Total 5800 600 800 Balance -5054 1650 790 250 Weight 143 lb 8 oz 143 lb 141 lb Last Vital Signs Temp Pulse Resp BP Pulse Ox 98.0 F 102 H 18 162/78 95 03/11/19 08:49 03/11/19 08:49 03/11/19 08:49 03/11/19 08:49 03/11/19 10:00 Active Medications Acetaminophen (Tylenol -) 650 mg PO Q4H PRN PRN Reason: PAIN Last Admin: 03/11/19 09:16 Dose: 650 mg Apixaban (Eliquis -) 2.5 mg PO BID [facility] Last Admin: 03/11/19 09:11 Dose: 2.5 mg Atorvastatin Calcium (Lipitor -) 10 mg PO HS [facility] Last Admin: 03/10/19 21:42 Dose: 10 mg Levothyroxine Sodium (Synthroid -) 200 mcg PO DAILY@0700 [facility] Last Admin: 03/11/19 06:58 Dose: 200 mcg Melatonin (Melatonin) 5 mg PO HS PRN PRN Reason: INSOMNIA Last Admin: 03/10/19 21:42 Dose: 5 mg Constitutional: Yes: No Distress Eyes: Yes: WNL HENT: Yes: WNL Neck: Yes: WNL Cardiovascular: Yes: Pulse Irregular, S1, S2 Respiratory: Yes: CTA Bilaterally Gastrointestinal: Yes: Normal Bowel Sounds, Soft Extremities: Yes: WNL Edema: No Labs: Laboratory Results - last 24 hr 03/11/19 03/11/19 05:35 05:35 WBC 4.1 RBC 3.11 L Hgb 10.4 L Hct 31.3 L MCV 100.6 H MCH 33.4 MCHC 33.2 RDW 18.7 H Plt Count 156 MPV 8.9 Absolute Neuts (auto) 3.1 Neutrophils % 75.1 D Lymphocytes % 14.4 D Monocytes % 7.9 Eosinophils % 2.1 Basophils % 0.5 Nucleated RBC % 0 Sodium 135 L Potassium 3.8 Chloride 96 L Carbon Dioxide 29 Anion Gap 10 BUN 19.2 H Creatinine 0.9 Est GFR (CKD-EPI)AfAm 65.70 Est GFR (CKD-EPI)NonAf 56.69 Random Glucose 93 Calcium 9.7 Total Bilirubin 1.2 H AST 26 ALT 35 Alkaline Phosphatase 67 Total Protein 7.2 Albumin 3.9 Problem List - Problems (1) INDY (acute kidney injury) Code(s): N17.9 - ACUTE KIDNEY FAILURE, UNSPECIFIED (2) Bradycardia by electrocardiogram Code(s): R00.1 - BRADYCARDIA, UNSPECIFIED (3) CHF (congestive heart failure) Code(s): I50.9 - HEART FAILURE, UNSPECIFIED Qualifiers: Heart failure type: combined systolic and diastolic Heart failure chronicity: acute on chronic Qualified Code(s): I50.43 - Acute on chronic combined systolic (congestive) and diastolic (congestive) heart failure (4) Lactic acidosis Code(s): E87.2 - ACIDOSIS (5) Status post fall Code(s): Z91.81 - HISTORY OF FALLING (6) Symptomatic bradycardia Code(s): R00.1 - BRADYCARDIA, UNSPECIFIED (7) Hypokalemia Code(s): E87.6 - HYPOKALEMIA (8) Pulmonary nodules/lesions, multiple Code(s): R91.8 - OTHER NONSPECIFIC ABNORMAL FINDING OF LUNG FIELD Assessment/Plan s/p Fall Bradycardia Dehydration improving Acute Kidney Injury improving Lactic Acidosis improved LV Systolic Dysfunction Mitral/Aortic Regurgitation Atrial Fibrillation h/o CVA Lung Nodules Hyponatremia Hypothyroidism HTN - monitor urine output, creatinine - anticoagulation - monitor H/H - monitor lytes - outpt f/u of lung nodules - Can have can PET scan outpatient Dr Wolf
[2019-03-11] MEDS ORDERED: LEVOTHYROXINE NA 200 MCG TABLET PO SCH (14:00)
--- NOTE | 2019-03-11 14:02 | DS ---
Physical Examination Vital Signs: Vital Signs Temperature 98.0 F 03/11/19 08:49 Pulse Rate 102 H 03/11/19 08:49 Respiratory Rate 18 03/11/19 08:49 Blood Pressure 162/78 03/11/19 08:49 O2 Sat by Pulse Oximetry (%) 95 03/11/19 10:00 Constitutional: Yes: Calm Cardiovascular: Yes: Regular Rate and Rhythm, S1, S2 Respiratory: Yes: CTA Bilaterally Gastrointestinal: Yes: Normal Bowel Sounds, Soft Neurological: Yes: Alert, Oriented Labs: CBC, BMP 03/11/19 05:35 03/11/19 05:35 Discharge Summary Problems reviewed: Yes Reason For Visit: ACUTE KIDNEY FAILURE/EDEMA/WEAKNESS/BRADYCARDIA Current Active Problems INDY (acute kidney injury) (Acute) Bradycardia by electrocardiogram (Acute) CHF (congestive heart failure) (Acute) Lactic acidosis (Acute) Sepsis (Acute) Status post fall (Acute) Symptomatic bradycardia (Acute) Symptomatic bradycardia (Acute) Weakness (Acute) Hospital Course: PCP: Rhonda Gupta - Admission Chief Complaint: s/p Fall History of Present Illness: This is a 88 y/o woman with a significant medical history of HTN, CHF, CVA, pAFIB ( on Eliquis), Hypothyroidism, Chronic Venous Stasis of Lower Extremities , Recently admitted 02/21-03/03 for CHF exacerbation and malignant hypertension. Who presents to the ED s/p fall with generalized weakness, headache and bodyaches. Spoke with the patient's daughter Maribell via telephone, who states" my daughter was helping my mom, my mom felt weak and my daughter could not hold her up, so she slid her to the floor. Per the daughter, the patient had no LOC or head trauma. Patient denies chest pain, cough, shortness of breath, any difficulty breathing. Per ED records: patient was found on the floor by EMS bradycardic 30's given Atropine, on arrival in ED P- 39 given Atropine 1mg ED course noted for: (1) EKG- Junctional Bradycardia (2) BP- 61/42~ 81/46 (3) Head CT- No evidence of significant interval change (4) Spinal CT/Chest CT- bilateral patchy airspace disease may be due to edema or infiltrates. 1.8 cm speculated nodule in left lung apex, 1.2cm speculated nodule in the RUL, and 2.3 speculated nodule in the RLL potentially representing malignancy, Trace bilateral pleural effusions. No pneumothorax, No medistinal hematoma, No acute fx (5) CTAP- Hepatic granuloma, distended gallbladder, small renal cyst and bilateral renal cortical scarring. No renal or urinary calculi, No AAA, No evidence for diverticulitis, appendicitis, small bowel obstruction or free air. Mild presacral pelvic edema again noted (6) Lactic Acid- 2.7~2.5 patient admitted tsh elevated synthroid dose increased as incrase in TSH all av liu blocking agents stopped bc of bradycardia ,continue eliquis bid' lactic acid improved now normal lung nodules seen on ct scan need outpateint folow up and monitor sodium as well Condition: Guarded - Instructions Disposition: [facility] - Home Medications Comprehensive Discharge Medication List: Ambulatory Orders Diltiazem Cd [Cardizem Cd -] 120 mg PO DAILY #0 cap.cd.24h 10/21/13 Simvastatin [Zocor] 20 mg PO HS #1 10/21/13 Apixaban [Eliquis -] 2.5 mg PO BID #30 tablet 03/01/19 Aspirin Coated [Ecotrin -] 162 mg PO DAILY #30 tablet.ec 03/01/19 Furosemide [Lasix -] 40 mg PO DAILY #30 tablet 03/01/19 Levothyroxine [Synthroid -] 200 mcg PO DAILY@0700 #60 tablet 03/01/19 Liothyronine Sodium [Cytomel -] 10 mcg PO AM #30 tablet 03/01/19 Metoprolol Succinate [Toprol XL -] 25 mg PO DAILY #30 tab.sr.24h 03/01/19 Sodium Chloride Tablet - 1 gm PO DAILY #30 tablet 03/01/19 Amoxicillin - [Amoxicillin 500mg Capsule -] 500 mg PO BID #14 capsule 03/03/19
--- NOTE | 2019-03-11 14:03 | PN ---
Progress Note (short form) - Note Progress Note: Subjective: Patient seen and examined at bedside. No new complaints, no events overnight. Patient waiting to go home. Objective: Vital Signs Temperature 98.0 F 03/11/19 08:49 Pulse Rate 102 H 03/11/19 08:49 Respiratory Rate 18 03/11/19 08:49 Blood Pressure 162/78 03/11/19 08:49 O2 Sat by Pulse Oximetry (%) 95 03/11/19 10:00 Physical exam: Gen.: patient found lying in bed. Well appearing. Awake, alert. Lungs: clear to auscultation bilaterally down to the bases. Heart: regular rate and rhythm. S1, S2 heard. No murmurs gallops or rubs heard. Abdomen: soft, nontender, nondistended. Bowel sounds heard. Extremities: no peripheral edema noted. No bruising, swelling, erythema or warmth of extremities noted. neuro: patient A&O x3. Moving all four limbs spontaneously. Active Medications Acetaminophen (Tylenol -) 650 mg PO Q4H PRN PRN Reason: PAIN Last Admin: 03/11/19 09:16 Dose: 650 mg Apixaban (Eliquis -) 2.5 mg PO BID [facility] Last Admin: 03/11/19 09:11 Dose: 2.5 mg Atorvastatin Calcium (Lipitor -) 10 mg PO HS [facility] Last Admin: 03/10/19 21:42 Dose: 10 mg Levothyroxine Sodium (Synthroid -) 250 mcg PO DAILY@0700 [facility] Melatonin (Melatonin) 5 mg PO HS PRN PRN Reason: INSOMNIA Last Admin: 03/10/19 21:42 Dose: 5 mg Home Medications Medication Instructions Recorded Simvastatin [Zocor] 20 mg PO HS #1 10/21/13 Apixaban [Eliquis -] 2.5 mg PO BID #30 tablet 03/01/19 Liothyronine Sodium [Cytomel -] 10 mcg PO AM #30 tablet 03/01/19 Levothyroxine Sodium [Euthyrox] 50 mcg PO DAILY #30 tablet 03/11/19 Levothyroxine [Synthroid -] 200 mcg PO DAILY@0700 #30 tablet 03/11/19 Allergies Allergy/AdvReac Type Severity Reaction Status Date / Time No Known Allergies Allergy Verified 02/21/19 02:42 CBC, BMP 03/11/19 05:35 03/11/19 05:35 Assessment and plan: The patient is an 88 y/o f w/ PMH HTN, CHF, CVA, pAFIB ( on Eliquis), Hypothyroidism, Chronic Venous Stasis of Lower Extremities who came into the ED c/o generalized weakness, headache and bodyaches. Of note, she was recently admitted to [facility] on 02/21 for CHF exacerbation and malignant HTN. The patient also has metastatic lung Ca. #Metastatic lung Ca -no acute intervention needed -patient should follow up as an outpatient for further hematologic treatment -suggest that primary team have a goals of care discussion regarding further oncologic treatment.
[2019-03-11 18:18] VITALS: BP 145/85; PULSE 99; TEMP 98
[2019-03-12] MEDS ORDERED: LEVOTHYROXINE 200 MCG, LEVOTHYROXINE 50 MCG PO SCH (07:00)
== END 2019-03-11 19:35 | DRG 682 ==
LOC: JER 16:27 → JERBED 18:36 → JICU 23:20 → J4S 03-08 18:28 → UNDODISIN 03-08 19:52
PROVIDERS: ADMIT Internal Medicine; ATTEND Family Medicine
DX: N17.9 Acute kidney failure, unspecified (principal); I50.43 Acute on chronic combined systolic (congestive) and diastolic (congestive) heart failure; E87.2 Acidosis; E87.1 Hypo-osmolality and hyponatremia; C34.90 Malignant neoplasm of unspecified part of unspecified bronchus or lung; I11.0 Hypertensive heart disease with heart failure; R00.1 Bradycardia, unspecified; E03.9 Hypothyroidism, unspecified; I95.9 Hypotension, unspecified; E87.6 Hypokalemia; E86.0 Dehydration; R55 Syncope and collapse; R91.1 Solitary pulmonary nodule; E78.5 Hyperlipidemia, unspecified; I35.0 Nonrheumatic aortic (valve) stenosis; R07.89 Other chest pain; I36.1 Nonrheumatic tricuspid (valve) insufficiency; D64.9 Anemia, unspecified; I48.0 Paroxysmal atrial fibrillation; I34.0 Nonrheumatic mitral (valve) insufficiency
CPT/HCPCS: 36415; 70450-TC; 71045-TC-FY; 71250-TC; 72125-TC; 72170-TC-FY; 73700-TC-RT; 74176-TC; 76705-TC; 76775-TC; 80048; 80053; 81003; 82272; 82550; 83605; 83735; 83880; 84100; 84443; 84484; 85025; 85610; 85730; 86850; 86900; 86901; 87040; 87086; 93005; 93010; 97116-GP; 97161-GP; 99285-25